=== PATIENT | female | born 1965 | race African-American/Black ===

== ENCOUNTER → 2017-03-13 | Outpatient (CLI) | payer OTHER ==
[2016-09-28 10:30] VITALS: BP 118/70
[~2017-03-13] MED LIST: AMLO-254 PO; CALC200T3 PO; CARV3.12 PO; DIAZEPAM10 MG PO; DOCU-27 PO; HYDR-2762 PO; HYDR-971 PO; HYDR59LO TP; IBUP-1060 PO; LEVE500T56 PO; LISI-334 PO; MECL25TA3 PO; METO25TA9 PO; SIMV40TA3 PO; ZOLP10TA PO
--- NOTE | 2017-03-13 16:19 | EEG ---
DATE OF SERVICE: 03/13/2017 EEG NUMBER: [id number]. OBJECTIVE: This is a 51-year-old -Prydeinig female patient with history of confusional episodes. EEG was requested to evaluate cerebral activity and help rule out seizure. MEDICATIONS: No anti-seizure medication. FINDINGS: 1. Background: The patient was recorded in the awake, drowsy, and sleep states. The overall background amplitude is 10-30 microvolts. A posterior dominant rhythm of 8 Hz is observed with superimposed fast activity in beta frequency. 2. Abnormalities: No specific epileptiform discharge or electrographic seizure is seen. No focal or diffuse slowing. 3. Activation: Hyperventilation was performed with good efforts and normal response. Intermittent photic stimulation was performed with photic driving. No specific epileptiform discharge or electrographic seizure induced. IMPRESSION: This EEG is a borderline study for the awake, drowsy, and sleep states. There is a superimposed fast activity in beta frequency throughout the entire recording. No focal, lateralizing, specific epileptiform discharge, or electrographic seizure is seen. LATIA FLORIAN MD DR: CANDELARIA/kem JOB#: [id number] / [id number] BUTCH
== END | disposition home or self-care (01) ==
LOC: RT 09:33
PROVIDERS: ATTEND Psychiatry & Neurology Neurology
DX: G47.33 Obstructive sleep apnea (adult) (pediatric) (principal)
CPT/HCPCS: 95816

== ENCOUNTER 2017-05-05 21:22 | Emergency (ER) | payer OTHER ==
[~2017-05-05 21:22] MED LIST changes: +DOCU-109 PO; -DOCU-27 PO
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
[2017-05-05] MEDS ORDERED: HYDROcodone/APAP 5/325MG 1 TAB TABLET PO ONE (22:30)
[2017-05-05] MEDS ORDERED: CYCL5TAB PO (23:17)
[2017-05-05 23:30] VITALS: BP 122/65
== END 2017-05-05 23:30 | disposition home or self-care (01) ==
LOC: ER 21:22
DX: S09.90XA Unspecified injury of head, initial encounter (principal); M54.2 Cervicalgia; I10 Essential (primary) hypertension; E78.00 Pure hypercholesterolemia, unspecified; Z86.73 Personal history of transient ischemic attack (TIA), and cerebral infarction without residual deficits; V43.62XA Car passenger injured in collision with other type car in traffic accident, initial encounter; Y93.89 Activity, other specified; Y99.8 Other external cause status; Y92.415 Exit ramp or entrance ramp of street or highway as the place of occurrence of the external cause
CPT/HCPCS: 70450; 72125; 99284-25

== ENCOUNTER → 2017-06-11 | Outpatient (CLI) | payer OTHER ==
[~2017-06-11] MED LIST changes: +CYCL5TAB PO
[2017-06-11 12:50] LABS: GFR 69.9
[2017-06-11 22:12] LABS: VITAMIN D25(OH)TOTAL 5.5 ng/mL (30.0-100.0)
== END | disposition home or self-care (01) ==
LOC: LAB 11:56
PROVIDERS: ATTEND Psychiatry & Neurology Neurology
DX: R53.1 Weakness (principal)
CPT/HCPCS: 36415; 82306; 82550; 82565; 82607; 84443; 84450; 84460; 84520; 85651

== ENCOUNTER 2017-07-19 06:14 | Observation (INO) | payer OTHER ==
[~2017-07-19] VITALS: Ht 162.6 cm; Wt 96.2 kg
[2017-07-19 06:57] LABS: BASO # 0.1 x10^3/uL (0.0-0.2); BASO % 1 % (0-3); EOS % 2 % (0-3); HEMATOCRIT 38.7 % (36.0-47.0); HEMOGLOBIN 12.7 g/dL (12.0-15.5); LYMPH # 2.5 x10^3/uL (1.0-4.8); LYMPH % 38 % (24-48); MEAN CORPUSCULAR HEMOGLOBIN 33 pg (25-35); MEAN CORPUSCULAR HGB CONC 33 g/dL (31-37); MEAN CORPUSCULAR VOLUME 99 fL (79-100); MONO % 10 % (0-9); NEUT % 49 % (31-73); PLATELET COUNT 280 x10^3/uL (140-400); RED CELL DISTRIBUTION WIDTH 14.6 % (11.5-14.5); WHITE BLOOD COUNT 6.5 x10^3/uL (4.0-11.0)
[2017-07-19] MEDS ORDERED: diphenhydrAMINE 50 MG/ML VIAL IVP ONE (07:00)
[2017-07-19] MEDS ORDERED: METOCLOPRAMIDE HCL 10 MG/2 ML VIAL. IV ONE (07:00)
[2017-07-19] MEDS ORDERED: IV NORMAL SALINE 1000ML BAG 1,000 ML IV ONE (07:00)
[2017-07-19 07:04] LABS: INR 1.1 (0.8-1.1); PROTHROMBIN TIME PATIENT 13.3 SEC (11.7-14.0)
--- NOTE | 2017-07-19 07:04 | PHYS DOC ---
Past Medical History Past Medical History: Anemia, CVA, High Cholesterol, Hypertension, Seizure, Stroke Past Surgical History: Appendectomy, , Tonsillectomy Alcohol Use: None Drug Use: None Adult General Chief Complaint Chief Complaint: HEADACHE HPI HPI 52-year-old female with a history of hypertension hyperlipidemia and seizure along with CVA in the past presenting to the emergency department today with headache. She describes her headache as severe. It was not sudden in onset. It radiates from the right side to the forehead. She has residual mild weakness from her previous CVA but denies any new numbness weakness or tingling. She denies vision changes cough fevers chills neck stiffness. She denies lethargy or malaise cyanosis cough or abdominal pain. Review of systems is negative for chest pain shortness of breath abdominal pain fevers. All other review of systems is negative unless otherwise noted in history of present illness. ED course: 52-year-old female presenting to the emergency department today with a headache. Triage vital signs show her to be afebrile with a normal heart rate. Otherwise unremarkable. Pertinent physical examination findings show mild residual weakness on the right upper and right lower extremity 4 out of 5. With 5 out of 5 strength in left upper and left lower extremity. This is not a new neurologic deficit. When compared to previous notations on May 05 seen in our hospital. Otherwise the remainder of the neurologic exam is unremarkable. There is no tenderness to palpation of the temporal arteries bilaterally. Patient remains intact. Symmetric facial smile. The patient was given IV fluids with metoclopramide and diphenhydramine for headache treatment. CT the head ordered. Initial CT scan showed residual findings similar to previous MRI in 2013. Initially radiologist did not compared to previous MRI and was just compared to previous CT scan. I discussed the case with the radiologist on the phone. She believes this finding to be chronic based on the radiologic appearance. Patient' s symptomatology has improved significantly. Repeat neurologic exam is unremarkable. I had a risk-benefit discussion with the patient about lumbar puncture. Initially I ordered the lumbar puncture with csf fluid analysis. After long discussion with the patient the patient refuses lumbar puncture. She understands that subarachnoid hemorrhage cannot be excluded on CT alone. It is probable this CT finding is chronic however given the patient's headache, it is my recommendation the patient received a lumbar puncture to rule out subarachnoid hemorrhage. In plain language, she demonstrates verbal understanding of risk of disability. She was then subsequent discharged home to return at any point if she wanted a lumbar puncture to be evaluated for subarachnoid hemorrhage. Review of Systems Review of Systems SEE ABOVE. Current Medications Current Medications Current Medications Medications (Trade) Dose Ordered Sig/Christina Start Time Stop Time Status Last Admin Dose Admin Diphenhydramine HCl (Benadryl) 50 mg 1X ONCE 07/19/17 07:00 07/19/17 07:01 DC 07/19/17 06:55 50 MG Metoclopramide HCl (Reglan) 20 mg 1X ONCE 07/19/17 07:00 07/19/17 07:01 DC 07/19/17 06:55 20 MG Sodium Chloride 1,000 ml @ 1,000 mls/hr 1X ONCE 07/19/17 07:00 07/19/17 07:59 DC 07/19/17 06:54 1,000 MLS/HR Allergies Allergies Allergies Coded Allergies Type Severity Reaction Last Updated Verified No Known Drug Allergies 09/27/16 No Physical Exam Physical Exam SEE ABOVE Constitutional: Well developed, well nourished, no acute distress, non-toxic appearance. [] HENT: Normocephalic, atraumatic, bilateral external ears normal, oropharynx moist, no oral exudates, nose normal. [] Eyes: PERRLA, EOMI, conjunctiva normal, no discharge. [] Neck: Normal range of motion, no tenderness, supple, no stridor. [] Cardiovascular:Heart rate regular rhythm, no murmur [] Lungs & Thorax: Bilateral breath sounds clear to auscultation [] Abdomen: Bowel sounds normal, soft, no tenderness, no masses, no pulsatile masses. [] Skin: Warm, dry, no erythema, no rash. [] Back: No tenderness, no CVA tenderness. [] Extremities: No tenderness, no cyanosis, no clubbing, ROM intact, no edema. [] Neurologic: Mental status: Awake oriented and alert x3 Cranial nerves: Extraocular movements intact, eyebrows nina bilaterally smile symmetric, uvula elevation, shoulder shrug intact, tongue protrusion normal DTRs: 2+ Sensation: equal and normal in all extremities Strength:see above Psychologic: Affect normal, judgement normal, mood normal. [] Current Patient Data Vital Signs Vital Signs Date Time Temp Pulse Resp B/P (MAP) Pulse Ox O2 Delivery O2 Flow Rate FiO2 07/19/17 06:20 97.8 73 18 132/83 (99) 98 Room Air 97.8 Lab Values Laboratory Tests Test 07/19/17 06:48 White Blood Count 6.5 x10^3/uL (4.0-11.0) Red Blood Count 3.90 x10^6/uL (3.50-5.40) Hemoglobin 12.7 g/dL (12.0-15.5) Hematocrit 38.7 % (36.0-47.0) Mean Corpuscular Volume 99 fL (79-100) Mean Corpuscular Hemoglobin 33 pg (25-35) Mean Corpuscular Hemoglobin Concent 33 g/dL (31-37) Red Cell Distribution Width 14.6 % (11.5-14.5) H Platelet Count 280 x10^3/uL (140-400) Neutrophils (%) (Auto) 49 % (31-73) Lymphocytes (%) (Auto) 38 % (24-48) Monocytes (%) (Auto) 10 % (0-9) H Eosinophils (%) (Auto) 2 % (0-3) Basophils (%) (Auto) 1 % (0-3) Neutrophils # (Auto) 3.2 x10^3uL (1.8-7.7) Lymphocytes # (Auto) 2.5 x10^3/uL (1.0-4.8) Monocytes # (Auto) 0.6 x10^3/uL (0.0-1.1) Eosinophils # (Auto) 0.1 x10^3/uL (0.0-0.7) Basophils # (Auto) 0.1 x10^3/uL (0.0-0.2) Prothrombin Time 13.3 SEC (11.7-14.0) Prothrombin Time INR 1.1 (0.8-1.1) PTT 30 SEC (24-38) Sodium Level 135 mmol/L (136-145) L Potassium Level 3.4 mmol/L (3.5-5.1) L Chloride Level 98 mmol/L (98-107) Carbon Dioxide Level 29 mmol/L (21-32) Anion Gap 8 (6-14) Blood Urea Nitrogen 7 mg/dL (7-20) Creatinine 0.8 mg/dL (0.6-1.0) Estimated GFR (Cockcroft-Gault) 90.4 Glucose Level 110 mg/dL (70-99) H Calcium Level 9.6 mg/dL (8.5-10.1) Laboratory Tests 07/19/17 06:48 Laboratory Tests 07/19/17 06:48 EKG EKG [] Radiology/Procedures Radiology/Procedures [] Course & Med Decision Making Course & Med Decision Making Pertinent Labs and Imaging studies reviewed. (See chart for details) [] Dragon Disclaimer Dragon Disclaimer This electronic medical record was generated, in whole or in part, using a voice recognition dictation system. Departure Departure Impression: Primary Impression: Other headache syndrome Disposition: HOME, SELF-CARE Condition: GUARDED Referrals: KATIE SIRAEL MD (PCP) Patient Instructions: General Headache Without Cause Additional Instructions: Thank you for allowing us to participate in your care today. Followup with your primary care physician in 3 days if your symptoms do not improve. Call your Primary Doctor tomorrow and inform them of your visit today. If you do not have a primary care provider you can ask for a list of our primary care providers. Return to the emergency department you have any new or concerning findings. This should be evaluated by the primary care physician and any necessary consulting services for continued management within a few days after discharge. Return to emergency room if you have any new or concerning symptoms including but not limited to fever, chills, nausea, vomiting, intractable pain, any new rashes, chest pain, shortness of air, uncontrolled bleeding, difficulty breathing, and/or vision loss. EDILIA VASQUEZ MD Jul 19, 2017 07:04
[2017-07-19 07:07] LABS: CALCIUM 9.6 mg/dL (8.5-10.1); CREATININE 0.8 mg/dL (0.6-1.0); GFR 90.4; POTASSIUM 3.4 mmol/L (3.5-5.1)
--- NOTE | 2017-07-19 07:33 | RAD ---
Exam performed: CT scan of the head without contrast. Date of Service: 08/07/17. Comparison: 05/05/17. Clinical History: Headache for 5 days. Technique: Helical acquisitions are obtained from the foramen magnum to the vertex without intravenous administration of contrast. Findings: There is a questionable area of linear high attenuation in the right posterior parietal region (best seen on axial image 14 through 16). This was perhaps previously identified however appears more prominent on today's study. There is mild expected dilatation of the occipital horn of the right ventricle. There is prominence of cortical sulci and ventricular system compatible with age related atrophy. There are areas of low-attenuation in both periventricular deep white matter suggesting small vessel ischemic changes. Normal li-white differentiation is maintained. There is no extra axial fluid collection, intraparenchymal hemorrhage or mass lesion. The visualized portions of the orbits, paranasal sinuses and the mastoid air cells appear clear. The calvarium is intact. Impression: 1. Questionable area of linear high attenuation in the right posterior parietal region appears more pronounced since previous exam. Although this is likely a chronic finding, however short-term interval follow-up CT scan of the head in approximately 24 hours may obtained to ensure interval stability to rule out remote possibility of a small subarachnoid hemorrhage. If symptoms persist, follow-up MRI of the brain with contrast may be of additional benefit. PQRS Compliance Statement: One or more of the following individualized dose reduction techniques were utilized for this examination: 1. Automated exposure control 2. Adjustment of the mA and/or kV according to patient size 3. Use of iterative reconstruction technique
[2017-07-19] MEDS ORDERED: HYDROmorphone 2 MG/ML VIAL IV PRN (09:30)
[2017-07-19] MEDS ORDERED: ONDANSETRON PF 4 MG/2 ML VIAL. IV PRN (10:30)
[2017-07-19] MEDS ORDERED: LIDOCAINE 1% / SOD BICARB 8.4% 20 ML VIAL. IJ ONE (10:45)
[2017-07-19] MEDS: MORPHINE SULFATE 2 MG/ML DISP.SYRIN. IV PRN ×3 (12:07→20:43)
--- NOTE | 2017-07-19 12:11 | RAD ---
Exam performed: Fluoroscopic-guided lumbar puncture . Indication: headache eval for xanthochromia and rbcs. Date of service: 07/19/2017 11:33 AM. Comparison: Again without contrast from earlier today Discussion: The procedure was explained to the patient and informed consent was obtained. Under fluoroscopy a site was marked at L3/4 level for subsequent lumbar puncture. The part was prepped and draped in the usual sterile fashion. Local anesthesia was given by injecting approximately 5 cc of 1% lidocaine at the premarked site. Thereafter a 20-gauge spinal needle was advanced from the pre-marked site into the thecal sac. Blood-tinged CSF was obtained initially which cleared up completely. Approximately 9 cc of clear CSF was collected in 4 separate vials. After withdrawing the needle dry sterile Band-Aid the at the puncture site. The patient tolerated the procedure well and no immediate complications were encountered. The total fluoroscopy time of 0.5 minutes was utilized and a single fluoroscopy image was saved to the PACS system. Impression: Technically successful fluoroscopy guided lumbar puncture which initially yielded blood-tinged CSF which completely cleared subsequently. This may be related to the trauma related to procedure. There is a question of subarachnoid hemorrhage and follow-up CT scan is still recommended. No immediate complications. Pathology is pending The results were discussed with Dr. Chu after completion of the procedure
[2017-07-19] MEDS ORDERED: PNEUMOCOCCAL VAX SCREEN BY RX. MC ONE (12:30)
[2017-07-19 12:39] LABS: CSF CLARITY HAZY
[2017-07-19 12:54] LABS: CSF PROTEIN 72.6 mg/dL (15.0-45.0)
[2017-07-19] MEDS ORDERED: CARV12.52 PO (12:58)
[2017-07-19 13:32] LABS: CSF COLOR RED
[2017-07-19] MEDS ORDERED: CONTRAST GIVEN MC PRN (13:45)
[2017-07-19] MEDS ORDERED: IOHEXOL 350 MG/ML 100 ML VIAL. IV ONE ×2 (13:45→14:30)
[2017-07-19] MEDS ORDERED: PNEUMOC CONJ VACC 23-VALENT 0.5 ML VIAL. VAX IM ONE (14:00)
[2017-07-19 15:00] VITALS: BP 139/94
--- NOTE | 2017-07-19 15:14 | PDOC2 ---
NEUROLOGY CONSULT Date of Admission Date of Admission DATE: 07/19/17 TIME: 15:02 Reason for Consult Reason for Consult: IMPRESSION: Severe headaches. SAH? Hx of chronic headaches. Hx of seizure. HTN HLD Obesity. RECOMMENDATIONS/PLAN: HCT and LP performed. CTA. Pain control. FU CSF results. HISTORY OF THE PRESENT ILLNESS: 52-y-old AA female patient with Hx of headaches came to the ER of [facility] on 07/19/17 with complaints of worsening of headache x 1 day. No focalized motor or sensory deficits. Her CT showed questionable SAH, so LP was performed but was a traumatic tap. However, due to elevated protein that might not be compatible with RMC, so CTA was considered. PAST MEDICAL HISTORY: Please see above. PAST SURGERY HISTORY: Appendectomy Rotate cuff surgery. ALLERGY: Reviewed. MEDICATIONS: Refer to [facility] FAMILY HISTORY: Non contributory. SOCIAL HISTORY: Lives at home. Denies current smoking, drinking, and illicit drug use. REVIEW OF SYSTEMS: Constitutional: No malnutrition, weight loss, cachexia. Head: No traumatic brain or head injury. Skin: No edema, or rash. Ear: No infection. Eyes: No vision loss or color blindness. Nose: No bleeding or purulent discharges. Hearing: No hearing decrease. Neck: No injury. Breast: No history of cancer, masses,or discharges. Cardiac: HTN, HLD. Pulmonary: No COPD. GI: No GI ulcer, GI bleeding. Urinary/genital: UTI. Endocrinologic: Obesity. Skeletomuscular: No muscular atrophy, deformity. Neurological: see HP. Psychiatric: Denies drug use/abuse. Otherwise, not -zhgxn review of systems. PHYSICAL EXAMINATION: General appearance is in acute distress. HEENT: Normocephalic and nontraumatic. Eyes, nose, ears, and throat are unremarkable. Neck is supple. No lymphadenopathy. No bruits are heard over the carotid artery. No crepitus. Cardiovascular: S1, S2, regular rate and rhythm. Pulmonary: Clear to auscultation bilaterally. Abdomen: Bowel sounds are positive. Abdomen is soft, nontender, and nondistended. Extremities: No rash, lesions, or edema. No restriction of range of motion NEUROLOGICAL EXAMINATION: Alert Oriented to time, place and person. PERRL. EOMI. CN: no focal findings. Muscle tone: within normal. Muscle strength: 5 DTR: 2 Plantar reflex: Flexor response bilaterally Gait: At baseline normal. Sensory exam: no abnormal findings. No cerebellar signs elicited. F-T-N test fine. Current Medications Current Medications Current Medications Metoclopramide HCl (Reglan) 20 mg 1X ONCE IV Last administered on 07/19/17 06: 55; Start 07/19/17 at 07:00; Stop 07/19/17 at 07:01; Status DC Diphenhydramine HCl (Benadryl) 50 mg 1X ONCE IVP Last administered on 06:55; Start 07/19/17 at 07:00; Stop 07/19/17 at 07:01; Status DC Sodium Chloride 1,000 ml @ 1,000 mls/hr 1X ONCE IV Last administered on 06:54; Start 07/19/17 at 07:00; Stop 07/19/17 at 07:59; Status DC Hydromorphone HCl (Dilaudid) 0.5 mg PRN Q30MIN PRN IV SEVERE PAIN; Start at 09:30 Ondansetron HCl (Zofran) 4 mg PRN Q8HRS PRN IV NAUSEA/VOMITING; Start 07/19/17 at 10:30; Stop 07/20/17 at 10:29 Morphine Sulfate 2 mg PRN Q2HR PRN IV PAIN Last administered on 07/19/17 12:07 ; Start 07/19/17 at 10:30; Stop 07/20/17 at 10:29 Sodium Chloride 1,000 ml @ 125 mls/hr Q8H IV ; Start 07/19/17 at 10:30; Stop 07/20/17 at 10:29 Lidocaine/Sodium Bicarbonate (Buffered Lidocaine 1%) 20 ml 1X ONCE IJ ; Start 07/19/17 at 10:45; Stop 07/19/17 at 10:46; Status DC Pneumococcal Polyvalent Vaccine (Do NOT chart on this placeholder) 1 each 1X ONCE MC ; Start 07/19/17 at 12:30; Stop 07/19/17 at 12:31; Status UNV Pneumococcal Polyvalent Vaccine (Pneumovax 23) 0.5 ml ONCE ONCE VAX IM ; Start 07/19/17 at 14:00; Stop 07/19/17 at 14:01; Status DC Iohexol (Omnipaque 350 Mg/ml) 75 ml 1X ONCE IV Last administered on 07/19/17t 13:45; Start 07/19/17 at 13:45; Stop 07/19/17 at 13:46; Status DC Info (Do NOT chart on this entry -- for MONITORING) 1 each PRN DAILY PRN MC SEE COMMENTS; Start 07/19/17 at 13:45; Stop 07/21/17 at 13:44 Iohexol (Omnipaque 350 Mg/ml) 75 ml 1X ONCE IV ; Start 07/19/17 at 14:30; Stop 07/19/17 at 14:31; Status DC Active Scripts Active Cyclobenzaprine Hcl 5 Mg Tablet 1 Tab PO TID PRN [place] 5-325 Tablet (Acetaminophen/Hydrocodone Bitart) 1 Each Tablet 1-2 Tab PO Q4-6HRS Colace (Docusate Sodium) 100 Mg Capsule 1 Cap PO BID Ibuprofen 800 Mg Tablet 800 Mg PO PRN Q6HRS PRN Meclizine Hcl 25 Mg Tablet 25 Mg PO BID 30 Days Simvastatin 40 Mg Tablet 40 Mg PO HS Reported Carvedilol 12.5 Mg Tablet 12.5 Mg PO BIDWMEALS Hydrocortisone 59 Ml Lotion 1 Dolly TP BID Tums (Calcium Carbonate) 200 Mg Tab.chew 200 Mg PO Amlodipine-Atorvast 10-10 Mg (Amlodipine/Atorvastatin) 1 Each Tablet 1 Each PO Diazepam 10 Mg Tablet 10 Mg PO Hydrocodone-Apap 7.5-325 (Hydrocodone Bit/Acetaminophen) 1 Each Tablet 1 Each PO Ambien (Zolpidem Tartrate) 10 Mg Tablet 10 Mg PO Lisinopril 20 Mg Tablet 20 Mg PO Allergies Allergies: Coded Allergies: No Known Drug Allergies (Unverified , 09/27/16) Vitals VITALS Vital Signs Date Time Temp Pulse Resp B/P (MAP) Pulse Ox O2 Delivery O2 Flow Rate FiO2 07/19/17 13:06 Room Air 07/19/17 12:54 98 07/19/17 06:20 97.8 73 18 132/83 (99) 97.8 Labs Labs Laboratory Tests Test 07/19/17 06:48 07/19/17 11:50 White Blood Count 6.5 x10^3/uL (4.0-11.0) Red Blood Count 3.90 x10^6/uL (3.50-5.40) Hemoglobin 12.7 g/dL (12.0-15.5) Hematocrit 38.7 % (36.0-47.0) Mean Corpuscular Volume 99 fL (79-100) Mean Corpuscular Hemoglobin 33 pg (25-35) Mean Corpuscular Hemoglobin Concent 33 g/dL (31-37) Red Cell Distribution Width 14.6 % (11.5-14.5) Platelet Count 280 x10^3/uL (140-400) Neutrophils (%) (Auto) 49 % (31-73) Lymphocytes (%) (Auto) 38 % (24-48) Monocytes (%) (Auto) 10 % (0-9) Eosinophils (%) (Auto) 2 % (0-3) Basophils (%) (Auto) 1 % (0-3) Neutrophils # (Auto) 3.2 x10^3uL (1.8-7.7) Lymphocytes # (Auto) 2.5 x10^3/uL (1.0-4.8) Monocytes # (Auto) 0.6 x10^3/uL (0.0-1.1) Eosinophils # (Auto) 0.1 x10^3/uL (0.0-0.7) Basophils # (Auto) 0.1 x10^3/uL (0.0-0.2) Prothrombin Time 13.3 SEC (11.7-14.0) Prothromb Time International Ratio 1.1 (0.8-1.1) Activated Partial Thromboplast Time 30 SEC (24-38) Sodium Level 135 mmol/L (136-145) Potassium Level 3.4 mmol/L (3.5-5.1) Chloride Level 98 mmol/L (98-107) Carbon Dioxide Level 29 mmol/L (21-32) Anion Gap 8 (6-14) Blood Urea Nitrogen 7 mg/dL (7-20) Creatinine 0.8 mg/dL (0.6-1.0) Estimated GFR (Cockcroft-Gault) 90.4 Glucose Level 110 mg/dL (70-99) Calcium Level 9.6 mg/dL (8.5-10.1) CSF Color Red CSF Clarity Hazy CSF WBC 3 CSF RBC 642 CSF Glucose 65 mg/dL (37-70) CSF Total Protein 72.6 mg/dL (15.0-45.0) Laboratory Tests Test 07/19/17 06:48 07/19/17 11:50 White Blood Count 6.5 x10^3/uL (4.0-11.0) Red Blood Count 3.90 x10^6/uL (3.50-5.40) Hemoglobin 12.7 g/dL (12.0-15.5) Hematocrit 38.7 % (36.0-47.0) Mean Corpuscular Volume 99 fL (79-100) Mean Corpuscular Hemoglobin 33 pg (25-35) Mean Corpuscular Hemoglobin Concent 33 g/dL (31-37) Red Cell Distribution Width 14.6 % (11.5-14.5) Platelet Count 280 x10^3/uL (140-400) Neutrophils (%) (Auto) 49 % (31-73) Lymphocytes (%) (Auto) 38 % (24-48) Monocytes (%) (Auto) 10 % (0-9) Eosinophils (%) (Auto) 2 % (0-3) Basophils (%) (Auto) 1 % (0-3) Neutrophils # (Auto) 3.2 x10^3uL (1.8-7.7) Lymphocytes # (Auto) 2.5 x10^3/uL (1.0-4.8) Monocytes # (Auto) 0.6 x10^3/uL (0.0-1.1) Eosinophils # (Auto) 0.1 x10^3/uL (0.0-0.7) Basophils # (Auto) 0.1 x10^3/uL (0.0-0.2) Prothrombin Time 13.3 SEC (11.7-14.0) Prothromb Time International Ratio 1.1 (0.8-1.1) Activated Partial Thromboplast Time 30 SEC (24-38) Sodium Level 135 mmol/L (136-145) Potassium Level 3.4 mmol/L (3.5-5.1) Chloride Level 98 mmol/L (98-107) Carbon Dioxide Level 29 mmol/L (21-32) Anion Gap 8 (6-14) Blood Urea Nitrogen 7 mg/dL (7-20) Creatinine 0.8 mg/dL (0.6-1.0) Estimated GFR (Cockcroft-Gault) 90.4 Glucose Level 110 mg/dL (70-99) Calcium Level 9.6 mg/dL (8.5-10.1) CSF Color Red CSF Clarity Hazy CSF WBC 3 CSF RBC 642 CSF Glucose 65 mg/dL (37-70) CSF Total Protein 72.6 mg/dL (15.0-45.0) LATIA FLORIAN MD Jul 19, 2017 15:14
[2017-07-19] MEDS: GABAPENTIN 100 MG CAPSULE. PO SCH ×2 (15:37→20:43)
--- NOTE | 2017-07-19 15:48 | RAD ---
CTA of the head with contrast 07/19/2017 Clinical history: Possible subarachnoid hemorrhage seen on recent CT scan. Technique: After the intravenous administration of 75 cc of Omnipaque 350, contiguous, 0.625 mm axial sections were obtained through the head. 2 mm reconstructed axial and 3-D mid sagittal and coronal along with volume rendered 3-D reconstructed images were obtained. Findings: Comparison is made to patient's CT scan of the head performed earlier today. Additional comparison is made to an MRI of the brain dated 04/29/2014. The petrous, cavernous and supraclinoid portions of the internal carotid arteries are within normal limits. The distal vertebral arteries and basilar artery are within normal limits. The A1 segment of the left intracerebral artery is hypoplastic. This is a normal variation. The anterior, middle and posterior cerebral arteries and their branches are within normal limits. No area of stenosis or occlusion is noted. No intracranial aneurysm is seen. No vascular malformation is noted. No area of abnormal contrast enhancement is seen. Impression: Negative study.
[2017-07-19] MEDS: IV NORMAL SALINE 1000ML BAG 1,000 ML IV SCH ×2 (18:06→18:30)
[2017-07-19 19:00] VITALS: BP 141/82
[2017-07-19] MEDS ORDERED: ACETAMINOPHEN 325 MG TABLET. PO PRN (20:30)
[2017-07-19] MEDS ORDERED: ZOLPIDEM 5 MG TABLET. PO PRN (20:30)
[2017-07-19] MEDS: diazePAM 5 MG TABLET PO SCH (20:46)
[2017-07-20] MEDS: IV NORMAL SALINE 1000ML BAG 1,000 ML IV SCH (02:30)
[2017-07-20 06:51] LABS: BASO % 1 % (0-3); EOS % 2 % (0-3); HEMATOCRIT 36.5 % (36.0-47.0); HEMOGLOBIN 12.1 g/dL (12.0-15.5); LYMPH % 47 % (24-48); MEAN CORPUSCULAR HEMOGLOBIN 33 pg (25-35); MEAN CORPUSCULAR HGB CONC 33 g/dL (31-37); MEAN CORPUSCULAR VOLUME 99 fL (79-100); MONO % 10 % (0-9); NEUT % 42 % (31-73); PLATELET COUNT 273 x10^3/uL (140-400); RED BLOOD COUNT 3.68 x10^6/uL (3.50-5.40); RED CELL DISTRIBUTION WIDTH 14.2 % (11.5-14.5); WHITE BLOOD COUNT 6.4 x10^3/uL (4.0-11.0)
[2017-07-20 07:14] LABS: CALCIUM 8.4 mg/dL (8.5-10.1); CREATININE 0.9 mg/dL (0.6-1.0); POTASSIUM 3.6 mmol/L (3.5-5.1)
[2017-07-20 07:44] VITALS: BP 106/58
[2017-07-20] MEDS ORDERED: IBUPROFEN 800 MG TABLET. PO PRN (09:00)
[2017-07-20] MEDS ORDERED: PROCHLORPERAZINE 10 MG/2 ML VIAL. IV ONE (09:00)
[2017-07-20] MEDS ORDERED: CYCLOBENZAPRINE 10 MG TABLET. PO PRN (09:00)
[2017-07-20] MEDS ORDERED: diphenhydrAMINE 50 MG/ML VIAL IVP ONE (09:00)
--- NOTE | 2017-07-20 09:15 | PDOC1 ---
History and Physical Date of Admission Date of Admission DATE: 07/19/17 Identification/Chief Complaint Chief Complaint Headache Problems: Source Source: Patient History of Present Illness History of Present Illness Pt states that she has had a headache for the past 4 days prior to admission. She had tried hydrocodone and ibuprofen at home. The hydrocodone did not help it at all, the ibuprofen kind of helped dull the pain. She woke up yesterday morning and felt like she had been hit in the head with a sledge hammer. Tried to get up to go to the bathroom and felt very weak so used her life alert bracelet. Had numbness in her left hand on the way to the ER. Headache still has not gone away. Currently rating at an 8. At it's worst it has been a 10. At it's best she rates it at an 8. Says that she has been seeing spots which seem to morph into human figures. This has never happened to her before. She has been on Topamax in the past. Has not been on that medication for a year. When she was on it she wasn't having headaches. Before the last couple of days she says that her headaches were intermittent. Having difficulty reading and watching TV. Pt has been gait instability issues for a while but it has been worse since her headaches. Her arms feel weak. Past Medical History Cardiovascular: HTN, Hyperlipidemia Pulmonary: No pertinent hx CENTRAL NERVOUS SYSTEM: CVA, Seizure GI: GERD Heme/Onc: Iron deficiency Anemia Hepatobiliary: No pertinent hx Psych: Anxiety, Depression Musculoskeletal: low back pain, Osteoarthritis Rheumatologic: No pertinent hx Infectious disease: No pertinent hx ENT: No pertinent hx Renal/: No pertinent hx Endocrine: No pertinent hx Dermatology: No pertinent hx Past Surgical History Past Surgical History: Appendectomy, , Tonsillectomy, Hysterectomy Family History Family History: Cancer (Lung), Coronary Artery Disease, Heart Disease Social History Smoke: <1 pack per day ALCOHOL: occassional Drugs: None Current Problem List Problem List Problems Medical Problems: (1) Other headache syndrome Status: Acute Problems: Current Medications Current Medications Current Medications Metoclopramide HCl (Reglan) 20 mg 1X ONCE IV Last administered on 07/19/17t 06: 55; Start 07/19/17 at 07:00; Stop 07/19/17 at 07:01; Status DC Diphenhydramine HCl (Benadryl) 50 mg 1X ONCE IVP Last administered on 06:55; Start 07/19/17 at 07:00; Stop 07/19/17 at 07:01; Status DC Sodium Chloride 1,000 ml @ 1,000 mls/hr 1X ONCE IV Last administered on 06:54; Start 07/19/17 at 07:00; Stop 07/19/17 at 07:59; Status DC Hydromorphone HCl (Dilaudid) 0.5 mg PRN Q30MIN PRN IV SEVERE PAIN; Start at 09:30 Ondansetron HCl (Zofran) 4 mg PRN Q8HRS PRN IV NAUSEA/VOMITING Last administered on 07/19/17 15:42; Start 07/19/17 at 10:30; Stop 07/20/17 at 10:29 Morphine Sulfate 2 mg PRN Q2HR PRN IV PAIN Last administered on 07/19/17 20:43 ; Start 07/19/17 at 10:30; Stop 07/20/17 at 10:29 Sodium Chloride 1,000 ml @ 125 mls/hr Q8H IV Last administered on 07/20/17 02: 30; Start 07/19/17 at 10:30; Stop 07/20/17 at 10:29 Lidocaine/Sodium Bicarbonate (Buffered Lidocaine 1%) 20 ml 1X ONCE IJ ; Start 07/19/17 at 10:45; Stop 07/19/17 at 10:46; Status DC Pneumococcal Polyvalent Vaccine (Do NOT chart on this placeholder) 1 each 1X ONCE MC ; Start 07/19/17 at 12:30; Stop 07/19/17 at 12:31; Status UNV Pneumococcal Polyvalent Vaccine (Pneumovax 23) 0.5 ml ONCE ONCE VAX IM ; Start 07/19/17 at 14:00; Stop 07/19/17 at 14:01; Status DC Iohexol (Omnipaque 350 Mg/ml) 75 ml 1X ONCE IV Last administered on 07/19/17 13:45; Start 07/19/17 at 13:45; Stop 07/19/17 at 13:46; Status DC Info (Do NOT chart on this entry -- for MONITORING) 1 each PRN DAILY PRN MC SEE COMMENTS; Start 07/19/17 at 13:45; Stop 07/21/17 at 13:44 Iohexol (Omnipaque 350 Mg/ml) 75 ml 1X ONCE IV ; Start 07/19/17 at 14:30; Stop 07/19/17 at 14:31; Status DC Gabapentin (Neurontin) 100 mg TID PO Last administered on 07/19/17 20:43; Start 07/19/17 at 15:30 Diazepam (Valium) 10 mg BID PO Last administered on 07/19/17t 20:46; Start at 21:00 Zolpidem Tartrate (Ambien) 5 mg PRN QHS PRN PO INSOMNIA, MAY REPEAT IN 1HR; Start 07/19/17 at 20:30 Acetaminophen (Tylenol) 650 mg PRN Q6HRS PRN PO HEADACHE; Start 07/19/17 at 20: 30 Prochlorperazine Edisylate (Compazine) 10 mg 1X ONCE IV ; Start 07/20/17 at 09: 00; Stop 07/20/17 at 09:02; Status DC Diphenhydramine HCl (Benadryl) 25 mg 1X ONCE IVP ; Start 07/20/17 at 09:00; Stop 07/20/17 at 09:02; Status DC Active Scripts Active Cyclobenzaprine Hcl 5 Mg Tablet 1 Tab PO TID PRN [place] 5-325 Tablet (Acetaminophen/Hydrocodone Bitart) 1 Each Tablet 1-2 Tab PO Q4-6HRS Colace (Docusate Sodium) 100 Mg Capsule 1 Cap PO BID Ibuprofen 800 Mg Tablet 800 Mg PO PRN Q6HRS PRN Meclizine Hcl 25 Mg Tablet 25 Mg PO BID 30 Days Simvastatin 40 Mg Tablet 40 Mg PO HS Reported Carvedilol 12.5 Mg Tablet 12.5 Mg PO BIDWMEALS Hydrocortisone 59 Ml Lotion 1 Dolly TP BID Tums (Calcium Carbonate) 200 Mg Tab.chew 200 Mg PO Amlodipine-Atorvast 10-10 Mg (Amlodipine/Atorvastatin) 1 Each Tablet 1 Each PO Diazepam 10 Mg Tablet 10 Mg PO Hydrocodone-Apap 7.5-325 (Hydrocodone Bit/Acetaminophen) 1 Each Tablet 1 Each PO Ambien (Zolpidem Tartrate) 10 Mg Tablet 10 Mg PO Lisinopril 20 Mg Tablet 20 Mg PO Allergies Allergies: Coded Allergies: No Known Drug Allergies (Unverified , 09/27/16) ROS General: YES: Chills, Fatigue, Appetite PSYCHOLOGICAL ROS: No: Anxiety, Depression Eyes: Yes Blurry vision, Yes Other HEENT: YES: Heacaches, Visual Changes, No: Nasal congestion, Sore Throat ALLERGY AND IMMUNOLOGY: No: Hives, Post Nasal Drip Hematological and Lymphatic: No: Bleeding Problems, Blood Clots Respiratory: No: Cough, Shortness of breath, Wheezing Cardiovascular: No Chest Pain, No Palpitations, No Edema Gastrointestinal: Yes Abdominal Pain (yesterday after LP, has resolved), No Nausea, No Vomiting, No Diarrhea, No Constipation Genitourinary: No Dysuria, No Urgency Musculoskeletal: Yes Gait Disturbance, Yes Muscular Weakness Neurological: Yes Headaches, Yes Impaired Coord/balance, Yes Visual Changes, Yes Weakness, No Numbness/Tingling Skin: No Rash, No Skin Lesion Changes Physical Exam General: Alert, Oriented X3, Cooperative, No acute distress HEENT: Atraumatic, PERRLA, EOMI, Mucous membr. moist/pink Lungs: Clear to auscultation, Normal air movement Heart: RRR, no rubs, no gallops, no murmurs Abdomen: Normal bowel sounds, Soft, No tenderness, No hepatosplenomegaly Extremities: No clubbing, No cyanosis, No edema Skin: No rashes, No breakdown, No significant lesion Neuro: Normal speech, Cranial nerves 3-12 NL Psych/Mental Status: Mental status NL, Mood NL Vitals Vitals Vital Signs Date Time Temp Pulse Resp B/P (MAP) Pulse Ox O2 Delivery O2 Flow Rate FiO2 07/20/17 07:44 97.6 73 16 106/58 (74) 96 Room Air 97.6 Labs Labs Laboratory Tests Test 07/19/17 06:48 07/19/17 11:50 07/20/17 06:30 White Blood Count 6.5 x10^3/uL (4.0-11.0) 6.4 x10^3/uL (4.0-11.0) Red Blood Count 3.90 x10^6/uL (3.50-5.40) 3.68 x10^6/uL (3.50-5.40) Hemoglobin 12.7 g/dL (12.0-15.5) 12.1 g/dL (12.0-15.5) Hematocrit 38.7 % (36.0-47.0) 36.5 % (36.0-47.0) Mean Corpuscular Volume 99 fL (79-100) 99 fL (79-100) Mean Corpuscular Hemoglobin 33 pg (25-35) 33 pg (25-35) Mean Corpuscular Hemoglobin Concent 33 g/dL (31-37) 33 g/dL (31-37) Red Cell Distribution Width 14.6 % (11.5-14.5) 14.2 % (11.5-14.5) Platelet Count 280 x10^3/uL (140-400) 273 x10^3/uL (140-400) Neutrophils (%) (Auto) 49 % (31-73) 42 % (31-73) Lymphocytes (%) (Auto) 38 % (24-48) 47 % (24-48) Monocytes (%) (Auto) 10 % (0-9) 10 % (0-9) Eosinophils (%) (Auto) 2 % (0-3) 2 % (0-3) Basophils (%) (Auto) 1 % (0-3) 1 % (0-3) Neutrophils # (Auto) 3.2 x10^3uL (1.8-7.7) 2.7 x10^3uL (1.8-7.7) Lymphocytes # (Auto) 2.5 x10^3/uL (1.0-4.8) 3.0 x10^3/uL (1.0-4.8) Monocytes # (Auto) 0.6 x10^3/uL (0.0-1.1) 0.6 x10^3/uL (0.0-1.1) Eosinophils # (Auto) 0.1 x10^3/uL (0.0-0.7) 0.1 x10^3/uL (0.0-0.7) Basophils # (Auto) 0.1 x10^3/uL (0.0-0.2) 0.0 x10^3/uL (0.0-0.2) Prothrombin Time 13.3 SEC (11.7-14.0) Prothromb Time International Ratio 1.1 (0.8-1.1) Activated Partial Thromboplast Time 30 SEC (24-38) Sodium Level 135 mmol/L (136-145) 138 mmol/L (136-145) Potassium Level 3.4 mmol/L (3.5-5.1) 3.6 mmol/L (3.5-5.1) Chloride Level 98 mmol/L (98-107) 102 mmol/L (98-107) Carbon Dioxide Level 29 mmol/L (21-32) 32 mmol/L (21-32) Anion Gap 8 (6-14) 4 (6-14) Blood Urea Nitrogen 7 mg/dL (7-20) 8 mg/dL (7-20) Creatinine 0.8 mg/dL (0.6-1.0) 0.9 mg/dL (0.6-1.0) Estimated GFR (Cockcroft-Gault) 90.4 79.0 Glucose Level 110 mg/dL (70-99) 97 mg/dL (70-99) Calcium Level 9.6 mg/dL (8.5-10.1) 8.4 mg/dL (8.5-10.1) CSF Color Red CSF Clarity Hazy CSF WBC 3 CSF RBC 642 CSF Glucose 65 mg/dL (37-70) CSF Total Protein 72.6 mg/dL (15.0-45.0) Laboratory Tests Test 07/19/17 11:50 07/20/17 06:30 CSF Color Red CSF Clarity Hazy CSF WBC 3 CSF RBC 642 CSF Glucose 65 mg/dL (37-70) CSF Total Protein 72.6 mg/dL (15.0-45.0) White Blood Count 6.4 x10^3/uL (4.0-11.0) Red Blood Count 3.68 x10^6/uL (3.50-5.40) Hemoglobin 12.1 g/dL (12.0-15.5) Hematocrit 36.5 % (36.0-47.0) Mean Corpuscular Volume 99 fL (79-100) Mean Corpuscular Hemoglobin 33 pg (25-35) Mean Corpuscular Hemoglobin Concent 33 g/dL (31-37) Red Cell Distribution Width 14.2 % (11.5-14.5) Platelet Count 273 x10^3/uL (140-400) Neutrophils (%) (Auto) 42 % (31-73) Lymphocytes (%) (Auto) 47 % (24-48) Monocytes (%) (Auto) 10 % (0-9) Eosinophils (%) (Auto) 2 % (0-3) Basophils (%) (Auto) 1 % (0-3) Neutrophils # (Auto) 2.7 x10^3uL (1.8-7.7) Lymphocytes # (Auto) 3.0 x10^3/uL (1.0-4.8) Monocytes # (Auto) 0.6 x10^3/uL (0.0-1.1) Eosinophils # (Auto) 0.1 x10^3/uL (0.0-0.7) Basophils # (Auto) 0.0 x10^3/uL (0.0-0.2) Sodium Level 138 mmol/L (136-145) Potassium Level 3.6 mmol/L (3.5-5.1) Chloride Level 102 mmol/L (98-107) Carbon Dioxide Level 32 mmol/L (21-32) Anion Gap 4 (6-14) Blood Urea Nitrogen 8 mg/dL (7-20) Creatinine 0.9 mg/dL (0.6-1.0) Estimated GFR (Cockcroft-Gault) 79.0 Glucose Level 97 mg/dL (70-99) Calcium Level 8.4 mg/dL (8.5-10.1) VTE Prophylaxis Ordered VTE Prophylaxis Devices: Yes VTE Pharmacological Prophylaxi: No Assessment/Plan Assessment/Plan Pt is a 52yo AAF admitted with migraine COREA with concern for possible subarachnoid hemorrhage 1)Migraine COREA- Neurology following. Pt had some abnormal results on initial CT that could be related to her previous stroke with recommendation to repeat in 24 hours. LP had initial blood tinged fluid but then cleared. Pt still with headache with some visual disturbances. Repeat CT pending 2)Hx CVA 3)Hx of seizures 4)HTN- pt's blood pressure currently well controlled without medications. Will hold home meds 5)GERD- pt continued on Omeprazole 6)Anxiety- pt continued on Diazepam 10mg BID 7)OA/Chronic low back pain- pt continued on Lortab 7.5/325mg 8)HLD- pt continued on Atorvastatin Resolved Conditions: Hyponatremia, Hypokalemia KATIE ISRAEL MD Jul 20, 2017 09:15
[2017-07-20] MEDS: HYDROcodone/APAP 7.5/325MG 1 TAB TABLET PO PRN (09:36)
[2017-07-20] MEDS: GABAPENTIN 100 MG CAPSULE. PO SCH ×3 (09:37→20:22)
[2017-07-20] MEDS: diazePAM 5 MG TABLET PO SCH ×2 (09:37→20:21)
[2017-07-20 11:13] VITALS: BP 100/61
--- NOTE | 2017-07-20 12:03 | RAD ---
Examination: CT head without contrast History: History of continued headache. Comparison: 07/19/2017 Technique: Axial CT images of the head was performed without contrast. PQRS Compliance Statement: One or more of the following individualized dose reduction techniques were utilized for this examination: 1. Automated exposure control 2. Adjustment of the mA and/or kV according to patient size 3. Use of iterative reconstruction technique Findings: There is no evidence of midline shift. There is subtle hyperdensity identified in the right posterior parietal region grossly similar to prior exam could be subtle subarachnoid bleed or chronic hemosiderin staining as noted on prior exam. Moderate bilateral periventricular white matter hypodensities likely chronic small vessel ischemic disease. The basal cisterns are uneffaced. The visualized paranasal sinuses, mastoid air cells are clear. Impression: 1. Subtle hyperdensity identified in the right posterior parietal region adjacent to the right ventricle grossly similar to prior exam could be subtle unchanged subarachnoid bleed or chronic hemosiderin staining as noted on prior exam.
--- NOTE | 2017-07-20 14:55 | PDOC ---
PROGRESS NOTES Assessment Assessment Severe headaches x 1 to 2 days before admission. SAH? Hx of chronic headaches. Hx of seizure. HTN HLD Obesity. No evidence of intracranial aneurysm or AVM. RECOMMENDATIONS/PLAN: Brain MRI on 07/20 a 24 hours after LP. Pain control. FU CSF results. She declined EEG study. CTA: negative. HISTORY OF THE PRESENT ILLNESS: 52-y-old AA female patient with Hx of headaches came to the ER of [facility] on 07/19/17 with complaints of worsening of headache x 1 day. No focalized motor or sensory deficits. Her CT showed questionable SAH, so LP was performed but was a traumatic tap. However, due to elevated protein that might not be compatible with RMC, so CTA was considered. She stated her headaches were much improved on 06/19. PAST MEDICAL HISTORY: Please see above. PAST SURGERY HISTORY: Appendectomy Rotate cuff surgery. ALLERGY: Reviewed. MEDICATIONS: Refer to [facility] FAMILY HISTORY: Non contributory. SOCIAL HISTORY: Lives at home. Denies current smoking, drinking, and illicit drug use. REVIEW OF SYSTEMS: Constitutional: No malnutrition, weight loss, cachexia. Head: No traumatic brain or head injury. Skin: No edema, or rash. Ear: No infection. Eyes: No vision loss or color blindness. Nose: No bleeding or purulent discharges. Hearing: No hearing decrease. Neck: No injury. Breast: No history of cancer, masses,or discharges. Cardiac: HTN, HLD. Pulmonary: No COPD. GI: No GI ulcer, GI bleeding. Urinary/genital: UTI. Endocrinologic: Obesity. Skeletomuscular: No muscular atrophy, deformity. Neurological: see HP. Psychiatric: Denies drug use/abuse. Otherwise, not -wrykk review of systems. PHYSICAL EXAMINATION: General appearance is in subacute distress. HEENT: Normocephalic and nontraumatic. Eyes, nose, ears, and throat are unremarkable. Neck is supple. No lymphadenopathy. No bruits are heard over the carotid artery. No crepitus. Cardiovascular: S1, S2, regular rate and rhythm. Pulmonary: Clear to auscultation bilaterally. Abdomen: Bowel sounds are positive. Abdomen is soft, nontender, and nondistended. Extremities: No rash, lesions, or edema. No restriction of range of motion NEUROLOGICAL EXAMINATION: Alert Oriented to time, place and person. PERRL. EOMI. CN: no focal findings. Muscle tone: within normal. Muscle strength: 5 DTR: 2 Plantar reflex: Flexor response bilaterally Gait: At baseline normal. Sensory exam: no abnormal findings. No cerebellar signs elicited. F-T-N test fine. Objective Objective Vital Signs Date Time Temp Pulse Resp B/P (MAP) Pulse Ox O2 Delivery O2 Flow Rate FiO2 07/20/17 11:13 97.5 77 16 100/61 (74) 96 Room Air 97.5 Vitals Signs Vitals VS - Last 72 Hours, by Label Date Time Temp Pulse Resp B/P (MAP) Pulse Ox O2 Delivery O2 Flow Rate FiO2 07/20/17 11:13 97.5 77 16 100/61 (74) 96 Room Air 97.5 07/20/17 09:36 16 Room Air 07/20/17 08:00 Room Air 07/20/17 07:44 97.6 73 16 106/58 (74) 96 Room Air 97.6 07/19/17 20:43 100 Room Air 07/19/17 20:00 Room Air 07/19/17 19:00 98.1 87 16 141/82 (101) 100 Room Air 98.1 07/19/17 18:06 96 Room Air 07/19/17 15:36 Room Air 07/19/17 15:00 98.4 91 20 139/94 (109) 96 Room Air 98.4 07/19/17 13:06 Room Air 07/19/17 12:07 Room Air 07/19/17 10:20 72 20 136/82 (100) 98 Room Air 07/19/17 09:10 80 19 132/80 (97) 98 Room Air 07/19/17 08:25 75 20 136/72 (93) 97 Room Air 07/19/17 07:25 71 18 135/75 (95) 98 Room Air Laboratory Laboratory Laboratory Tests Test 07/20/17 06:30 White Blood Count 6.4 x10^3/uL (4.0-11.0) Red Blood Count 3.68 x10^6/uL (3.50-5.40) Hemoglobin 12.1 g/dL (12.0-15.5) Hematocrit 36.5 % (36.0-47.0) Mean Corpuscular Volume 99 fL (79-100) Mean Corpuscular Hemoglobin 33 pg (25-35) Mean Corpuscular Hemoglobin Concent 33 g/dL (31-37) Red Cell Distribution Width 14.2 % (11.5-14.5) Platelet Count 273 x10^3/uL (140-400) Neutrophils (%) (Auto) 42 % (31-73) Lymphocytes (%) (Auto) 47 % (24-48) Monocytes (%) (Auto) 10 % (0-9) Eosinophils (%) (Auto) 2 % (0-3) Basophils (%) (Auto) 1 % (0-3) Neutrophils # (Auto) 2.7 x10^3uL (1.8-7.7) Lymphocytes # (Auto) 3.0 x10^3/uL (1.0-4.8) Monocytes # (Auto) 0.6 x10^3/uL (0.0-1.1) Eosinophils # (Auto) 0.1 x10^3/uL (0.0-0.7) Basophils # (Auto) 0.0 x10^3/uL (0.0-0.2) Sodium Level 138 mmol/L (136-145) Potassium Level 3.6 mmol/L (3.5-5.1) Chloride Level 102 mmol/L (98-107) Carbon Dioxide Level 32 mmol/L (21-32) Anion Gap 4 (6-14) Blood Urea Nitrogen 8 mg/dL (7-20) Creatinine 0.9 mg/dL (0.6-1.0) Estimated GFR (Cockcroft-Gault) 79.0 Glucose Level 97 mg/dL (70-99) Calcium Level 8.4 mg/dL (8.5-10.1) Medication Medications Current Medications Acetaminophen (Tylenol) 650 mg PRN Q6HRS PRN PO HEADACHE; Start 07/19/17 at 20: 30 Acetaminophen/ Hydrocodone Bitart (Lortab 7.5/325) 1 tab PRN Q6HRS PRN PO pain Last administered on 07/20/17t 09:36; Start 07/20/17 at 09:00 Atorvastatin Calcium (Lipitor) 20 mg QHS PO ; Start 07/20/17 at 21:00 Cyclobenzaprine HCl (Flexeril) 5 mg PRN TID PRN PO MUSCLE SPASMS; Start at 09:00 Diazepam (Valium) 10 mg BID PO Last administered on 07/20/17 09:37; Start at 21:00 Diphenhydramine HCl (Benadryl) 25 mg 1X ONCE IVP Last administered on 09:36; Start 07/20/17 at 09:00; Stop 07/20/17 at 09:02; Status DC Gabapentin (Neurontin) 100 mg TID PO Last administered on 07/20/17 14:27; Start 07/19/17 at 15:30 Ibuprofen (Motrin) 800 mg PRN Q6HRS PRN PO INFLAMMATION; Start 07/20/17 at 09:00 ; Stop 07/20/17 at 11:11; Status DC Prochlorperazine Edisylate (Compazine) 10 mg 1X ONCE IV Last administered on 09:35; Start 07/20/17 at 09:00; Stop 07/20/17 at 09:02; Status DC Zolpidem Tartrate (Ambien) 5 mg PRN QHS PRN PO INSOMNIA, MAY REPEAT IN 1HR; Start 07/19/17 at 20:30 Comment Review of Relevant I have reviewed the following items carlos (where applicable) has been applied. LATIA FLORIAN MD Jul 20, 2017 14:55
[2017-07-20 15:34] VITALS: BP 113/75
[2017-07-20 19:00] VITALS: BP 112/71
[2017-07-20] MEDS ORDERED: GADOBUTROL 10 MMOL/10 ML VIAL IV ONE (19:00)
[2017-07-20 20:03] LABS: BARBITURATES NEG (NEG); BENZODIAZEPINES POS (NEG); CANNABINOIDS NEG (NEG); COCAINE NEG (NEG); METHADONE NEG (NEG); OPIATES POS (NEG); PHENCYCLIDINE NEG (NEG)
[2017-07-20] MEDS ORDERED: ATORVASTATIN CALCIUM 20 MG TABLET PO SCH (21:00)
[2017-07-21 03:51] VITALS: BP 119/76
[2017-07-21] MEDS: HYDROcodone/APAP 7.5/325MG 1 TAB TABLET PO PRN (03:54)
[2017-07-21 07:55] VITALS: BP 132/78
--- NOTE | 2017-07-21 09:10 | PDOC ---
SUBJECTIVE Subjective Pt has not had a headache since 4am. C/o back pain from lumbar puncture. Discussed doing a 1x dose of stronger pain medication for her back and potentially discharging later on today if headache is still resolved and neurology is agreeable OBJECTIVE Vital Signs Vital Signs Date Time Temp Pulse Resp B/P (MAP) Pulse Ox O2 Delivery O2 Flow Rate FiO2 07/21/17 03:51 98.8 67 18 119/76 (90) 96 Room Air 98.8 07/20/17 20:00 Room Air 07/20/17 19:00 98.3 77 14 112/71 (85) 100 Room Air 98.3 07/20/17 15:34 97.5 77 16 113/75 (88) 97 Room Air 97.5 07/20/17 11:13 97.5 77 16 100/61 (74) 96 Room Air 97.5 07/20/17 09:36 16 Room Air PHYSICAL EXAM Physical Exam General: Alert, Oriented X3, Cooperative, No acute distress HEENT: Atraumatic, PERRLA, EOMI, Mucous membr. moist/pink Lungs: Clear to auscultation, Normal air movement Heart: RRR, no rubs, no gallops, no murmurs Abdomen: Normal bowel sounds, Soft, No tenderness, No hepatosplenomegaly Extremities: No clubbing, No cyanosis, No edema Skin: No rashes, No breakdown, No significant lesion Neuro: Normal speech, Cranial nerves 3-12 NL Psych/Mental Status: Mental status NL, Mood NL ASSESSMENT/PLAN Assessment/Plan Pt is a 52yo AAF admitted with migraine COREA with concern for possible subarachnoid hemorrhage 1)Migraine COREA- Neurology following. Pt had some abnormal results on initial CT that could be old hemosiderin staining, repeat CT showed no change. LP had initial blood tinged fluid but then cleared. Pt had MRI performed yesterday; result still pending. Pt's headache has resolved as of 4am this morning. Discussed possible discharge back on Topamax later today if headache is still improved and Neurology is okay with discharge 2)Hx CVA 3)Hx of seizures 4)HTN- pt's blood pressure currently well controlled without medications. Will hold home meds 5)GERD- pt continued on Omeprazole 6)Anxiety- pt continued on Diazepam 10mg BID 7)OA/Chronic low back pain- pt continued on Lortab 7.5/325mg 8)HLD- pt continued on Atorvastatin Resolved Conditions: Hyponatremia, Hypokalemia Problems: COMMENT Lab Laboratory Tests Test 07/20/17 18:23 Urine Opiates Screen Pos (NEG) Urine Methadone Screen Neg (NEG) Urine Barbiturates Neg (NEG) Urine Phencyclidine Screen Neg (NEG) Urine Amphetamine/Methamphetamine Neg (NEG) Urine Benzodiazepines Screen Pos (NEG) Urine Cocaine Screen Neg (NEG) Urine Cannabinoids Screen Neg (NEG) Urine Ethyl Alcohol Neg (NEG) KATIE ISRAEL MD Jul 21, 2017 09:10
[2017-07-21] MEDS ORDERED: oxyCODONE/APAP 10/325 1 TAB TABLET PO ONE (09:15)
[2017-07-21] MEDS: diazePAM 5 MG TABLET PO SCH (09:30)
[2017-07-21] MEDS: GABAPENTIN 100 MG CAPSULE. PO SCH (09:30)
--- NOTE | 2017-07-21 09:33 | RAD ---
Examination: MRI of the brain without and with IV contrast History: History of headache posttrauma comparison: 04/29/2014 Technique: Multiplanar, multisequence MR imaging of the brain were performed with IV contrast. IV contrast is used was 9 ml of gadavist . Findings: There is no evidence of midline shift. No evidence of restricted diffusion identified to suggest acute infarct. No obvious mass effect identified. There is old cortical infarct identified in the right parietal lobe with susceptibility artifact on the gradient images likely hemosiderin staining. There is minimal enhancement on the postcontrast images in this region which is similar to prior exam. Moderate patchy hyperintense T2 and FLAIR signal identified in the deep subcortical white matter in the periventricular region likely chronic small vessel ischemic disease has progressed since prior exam. Remote old lacunar infarcts identified in the left merino radiata again identified. Major intra-articular flow voids are present. Old cortical infarct in the right cerebellum unchanged. Impression: 1. No evidence of acute infarct or mass effect. 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 2. Moderate bilateral periventricular chronic small vessel ischemic disease.
[2017-07-21 11:29] VITALS: BP 120/67
[2017-07-21] MEDS ORDERED: METOPROLOL SUCC 24HR ER 25 MG TAB.ER.24H. PO SCH (13:00)
[2017-07-21 14:00] VITALS: BP 125/68
[2017-07-21] MEDS ORDERED: GABAPENTIN 100 MG CAPSULE. PO SCH (14:00)
--- NOTE | 2017-07-21 14:52 | PDOC ---
PROGRESS NOTES Assessment Assessment Severe headaches x 1 to 2 days before admission. SAH? Hx of chronic headaches. Hx of seizure. HTN HLD Obesity. No evidence of intracranial aneurysm or AVM. No evidence of acute CVA. RECOMMENDATIONS/PLAN: Pain control. Increase Neurontin to 200 mg tid. She declined EEG study. CTA: negative. Brain MRI: No acute findings. No SAH reported. HISTORY OF THE PRESENT ILLNESS: 52-y-old AA female patient with Hx of headaches came to the ER of [facility] on 07/19/17 with complaints of worsening of headache x 1 day. No focalized motor or sensory deficits. Her CT showed questionable SAH, so LP was performed but was a traumatic tap. However, due to elevated protein that might not be compatible with RMC, so CTA was considered. She stated her headaches were much improved on 07/21/17.. PAST MEDICAL HISTORY: Please see above. PAST SURGERY HISTORY: Appendectomy Rotate cuff surgery. ALLERGY: Reviewed. MEDICATIONS: Refer to [facility] FAMILY HISTORY: Non contributory. SOCIAL HISTORY: Lives at home. Denies current smoking, drinking, and illicit drug use. REVIEW OF SYSTEMS: Constitutional: No malnutrition, weight loss, cachexia. Head: No traumatic brain or head injury. Skin: No edema, or rash. Ear: No infection. Eyes: No vision loss or color blindness. Nose: No bleeding or purulent discharges. Hearing: No hearing decrease. Neck: No injury. Breast: No history of cancer, masses,or discharges. Cardiac: HTN, HLD. Pulmonary: No COPD. GI: No GI ulcer, GI bleeding. Urinary/genital: UTI. Endocrinologic: Obesity. Skeletomuscular: No muscular atrophy, deformity. Neurological: see HP. Psychiatric: Denies drug use/abuse. Otherwise, not [id number] review of systems. PHYSICAL EXAMINATION: General appearance is in subacute distress. HEENT: Normocephalic and nontraumatic. Eyes, nose, ears, and throat are unremarkable. Neck is supple. No lymphadenopathy. No bruits are heard over the carotid artery. No crepitus. Cardiovascular: S1, S2, regular rate and rhythm. Pulmonary: Clear to auscultation bilaterally. Abdomen: Bowel sounds are positive. Abdomen is soft, nontender, and nondistended. Extremities: No rash, lesions, or edema. No restriction of range of motion NEUROLOGICAL EXAMINATION: Alert Oriented to time, place and person. PERRL. EOMI. CN: no focal findings. Muscle tone: within normal. Muscle strength: 5 DTR: 2 Plantar reflex: Flexor response bilaterally Gait: At baseline normal. Sensory exam: no abnormal findings. No cerebellar signs elicited. F-T-N test fine. Objective Objective Vital Signs Date Time Temp Pulse Resp B/P (MAP) Pulse Ox O2 Delivery O2 Flow Rate FiO2 07/21/17 11:32 Room Air 07/21/17 11:29 98.8 75 18 120/67 (84) 100 98.8 Vitals Signs Vitals VS - Last 72 Hours, by Label Date Time Temp Pulse Resp B/P (MAP) Pulse Ox O2 Delivery O2 Flow Rate FiO2 07/21/17 11:32 Room Air 07/21/17 11:29 98.8 75 18 120/67 (84) 100 Room Air 98.8 07/21/17 09:30 Room Air 07/21/17 07:55 98.8 71 18 132/78 (96) 95 Room Air 98.8 07/21/17 07:36 Room Air 07/21/17 03:51 98.8 67 18 119/76 (90) 96 Room Air 98.8 07/20/17 20:00 Room Air 07/20/17 19:00 98.3 77 14 112/71 (85) 100 Room Air 98.3 07/20/17 15:34 97.5 77 16 113/75 (88) 97 Room Air 97.5 07/20/17 11:13 97.5 77 16 100/61 (74) 96 Room Air 97.5 07/20/17 09:36 16 Room Air 07/20/17 08:00 Room Air 07/20/17 07:44 97.6 73 16 106/58 (74) 96 Room Air 97.6 Laboratory Laboratory Laboratory Tests Test 07/20/17 18:23 Urine Opiates Screen Pos (NEG) Urine Methadone Screen Neg (NEG) Urine Barbiturates Neg (NEG) Urine Phencyclidine Screen Neg (NEG) Urine Amphetamine/Methamphetamine Neg (NEG) Urine Benzodiazepines Screen Pos (NEG) Urine Cocaine Screen Neg (NEG) Urine Cannabinoids Screen Neg (NEG) Urine Ethyl Alcohol Neg (NEG) Medication Medications Current Medications Atorvastatin Calcium (Lipitor) 20 mg QHS PO Last administered on 07/20/17t 20:22 ; Start 07/20/17 at 21:00 Gabapentin (Neurontin) 200 mg TID PO ; Start 07/21/17 at 14:00 Gadobutrol (Gadavist) 9 mmol 1X ONCE IV Last administered on 07/20/17 18:59; Start 07/20/17 at 19:00; Stop 07/20/17 at 19:01; Status DC Metoprolol Succinate (Toprol Xl) 25 mg DAILY PO ; Start 07/21/17 at 13:00 Oxycodone/ Acetaminophen (Percocet 10/325) 1 tab 1X ONCE PO Last administered on 07/21/17 09:30; Start 07/21/17 at 09:15; Stop 07/21/17 at 09:16; Status DC Comment Review of Relevant I have reviewed the following items carlos (where applicable) has been applied. LATIA FLORIAN MD Jul 21, 2017 14:52
--- NOTE | 2017-07-22 07:46 | PDOC3 ---
Discharge Summary* Date of Admission: Jul 19, 2017 Date of Discharge: Jul 22, 2017 Admitting Diagnosis Problems Medical Problems: (1) Other headache syndrome Status: Acute Problems: Final Diagnosis Migraine COREA with possible concern for possible subarachnoid hemorrhage, Hx CVA, Hx seizures, HTN, GERD, Anxiety, OA/Chronic low back pain, HLD. Resolved Conditions: Hyponatremia, Hypokalemia CONSULTS Neurology Procedures CT Head- questionable area of linear high attenuation in right posterior parietal region more pronounced since previous exam. Likely chronic finding, short term interval follow up CT in 24 hours may be obtained to ensure interval stability to rule out possibility of small subarachnoid hemorrhage. Lumbar puncture- technically successful fluoroscopy guided LP which initially yielded blood tinged CSF which completely cleared. F/u CT Scan still recommended. CTA Head- WNL CT Head- subtle hyperdensity in right posterior parietal region similar to previous. Could be subtle unchanged subarachnoid bleed or chronic hemosiderin staining Brain MRI- no evidence of infarct or mass effect. 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 Moderate bilateral periventricular chronic small vessel ischemic disease Brief Hospital Course Pt is a 52yo AAF admitted with migraine COREA with concern for possible subarachnoid hemorrhage 1)Migraine COREA- Neurology following. Pt had some abnormal results on initial CT that could be old hemosiderin staining, repeat CT showed no change, as did MRI. LP had initial blood tinged fluid but then cleared. Pt's headache has resolved as of 4am this morning. Neurology okay with discharge 2)Hx CVA 3)Hx of seizures 4)HTN- pt's blood pressure currently well controlled without medications. Will hold home meds 5)GERD- pt continued on Omeprazole 6)Anxiety- pt continued on Diazepam 10mg BID 7)OA/Chronic low back pain- pt continued on Lortab 7.5/325mg 8)HLD- pt continued on Atorvastatin Resolved Conditions: Hyponatremia, Hypokalemia Disposition/Orders: D/C to Home CONDITION AT DISCHARGE: Improved Diet: 2 gr sodium Scheduled Carvedilol (Carvedilol), 12.5 MG PO BIDWMEALS, (Reported) Docusate Sodium (Colace), 1 CAP PO BID Hydrocodone/Apap 5-325 (Axtell 5-325 Tablet), 1-2 TAB PO Q4-6HRS Hydrocortisone (Hydrocortisone), 1 JADEN TP BID, (Reported) Meclizine Hcl (Meclizine Hcl), 25 MG PO BID Simvastatin (Simvastatin), 40 MG PO HS Scheduled PRN Cyclobenzaprine Hcl (Cyclobenzaprine Hcl), 1 TAB PO TID PRN for MUSCLE SPASMS Ibuprofen (Ibuprofen), 800 MG PO PRN Q6HRS PRN for INFLAMMATION Miscellaneous Medications Amlodipine/Atorvastatin (Amlodipine-Atorvast 10-10 Mg), 1 EACH PO, (Reported) Calcium Carbonate (Tums), 200 MG PO, (Reported) Diazepam (Diazepam), 10 MG PO, (Reported) Hydrocodone Bit/Acetaminophen (Hydrocodone-Apap 7.5-325 ), 1 EACH PO, ( Reported) Lisinopril (Lisinopril), 20 MG PO, (Reported) Zolpidem Tartrate (Ambien), 10 MG PO, (Reported) Discontinued Medications Carvedilol (Coreg), 3.125 MG PO, (Reported) Discontinued Reason: Prescription changed PCP Follow up with Dr. Israel in 5-7 days Time Spent Total time spent with patient [] minutes for coordination of care, counseling, and education. KATIE ISRAEL MD Jul 22, 2017 07:46
== END 2017-07-21 16:35 | disposition home or self-care (01) ==
LOC: ER 06:14 → 6 SOUTH 10:08
PROVIDERS: ADMIT Family Medicine; ATTEND Family Medicine
DX: G43.909 Migraine, unspecified, not intractable, without status migrainosus (principal); I10 Essential (primary) hypertension; K21.9 Gastro-esophageal reflux disease without esophagitis; F41.9 Anxiety disorder, unspecified; G89.29 Other chronic pain; M19.90 Unspecified osteoarthritis, unspecified site; E78.5 Hyperlipidemia, unspecified; E66.9 Obesity, unspecified; F17.210 Nicotine dependence, cigarettes, uncomplicated; E78.00 Pure hypercholesterolemia, unspecified; Z80.1 Family history of malignant neoplasm of trachea, bronchus and lung; Z82.49 Family history of ischemic heart disease and other diseases of the circulatory system; Z86.73 Personal history of transient ischemic attack (TIA), and cerebral infarction without residual deficits; Z90.49 Acquired absence of other specified parts of digestive tract
CPT/HCPCS: 36415; 62270; 70450; 70496; 70553; 80048; 80307; 82945; 84157; 85025; 85610; 85730; 89051; 96361; 96374; 96375; 96376; 97162; A9585; G0378; G0379; G8978; G8979; G8980; J0780; J1200; J2270; J2405; J2765; J7030; Q9967; G0479

== ENCOUNTER → 2017-08-12 | Outpatient (CLI) | payer OTHER ==
[2017-07-21 14:00] VITALS: BP 125/68
[~2017-08-12] MED LIST changes: -AMLO-254 PO; +AMLO-268 PO; +CARV12.52 PO; +METO-239 PO; -METO25TA9 PO
--- NOTE | 2017-08-12 13:02 | EEG ---
DATE OF SERVICE: 08/12/2017 ELECTROENCEPHALOGRAM NUMBER: [id number]. OBJECTIVE: This is a 52-year-old female patient with history of seizure. EEG was requested to evaluate seizure activity. METHODS: Twenty electrodes were applied according to the international 10-20 electrode placement system. EKG monitoring, hyperventilation, intermittent photic stimulation, monopolar and bipolar montages are routinely utilized. The record was obtained on a digital system with video monitoring. FINDINGS: 1. Background: The patient was recorded in the awake and drowsy states. No actual sleep state was recorded. The overall background amplitude is 10-30 microvolts. A posterior dominant rhythm of 8-9 Hz is observed. 2. Abnormalities: No specific epileptiform discharge or electrographic seizure is seen. No focal or diffuse slowing. 3. Activation: Hyperventilation was performed with good efforts and normal response. Intermittent photic stimulation was performed with photic driving. No specific epileptiform discharge or electrographic seizure induced by hyperventilation or intermittent photic stimulation. IMPRESSION: This electroencephalogram is a normal study for the awake and drowsy states. No sleep state was recorded. No focal, lateralizing, specific epileptiform discharge or electrographic seizure is seen; however, a normal electroencephalogram does not rule out seizure. LATIA FLORIAN MD DR: CANDELARIA/kem JOB#: [id number] / [id number] BUTCH
== END | disposition home or self-care (01) ==
LOC: RT 10:01
PROVIDERS: ATTEND Psychiatry & Neurology Neurology
DX: R56.9 Unspecified convulsions (principal); R06.4 Hyperventilation
CPT/HCPCS: 95816

== ENCOUNTER → 2018-01-15 | Outpatient (CLI) | payer OTHER | END | disposition home or self-care (01) | LOC: MAMMO 11:13 | DX: Z12.31 Encounter for screening mammogram for malignant neoplasm of breast (principal) | CPT/HCPCS: 77067 ==

== ENCOUNTER 2019-06-26 12:30 | Inpatient (IN) | payer OTHER ==
[~2019-06-26] VITALS: Ht 152.4 cm; Wt 88.5 kg
[~2019-06-26 12:30] MED LIST changes: +CARV12.511 PO; -CARV12.52 PO; +FLUD0.1T PO; -HYDR-2762 PO; +HYDR-2765 PO; +HYDR-3164 PO; -HYDR-971 PO
[2019-06-26] MEDS ORDERED: hydrALAZINE 20 MG/ML VIAL. IVP ONE (13:00)
--- NOTE | 2019-06-26 13:26 | RAD ---
CT HEAD WITHOUT CONTRAST 06/26/2019 12:53 PM Indication: Confusion, hypertension. COMPARISON STUDY: CT of the head without contrast July 20, 2017. Procedure: Multidetector CT imaging of the head was performed without the administration of contrast. Findings: No evidence of acute intracranial hemorrhage is identified. Right parietotemporal encephalomalacia is similar. Extensive multifocal periventricular and deep white matter hypoattenuation is, allowing for differences in slice selection and technique, grossly similar with respect to comparison study. This likely reflects encephalomalacia, multiple small prior infarct, and chronic small vessel disease. No CT evidence of subacute territorial infarct is identified. The presence of such extensive white matter disease, further limits evaluation of CT for ischemic process. No acute mass effect or midline shift is identified. Ventricles and basilar cisterns have a stable configuration. No acute osseous changes are seen. IMPRESSION: 1.No evidence of acute intracranial abnormality. If there is continued clinical concern for acute ischemia, consider MRI for further evaluation 2. Chronic changes likely reflecting a combination of encephalomalacia and chronic small vessel, grossly similar to comparison study, as described CT DOSING PQRS STATEMENT: One or more of the following individualized dose reduction techniques were utilized for this examination: 1. Automated exposure control 2. Adjustment of the mA and/or kV according to patient size 3. Use of iterative reconstruction technique Electronically signed by: Álvaro Rincon MD (06/26/2019 1:23 PM) [facility]
--- NOTE | 2019-06-26 13:36 | RAD ---
EXAM: Chest, 2 views. HISTORY: Confusion. Hypertension. COMPARISON: 03/04/2018 FINDINGS: 2 views of the chest are obtained. There is no infiltrate, pleural effusion or pneumothorax. The heart is normal in size. IMPRESSION: No acute pulmonary finding. Electronically signed by: Giulia Melendez MD (06/26/2019 1:33 PM) [facility]
--- NOTE | 2019-06-26 13:47 | EKG ---
[facility] [address] [place] [id number] Test Date: 2019-06-26 Test Time: 13:05:00 Pat Name: STEPH SAM Department: Room: Gender: F Principal Programmer: : [id number] Requested By: MARIA ANTONIA MOY Order Number: [id number] Reading MD: Measurements Intervals [place] Rate: 84 P: 28 NC: 138 QRS: 12 QRSD: 78 T: 136 QT: 396 QTc: 471 Interpretive Statements SINUS RHYTHM LEFT ATRIAL ABNORMALITY LVH WITH REPOLARIZATION ABNORMALITY ABNORMAL ECG No previous ECG available for comparison
[2019-06-26 13:49] LABS: BASO # 0.1 x10^3/uL (0.0-0.2); BASO % 1 % (0-3); EOS # 0.1 x10^3/uL (0.0-0.7); EOS % 2 % (0-3); HEMATOCRIT 46.5 % (36.0-47.0); HEMOGLOBIN 15.5 g/dL (12.0-15.5); LYMPH # 3.2 x10^3/uL (1.0-4.8); LYMPH % 37 % (24-48); MEAN CORPUSCULAR HEMOGLOBIN 32 pg (25-35); MEAN CORPUSCULAR HGB CONC 33 g/dL (31-37); MEAN CORPUSCULAR VOLUME 97 fL (79-100); MONO # 0.8 x10^3/uL (0.0-1.1); MONO % 10 % (0-9); NEUT # 4.4 x10^3/uL (1.8-7.7); NEUT % 51 % (31-73); PLATELET COUNT 240 x10^3/uL (140-400); RED CELL DISTRIBUTION WIDTH 15.5 % (11.5-14.5); WHITE BLOOD COUNT 8.6 x10^3/uL (4.0-11.0)
[2019-06-26 13:59] LABS: CALCIUM 9.2 mg/dL (8.5-10.1); GFR 69.4; POTASSIUM 3.6 mmol/L (3.5-5.1)
[2019-06-26 14:05] LABS: ALBUMIN 3.6 g/dL (3.4-5.0); ALBUMIN/GLOBULIN RATIO 0.8 (1.0-1.7); MAGNESIUM 1.4 mg/dL (1.8-2.4); TOTAL BILIRUBIN 0.4 mg/dL (0.2-1.0); TOTAL PROTEIN 8.1 g/dL (6.4-8.2)
[2019-06-26] MEDS ORDERED: NITROGLYCERIN SUBLINGUAL 0.4 MG BOTTLE OF 25. SL PRN (14:15)
--- NOTE | 2019-06-26 14:16 | PHYS DOC ---
Past Medical History Past Medical History: Anemia, CVA, High Cholesterol, Hypertension, Seizure, Stroke Past Surgical History: Appendectomy, , Tonsillectomy Alcohol Use: Heavy Drug Use: None Adult General Chief Complaint Chief Complaint: HYPERTENSION HPI HPI Patient is a 54 year old female who is sent from her primary care physician office because of confusion and high blood pressure. Patient states she was seen by her primary care physician today because of allergic, without having any complaint. Primary care physician reported that patient was confused and had blood pressure of more than 200 with dizziness and confusion. Patient denies headache, focal neuro deficit, nausea and vomiting, fever and chills. Patient states she took her blood pressure medication. Patient states she drinking 20 can of beer every day and did not have any alcohol today. Review of Systems Review of Systems Constitutional: Denies fever or chills [] Eyes: Denies change in visual acuity, redness, or eye pain [] HENT: Denies nasal congestion or sore throat [] Respiratory: Denies cough or shortness of breath [] Cardiovascular: No additional information not addressed in HPI [] GI: Denies abdominal pain, nausea, vomiting, bloody stools or diarrhea [] : Denies dysuria or hematuria [] Musculoskeletal: Denies back pain or joint pain [] Integument: Denies rash or skin lesions [] Neurologic: Denies headache, focal weakness or sensory changes [] Endocrine: Denies polyuria or polydipsia [] All other systems were reviewed and found to be within normal limits, except as documented in this note. Current Medications Current Medications Current Medications Medications (Trade) Dose Ordered Sig/Christina Start Time Stop Time Status Last Admin Dose Admin Hydralazine HCl (Apresoline Inj) 20 mg 1X ONCE 06/26/19 13:00 06/26/19 13:01 DC 06/26/19 13:40 20 MG Magnesium Oxide (Magnesium Oxide) 800 mg 1X STAT 06/26/19 15:25 06/26/19 15:29 DC 06/26/19 15:39 800 MG Nitroglycerin (Nitrostat) 0.4 mg PRN Q5MIN PRN 06/26/19 14:15 06/26/19 15:43 0.4 MG Allergies Allergies Allergies Coded Allergies Type Severity Reaction Last Updated Verified No Known Drug Allergies 09/27/16 No Physical Exam Physical Exam Constitutional: Well nourished, no acute distress, non-toxic appearance. [] HENT: Normocephalic, atraumatic, oropharynx moist. Eyes: PERRLA, EOMI, conjunctiva normal, no discharge. [] Neck: Normal range of motion, no tenderness, supple, no stridor. [] Cardiovascular:Heart rate regular rhythm, no murmur [] Lungs & Thorax: Bilateral breath sounds clear to auscultation [] Abdomen: Bowel sounds normal, soft, no tenderness, no masses, no pulsatile masses. [] Skin: Warm, dry, no erythema, no rash. [] Back: No tenderness, no CVA tenderness. [] Extremities: No tenderness, no cyanosis, no clubbing, ROM intact, no edema. [] Neurologic: Alert and oriented X 3, normal motor function, normal sensory function, no focal deficits noted. Patient answers the question with a pause but appropriately. [] Psychologic: Affect anxious, mood normal. [] Current Patient Data Vital Signs Vital Signs Date Time Temp Pulse Resp B/P (MAP) Pulse Ox O2 Delivery O2 Flow Rate FiO2 06/26/19 15:43 110 192/99 06/26/19 14:30 99 06/26/19 12:47 98.0 18 Room Air 98.0 Lab Values Laboratory Tests Test 06/26/19 13:40 06/26/19 15:30 White Blood Count 8.6 x10^3/uL (4.0-11.0) Red Blood Count 4.80 x10^6/uL (3.50-5.40) Hemoglobin 15.5 g/dL (12.0-15.5) Hematocrit 46.5 % (36.0-47.0) Mean Corpuscular Volume 97 fL (79-100) Mean Corpuscular Hemoglobin 32 pg (25-35) Mean Corpuscular Hemoglobin Concent 33 g/dL (31-37) Red Cell Distribution Width 15.5 % (11.5-14.5) H Platelet Count 240 x10^3/uL (140-400) Neutrophils (%) (Auto) 51 % (31-73) Lymphocytes (%) (Auto) 37 % (24-48) Monocytes (%) (Auto) 10 % (0-9) H Eosinophils (%) (Auto) 2 % (0-3) Basophils (%) (Auto) 1 % (0-3) Neutrophils # (Auto) 4.4 x10^3/uL (1.8-7.7) Lymphocytes # (Auto) 3.2 x10^3/uL (1.0-4.8) Monocytes # (Auto) 0.8 x10^3/uL (0.0-1.1) Eosinophils # (Auto) 0.1 x10^3/uL (0.0-0.7) Basophils # (Auto) 0.1 x10^3/uL (0.0-0.2) Sodium Level 141 mmol/L (136-145) Potassium Level 3.6 mmol/L (3.5-5.1) Chloride Level 100 mmol/L (98-107) Carbon Dioxide Level 34 mmol/L (21-32) H Anion Gap 7 (6-14) Blood Urea Nitrogen 2 mg/dL (7-20) L Creatinine 1.0 mg/dL (0.6-1.0) Estimated GFR (Cockcroft-Gault) 69.4 BUN/Creatinine Ratio 2 (6-20) L Glucose Level 103 mg/dL (70-99) H Calcium Level 9.2 mg/dL (8.5-10.1) Magnesium Level 1.4 mg/dL (1.8-2.4) L Total Bilirubin 0.4 mg/dL (0.2-1.0) Aspartate Amino Transferase (AST) 23 U/L (15-37) Alanine Aminotransferase (ALT) 27 U/L (14-59) Alkaline Phosphatase 98 U/L (46-116) Creatine Kinase 60 U/L (26-192) Troponin I Quantitative 0.020 ng/mL (0.000-0.055) RG-Kpn-[id number]-Type Natriuretic Peptide 819 pg/mL (0-124) H Total Protein 8.1 g/dL (6.4-8.2) Albumin 3.6 g/dL (3.4-5.0) Albumin/Globulin Ratio 0.8 (1.0-1.7) L Ethyl Alcohol Level < 10 mg/dL (0-10) Urine Collection Type Void Urine Color Yellow Urine Clarity Clear Urine pH 7.0 Urine Specific [place] 1.010 Urine Protein Negative mg/dL (NEG-TRACE) Urine Glucose (UA) Negative mg/dL (NEG) Urine Ketones (Stick) Negative mg/dL (NEG) Urine Blood Negative (NEG) Urine Nitrite Negative (NEG) Urine Bilirubin Negative (NEG) Urine Urobilinogen Dipstick 0.2 mg/dL (0.2 mg/dL) Urine Leukocyte Esterase Negative (NEG) Urine RBC Rare /HPF (0-2) Urine WBC Occ /HPF (0-4) Urine Squamous Epithelial Cells Occ /LPF Urine Bacteria 0 /HPF (0-FEW) Urine Opiates Screen Neg (NEG) Urine Methadone Screen Neg (NEG) Urine Barbiturates Neg (NEG) Urine Phencyclidine Screen Neg (NEG) Urine Amphetamine/Methamphetamine Neg (NEG) Urine Benzodiazepines Screen Neg (NEG) Urine Cocaine Screen Neg (NEG) Urine Cannabinoids Screen Neg (NEG) Urine Ethyl Alcohol Neg (NEG) Laboratory Tests 06/26/19 13:40 Laboratory Tests 06/26/19 13:40 EKG EKG EKG interpreted by me. EKG at 1305 showed normal sinus rhythm at rate of 84, left atrial abnormality, LVH with repolarization abnormality, normal NH and QT intervals, no acute ST and T-wave abnormalities. Radiology/Procedures Radiology/Procedures [][facility] [address] [place] [address] IMAGING REPORT Signed PATIENT: STEPH SAM ACCOUNT: [id number] : 1965 LOCATION: ER AGE: 54 SEX: F EXAM STATUS: REG ER ORD. PHYSICIAN: MARIA ANTONIA MOY MD REASON: confusion and high blood pressure PROCEDURE: CHEST PA & LATERAL EXAM: Chest, 2 views. HISTORY: Confusion. Hypertension. COMPARISON: 03/04/2018 FINDINGS: 2 views of the chest are obtained. There is no infiltrate, pleural effusion or pneumothorax. The heart is normal in size. IMPRESSION: No acute pulmonary finding. Electronically signed by: Giulia Dodge MD (06/26/2019 1:33 PM) [place] [id number] DICTATED and SIGNED BY: GIULIA DODGE MD DATE: 06/26/19 1333 Course & Med Decision Making Course & Med Decision Making Pertinent Labs and Imaging studies reviewed. (See chart for details) Evaluation of patient in ER showed 54-year-old female patient sent from primary care physician's office because of high blood pressure and confusion. Patient had intermittent episodes of confusion but was alert and oriented �3. Patient had blood pressure of 240/140 at arrival to ER and treated with hydralazine and blood pressure gradually decreased to 170s. Patient has history of drinking alcohol daily but her blood alcohol was less than 10. Patient was complaining of one episode of chest pain while she was in ER and treated with nitroglycerin �1 with improvement of the pain.Patient requiring admission for further evaluation and treatment. Discussed with Dr. Villatoro who is in agreement with admission. Discussed findings and plan with patient and family, who acknowledge underst anding and agreement. Dragon Disclaimer Dragon Disclaimer This electronic medical record was generated, in whole or in part, using a voice recognition dictation system. Departure Departure Impression: Primary Impression: Hypertensive emergency Additional Impressions: Hypomagnesemia Chest pain CHF (congestive heart failure) Alcohol abuse Confusion Disposition: ADMITTED INPATIENT (at 1606) Admitting Physician: Wilfred Villatoro (accepted admission at 1605) Condition: IMPROVED Referrals: WILFRED VILLATORO MD (PCP) The HEART Score for CP Pts HEART Score for Chest Pain: HEART Score for Chest Pain Response (Comments) Value History Slighlty/Non-Suspicious 0 ECG Nonspecific Repolarizatio 1 Age >45 - < 65 1 Risk Factors 1 or 2 Risk Factors 1 Troponin < Normal Limit 0 Total 3 Risk Factors: Risk Factors: DM, Current or recent (<one month) smoker, HTN, HLP, family history of CAD, obesity. Risk Scores: Score 0 - 3: 2.5% MACE over next 6 weeks - Discharge Home Score 4 - 6: 20.3% MACE over next 6 weeks - Admit for Clinical Observation Score 7 - 10: 72.7% MACE over next 6 weeks - Early Invasive Strategies NIHSS Stroke Scale NIH Stroke Scale: NIH Stroke Scale Response (Comments) Value Level of Consciousness: 0 Alert/Responsive 0 LOC Questions: 0 Answers both correctly 0 LOC Commands: 0 Performs both tasks 0 Best Gaze: 0 Normal 0 Visual: 0 No visual loss 0 Facial Palsy: 0 Normal, symmetrical 0 Motor - Left Arm 0 No drift 0 Motor - Right Arm 0 No drift 0 Motor - Left Leg 0 No drift 0 Motor: Right Leg 0 No drift 0 Limb Ataxia: 0 Absent 0 Sensory: 0 No loss 0 Best Language: 0 Normal 0 Dysathria: 0 Normal 0 Extinction and Inattention: 0 Normal 0 Total 0 Problem Qualifiers Additional Impressions: Chest pain Chest pain type: unspecified Qualified Codes: R07.9 - Chest pain, unspecified CHF (congestive heart failure) Heart failure type: unspecified Heart failure chronicity: unspecified Qualified Codes: I50.9 - Heart failure, unspecified MARIA ANTONIA MOY MD Jun 26, 2019 14:16
[2019-06-26] MEDS ORDERED: MAGNESIUM OXIDE 400 MG TABLET PO STA (15:25)
[2019-06-26 16:01] LABS: BILIRUBIN,URINE NEGATIVE (NEG); CLARITY,URINE CLEAR; COLOR,URINE YELLOW; NITRITE,URINE NEGATIVE (NEG); PROTEIN,URINE NEGATIVE (NEG-TRACE); UROBILINOGEN,URINE 0.2 mg/dL (0.2 mg/dL)
[2019-06-26 16:11] LABS: BACTERIA,URINE 0 /HPF (0-FEW); RBC,URINE RARE /HPF (0-2); SQUAMOUS EPITHELIAL CELL,UR OCC /LPF; WBC,URINE OCC /HPF (0-4)
[2019-06-26 16:15] LABS: AMPHETAMINE/METHAMPHETAMINE NEG (NEG); BARBITURATES NEG (NEG); BENZODIAZEPINES NEG (NEG); CANNABINOIDS NEG (NEG); COCAINE NEG (NEG); METHADONE NEG (NEG); OPIATES NEG (NEG); PHENCYCLIDINE NEG (NEG)
[2019-06-26] MEDS ORDERED: hydrALAZINE 20 MG/ML VIAL. IVP PRN (17:00)
[2019-06-26 17:13] VITALS: BP 187/101
[2019-06-26] MEDS ORDERED: ZOLP10TA4 PO (17:46)
[2019-06-26] MEDS ORDERED: HYDR50CA2 PO (17:46)
[2019-06-26] MEDS ORDERED: HYDR-52 PO (17:46)
[2019-06-26 19:55] VITALS: BP 167/105
[2019-06-26] MEDS ORDERED: ZOLPIDEM 5 MG TABLET. PO PRN (20:15)
[2019-06-26] MEDS ORDERED: ZOLPIDEM 5 MG TABLET. PO SCH (21:00)
[2019-06-26 23:05] VITALS: BP 123/75
[2019-06-27 03:46] VITALS: BP 142/106
--- NOTE | 2019-06-27 06:57 | PDOC1 ---
History and Physical Date of Admission Date of Admission 06/26/19 Identification/Chief Complaint Chief Complaint Hypertensive Crisis, Confusion Source Source: Patient History of Present Illness History of Present Illness Pt came to an office visit yesterday to get refills of her medications. Pt has not been seen for approximately 11 months and was confused. Pt admitted she had been confused for the past couple of days and felt more off balance. Pt's systolic BP was 220; she was agreeable to evaluation in the ER. Pt says that her confusion has improved. She did have a short episode of chest pain in the ER which she says has resolved. ER report says that pt drinks 20 beers a day. Pt says that she is a daily drinker, but usually only drinks 2-3 beers a day. She can go months without drinking. Has never had withdrawal symptoms. Last drink was afternoon. Past Medical History Cardiovascular: HTN, Hyperlipidemia Pulmonary: Bronchitis CENTRAL NERVOUS SYSTEM: CVA, Seizure GI: GERD Heme/Onc: Anemia NOS Hepatobiliary: No pertinent hx Psych: Anxiety, Depression Rheumatologic: No pertinent hx Infectious disease: No pertinent hx ENT: No pertinent hx Renal/: Other Endocrine: No pertinent hx Past Surgical History Past Surgical History: Appendectomy, , Tonsillectomy, Hysterectomy Family History Family History: Cancer, Coronary Artery Disease, Heart Disease Social History Smoke: <1 pack per day ALCOHOL: occassional Drugs: None Current Problem List Problem List Problems Medical Problems: (1) Alcohol abuse Status: Acute (2) Chest pain Status: Acute (3) CHF (congestive heart failure) Status: Acute (4) Confusion Status: Acute (5) Hypertensive emergency Status: Acute (6) Hypomagnesemia Status: Acute Current Medications Current Medications Current Medications Medications (Trade) Dose Ordered Sig/Christina Start Time Stop Time Status Last Admin Dose Admin Guaifenesin (Mucinex) 600 mg BID 06/26/19 21:00 06/26/19 20:37 600 MG Hydralazine HCl (Apresoline Inj) 10 mg PRN Q1HR PRN 06/26/19 17:00 Magnesium Oxide (Magnesium Oxide) 800 mg 1X STAT 06/26/19 15:25 06/26/19 15:29 DC 06/26/19 15:39 800 MG Nitroglycerin (Nitrostat) 0.4 mg PRN Q5MIN PRN 06/26/19 14:15 8/9/19 15:43 0.4 MG Zolpidem Tartrate (Ambien) 5 mg PRN QHS PRN 06/26/19 20:15 Allergies Allergies Allergies Coded Allergies Type Severity Reaction Last Updated Verified No Known Drug Allergies 09/27/16 No ROS Review of System CONSTITUTIONAL: No fever or chills EYES: No recent changes SKIN: No rash or itching CARDIOVASCULAR: No syncope, palpitations, or edema. 1 episode of chest pain RESPIRATORY: No SOB or cough GASTROINTESTINAL: No nausea, vomiting or abdominal pain NEUROLOGICAL: No headaches or weakness ENDOCRINE: No cold or heat intolerance GENITOURINARY: No urgency or frequency of urination MUSCULOSKELETAL: No back pain or joint pain LYMPHATICS: No enlarged lymph nodes PSYCHIATRIC: No anxiety or depression Physical Exam Physical Exam GEN.: No apparent distress. Alert and oriented. HEENT: Head is normocephalic, atraumatic NECK: Supple. LUNGS: Clear to auscultation. HEART: RRR, S1, S2 present. Peripheral pulses intact ABDOMEN: Soft, nontender. Positive bowel sounds. EXTREMITIES: Without any cyanosis. NEUROLOGIC: Normal speech, normal tone PSYCHIATRIC: Normal affect, normal mood. SKIN: No ulcerations Vitals Vitals Vital Signs Date Time Temp Pulse Resp B/P (MAP) Pulse Ox O2 Delivery O2 Flow Rate FiO2 06/27/19 03:46 97.9 74 20 142/106 (118) 98 Room Air 97.9 Labs Labs Laboratory Tests Test 06/26/19 13:40 06/26/19 15:30 06/26/19 19:23 White Blood Count 8.6 x10^3/uL (4.0-11.0) Red Blood Count 4.80 x10^6/uL (3.50-5.40) Hemoglobin 15.5 g/dL (12.0-15.5) Hematocrit 46.5 % (36.0-47.0) Mean Corpuscular Volume 97 fL (79-100) Mean Corpuscular Hemoglobin 32 pg (25-35) Mean Corpuscular Hemoglobin Concent 33 g/dL (31-37) Red Cell Distribution Width 15.5 % (11.5-14.5) Platelet Count 240 x10^3/uL (140-400) Neutrophils (%) (Auto) 51 % (31-73) Lymphocytes (%) (Auto) 37 % (24-48) Monocytes (%) (Auto) 10 % (0-9) Eosinophils (%) (Auto) 2 % (0-3) Basophils (%) (Auto) 1 % (0-3) Neutrophils # (Auto) 4.4 x10^3/uL (1.8-7.7) Lymphocytes # (Auto) 3.2 x10^3/uL (1.0-4.8) Monocytes # (Auto) 0.8 x10^3/uL (0.0-1.1) Eosinophils # (Auto) 0.1 x10^3/uL (0.0-0.7) Basophils # (Auto) 0.1 x10^3/uL (0.0-0.2) Sodium Level 141 mmol/L (136-145) Potassium Level 3.6 mmol/L (3.5-5.1) Chloride Level 100 mmol/L (98-107) Carbon Dioxide Level 34 mmol/L (21-32) Anion Gap 7 (6-14) Blood Urea Nitrogen 2 mg/dL (7-20) Creatinine 1.0 mg/dL (0.6-1.0) Estimated GFR (Cockcroft-Gault) 69.4 BUN/Creatinine Ratio 2 (6-20) Glucose Level 103 mg/dL (70-99) Calcium Level 9.2 mg/dL (8.5-10.1) Magnesium Level 1.4 mg/dL (1.8-2.4) Total Bilirubin 0.4 mg/dL (0.2-1.0) Aspartate Amino Transf (AST/SGOT) 23 U/L (15-37) Alanine Aminotransferase (ALT/SGPT) 27 U/L (14-59) Alkaline Phosphatase 98 U/L (46-116) Creatine Kinase 60 U/L (26-192) Troponin I Quantitative 0.020 ng/mL (0.000-0.055) 0.057 ng/mL (0.000-0.055) NH-Wbm-Q-Type Natriuretic Peptide 819 pg/mL (0-124) Total Protein 8.1 g/dL (6.4-8.2) Albumin 3.6 g/dL (3.4-5.0) Albumin/Globulin Ratio 0.8 (1.0-1.7) Ethyl Alcohol Level < 10 mg/dL (0-10) Urine Collection Type Void Urine Color Yellow Urine Clarity Clear Urine pH 7.0 Urine Specific [place] 1.010 Urine Protein Negative mg/dL (NEG-TRACE) Urine Glucose (UA) Negative mg/dL (NEG) Urine Ketones (Stick) Negative mg/dL (NEG) Urine Blood Negative (NEG) Urine Nitrite Negative (NEG) Urine Bilirubin Negative (NEG) Urine Urobilinogen Dipstick 0.2 mg/dL (0.2 mg/dL) Urine Leukocyte Esterase Negative (NEG) Urine RBC Rare /HPF (0-2) Urine WBC Occ /HPF (0-4) Urine Squamous Epithelial Cells Occ /LPF Urine Bacteria 0 /HPF (0-FEW) Urine Opiates Screen Neg (NEG) Urine Methadone Screen Neg (NEG) Urine Barbiturates Neg (NEG) Urine Phencyclidine Screen Neg (NEG) Urine Amphetamine/Methamphetamine Neg (NEG) Urine Benzodiazepines Screen Neg (NEG) Urine Cocaine Screen Neg (NEG) Urine Cannabinoids Screen Neg (NEG) Urine Ethyl Alcohol Neg (NEG) Laboratory Tests Test 06/26/19 13:40 06/26/19 15:30 06/26/19 19:23 White Blood Count 8.6 x10^3/uL (4.0-11.0) Red Blood Count 4.80 x10^6/uL (3.50-5.40) Hemoglobin 15.5 g/dL (12.0-15.5) Hematocrit 46.5 % (36.0-47.0) Mean Corpuscular Volume 97 fL (79-100) Mean Corpuscular Hemoglobin 32 pg (25-35) Mean Corpuscular Hemoglobin Concent 33 g/dL (31-37) Red Cell Distribution Width 15.5 % (11.5-14.5) Platelet Count 240 x10^3/uL (140-400) Neutrophils (%) (Auto) 51 % (31-73) Lymphocytes (%) (Auto) 37 % (24-48) Monocytes (%) (Auto) 10 % (0-9) Eosinophils (%) (Auto) 2 % (0-3) Basophils (%) (Auto) 1 % (0-3) Neutrophils # (Auto) 4.4 x10^3/uL (1.8-7.7) Lymphocytes # (Auto) 3.2 x10^3/uL (1.0-4.8) Monocytes # (Auto) 0.8 x10^3/uL (0.0-1.1) Eosinophils # (Auto) 0.1 x10^3/uL (0.0-0.7) Basophils # (Auto) 0.1 x10^3/uL (0.0-0.2) Sodium Level 141 mmol/L (136-145) Potassium Level 3.6 mmol/L (3.5-5.1) Chloride Level 100 mmol/L (98-107) Carbon Dioxide Level 34 mmol/L (21-32) Anion Gap 7 (6-14) Blood Urea Nitrogen 2 mg/dL (7-20) Creatinine 1.0 mg/dL (0.6-1.0) Estimated GFR (Cockcroft-Gault) 69.4 BUN/Creatinine Ratio 2 (6-20) Glucose Level 103 mg/dL (70-99) Calcium Level 9.2 mg/dL (8.5-10.1) Magnesium Level 1.4 mg/dL (1.8-2.4) Total Bilirubin 0.4 mg/dL (0.2-1.0) Aspartate Amino Transf (AST/SGOT) 23 U/L (15-37) Alanine Aminotransferase (ALT/SGPT) 27 U/L (14-59) Alkaline Phosphatase 98 U/L (46-116) Creatine Kinase 60 U/L (26-192) Troponin I Quantitative 0.020 ng/mL (0.000-0.055) 0.057 ng/mL (0.000-0.055) UV-Fjf-O-Type Natriuretic Peptide 819 pg/mL (0-124) Total Protein 8.1 g/dL (6.4-8.2) Albumin 3.6 g/dL (3.4-5.0) Albumin/Globulin Ratio 0.8 (1.0-1.7) Ethyl Alcohol Level < 10 mg/dL (0-10) Urine Collection Type Void Urine Color Yellow Urine Clarity Clear Urine pH 7.0 Urine Specific [place] 1.010 Urine Protein Negative mg/dL (NEG-TRACE) Urine Glucose (UA) Negative mg/dL (NEG) Urine Ketones (Stick) Negative mg/dL (NEG) Urine Blood Negative (NEG) Urine Nitrite Negative (NEG) Urine Bilirubin Negative (NEG) Urine Urobilinogen Dipstick 0.2 mg/dL (0.2 mg/dL) Urine Leukocyte Esterase Negative (NEG) Urine RBC Rare /HPF (0-2) Urine WBC Occ /HPF (0-4) Urine Squamous Epithelial Cells Occ /LPF Urine Bacteria 0 /HPF (0-FEW) Urine Opiates Screen Neg (NEG) Urine Methadone Screen Neg (NEG) Urine Barbiturates Neg (NEG) Urine Phencyclidine Screen Neg (NEG) Urine Amphetamine/Methamphetamine Neg (NEG) Urine Benzodiazepines Screen Neg (NEG) Urine Cocaine Screen Neg (NEG) Urine Cannabinoids Screen Neg (NEG) Urine Ethyl Alcohol Neg (NEG) VTE Prophylaxis Ordered VTE Prophylaxis Devices: Yes VTE Pharmacological Prophylaxi: No Assessment/Plan Assessment/Plan Pt is a 54yo AAF admitted for hypertensive crisis and chest pain 1)Hypertensive crisis- pt's BP improving after just receiving Hydralazine 20mg IV x1. Pt will be resumed on home medications of Lisinopril 10mg and Carvedilol 3.125mg BID 2)Chest pain with troponin elevation- likely 2/2 above. Pain has resolved. 3rd troponin is pending. Pt denies have problems with chest pain normally. Pt has never had a stress test 3)HLD- not at goal. Pt does not take her cholesterol medication. Discussed with pt and she states that she is willing to restart her Atorvastatin 20mg KATIE ISRAEL MD Jun 27, 2019 06:57
[2019-06-27 07:30] VITALS: BP 181/107
[2019-06-27 07:41] LABS: CHOLESTEROL/HDL RATIO 3.7
[2019-06-27] MEDS ORDERED: CARVEDILOL 12.5 MG TABLET. PO SCH (08:00)
[2019-06-27 08:01] VITALS: BP 181/107
[2019-06-27] MEDS ORDERED: LISINOPRIL 20 MG TABLET PO SCH (09:00)
--- NOTE | 2019-06-27 11:40 | PDOC2 ---
CARDIOLOGY CONSULT NOTE CHEIF COMPLAINT: 1. Elevated troponin 2. Hypertension HPI: Patient is a 54 y/o female with a history of HTN, CVA in 2013, seizures, anemia, HLD who was admitted to the hospital with confusion w/ a systolic BP of 220. Patient was in her doctor's office when she had her BP checked and then was recommended to go to the ED. Patient currently only complains of blurry vision. Denies any chest pain or headaches. Patient states that she currently lives at home and takes all her medications. She reports that she does not understand why she is in the hospital and wants to go home as soon as possible. Nurse states that patient has been acting confused and is not a reliable historian. PMHX: 1. HTN 2. HLD 3. CVA 4. Seizures 5. GERD 6. Anemia SOCHX: lievs alone, smokes 1 puff of his cigarette at home, drinks 2 beers a day CURRENT MEDS: Lisinopril 10 mg, Atorvastatin 200mg, Carvedilol 6.25, Hydralazine 10mg, NTG 0.4 mg ALLERGIES: NKDA ROS: Constitutional: no recent illness Eye: Blurry vision CV: denies CP Pulm: denies SOB PHYSICAL EXAM: Vital Signs/I&O: 181/107 when checked on 8:02 on 06/27, but 135/87 on recheck, on RA, 79 pulse, 98 SaO2 Physical Exam: Gen: NAD, tangential speech Heart: RRR, +2 radial and pedal pulses, no pitting edema LE Pulm: CTAB no rhonchi, wheezes DIAGNOSTIC TESTING: CXR nml, Head CT nml Lab Trop 0.033, BUN 2, Cr 1, glucose 103, 1.4 Mg, BNP 819 ASSESSMENT: 1. Hypertension -> medication noncompliance, patient was a unreliable historian upon examination 2. Elevated troponin -> troponin elevation due to uncontrolled hypertension 3. Elevated BNP-> likely due to HTN PLAN: Above information based on medical student assessment. Physician addendum: patient unfortunately left AMA before being seen by physician. Pls call with questions if patient chooses to return. Thanks DUSTIN SORIA MD Jun 27, 2019 11:40
--- NOTE | 2019-06-27 11:41 | NUR ---
This RN spoke with Dr. Villatoro this morning, because patient was becoming very restless and wanting to discharge. Dr. Villatoro did not feel comfortable discharging her due to her systolic BP being in the 180s. Dr. Villatoro wanted it checked a couple more times and said she would consider patient for discharge late afternoon if blood pressure was stable. This RN relayed this information to the patient who in return said she understood. About 1 hour later patient used the call light saying she was "ready to go." This RN explained AMA paperwork and patient agreed to sign. Patient accompanied by security and this RN downstairs to her friend's car. Nursing classified advertising supervisor notified. Dr. Villatoro notified.
--- NOTE | 2019-06-27 17:05 | PDOC3 ---
Discharge Summary Date of Admission: Jun 26, 2019 Date of Discharge: Jun 27, 2019 Admitting Diagnosis comment: Hypertensive urgency FINAL DIAGNOSIS Pt is a 54yo AAF admitted for hypertensive urgency, chest pain with mild troponin elevation, HLD Brief Hospital Course Pt is a 54yo AAF admitted for hypertensive urgency and chest pain. Pt left AMA 1)Hypertensive urgency- pt's BP was improving with addition of IV hydralazine. Pt was continued on home meds of Lisinopril 10mg and Carvedilol 3.125mg BID. Pt wanted to be discharged home but discussed that with her blood pressure still elevated, we would still need to monitor her to ensure that we could get better control prior to discharge. Pt left AMA 2)Chest pain with troponin elevation- likely 2/2 above. Pain resolved upon admission. Pt has never had a stress test. Cardiology was consulted but pt left AMA prior to them evaluating her 3)HLD- not at goal. Pt does not take her cholesterol medication. Discussed with pt and she states that she is willing to restart her Atorvastatin 20mg CONDITION AT DISCHARGE: Comment (pt left AMA) Discharge Medications Current Medications Hydralazine HCl (Apresoline Inj) 20 mg 1X ONCE IVP Last administered on 06/26/19at 13:40; Start 06/26/19 at 13:00; Stop 06/26/19 at 13:01; Status DC Nitroglycerin (Nitrostat) 0.4 mg PRN Q5MIN PRN SL CHEST PAIN Last administered on 06/26/19at 15:43; Start 06/26/19 at 14:15; Stop 06/27/19 at 11:46; Status DC Magnesium Oxide (Magnesium Oxide) 800 mg 1X STAT PO Last administered on 06/26/19at 15:39; Start 06/26/19 at 15:25; Stop 06/26/19 at 15:29; Status DC Hydralazine HCl (Apresoline Inj) 10 mg PRN Q1HR PRN IVP BP>180/100 Last administered on 06/27/19at 08:02; Start 06/26/19 at 17:00; Stop 06/27/19 at 11:46; Status DC Guaifenesin (Mucinex) 600 mg BID PO Last administered on 06/27/19at 08:02; Start 06/26/19 at 21:00; Stop 06/27/19 at 11:46; Status DC Zolpidem Tartrate (Ambien) 5 mg QHS PO Last administered on 06/26/19at 20:38; Start 06/26/19 at 21:00; Stop 06/27/19 at 11:46; Status DC Zolpidem Tartrate (Ambien) 5 mg PRN QHS PRN PO CONTINUED INSOMNIA; Start 06/26/19 at 20:15; Stop 06/27/19 at 11:46; Status DC Carvedilol (Coreg) 6.25 mg BIDWMEALS PO Last administered on 06/27/19at 08:02; Start 06/27/19 at 08:00; Stop 06/27/19 at 11:47; Status DC Lisinopril (Prinivil) 10 mg DAILY PO Last administered on 06/27/19at 08:02; St art 06/27/19 at 09:00; Stop 06/27/19 at 11:47; Status DC Atorvastatin Calcium (Lipitor) 20 mg QHS PO ; Start 06/27/19 at 21:00; Stop 06/27/19 at 11:47; Status DC Active Scripts Active Lisinopril 20 Mg Tablet 10 Mg PO DAILY Colace (Docusate Sodium) 100 Mg Capsule 1 Cap PO BID Ibuprofen 800 Mg Tablet 800 Mg PO PRN Q6HRS PRN Reported Hydroxyzine Pamoate 50 Mg Capsule 50 Mg PO TID Zolpidem Tartrate 10 Mg Tablet 10 Mg PO QHS Hydrocodone-Acetamin 10-325 mg (Hydrocodone/Acetaminophen) 1 Each Tablet 10-325 Mg PO PRN Q6-8HRS PRN Carvedilol (Carvedilol) 12.5 Mg Tablet 6.25 Mg PO BIDWMEALS Tums (Calcium Carbonate) 200 Mg Tab.chew 200 Mg PO Diazepam 10 Mg Tablet 10 Mg PO BID Vital Signs Vital Signs Date Time Temp Pulse Resp B/P (MAP) Pulse Ox O2 Delivery O2 Flow Rate FiO2 06/27/19 08:02 79 181/107 06/27/19 08:00 Room Air 06/27/19 07:30 98.2 20 97 98.2 Labs Laboratory Tests Test 06/26/19 13:40 06/26/19 15:30 06/26/19 19:23 8/10/19 06:35 White Blood Count 8.6 x10^3/uL (4.0-11.0) Red Blood Count 4.80 x10^6/uL (3.50-5.40) Hemoglobin 15.5 g/dL (12.0-15.5) Hematocrit 46.5 % (36.0-47.0) Mean Corpuscular Volume 97 fL (79-100) Mean Corpuscular Hemoglobin 32 pg (25-35) Mean Corpuscular Hemoglobin Concent 33 g/dL (31-37) Red Cell Distribution Width 15.5 % (11.5-14.5) Platelet Count 240 x10^3/uL (140-400) Neutrophils (%) (Auto) 51 % (31-73) Lymphocytes (%) (Auto) 37 % (24-48) Monocytes (%) (Auto) 10 % (0-9) Eosinophils (%) (Auto) 2 % (0-3) Basophils (%) (Auto) 1 % (0-3) Neutrophils # (Auto) 4.4 x10^3/uL (1.8-7.7) Lymphocytes # (Auto) 3.2 x10^3/uL (1.0-4.8) Monocytes # (Auto) 0.8 x10^3/uL (0.0-1.1) Eosinophils # (Auto) 0.1 x10^3/uL (0.0-0.7) Basophils # (Auto) 0.1 x10^3/uL (0.0-0.2) Sodium Level 141 mmol/L (136-145) Potassium Level 3.6 mmol/L (3.5-5.1) Chloride Level 100 mmol/L (98-107) Carbon Dioxide Level 34 mmol/L (21-32) Anion Gap 7 (6-14) Blood Urea Nitrogen 2 mg/dL (7-20) Creatinine 1.0 mg/dL (0.6-1.0) Estimated GFR (Cockcroft-Gault) 69.4 BUN/Creatinine Ratio 2 (6-20) Glucose Level 103 mg/dL (70-99) Calcium Level 9.2 mg/dL (8.5-10.1) Magnesium Level 1.4 mg/dL (1.8-2.4) Total Bilirubin 0.4 mg/dL (0.2-1.0) Aspartate Amino Transf (AST/SGOT) 23 U/L (15-37) Alanine Aminotransferase (ALT/SGPT) 27 U/L (14-59) Alkaline Phosphatase 98 U/L (46-116) Creatine Kinase 60 U/L (26-192) Troponin I Quantitative 0.020 ng/mL (0.000-0.055) 0.057 ng/mL (0.000-0.055) 0.033 ng/mL (0.000-0.055) TT-Scw-Z-Type Natriuretic Peptide 819 pg/mL (0-124) Total Protein 8.1 g/dL (6.4-8.2) Albumin 3.6 g/dL (3.4-5.0) Albumin/Globulin Ratio 0.8 (1.0-1.7) Ethyl Alcohol Level < 10 mg/dL (0-10) Urine Collection Type Void Urine Color Yellow Urine Clarity Clear Urine pH 7.0 Urine Specific [place] 1.010 Urine Protein Negative mg/dL (NEG-TRACE) Urine Glucose (UA) Negative mg/dL (NEG) Urine Ketones (Stick) Negative mg/dL (NEG) Urine Blood Negative (NEG) Urine Nitrite Negative (NEG) Urine Bilirubin Negative (NEG) Urine Urobilinogen Dipstick 0.2 mg/dL (0.2 mg/dL) Urine Leukocyte Esterase Negative (NEG) Urine RBC Rare /HPF (0-2) Urine WBC Occ /HPF (0-4) Urine Squamous Epithelial Cells Occ /LPF Urine Bacteria 0 /HPF (0-FEW) Urine Opiates Screen Neg (NEG) Urine Methadone Screen Neg (NEG) Urine Barbiturates Neg (NEG) Urine Phencyclidine Screen Neg (NEG) Urine Amphetamine/Methamphetamine Neg (NEG) Urine Benzodiazepines Screen Neg (NEG) Urine Cocaine Screen Neg (NEG) Urine Cannabinoids Screen Neg (NEG) Urine Ethyl Alcohol Neg (NEG) Triglycerides Level 122 mg/dL (0-150) Cholesterol Level 159 mg/dL (0-200) LDL Cholesterol, Calculated 92 mg/dL (0-100) VLDL Cholesterol, Calculated 24 mg/dL (0-40) Non-HDL Cholesterol Calculated 116 mg/dL (0-129) HDL Cholesterol 43 mg/dL (40-60) Cholesterol/HDL Ratio 3.7 Laboratory Tests Test 06/26/19 19:23 06/27/19 06:35 Troponin I Quantitative 0.057 ng/mL (0.000-0.055) 0.033 ng/mL (0.000-0.055) Triglycerides Level 122 mg/dL (0-150) Cholesterol Level 159 mg/dL (0-200) LDL Cholesterol, Calculated 92 mg/dL (0-100) VLDL Cholesterol, Calculated 24 mg/dL (0-40) Non-HDL Cholesterol Calculated 116 mg/dL (0-129) HDL Cholesterol 43 mg/dL (40-60) Cholesterol/HDL Ratio 3.7 Allergies Allergies Coded Allergies Type Severity Reaction Last Updated Verified No Known Drug Allergies 09/27/16 No Disposition/Orders: Other (AMA) KATIE ISRAEL MD Jun 27, 2019 17:05
[2019-06-27] MEDS ORDERED: ATORVASTATIN CALCIUM 20 MG TABLET PO SCH (21:00)
== END 2019-06-27 11:46 | disposition left against medical advice (07) | DRG 305 ==
LOC: ER 12:30 → 6 SOUTH 16:05
PROVIDERS: ADMIT Family Medicine; ATTEND Family Medicine
DX: I16.1 Hypertensive emergency (principal); E78.00 Pure hypercholesterolemia, unspecified; Z53.21 Procedure and treatment not carried out due to patient leaving prior to being seen by health care provider; E78.5 Hyperlipidemia, unspecified; E83.42 Hypomagnesemia; F10.10 Alcohol abuse, uncomplicated; F17.210 Nicotine dependence, cigarettes, uncomplicated; I11.0 Hypertensive heart disease with heart failure; I50.9 Heart failure, unspecified; F32.9 Major depressive disorder, single episode, unspecified; F41.9 Anxiety disorder, unspecified; Z60.2 Problems related to living alone; G47.00 Insomnia, unspecified; K21.9 Gastro-esophageal reflux disease without esophagitis; Z79.899 Other long term (current) drug therapy; Z82.49 Family history of ischemic heart disease and other diseases of the circulatory system; Z86.73 Personal history of transient ischemic attack (TIA), and cerebral infarction without residual deficits; Z90.49 Acquired absence of other specified parts of digestive tract; Z90.710 Acquired absence of both cervix and uterus; Z91.14 Patient's other noncompliance with medication regimen; Z90.89 Acquired absence of other organs
CPT/HCPCS: 36415; 70450; 71046; 80053; 80061; 80307; 81001; 82550; 83735; 83880; 84484; 85025; 93005; 96374; G0480; J0360; 99285-25; G0378

== ENCOUNTER 2019-06-28 11:03 | Inpatient (IN) | payer OTHER ==
[~2019-06-28] VITALS: Ht 152.4 cm; Wt 91.2 kg
[~2019-06-28 11:03] MED LIST changes: +HYDR-52 PO; +HYDR50CA2 PO; +ZOLP10TA4 PO
[2019-06-28] MEDS ORDERED: hydrALAZINE 20 MG/ML VIAL. IVP ONE (11:30)
[2019-06-28 12:07] LABS: BASO % 1 % (0-3); EOS # 0.1 x10^3/uL (0.0-0.7); EOS % 1 % (0-3); HEMATOCRIT 43.8 % (36.0-47.0); HEMOGLOBIN 14.9 g/dL (12.0-15.5); LYMPH # 2.8 x10^3/uL (1.0-4.8); LYMPH % 35 % (24-48); MEAN CORPUSCULAR HEMOGLOBIN 33 pg (25-35); MEAN CORPUSCULAR HGB CONC 34 g/dL (31-37); MEAN CORPUSCULAR VOLUME 96 fL (79-100); MONO # 0.8 x10^3/uL (0.0-1.1); MONO % 10 % (0-9); NEUT # 4.4 x10^3/uL (1.8-7.7); NEUT % 54 % (31-73); PLATELET COUNT 286 x10^3/uL (140-400); RED BLOOD COUNT 4.55 x10^6/uL (3.50-5.40); RED CELL DISTRIBUTION WIDTH 15.8 % (11.5-14.5); WHITE BLOOD COUNT 8.1 x10^3/uL (4.0-11.0)
[2019-06-28 13:10] LABS: CALCIUM 9.4 mg/dL (8.5-10.1); CREATININE 0.8 mg/dL (0.6-1.0); GFR 89.8; POTASSIUM 3.1 mmol/L (3.5-5.1)
[2019-06-28 13:18] LABS: ALBUMIN 3.7 g/dL (3.4-5.0); ALBUMIN/GLOBULIN RATIO 0.9 (1.0-1.7); MAGNESIUM 1.9 mg/dL (1.8-2.4); TOTAL PROTEIN 7.7 g/dL (6.4-8.2)
[2019-06-28] MEDS ORDERED: POTASSIUM CHLORIDE 20 MEQ TABLET.ER. PO ONE (14:00)
[2019-06-28] MEDS ORDERED: cloNIDine HCL 0.1 MG TABLET PO PRN (15:00)
[2019-06-28] MEDS ORDERED: ACETAMINOPHEN 325 MG TABLET. PO PRN (15:00)
[2019-06-28] MEDS ORDERED: ONDANSETRON PF 4 MG/2 ML VIAL. IV PRN (15:00)
--- NOTE | 2019-06-28 15:01 | NUR ---
Report received from Roselyn in the ER at approx 1430.
--- NOTE | 2019-06-28 15:02 | NUR ---
Pt arrived on the unit at approx 1550 by transport via wheelchair. Pt oriented to room, call light, and fresh water given.
--- NOTE | 2019-06-28 15:10 | PHYS DOC ---
Past Medical History Past Medical History: Hypertension Past Surgical History: Appendectomy, , Tonsillectomy Alcohol Use: Occasionally Drug Use: None Adult General Chief Complaint Chief Complaint: HYPERTENSION HPI HPI Patient is a 54 year old female with history of hypertension who presents to the ED today complaining of high blood pressure. Patient is a very poor historian, appears confused at times. She states she was discharged from the hospital yesterday with high blood pressure. She states she did not take her medications this morning which includes Coreg. She is denying any chest pain or shortness of breath. Review of Systems Review of Systems Constitutional: Denies fever or chills [] Eyes: Denies change in visual acuity, redness, or eye pain [] HENT: Denies nasal congestion or sore throat [] Respiratory: Denies cough or shortness of breath [] Cardiovascular: Reports high blood pressure. GI: Denies abdominal pain, nausea, vomiting, bloody stools or diarrhea [] : Denies dysuria or hematuria [] Musculoskeletal: Denies back pain or joint pain [] Integument: Denies rash or skin lesions [] Neurologic: Noted for confusion. Denies headache, focal weakness or sensory changes [] All other systems were reviewed and found to be within normal limits, except as documented in this note. Current Medications Current Medications Current Medications Medications (Trade) Dose Ordered Sig/Christina Start Time Stop Time Status Last Admin Dose Admin Hydralazine HCl (Apresoline Inj) 10 mg 1X ONCE 06/28/19 11:30 06/28/19 11:31 DC 06/28/19 12:22 10 MG Allergies Allergies Allergies Coded Allergies Type Severity Reaction Last Updated Verified No Known Drug Allergies 09/27/16 No Physical Exam Physical Exam Constitutional: Well developed, well nourished, no acute distress, non-toxic appearance. [] HENT: Normocephalic, atraumatic, bilateral external ears normal, oropharynx moist, no oral exudates, nose normal. [] Eyes: PERRLA, EOMI, conjunctiva normal, no discharge. [] Neck: Normal range of motion, no tenderness, supple, no stridor. [] Cardiovascular:Heart rate regular rhythm, no murmur [] Lungs & Thorax: Bilateral breath sounds clear to auscultation [] Abdomen: Bowel sounds normal, soft, no tenderness, no masses, no pulsatile masses. [] Skin: Warm, dry, no erythema, no rash. [] Back: No tenderness, no CVA tenderness. [] Extremities: No tenderness, no cyanosis, no clubbing, ROM intact, no edema. [] Neurologic: Alert and oriented X 2, normal motor function, normal sensory function, no focal deficits noted. [] Psychologic: Affect normal, judgement normal, mood normal. [] Current Patient Data Vital Signs Vital Signs Date Time Temp Pulse Resp B/P (MAP) Pulse Ox O2 Delivery O2 Flow Rate FiO2 06/28/19 13:33 115 16 96 06/28/19 12:22 194/109 06/28/19 11:07 98.0 98.0 Lab Values Laboratory Tests Test 06/28/19 11:50 06/28/19 12:50 White Blood Count 8.1 x10^3/uL (4.0-11.0) Red Blood Count 4.55 x10^6/uL (3.50-5.40) Hemoglobin 14.9 g/dL (12.0-15.5) Hematocrit 43.8 % (36.0-47.0) Mean Corpuscular Volume 96 fL (79-100) Mean Corpuscular Hemoglobin 33 pg (25-35) Mean Corpuscular Hemoglobin Concent 34 g/dL (31-37) Red Cell Distribution Width 15.8 % (11.5-14.5) H Platelet Count 286 x10^3/uL (140-400) Neutrophils (%) (Auto) 54 % (31-73) Lymphocytes (%) (Auto) 35 % (24-48) Monocytes (%) (Auto) 10 % (0-9) H Eosinophils (%) (Auto) 1 % (0-3) Basophils (%) (Auto) 1 % (0-3) Neutrophils # (Auto) 4.4 x10^3/uL (1.8-7.7) Lymphocytes # (Auto) 2.8 x10^3/uL (1.0-4.8) Monocytes # (Auto) 0.8 x10^3/uL (0.0-1.1) Eosinophils # (Auto) 0.1 x10^3/uL (0.0-0.7) Basophils # (Auto) 0.0 x10^3/uL (0.0-0.2) Creatine Kinase 87 U/L (26-192) Creatine Kinase MB (Mass) 2.2 ng/mL (0.0-3.6) Creatine Kinase MB Relative Index 2.5 % (0-4) Troponin I Quantitative 0.034 ng/mL (0.000-0.055) AD-Iut-B-Type Natriuretic Peptide 554 pg/mL (0-124) H Thyroid Stimulating Hormone (TSH) 0.800 uIU/mL (0.358-3.74) Ethyl Alcohol Level < 10 mg/dL (0-10) Sodium Level 141 mmol/L (136-145) Potassium Level 3.1 mmol/L (3.5-5.1) L Chloride Level 99 mmol/L (98-107) Carbon Dioxide Level 31 mmol/L (21-32) Anion Gap 11 (6-14) Blood Urea Nitrogen 4 mg/dL (7-20) L Creatinine 0.8 mg/dL (0.6-1.0) Estimated GFR (Cockcroft-Gault) 89.8 BUN/Creatinine Ratio 5 (6-20) L Glucose Level 110 mg/dL (70-99) H Calcium Level 9.4 mg/dL (8.5-10.1) Magnesium Level 1.9 mg/dL (1.8-2.4) Total Bilirubin 1.0 mg/dL (0.2-1.0) Aspartate Amino Transferase (AST) 20 U/L (15-37) Alanine Aminotransferase (ALT) 24 U/L (14-59) Alkaline Phosphatase 98 U/L (46-116) Total Protein 7.7 g/dL (6.4-8.2) Albumin 3.7 g/dL (3.4-5.0) Albumin/Globulin Ratio 0.9 (1.0-1.7) L Lipase 64 U/L (73-393) L Laboratory Tests 06/28/19 11:50 Laboratory Tests 06/28/19 12:50 EKG EKG [address] Talley sinus rhythm HR 87 no STEMI[] Radiology/Procedures Radiology/Procedures [] Course & Med Decision Making Course & Med Decision Making Pertinent Labs and Imaging studies reviewed. (See chart for details) This is a 54-year-old female patient with history of hypertension presenting to the ED today complaining of high blood pressure, she states she has not taken her medications this morning. She states she was discharged from the hospital yesterday for high blood pressure. She appears slightly confused. Denies any headache. Denies any chest pain or shortness of breath. Blood pressure 208/111 on arrival to the ED with a heart rate of 92 EKG is negative, patient refused chest x-ray as well as CT of the head. Labs with the potassium of 3.1. CMP with no acute findings. Spoke to Dr. Arabella Israel about patient's condition, she states this patient signed out AMA yesterday. She states patient is typically alert and oriented. Patient was admitted by Dr. Arablela Israel. Dragon Disclaimer Dragon Disclaimer This electronic medical record was generated, in whole or in part, using a voice recognition dictation system. Departure Departure Impression: Primary Impression: Hypertensive urgency Additional Impression: Hypokalemia Disposition: ADMITTED INPATIENT Condition: STABLE Referrals: KATIE ISRAEL MD (PCP) Problem Qualifiers SANDRA JOY APRN Jun 28, 2019 15:10
[2019-06-28 15:17] VITALS: BP 136/77
[2019-06-28] MEDS ORDERED: CALCIUM CARBONATE 500 MG TAB.CHEW PO PRN (16:15)
[2019-06-28] MEDS: CARVEDILOL 6.25 MG TABLET. PO SCH (18:02)
--- NOTE | 2019-06-28 19:13 | NUR ---
During admission assessment, pt was very confused and periodically laughing. Pt stated that she was confused. Pt was unable to appropriately answer questions, as her answers changed frequently. Pt told this health science writer that her daughter had "told her to tell us everything." Pt also stated "sorry, I'm lying, I'm going to stop lying," after answering various admission questions. Pt reported to this health science writer that her daughter brought her to the ER because she had diarrhea after reporting that she couldn't recall when her last BM was. She also reported that her daughter had brought her to the ER because she was "drinking too heavy." Pt needs frequent reinforcement and teaching. This health science writer reinforced teaching on adherence to BP medication.
[2019-06-28 19:30] VITALS: BP 167/107
[2019-06-28] MEDS: DOCUSATE SODIUM 100 MG CAPSULE. PO SCH (20:40)
[2019-06-28] MEDS: hydrOXYzine 25 MG TABLET PO SCH (20:41)
[2019-06-28] MEDS: hydrALAZINE 20 MG/ML VIAL. IVP PRN (20:46)
[2019-06-28 21:20] LABS: BARBITURATES NEG (NEG); BENZODIAZEPINES NEG (NEG); CANNABINOIDS NEG (NEG); COCAINE NEG (NEG); METHADONE NEG (NEG); OPIATES NEG (NEG); PHENCYCLIDINE NEG (NEG)
[2019-06-28 21:23] LABS: AMPHETAMINE/METHAMPHETAMINE NEG (NEG)
[2019-06-28 22:46] VITALS: BP 140/86
[2019-06-29] VITALS (17 sets, daily range): BP systolic 91–253; BP diastolic 64–134
[2019-06-29] MEDS: ZOLPIDEM 5 MG TABLET. PO PRN (00:32)
[2019-06-29] MEDS: hydrALAZINE 20 MG/ML VIAL. IVP PRN ×3 (04:06→23:17)
--- NOTE | 2019-06-29 06:24 | EKG ---
[facility] [address] [place] [address] Test Date: 2019-06-28 Test Time: 12:24:01 Pat Name: STEPH SAM Department: Room: 572 1 Gender: F [employer]: : [id number] Requested By: SANDRA JOY Order Number: [id number] Reading MD: Thad Sevilla MD Measurements Intervals [place] Rate: 87 P: 28 [place]: 134 QRS: 21 QRSD: 76 T: 136 QT: 392 QTc: 472 Interpretive Statements SINUS RHYTHM LEFT ATRIAL ABNORMALITY LVH WITH REPOLARIZATION ABNORMALITY Electronically Signed On 06-29-2019 15:33:11 CDT by Thad Sevilla MD
--- NOTE | 2019-06-29 08:10 | NUR ---
Chart review done. Pt readmitted after home AMA one day. Pt on fall risk precautions and has some mild confusion. May benefit from PT/OT Eval and Treat. Addendum: 06/29/19 at 0811 by LYUDMILA MARIE OT Amended: Links added.
--- NOTE | 2019-06-29 08:19 | PDOC1 ---
History and Physical Date of Admission Date of Admission 06/28/19 Identification/Chief Complaint Chief Complaint "Didn't feel good" Source Source: Patient History of Present Illness History of Present Illness The first thing pt stated when I walked into her room is that she is ready to go home. Pt was recently admitted 06/26/19 for hypertensive crisis and left AMA the next day. She states today that she needed to "get out of here" and feed her cats. When asked what brought her back to the emergency room, she says that her significant other and her got into an argument and she just needed to get out of there. She then admits that she was not feeling very well but feeling much better now. She agrees that she is still confused, although states that her confusion has been going on for a while now. Prior to 06/26/19 pt had not been seen for 11 months, so it is possible that her current state of confusion is her new baseline. Pt had episode of chest pain during her last hospitalization with mildly elevated troponin, likely due to demand ischemia. Denies any further episodes of chest pain. Past Medical History Cardiovascular: HTN, Hyperlipidemia Pulmonary: Bronchitis CENTRAL NERVOUS SYSTEM: CVA, Seizure GI: GERD Heme/Onc: Anemia NOS Hepatobiliary: No pertinent hx Psych: Anxiety, Depression Rheumatologic: No pertinent hx Infectious disease: No pertinent hx ENT: No pertinent hx Renal/: No pertinent hx, Other Endocrine: No pertinent hx Dermatology: No pertinent hx Past Surgical History Past Surgical History: Appendectomy, , Tonsillectomy, Hysterectomy Family History Family History: Cancer, Coronary Artery Disease, Heart Disease Social History Smoke: <1 pack per day ALCOHOL: occassional Drugs: None Current Medications Current Medications Current Medications Medications (Trade) Dose Ordered Sig/Christina Start Time Stop Time Status Last Admin Dose Admin Acetaminophen (Tylenol) 650 mg PRN Q4HRS PRN 06/28/19 15:00 06/29/19 14:59 Calcium Carbonate/ Glycine (Tums) 200 mg PRN AFTMEAL PRN 06/28/19 16:15 Carvedilol (Coreg) 6.25 mg BIDWMEALS 06/28/19 17:00 06/28/19 18:02 6.25 MG Clonidine HCl (Catapres) 0.1 mg Q8HRS PRN 06/28/19 15:00 06/29/19 08:02 DC Docusate Sodium (Colace) 100 mg BID 06/28/19 21:00 06/28/19 20:46 100 MG Hydralazine HCl (Apresoline Inj) 10 mg PRN Q6HRS PRN 06/28/19 16:15 06/29/19 04:06 10 MG Hydroxyzine HCl (Atarax) 50 mg TID 06/28/19 21:00 06/28/19 20:46 50 MG Ibuprofen (Motrin) 800 mg PRN Q6HRS PRN 06/28/19 16:15 Lisinopril (Prinivil) 10 mg DAILY 06/29/19 09:00 Ondansetron HCl (Zofran) 4 mg PRN Q8HRS PRN 06/28/19 15:00 06/29/19 14:59 Potassium Chloride (Klor-Con) 40 meq 1X ONCE 06/28/19 14:00 06/28/19 14:01 DC 06/28/19 14:36 40 MEQ Zolpidem Tartrate (Ambien) 5 mg PRN QHS PRN 06/28/19 16:15 06/29/19 00:32 5 MG Allergies Allergies Allergies Coded Allergies Type Severity Reaction Last Updated Verified No Known Drug Allergies 09/27/16 No ROS Review of System CONSTITUTIONAL: No fever or chills EYES: No recent changes SKIN: No rash or itching CARDIOVASCULAR: No chest pain, syncope, palpitations, or edema RESPIRATORY: No SOB or cough GASTROINTESTINAL: No nausea, vomiting or abdominal pain NEUROLOGICAL: No headaches or weakness ENDOCRINE: No cold or heat intolerance GENITOURINARY: No urgency or frequency of urination MUSCULOSKELETAL: No back pain or joint pain LYMPHATICS: No enlarged lymph nodes PSYCHIATRIC: No anxiety or depression Physical Exam Physical Exam GEN.: No apparent distress. Alert and oriented but at times still seems mildly confused HEENT: Head is normocephalic, atraumatic NECK: Supple. LUNGS: Clear to auscultation. HEART: RRR, S1, S2 present. Peripheral pulses intact ABDOMEN: Soft, nontender. Positive bowel sounds. EXTREMITIES: Without any cyanosis. NEUROLOGIC: Normal speech, normal tone PSYCHIATRIC: Normal affect, normal mood. SKIN: No ulcerations Vitals Vitals Vital Signs Date Time Temp Pulse Resp B/P (MAP) Pulse Ox O2 Delivery O2 Flow Rate FiO2 06/29/19 07:00 98.1 101 16 139/75 (96) 95 Room Air 98.1 Labs Labs Laboratory Tests Test 06/28/19 11:50 06/28/19 12:50 06/28/19 20:45 White Blood Count 8.1 x10^3/uL (4.0-11.0) Red Blood Count 4.55 x10^6/uL (3.50-5.40) Hemoglobin 14.9 g/dL (12.0-15.5) Hematocrit 43.8 % (36.0-47.0) Mean Corpuscular Volume 96 fL (79-100) Mean Corpuscular Hemoglobin 33 pg (25-35) Mean Corpuscular Hemoglobin Concent 34 g/dL (31-37) Red Cell Distribution Width 15.8 % (11.5-14.5) Platelet Count 286 x10^3/uL (140-400) Neutrophils (%) (Auto) 54 % (31-73) Lymphocytes (%) (Auto) 35 % (24-48) Monocytes (%) (Auto) 10 % (0-9) Eosinophils (%) (Auto) 1 % (0-3) Basophils (%) (Auto) 1 % (0-3) Neutrophils # (Auto) 4.4 x10^3/uL (1.8-7.7) Lymphocytes # (Auto) 2.8 x10^3/uL (1.0-4.8) Monocytes # (Auto) 0.8 x10^3/uL (0.0-1.1) Eosinophils # (Auto) 0.1 x10^3/uL (0.0-0.7) Basophils # (Auto) 0.0 x10^3/uL (0.0-0.2) Creatine Kinase 87 U/L (26-192) Creatine Kinase MB (Mass) 2.2 ng/mL (0.0-3.6) Creatine Kinase MB Relative Index 2.5 % (0-4) Troponin I Quantitative 0.034 ng/mL (0.000-0.055) XR-Vma-U-Type Natriuretic Peptide 554 pg/mL (0-124) Thyroid Stimulating Hormone (TSH) 0.800 uIU/mL (0.358-3.74) Ethyl Alcohol Level < 10 mg/dL (0-10) Sodium Level 141 mmol/L (136-145) Potassium Level 3.1 mmol/L (3.5-5.1) Chloride Level 99 mmol/L (98-107) Carbon Dioxide Level 31 mmol/L (21-32) Anion Gap 11 (6-14) Blood Urea Nitrogen 4 mg/dL (7-20) Creatinine 0.8 mg/dL (0.6-1.0) Estimated GFR (Cockcroft-Gault) 89.8 BUN/Creatinine Ratio 5 (6-20) Glucose Level 110 mg/dL (70-99) Calcium Level 9.4 mg/dL (8.5-10.1) Magnesium Level 1.9 mg/dL (1.8-2.4) Total Bilirubin 1.0 mg/dL (0.2-1.0) Aspartate Amino Transf (AST/SGOT) 20 U/L (15-37) Alanine Aminotransferase (ALT/SGPT) 24 U/L (14-59) Alkaline Phosphatase 98 U/L (46-116) Total Protein 7.7 g/dL (6.4-8.2) Albumin 3.7 g/dL (3.4-5.0) Albumin/Globulin Ratio 0.9 (1.0-1.7) Lipase 64 U/L (73-393) Urine Opiates Screen Neg (NEG) Urine Methadone Screen Neg (NEG) Urine Barbiturates Neg (NEG) Urine Phencyclidine Screen Neg (NEG) Urine Amphetamine/Methamphetamine Neg (NEG) Urine Benzodiazepines Screen Neg (NEG) Urine Cocaine Screen Neg (NEG) Urine Cannabinoids Screen Neg (NEG) Urine Ethyl Alcohol Neg (NEG) Laboratory Tests Test 06/28/19 11:50 06/28/19 12:50 06/28/19 20:45 White Blood Count 8.1 x10^3/uL (4.0-11.0) Red Blood Count 4.55 x10^6/uL (3.50-5.40) Hemoglobin 14.9 g/dL (12.0-15.5) Hematocrit 43.8 % (36.0-47.0) Mean Corpuscular Volume 96 fL (79-100) Mean Corpuscular Hemoglobin 33 pg (25-35) Mean Corpuscular Hemoglobin Concent 34 g/dL (31-37) Red Cell Distribution Width 15.8 % (11.5-14.5) Platelet Count 286 x10^3/uL (140-400) Neutrophils (%) (Auto) 54 % (31-73) Lymphocytes (%) (Auto) 35 % (24-48) Monocytes (%) (Auto) 10 % (0-9) Eosinophils (%) (Auto) 1 % (0-3) Basophils (%) (Auto) 1 % (0-3) Neutrophils # (Auto) 4.4 x10^3/uL (1.8-7.7) Lymphocytes # (Auto) 2.8 x10^3/uL (1.0-4.8) Monocytes # (Auto) 0.8 x10^3/uL (0.0-1.1) Eosinophils # (Auto) 0.1 x10^3/uL (0.0-0.7) Basophils # (Auto) 0.0 x10^3/uL (0.0-0.2) Creatine Kinase 87 U/L (26-192) Creatine Kinase MB (Mass) 2.2 ng/mL (0.0-3.6) Creatine Kinase MB Relative Index 2.5 % (0-4) Troponin I Quantitative 0.034 ng/mL (0.000-0.055) QK-Cyd-D-Type Natriuretic Peptide 554 pg/mL (0-124) Thyroid Stimulating Hormone (TSH) 0.800 uIU/mL (0.358-3.74) Ethyl Alcohol Level < 10 mg/dL (0-10) Sodium Level 141 mmol/L (136-145) Potassium Level 3.1 mmol/L (3.5-5.1) Chloride Level 99 mmol/L (98-107) Carbon Dioxide Level 31 mmol/L (21-32) Anion Gap 11 (6-14) Blood Urea Nitrogen 4 mg/dL (7-20) Creatinine 0.8 mg/dL (0.6-1.0) Estimated GFR (Cockcroft-Gault) 89.8 BUN/Creatinine Ratio 5 (6-20) Glucose Level 110 mg/dL (70-99) Calcium Level 9.4 mg/dL (8.5-10.1) Magnesium Level 1.9 mg/dL (1.8-2.4) Total Bilirubin 1.0 mg/dL (0.2-1.0) Aspartate Amino Transf (AST/SGOT) 20 U/L (15-37) Alanine Aminotransferase (ALT/SGPT) 24 U/L (14-59) Alkaline Phosphatase 98 U/L (46-116) Total Protein 7.7 g/dL (6.4-8.2) Albumin 3.7 g/dL (3.4-5.0) Albumin/Globulin Ratio 0.9 (1.0-1.7) Lipase 64 U/L (73-393) Urine Opiates Screen Neg (NEG) Urine Methadone Screen Neg (NEG) Urine Barbiturates Neg (NEG) Urine Phencyclidine Screen Neg (NEG) Urine Amphetamine/Methamphetamine Neg (NEG) Urine Benzodiazepines Screen Neg (NEG) Urine Cocaine Screen Neg (NEG) Urine Cannabinoids Screen Neg (NEG) Urine Ethyl Alcohol Neg (NEG) VTE Prophylaxis Ordered VTE Prophylaxis Devices: Yes VTE Pharmacological Prophylaxi: No Assessment/Plan Assessment/Plan Pt is a 54yo AAF admitted for hypertensive crisis with confusion 1)Hypertensive crisis- pt's BP improving. Discussed with pt that I would like to work up her confusion and make sure that we keep her BP stable prior to discharge. She states that she is willing to stay for this. Resumed on home medications of Lisinopril 10mg and Carvedilol 6.25mg BID. Will increase pt's Li sinopril. Will D/C hydralazine for now 2)Confusion- pt's initial CT Head was normal last admission. She has history of CVA; will order MRI brain. Pt does not have a fever, nor do any of her labs explain confusion. It is possible that this is her new baseline 3)HLD- not at goal. Pt does not take her cholesterol medication. Discussed with pt and she states that she is willing to restart her Atorvastatin 20mg 4)Hypokalemia- replaced in ER. KATIE CALLE MD Jun 29, 2019 08:19
[2019-06-29] MEDS: DOCUSATE SODIUM 100 MG CAPSULE. PO SCH ×2 (08:49→21:00)
[2019-06-29] MEDS: LISINOPRIL 20 MG TABLET PO SCH (08:50)
[2019-06-29] MEDS: hydrOXYzine 25 MG TABLET PO SCH ×2 (08:50→21:00)
[2019-06-29] MEDS: CARVEDILOL 6.25 MG TABLET. PO SCH ×2 (08:50→17:00)
[2019-06-29 08:57] LABS: BASO # 0.1 x10^3/uL (0.0-0.2); BASO % 1 % (0-3); EOS # 0.1 x10^3/uL (0.0-0.7); EOS % 2 % (0-3); HEMATOCRIT 45.9 % (36.0-47.0); HEMOGLOBIN 15.5 g/dL (12.0-15.5); LYMPH # 3.3 x10^3/uL (1.0-4.8); LYMPH % 37 % (24-48); MEAN CORPUSCULAR HEMOGLOBIN 33 pg (25-35); MEAN CORPUSCULAR HGB CONC 34 g/dL (31-37); MEAN CORPUSCULAR VOLUME 97 fL (79-100); MONO # 0.8 x10^3/uL (0.0-1.1); MONO % 9 % (0-9); NEUT # 4.7 x10^3/uL (1.8-7.7); NEUT % 52 % (31-73); PLATELET COUNT 238 x10^3/uL (140-400); RED BLOOD COUNT 4.72 x10^6/uL (3.50-5.40); RED CELL DISTRIBUTION WIDTH 15.6 % (11.5-14.5)
[2019-06-29] MEDS ORDERED: LISINOPRIL 20 MG TABLET PO SCH (09:00)
[2019-06-29 09:16] LABS: ALBUMIN 3.3 g/dL (3.4-5.0); ALBUMIN/GLOBULIN RATIO 0.8 (1.0-1.7); CALCIUM 9.1 mg/dL (8.5-10.1); GFR 69.4; POTASSIUM 3.1 mmol/L (3.5-5.1); TOTAL BILIRUBIN 0.9 mg/dL (0.2-1.0); TOTAL PROTEIN 7.6 g/dL (6.4-8.2)
--- NOTE | 2019-06-29 10:10 | NUR ---
PATIENT REMAINS AT THE NURSES STATION IN A RECLINER, PATIENT VOICING THAT SHE IS GOING TO LEAVE AND SHE NEEDS TO GO TO WORK WHEN SHE LEAVES AND THAT SHE IS ALREADY LATE FOR WORK, REALITY ORIENTATION GIVEN TO PATIENT PER THIS PURCHASE ORDER CHECKER AND PATIENT IS REDIRECTED AT THIS TIME.
--- NOTE | 2019-06-29 10:24 | NUR ---
SW following pt for dc planning. Chart reviewed and discussed with RN. Pt lives at home. Rehab screen recommends PT/OT order-SW requested for an order to assess needs. Per RN, pt is scheduled for MRI of brain today. Will continue to follow. Addendum: 06/29/19 at 1519 by FREDERICK LIAO SW SW following pt. Pt moving to ICU due to change in condition. Pt was seen in ER by PAT team and had left AMA on 06/27/19. Might benefit from PAT team assessment when appropriate. DREW Head notified.
--- NOTE | 2019-06-29 11:30 | NUR ---
PATIENT ASSISTED WITH A SHOWER PER THE HOOK PULLER ON THE UNIT, PATIENT REMAINS VERBALLY RESPONSIVE AND REQUESTING TO LEAVE THE FACILITY, CALL PLACED TO DR. ISRAEL FOR ORDERS AT THIS TIME.
[2019-06-29] MEDS ORDERED: diphenhydrAMINE HCL 25 MG CAPSULE PO PRN (11:45)
[2019-06-29] MEDS: IBUPROFEN 400 MG TABLET. PO PRN (12:27)
--- NOTE | 2019-06-29 12:27 | NUR ---
BENADRYL AND MOTRIN GIVEN ORDERED PER DR. ISRAEL IN AN ATTEMPT TO TO REST AND NOT EXHIBIT ANXIOUSNESS AEB TRYING TO GET OUT OF CHAIR AND GO HOME BY HERSELF, LUNCH TRAY OFFERED AND ENCOURAGED BUT PATIENT ONLY CONSUMED APPROX. 20%, WILL MONITOR.
[2019-06-29] MEDS ORDERED: GADOTERATE 7.5 MMOL/15ML VIAL. IVP ONE (14:00)
--- NOTE | 2019-06-29 14:20 | NUR ---
PATIENT RETURNED FROM MRI AT THIS TIME, PATIENT DOES NOT RESPOND TO VERBAL STIMULI AND DOES NOT MAKE EYE CONTACT DISPITE LOTS OF ENCOURAGEMENT, PATIENT DOES NOT FOLLOW COMMANDS SHE DID PRIOR TO LEAVING THE UNIT FOR HER MRI, PATIENT ASSISTED TO HER ROOM AND PLACED IN BED PER PER THREE STAFF MEMBERS D/T PATIENT NOT FOLLOWING COMMANDS AND WEAKNESS, RAPID RESPONSE CALLED, PATIENTS B/P 253/134, CALL PLACED TO DR. ISRAEL FOR ORDERS, PATIENTS BLOOD SUGAR 112.
--- NOTE | 2019-06-29 14:30 | NUR ---
214/139, 10MG. HYDRALAZINE ADMINISTERED ORDERED.
--- NOTE | 2019-06-29 14:54 | NUR ---
PATIENTS B/P 218/116, PATIENT TO BE TRANSPORTED TO ICU, WILL CALL REPORT TO TY IN THE ICU.
[2019-06-29] MEDS ORDERED: hydrALAZINE 20 MG/ML VIAL. IVP ONE (15:00)
--- NOTE | 2019-06-29 15:10 | RAD ---
MRI of the Brain without and with Contrast 06/29/2019 Clinical History: Confusion. History of CVA. Technique: Unenhanced T1-weighted sagittal and axial and FLAIR, T2-weighted, gradient echo and diffusion-weighted axial images of the brain were obtained. After the intravenous administration of 18 cc of Dotarem, enhanced T1-weighted axial, sagittal and coronal images of the brain were obtained. Findings: Comparison is made to the patient's CT scan dated 03/06/2018. There is generalized parenchymal atrophy. Patchy, confluent and multiple focal areas of abnormally increased signal intensity are seen within the periventricular and subcortical white matter of both cerebral hemispheres on the FLAIR and T2-weighted images consistent with areas of extensive small vessel ischemic disease. An area encephalomalacia seen involving the right parietal lobe previous hemorrhage is seen in this area, unchanged. Old areas of lacunar infarction are seen involving the periventricular and deep white matter of both cerebral hemispheres, left greater than right. These measure 5 mm to 1.1 centimeters in size. They are unchanged. No acute parenchymal abnormality is seen. No abnormal area of contrast enhancement is noted. No extra-axial fluid collection is seen. There is no MRI evidence of acute ischemia/infarction. The paranasal sinuses are essentially clear. Normal flow voids are seen within the major vascular structures surrounding the brain parenchyma. Impression: No acute parenchymal abnormality is seen. Electronically signed by: Yury Heller MD (06/29/2019 3:07 PM) [id number]
--- NOTE | 2019-06-29 15:40 | NUR ---
Pt received from 5th floor for code stroke. Pt non verbal at times, then arouses and talk is very garbled. Dr. Sevilla at bedside and ordered Cardene gtt for hypertension. Dr. Gold consulted and paged- said she will see patient tonight. RN talked to daughter on the phone and updated on pt condition.
--- NOTE | 2019-06-29 15:56 | CONS ---
DATE OF CONSULTATION: 06/29/2019 REASON FOR CONSULTATION: Elevated blood pressure. HISTORY OF PRESENT ILLNESS: The patient is a 54-year-old woman who actually was admitted to the hospital on 06/27/2019 in the setting of a prior history of hypertension and CVA. She apparently presented with confusion and persistent elevated troponin and also a code stroke was called as the patient had acute aphasia and difficulty with speech. She was staring into the space and was unable to use any of her extremities. She was then subsequently admitted to the ICU and a Cardene drip has been initiated. Of note, when she was here a couple days ago, she left AMA prior to being seen by the Cardiology Service. PAST MEDICAL HISTORY: 1. Hypertension. 2. Dyslipidemia. 3. CVA without any specific residual deficits noted. 4. Prior history of seizures. 5. GERD. 6. Chronic history of anemia of chronic disease. SOCIAL HISTORY: She apparently lives alone and smokes approximately 1 to 2 cigarettes daily. She apparently drinks 2 beers daily. CURRENT CARDIAC MEDICATIONS: Cardene. PRIOR HOME MEDICATIONS: Include lisinopril and carvedilol. ALLERGIES: No known drug allergies. REVIEW OF SYSTEMS: Not able to be obtained as the patient is confused. PHYSICAL EXAMINATION: VITAL SIGNS: Afebrile, 91, 253/134, 90% on room air. GENERAL: She is confused and nonresponsive and has seizure-like activity in the room. HEAD AND NECK: Unremarkable. CARDIAC: Regular rate and rhythm without any murmurs, rubs or gallops. LUNGS: Clear to auscultation anteriorly. ABDOMEN: Soft. EXTREMITIES: No clubbing, cyanosis or edema with 2+ radial and dorsalis pedis pulses. NEUROLOGIC: Deferred. LABORATORY STUDIES: Hemoglobin and platelets are within normal limits. White blood cell count is within normal limits. Creatinine is 1.0 with a potassium of 3.1. Troponin is elevated at 0.082. It was mildly elevated upon initial admission at her last visit 2 days ago at 0.057 and then down trended. This is likely related to her hypertensive emergency. MRI of the brain has been performed this morning and reveals no acute parenchymal abnormality. Chest x-ray reveals no acute abnormality. EKG demonstrates sinus rhythm without any acute ST or T-wave changes. IMPRESSION: 1. Hypertensive emergency. 2. Possible seizure disorder. RECOMMENDATIONS: 1. Initiate Cardene drip. We will obtain an echocardiogram to rule out any hypertensive cardiomyopathy, but I suspect most of her mental status changes are probably related to either seizure issue or other medical problems, noncardiac related. Thank you for this consultation. We will follow along closely with you. If she is able to tolerate her oral drugs, we will continue her oral antihypertensives as well. DUSTIN SORIA MD DR: MYRIAM/nts JOB#: [id number] / [id number]
--- NOTE | 2019-06-29 16:02 | EKG ---
[facility] [address] [place] [address] Test Date: 2019-06-29 Test Time: 14:40:15 Pat Name: STEPH SAM Department: Room: [facility] Gender: F Manager Eligibility: : 1965 Requested By: KATIE ISRAEL Order Number: [id number] Reading MD: Measurements Intervals [place] Rate: 90 P: -59 DC: 92 QRS: 24 QRSD: 86 T: 152 QT: 390 QTc: 481 Interpretive Statements SINUS RHYTHM QRS(T) CONTOUR ABNORMALITY CONSIDER ANTEROLATERAL MYOCARDIAL DAMAGE ST & T ABNORMALITY, CONSIDER INFEROLATERAL ISCHEMIA OR LEFT VENTRICULAR STRAIN ABNORMAL ECG RI6.01 Unconfirmed report No previous ECG available for comparison
--- NOTE | 2019-06-29 16:10 | NUR ---
RN walked into pt room to pt having seizure. Pt turned onto side and mouth suctioned out. Dr. Gold notified of seizure and orders received and placed.
--- NOTE | 2019-06-29 16:28 | RAD ---
EXAM: CT Head without IV contrast CLINICAL HISTORY: COMPARISON: None. TECHNIQUE: Routine CT of the head without contrast. Soft tissues and bone windows were reviewed. PQRS compliance statement - One or more of the following individualized dose reduction techniques were utilized for this study: 1. Automated exposure control 2. Adjustment of the mA and/or kV according to patient size 3. Use of iterative reconstruction technique FINDINGS: There is no evidence of hemorrhage, mass or extra-axial fluid collection. Qureshi-white differentiation is maintained with no evidence of edema. Subcortical, periventricular deep white matter hypoattenuation may be seen with chronic small vessel disease. There is no mass effect or shift of the intracranial structures. A saccular dilatation of the right lateral ventricle is stable. Encephalomalacia of the right posterior parietal region is also stable. The cerebellum and brainstem are unremarkable. The calvarium demonstrates no evidence of fracture or focal lesion. There is normal aeration of the visualized paranasal sinuses and mastoid air cells. The visualized portions of the orbits are normal. IMPRESSION: 1. No evidence for acute intracranial hemorrhage 2. Changes of white matter hypoattenuation, stable, likely from chronic small vessel disease 3. Old infarct right posterior parietal region with associated encephalomalacia. Findings of no evidence for acute intracranial hemorrhage were discussed with nurse Najera at a 06/29/2019 4:24 PM Electronically signed by: Lew Christianson MD (06/29/2019 4:25 PM) [facility]
--- NOTE | 2019-06-29 16:48 | NUR ---
Pt had just returned from MRI (brain) when the aide noticed a difference in mental status. Pt unresponsive, . Only able to hold left arm up. unable to preform any other NIH. SBP in the 's Dr Neal and Dr Gold both consulted. Pt taken to ICU room 107. orders received. Addendum: 06/29/19 at 1653 by JOSE RAMON SCHULTE RN Amended: Links added.
[2019-06-29] MEDS ORDERED: POTASSIUM CHLORIDE 10MEQ 100 ML IV SCH (18:00)
[2019-06-29] MEDS ORDERED: NOREPINEPHRIN 8MG/250ML PREMIX 250 ML IV PRN (19:15)
--- NOTE | 2019-06-29 20:37 | PDOC2 ---
NEUROLOGY CONSULT Date of Admission Date of Admission DATE: 06/29/19 TIME: 20:25 Reason for Consult Reason for Consult: Hypertensive encephalopathy. Hypertensive emergency, BP 253/134 mmHg. Metabolic encephalopathy. Seizure x 1. MS changes. Confusion. Agitation. Acute psychosis. Hx of seizure or seizure like episodes. HTN, poorly controlled. HLD Obesity. No evidence of acute CVA this time. RECOMMENDATIONS/PLAN: BP control. Ativan 1-2 mg IV if has further seizures. Keppra 500 mg IV q12h. Seroquel 25 mg daily. Treat medical diseases. Lab: see orders. Brain MRI and HCT: No acute findings. HISTORY OF THE PRESENT ILLNESS: This is a 54-y-old AA female patient with Hx of HTN was admitted into [facility] hospital due to very high BP on 06/28/19. She was coded stroke on 06/29/19 due to MS changes and her NIH score was said 20. further evaluation ruled out acute CVA. Her MS changes was thought due to hypertensive encephalopathy. She was observed a seizure or seizure or seizure like episode in ICU, anti-seizure treatment was administrated. PAST MEDICAL HISTORY: Please see above. PAST SURGERY HISTORY: Appendectomy Rotate cuff surgery. ALLERGY: Reviewed. MEDICATIONS: Refer to [facility] FAMILY HISTORY: Non contributory. SOCIAL HISTORY: Lives at home. Denies current smoking, drinking, and illicit drug use. REVIEW OF SYSTEMS: Constitutional: No malnutrition, weight loss, cachexia. Head: No traumatic brain or head injury. Skin: No edema, or rash. Ear: No infection. Eyes: No vision loss or color blindness. Nose: No bleeding or purulent discharges. Hearing: No hearing decrease. Neck: No injury. Breast: No history of cancer, masses,or discharges. Cardiac: HTN, HLD. Pulmonary: No COPD. GI: No GI ulcer, GI bleeding. Urinary/genital: UTI. Endocrinologic: Obesity. Skeletomuscular: No muscular atrophy, deformity. Neurological: see HP. Psychiatric: Denies drug use/abuse. Otherwise, not -bxsjp review of systems. PHYSICAL EXAMINATION: General appearance is in acute distress. HEENT: Normocephalic and nontraumatic. Eyes, nose, ears, and throat are unremarkable. Neck is supple. No lymphadenopathy. No bruits are heard over the carotid artery. No crepitus. Cardiovascular: S1, S2, regular rate and rhythm. Pulmonary: Clear to auscultation bilaterally. Abdomen: Bowel sounds are positive. Abdomen is soft, nontender, and nondistended. Extremities: No rash, lesions, or edema. No restriction of range of motion NEUROLOGICAL EXAMINATION: Awake. Not oriented to time, place and person. PERRL. EOMI. CN: no focal findings. Muscle tone: within normal. Muscle strength: 5 DTR: 1-2 Plantar reflex: Flexor response bilaterally Gait: Not examined in bed. Sensory exam: no abnormal findings. No other cerebellar signs elicited. F-T-N test nor performed due to not follow commands.. Current Medications Current Medications Current Medications Hydralazine HCl (Apresoline Inj) 10 mg 1X ONCE IVP Last administered on 06/28/19at 12:22; Start 06/28/19 at 11:30; Stop 06/28/19 at 11:31; Status DC Potassium Chloride (Klor-Con) 40 meq 1X ONCE PO Last administered on 06/28/19at 14:36; Start 06/28/19 at 14:00; Stop 06/28/19 at 14:01; Status DC Ondansetron HCl (Zofran) 4 mg PRN Q8HRS PRN IV NAUSEA/VOMITING; Start 06/28/19 at 15:00; Stop 06/29/19 at 14:59; Status DC Acetaminophen (Tylenol) 650 mg PRN Q4HRS PRN PO FEVER; Start 06/28/19 at 15:00; Stop 06/29/19 at 14:59; Status DC Clonidine HCl (Catapres) 0.1 mg Q8HRS PRN PO ELEVATED BP, SEE COMMENTS; Start 06/28/19 at 15:00; Stop 06/29/19 at 08:02; Status DC Hydralazine HCl (Apresoline Inj) 10 mg PRN Q6HRS PRN IVP ELEVATED BP, SEE COMMENTS Last administered on 06/29/19at 04:06; Start 06/28/19 at 16:15; Stop 06/29/19 at 08:17; Status DC Calcium Carbonate/ Glycine (Tums) 200 mg PRN AFTMEAL PRN PO HEARTBURN / GAS; Start 06/28/19 at 16:15 Carvedilol (Coreg) 6.25 mg BIDWMEALS PO Last administered on 06/29/19 08:53; Start 06/28/19 at 17:00 Docusate Sodium (Colace) 100 mg BID PO Last administered on 06/29/19 08:53; Start 06/28/19 at 21:00 Lisinopril (Prinivil) 10 mg DAILY PO ; Start 06/29/19 at 09:00; Stop 06/29/19 at 08:17; Status DC Hydroxyzine HCl (Atarax) 50 mg TID PO Last administered on 06/29/19 08:53; Start 06/28/19 at 21:00 Ibuprofen (Motrin) 800 mg PRN Q6HRS PRN PO INFLAMMATION Last administered on 06/29/19 12:27; Start 06/28/19 at 16:15 Zolpidem Tartrate (Ambien) 5 mg PRN QHS PRN PO INSOMNIA, MRX1 Last administered on 06/29/19 00:32; Start 06/28/19 at 16:15 Lisinopril (Prinivil) 40 mg DAILY PO Last administered on 06/29/19 08:53; Start 06/29/19 at 09:00 Atorvastatin Calcium (Lipitor) 20 mg QHS PO ; Start 06/29/19 at 21:00 Diphenhydramine HCl (Benadryl) 25 mg PRN Q6HRS PRN PO ITCHING Last administered on 06/29/19 12:27; Start 06/29/19 at 11:45 Gadoterate Meglumine (Dotarem) 13 ml 1X ONCE IVP Last administered on 06/29/19 14:08; Start 06/29/19 at 14:00; Stop 06/29/19 at 14:01; Status DC Hydralazine HCl (Apresoline Inj) 10 mg PRN Q6HRS PRN IVP ELEVATED BP, SEE COMM ENTS Last administered on 06/29/19 14:47; Start 06/29/19 at 14:45 Hydralazine HCl (Apresoline Inj) 10 mg 1X ONCE IVP Last administered on 06/29/19 15:36; Start 06/29/19 at 15:00; Stop 06/29/19 at 15:01; Status DC Nicardipine HCl 50 mg/Sodium Chloride 250 ml @ 25 mls/hr CONT PRN IV SEE I/O RECORD Last administered on 06/29/19at 15:34; Start 06/29/19 at 15:30 Potassium Chloride/Water 100 ml @ 100 mls/hr Q1H IV Last administered on 06/29/19at 18:16; Start 06/29/19 at 18:00; Stop 06/29/19 at 18:36; Status DC Lorazepam (Ativan Inj) 2 mg STK-MED ONCE .ROUTE ; Start 06/29/19 at 18:14; Stop 06/29/19 at 18:14; Status DC Lorazepam (Ativan Inj) 2 mg PRN Q4HRS PRN IV seizure; Start 06/29/19 at 18:15 Levetiracetam 500 mg/Dextrose 105 ml @ 420 mls/hr Q12HR IV ; Start 06/29/19 at 21:00 Norepinephrine Bitartrate 250 ml @ 12.757 mls/ hr CONT PRN IV SEE I/O RECORD; Start 06/29/19 at 19:15 Active Scripts Active Lisinopril 20 Mg Tablet 10 Mg PO DAILY Colace (Docusate Sodium) 100 Mg Capsule 1 Cap PO BID Ibuprofen 800 Mg Tablet 800 Mg PO PRN Q6HRS PRN Reported Hydroxyzine Pamoate 50 Mg Capsule 50 Mg PO TID Zolpidem Tartrate 10 Mg Tablet 10 Mg PO QHS Hydrocodone-Acetamin 10-325 mg (Hydrocodone/Acetaminophen) 1 Each Tablet 10-325 Mg PO PRN Q6-8HRS PRN Carvedilol (Carvedilol) 12.5 Mg Tablet 6.25 Mg PO BIDWMEALS Tums (Calcium Carbonate) 200 Mg Tab.chew 200 Mg PO Diazepam 10 Mg Tablet 10 Mg PO BID Allergies Allergies: Allergies Coded Allergies Type Severity Reaction Last Updated Verified No Known Drug Allergies 09/27/16 No ROS Review of System The patient denies any associated fevers, chills, headache, ear pain, rhinorr hea, sore throat, stiff neck, productive cough, chest pain, shortness of breath, back or flank pain, abdominal pain, nausea, vomiting, diarrhea, constipation, dysuria, rash, numbness, weakness, tingling, incontinence, difficulty ambulating, or diaphoresis. Physical Exam Physical Exam General: Well developed, well nourished, no acute distress, well appearing HEENT: Pupils equally round and reactive to light, EOMI, no discharge, normal conjunctiva Neck: Supple, no nuchal rigidity, no JVD, trachea midline, no tenderness Cardiac: RRR, no murmurs, no gallops, no rubs Chest/Lungs: CTAB, no wheeze, no rhonchi, no crackles Abdomen: soft, non-distended, no guarding, no peritoneal signs, non-tender Back: No tenderness Extremities: no edema, pulses intact, non-tender,capillary refill <3 sec bilateral upper and lower extremities, Neuro: Alert and oriented x 4, no focal deficits, normal speech Vitals Vitals: Vital Signs Date Time Temp Pulse Resp B/P (MAP) Pulse Ox O2 Delivery O2 Flow Rate FiO2 06/29/19 17:00 92 20 174/81 (112) 95 2.0 06/29/19 17:00 Nasal Cannula 06/29/19 15:15 98.0 98.0 Labs Labs Laboratory Tests Test 06/28/19 11:50 06/28/19 12:50 06/28/19 20:45 06/29/19 08:15 White Blood Count 8.1 x10^3/uL (4.0-11.0) 9.0 x10^3/uL (4.0-11.0) Red Blood Count 4.55 x10^6/uL (3.50-5.40) 4.72 x10^6/uL (3.50-5.40) Hemoglobin 14.9 g/dL (12.0-15.5) 15.5 g/dL (12.0-15.5) Hematocrit 43.8 % (36.0-47.0) 45.9 % (36.0-47.0) Mean Corpuscular Volume 96 fL (79-100) 97 fL (79-100) Mean Corpuscular Hemoglobin 33 pg (25-35) 33 pg (25-35) Mean Corpuscular Hemoglobin Concent 34 g/dL (31-37) 34 g/dL (31-37) Red Cell Distribution Width 15.8 % (11.5-14.5) 15.6 % (11.5-14.5) Platelet Count 286 x10^3/uL (140-400) 238 x10^3/uL (140-400) Neutrophils (%) (Auto) 54 % (31-73) 52 % (31-73) Lymphocytes (%) (Auto) 35 % (24-48) 37 % (24-48) Monocytes (%) (Auto) 10 % (0-9) 9 % (0-9) Eosinophils (%) (Auto) 1 % (0-3) 2 % (0-3) Basophils (%) (Auto) 1 % (0-3) 1 % (0-3) Neutrophils # (Auto) 4.4 x10^3/uL (1.8-7.7) 4.7 x10^3/uL (1.8-7.7) Lymphocytes # (Auto) 2.8 x10^3/uL (1.0-4.8) 3.3 x10^3/uL (1.0-4.8) Monocytes # (Auto) 0.8 x10^3/uL (0.0-1.1) 0.8 x10^3/uL (0.0-1.1) Eosinophils # (Auto) 0.1 x10^3/uL (0.0-0.7) 0.1 x10^3/uL (0.0-0.7) Basophils # (Auto) 0.0 x10^3/uL (0.0-0.2) 0.1 x10^3/uL (0.0-0.2) Creatine Kinase 87 U/L (26-192) Creatine Kinase MB (Mass) 2.2 ng/mL (0.0-3.6) Creatine Kinase MB Relative Index 2.5 % (0-4) Troponin I Quantitative 0.034 ng/mL (0.000-0.055) [id number]-Type Natriuretic Peptide 554 pg/mL (0-124) Thyroid Stimulating Hormone (TSH) 0.800 uIU/mL (0.358-3.74) Ethyl Alcohol Level < 10 mg/dL (0-10) Sodium Level 141 mmol/L (136-145) 140 mmol/L (136-145) Potassium Level 3.1 mmol/L (3.5-5.1) 3.1 mmol/L (3.5-5.1) Chloride Level 99 mmol/L (98-107) 101 mmol/L (98-107) Carbon Dioxide Level 31 mmol/L (21-32) 31 mmol/L (21-32) Anion Gap 11 (6-14) 8 (6-14) Blood Urea Nitrogen 4 mg/dL (7-20) 5 mg/dL (7-20) Creatinine 0.8 mg/dL (0.6-1.0) 1.0 mg/dL (0.6-1.0) Estimated GFR (Cockcroft-Gault) 89.8 69.4 BUN/Creatinine Ratio 5 (6-20) 5 (6-20) Glucose Level 110 mg/dL (70-99) 113 mg/dL (70-99) Calcium Level 9.4 mg/dL (8.5-10.1) 9.1 mg/dL (8.5-10.1) Magnesium Level 1.9 mg/dL (1.8-2.4) Total Bilirubin 1.0 mg/dL (0.2-1.0) 0.9 mg/dL (0.2-1.0) Aspartate Amino Transf (AST/SGOT) 20 U/L (15-37) 21 U/L (15-37) Alanine Aminotransferase (ALT/SGPT) 24 U/L (14-59) 23 U/L (14-59) Alkaline Phosphatase 98 U/L (46-116) 87 U/L (46-116) Total Protein 7.7 g/dL (6.4-8.2) 7.6 g/dL (6.4-8.2) Albumin 3.7 g/dL (3.4-5.0) 3.3 g/dL (3.4-5.0) Albumin/Globulin Ratio 0.9 (1.0-1.7) 0.8 (1.0-1.7) Lipase 64 U/L (73-393) Urine Opiates Screen Neg (NEG) Urine Methadone Screen Neg (NEG) Urine Barbiturates Neg (NEG) Urine Phencyclidine Screen Neg (NEG) Urine Amphetamine/Methamphetamine Neg (NEG) Urine Benzodiazepines Screen Neg (NEG) Urine Cocaine Screen Neg (NEG) Urine Cannabinoids Screen Neg (NEG) Urine Ethyl Alcohol Neg (NEG) Test 06/29/19 12:35 06/29/19 14:50 06/29/19 18:15 Troponin I Quantitative 0.082 ng/mL (0.000-0.055) 0.078 ng/mL (0.000-0.055) Glucose (Fingerstick) 112 mg/dL (70-99) Laboratory Tests Test 06/28/19 20:45 06/29/19 08:15 06/29/19 12:35 06/29/19 14:50 Urine Opiates Screen Neg (NEG) Urine Methadone Screen Neg (NEG) Urine Barbiturates Neg (NEG) Urine Phencyclidine Screen Neg (NEG) Urine Amphetamine/Methamphetamine Neg (NEG) Urine Benzodiazepines Screen Neg (NEG) Urine Cocaine Screen Neg (NEG) Urine Cannabinoids Screen Neg (NEG) Urine Ethyl Alcohol Neg (NEG) White Blood Count 9.0 x10^3/uL (4.0-11.0) Red Blood Count 4.72 x10^6/uL (3.50-5.40) Hemoglobin 15.5 g/dL (12.0-15.5) Hematocrit 45.9 % (36.0-47.0) Mean Corpuscular Volume 97 fL (79-100) Mean Corpuscular Hemoglobin 33 pg (25-35) Mean Corpuscular Hemoglobin Concent 34 g/dL (31-37) Red Cell Distribution Width 15.6 % (11.5-14.5) Platelet Count 238 x10^3/uL (140-400) Neutrophils (%) (Auto) 52 % (31-73) Lymphocytes (%) (Auto) 37 % (24-48) Monocytes (%) (Auto) 9 % (0-9) Eosinophils (%) (Auto) 2 % (0-3) Basophils (%) (Auto) 1 % (0-3) Neutrophils # (Auto) 4.7 x10^3/uL (1.8-7.7) Lymphocytes # (Auto) 3.3 x10^3/uL (1.0-4.8) Monocytes # (Auto) 0.8 x10^3/uL (0.0-1.1) Eosinophils # (Auto) 0.1 x10^3/uL (0.0-0.7) Basophils # (Auto) 0.1 x10^3/uL (0.0-0.2) Sodium Level 140 mmol/L (136-145) Potassium Level 3.1 mmol/L (3.5-5.1) Chloride Level 101 mmol/L (98-107) Carbon Dioxide Level 31 mmol/L (21-32) Anion Gap 8 (6-14) Blood Urea Nitrogen 5 mg/dL (7-20) Creatinine 1.0 mg/dL (0.6-1.0) Estimated GFR (Cockcroft-Gault) 69.4 BUN/Creatinine Ratio 5 (6-20) Glucose Level 113 mg/dL (70-99) Calcium Level 9.1 mg/dL (8.5-10.1) Total Bilirubin 0.9 mg/dL (0.2-1.0) Aspartate Amino Transf (AST/SGOT) 21 U/L (15-37) Alanine Aminotransferase (ALT/SGPT) 23 U/L (14-59) Alkaline Phosphatase 87 U/L (46-116) Total Protein 7.6 g/dL (6.4-8.2) Albumin 3.3 g/dL (3.4-5.0) Albumin/Globulin Ratio 0.8 (1.0-1.7) Troponin I Quantitative 0.082 ng/mL (0.000-0.055) Glucose (Fingerstick) 112 mg/dL (70-99) Test 06/29/19 18:15 Troponin I Quantitative 0.078 ng/mL (0.000-0.055) LATIA FLORIAN MD Jun 29, 2019 20:37
[2019-06-29] MEDS: QUEtiapine 25 MG TABLET. PO SCH (21:00)
[2019-06-29] MEDS: ATORVASTATIN CALCIUM 20 MG TABLET PO SCH (21:00)
[2019-06-29] MEDS: levETIRAcetam 500 MG in IV DEXTROSE 5% 100ML 100 ML IV SCH (22:33)
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
[2019-06-29] MEDS ORDERED: HALOPERIDOL LACTATE 5 MG/ML VIAL. IVP ONE (23:30)
[2019-06-30] VITALS (18 sets, daily range): BP systolic 62–170; BP diastolic 33–99
[2019-06-30 04:40] LABS: CALCIUM 8.1 mg/dL (8.5-10.1); CREATININE 0.9 mg/dL (0.6-1.0); GFR 78.4; POTASSIUM 3.7 mmol/L (3.5-5.1)
--- NOTE | 2019-06-30 08:31 | PDOC ---
SUBJECTIVE Subjective Since pt was seen by myself yesterday morning, she subsequently had decline in her neurological status. When pt returned from her MRI she was staring off into space and unable to move her extremities. Speech garbled. Pt's MRI and subsequent CT both did not show any acute changes. Pt apparently also had a seizure like episode yesterday afternoon as well. Pt's speech is garbled this morning and does not make sense. She is able to move her extremities. She is unable to answer my questions. Called and talked to pt's daughter, Yessica. Yessica does not live in [place] but states that she talks to her mom every day and is very close to her. Pt's daughter states that she has never seen her mother like this before and she has never behaved in this way before. She talked to her mom when she was in the hospital this last weekend and says that at that time her mom was still making sense, although she could tell that something was a little off. After pt left the hospital, her daughter says that she was no longer making sense and she was having difficulty understanding what she was saying. Pt currently does not have a DPOA, but daughter would like to get this process started. OBJECTIVE Vital Signs Vital Signs Date Time Temp Pulse Resp B/P (MAP) Pulse Ox O2 Delivery O2 Flow Rate FiO2 06/30/19 04:00 Nasal Cannula 2.0 06/30/19 00:00 Nasal Cannula 2.0 06/29/19 23:17 111 183/102 06/29/19 20:00 Nasal Cannula 2.0 06/29/19 17:00 92 20 174/81 (112) 95 2.0 06/29/19 17:00 Nasal Cannula 2.0 06/29/19 16:45 106 20 182/89 (120) 93 2.0 06/29/19 16:30 106 20 165/87 (113) 90 Room Air 06/29/19 16:15 110 20 149/86 (107) 91 Room Air 06/29/19 16:00 112 20 199/93 (128) 91 Room Air 06/29/19 15:40 106 20 170/87 (114) 94 Room Air 06/29/19 15:36 91 235/121 06/29/19 15:30 106 20 241/123 (162) 92 Room Air 06/29/19 15:15 98.0 213/99 (137) 98.0 06/29/19 14:47 235/121 06/29/19 14:40 91 253/134 (173) 06/29/19 11:00 97.9 81 16 138/78 (98) 90 Room Air 97.9 06/29/19 08:53 101 139/75 06/29/19 08:53 101 139/75 I & O Intake and Output 06/30/19 06:59 Intake Total 640 ml Output Total 1240 ml Balance -600 ml Intake Oral 540 ml IV Total 100 ml Output Urine Total 1240 ml # Voids 1 PHYSICAL EXAM Physical Exam GEN.: No apparent distress. alert, not oriented. Unable to answer questions appropriately. Speech garbled and does not make sense. HEENT: Head is normocephalic, atraumatic NECK: Supple. LUNGS: Clear to auscultation. HEART: RRR, S1, S2 present. Peripheral pulses intact ABDOMEN: Soft, nontender. Positive bowel sounds. EXTREMITIES: Without any cyanosis. NEUROLOGIC: Normal speech, normal tone PSYCHIATRIC: Normal affect, normal mood. SKIN: No ulcerations ASSESSMENT/PLAN Assessment/Plan Pt is a 54yo AAF admitted for hypertensive crisis with confusion 1)Hypertensive crisis- pt's BP stable on Nicardipine gtt. Pt also has Lisinopril 40mg ordered and Carvedilol 6.25mg BID. Cardiology following. 2)Confusion- pt's initial CT Head was normal last admission. MRI brain this admission only showed chronic changes from previous CVA and aneurysm. Repeat CT Head also showed no acute changes. Neurology following and believes confusion is due to hypertensive encephalopathy. Pt's current garbled speech and confusion is new in discussing with daughter who talks to her mom daily. 3)Hx CVA/Brain aneurysms 4)Seizure like episode- pt started on Keppra, Ativan and Seroquel 5)Agitation- Haldol ordered as needed. Pt does not have the decision making c apacity to leave AMA 6)HLD- not at goal. Pt not taking her cholesterol medication, resumed on Atorvastatin 20mg 7)Hypokalemia- replaced in ER, resolved 8)Elevated troponin- likely due to hypertensive urgency. No chest pain, no EKG changes. ECHO pending COMMENT Lab Laboratory Tests Test 06/29/19 12:35 06/29/19 14:50 06/29/19 18:15 06/30/19 04:10 Troponin I Quantitative 0.082 ng/mL (0.000-0.055) 0.078 ng/mL (0.000-0.055) Glucose (Fingerstick) 112 mg/dL (70-99) Sodium Level 142 mmol/L (136-145) Potassium Level 3.7 mmol/L (3.5-5.1) Chloride Level 106 mmol/L (98-107) Carbon Dioxide Level 29 mmol/L (21-32) Anion Gap 7 (6-14) Blood Urea Nitrogen 7 mg/dL (7-20) Creatinine 0.9 mg/dL (0.6-1.0) Estimated GFR (Cockcroft-Gault) 78.4 Glucose Level 89 mg/dL (70-99) Calcium Level 8.1 mg/dL (8.5-10.1) KATIE ISRAEL MD Jun 30, 2019 08:31
[2019-06-30] MEDS: levETIRAcetam 500 MG in IV DEXTROSE 5% 100ML 100 ML IV SCH ×2 (09:03→21:29)
[2019-06-30] MEDS: DOCUSATE SODIUM 100 MG CAPSULE. PO SCH ×2 (09:15→21:29)
[2019-06-30] MEDS: LISINOPRIL 20 MG TABLET PO SCH (09:16)
[2019-06-30] MEDS: QUEtiapine 25 MG TABLET. PO SCH (09:16)
[2019-06-30] MEDS: CARVEDILOL 6.25 MG TABLET. PO SCH ×2 (09:17→21:29)
[2019-06-30] MEDS: hydrOXYzine 25 MG TABLET PO SCH ×3 (09:38→21:29)
--- NOTE | 2019-06-30 11:47 | NUR ---
Orders received and pt then transferred to higher level of care and new orders required to initiate therapy services. Will await new orders to initiate therapy services. Addendum: 06/30/19 at 1147 by REBECCA LOERA PT Amended: Links added.
[2019-06-30] MEDS: HALOPERIDOL LACTATE 5 MG/ML VIAL. IVP PRN ×2 (14:57→22:58)
--- NOTE | 2019-06-30 15:15 | NUR ---
SS following for discharge planning. Pt transferred to ICU. Discussed with Arslan CHIU, Pt is from home and currently requiring oxygen. PT/OT currently on hold. Pt has Medicaid with rehabilitation options of acute rehabilitation or home healthcare if PT/OT recommends. SS will continue to follow for discharge planning.
--- NOTE | 2019-06-30 17:00 | NUR ---
PATIENT SLEEPING AT THIS TIME, AROUSES TO VERBAL STIMULI BUT DOES NOT FOLLOW COMMANDS WHEN ASKED TO TAKE A SIP OF WATER, WILL INFORM NOC NURSE TO ADMINISTER B/P MED (COREG) PATIENT IS NOT FULLY AWAKE TO TAKE AT THIS TIME. BLOOD PRESSURE 124/64, WILL MONITOR.
--- NOTE | 2019-06-30 17:36 | PDOC ---
CARDIOLOGY PROGRESS NOTE SUBJECTIVE: Remains confused overnight. Unable to really have a conversation today OBJECTIVE: Vital Signs/I&O: Vital Signs Date Time Temp Pulse Resp B/P (MAP) Pulse Ox O2 Delivery O2 Flow Rate FiO2 06/30/19 15:07 85 30 170/87 (114) 97 Nasal Cannula 2.0 06/30/19 14:03 98.2 98.2 I & O 06/29/19 06/29/19 06/30/19 15:00 23:00 07:00 Intake Total 540 ml 205 ml 0 ml Output Total 850 ml 430 ml Balance 540 ml -645 ml -430 ml Objective: GEN.: No apparent distress. Not alert or oriented. HEENT: Head is normocephalic, atraumatic NECK: Supple. LUNGS: Clear to auscultation. HEART: RRR, S1, S2 present. Peripheral pulses intact ABDOMEN: Soft, nontender. Positive bowel sounds. EXTREMITIES: Without any cyanosis. SKIN: No ulcerations CURRENT MEDICATIONS: Current Medications Medications (Trade) Dose Ordered Sig/Christina Route PRN Reason Start Time Stop Time Status Last Admin Dose Admin Potassium Chloride/Water 100 ml @ 100 mls/hr Q1H IV 06/29/19 18:00 06/29/19 18:36 DC 06/29/19 18:16 Lorazepam (Ativan Inj) 2 mg PRN Q4HRS PRN IV seizure 06/29/19 18:15 06/30/19 14:57 Levetiracetam 500 mg/Dextrose 105 ml @ 420 mls/hr Q12HR IV 06/29/19 21:00 06/30/19 09:17 Quetiapine Fumarate (SEROquel) 12.5 mg BID PO 06/29/19 21:00 06/30/19 13:26 DC 06/30/19 09:17 Haloperidol Lactate (Haldol Inj) 2 mg 1X ONCE IVP 06/29/19 23:30 06/29/19 23:33 DC 06/29/19 23:39 Haloperidol Lactate (Haldol Inj) 2 mg PRN Q6HRS PRN IVP AGITATION 06/30/19 08:00 06/30/19 14:57 DIAGNOSTIC TESTING: No new cardiac testing Labs: Laboratory Tests 06/30/19 04:10 Laboratory Tests Test 06/30/19 04:10 Sodium Level 142 mmol/L (136-145) Potassium Level 3.7 mmol/L (3.5-5.1) Chloride Level 106 mmol/L (98-107) Carbon Dioxide Level 29 mmol/L (21-32) Anion Gap 7 (6-14) Blood Urea Nitrogen 7 mg/dL (7-20) Creatinine 0.9 mg/dL (0.6-1.0) Estimated GFR (Cockcroft-Gault) 78.4 Glucose Level 89 mg/dL (70-99) Calcium Level 8.1 mg/dL (8.5-10.1) L ASSESSMENT: 1. Acute metabolic encephalopathy 2. Hypertensive emergency PLAN: 1. Continue present neuro w/u 2. BP much better controlled. 3. Await echo. Will follow along peripherally. DUSTIN SORIA MD Jun 30, 2019 17:36
--- NOTE | 2019-06-30 19:40 | PDOC ---
PROGRESS NOTES Assessment Assessment Hypertensive encephalopathy. Hypertensive emergency, BP 253/134 mmHg. Metabolic encephalopathy. Seizure x 1. MS changes. Confusion. Agitation. Acute psychosis. Hx of seizure or seizure like episodes. HTN, poorly controlled. HLD Obesity. No evidence of acute CVA this time. RECOMMENDATIONS/PLAN: BP control. Continue Keppra 500 mg po bid. Seroquel 12.5 mg bid. Treat medical diseases. EEG on 06/30/19. Brain MRI and HCT: No acute findings. HISTORY OF THE PRESENT ILLNESS: This is a 54-y-old AA female patient with Hx of HTN was admitted into [facility] due to very high BP on 06/28/19. She was coded stroke on 06/29/19 due to MS changes and her NIH score was said 20. further evaluation ruled out acute CVA. Her MS changes was thought due to hypertensive encephalopathy. She was observed a seizure or seizure or seizure like episode in ICU, anti-seizure treatment was administrated. PAST MEDICAL HISTORY: Please see above. PAST SURGERY HISTORY: Appendectomy Rotate cuff surgery. ALLERGY: Reviewed. MEDICATIONS: Refer to [facility] FAMILY HISTORY: Non contributory. SOCIAL HISTORY: Lives at home. Denies current smoking, drinking, and illicit drug use. REVIEW OF SYSTEMS: Constitutional: No malnutrition, weight loss, cachexia. Head: No traumatic brain or head injury. Skin: No edema, or rash. Ear: No infection. Eyes: No vision loss or color blindness. Nose: No bleeding or purulent discharges. Hearing: No hearing decrease. Neck: No injury. Breast: No history of cancer, masses,or discharges. Cardiac: HTN, HLD. Pulmonary: No COPD. GI: No GI ulcer, GI bleeding. Urinary/genital: UTI. Endocrinologic: Obesity. Skeletomuscular: No muscular atrophy, deformity. Neurological: see HP. Psychiatric: Denies drug use/abuse. Otherwise, not [id number] review of systems. PHYSICAL EXAMINATION: General appearance is in acute distress. HEENT: Normocephalic and nontraumatic. Eyes, nose, ears, and throat are unremarkable. Neck is supple. No lymphadenopathy. No bruits are heard over the carotid artery. No crepitus. Cardiovascular: S1, S2, regular rate and rhythm. Pulmonary: Clear to auscultation bilaterally. Abdomen: Bowel sounds are positive. Abdomen is soft, nontender, and nondistended. Extremities: No rash, lesions, or edema. No restriction of range of motion NEUROLOGICAL EXAMINATION: Awake. Not oriented to time, place and person. PERRL. EOMI. CN: no focal findings. Muscle tone: within normal. Muscle strength: 5 DTR: 1-2 Plantar reflex: Flexor response bilaterally Gait: Not examined in bed. Sensory exam: no abnormal findings. No other cerebellar signs elicited. F-T-N test nor performed due to not follow commands.. Objective Objective Vital Signs Date Time Temp Pulse Resp B/P (MAP) Pulse Ox O2 Delivery O2 Flow Rate FiO2 06/30/19 19:00 98.1 94 20 126/67 (86) 95 Nasal Cannula 2.0 98.1 Intake and Output 06/30/19 07:00 Intake Total 745 ml Output Total 1280 ml Balance -535 ml Intake Oral 540 ml IV Total 205 ml Output Urine Total 1280 ml # Voids 1 Vitals Signs Vitals VS - Last 72 Hours, by Label Date Time Temp Pulse Resp B/P (MAP) Pulse Ox O2 Delivery O2 Flow Rate FiO2 06/30/19 19:00 98.1 94 20 126/67 (86) 95 Nasal Cannula 2.0 98.1 06/30/19 15:07 85 30 170/87 (114) 97 Nasal Cannula 2.0 06/30/19 14:03 98.2 82 23 146/89 (108) 98 Nasal Cannula 2.0 98.2 06/30/19 13:04 98.3 80 37 159/82 (107) 98 Nasal Cannula 2.0 98.3 06/30/19 12:00 77 29 146/75 (98) 99 Nasal Cannula 2.0 06/30/19 12:00 Nasal Cannula 2.0 06/30/19 11:00 80 17 129/73 (91) 95 Nasal Cannula 2.0 06/30/19 10:00 95 31 158/96 (116) 96 Nasal Cannula 2.0 06/30/19 09:17 95 134/72 06/30/19 09:17 92 134/72 06/30/19 09:00 91 18 134/72 (92) 97 Nasal Cannula 2.0 06/30/19 08:00 Nasal Cannula 2.0 06/30/19 08:00 92 23 153/94 (113) 95 Nasal Cannula 2.0 06/30/19 07:00 98.5 96 20 128/73 (91) 96 Nasal Cannula 2.0 98.5 06/30/19 06:00 106 36 155/99 (117) 97 Nasal Cannula 2.0 06/30/19 05:00 104 38 133/74 (93) 95 Nasal Cannula 2.0 06/30/19 04:00 Nasal Cannula 2.0 06/30/19 04:00 98.5 102 33 145/92 (109) 95 Nasal Cannula 2.0 98.5 06/30/19 03:00 102 32 164/89 (114) 97 Nasal Cannula 2.0 06/30/19 02:00 84 28 93/48 (63) 94 Nasal Cannula 2.0 06/30/19 01:00 80 30 90/44 (59) 95 Nasal Cannula 2.0 06/30/19 00:00 98.3 78 26 62/33 (43) 94 Nasal Cannula 2.0 98.3 06/30/19 00:00 Nasal Cannula 2.0 06/29/19 23:17 111 183/102 06/29/19 23:00 100 19 183/102 (129) 98 Nasal Cannula 2.0 06/29/19 22:00 110 35 186/111 (136) 99 Nasal Cannula 2.0 06/29/19 21:00 100 21 182/104 (130) 100 Nasal Cannula 2.0 06/29/19 20:00 92 41 103/67 (79) 99 Nasal Cannula 2.0 06/29/19 20:00 Nasal Cannula 2.0 06/29/19 19:00 98.0 78 26 91/64 (73) 96 Nasal Cannula 2.0 98.0 06/29/19 17:00 92 20 174/81 (112) 95 2.0 06/29/19 17:00 Nasal Cannula 2.0 06/29/19 16:45 106 20 182/89 (120) 93 2.0 06/29/19 16:30 106 20 165/87 (113) 90 Room Air 06/29/19 16:15 110 20 149/86 (107) 91 Room Air 06/29/19 16:00 112 20 199/93 (128) 91 Room Air 06/29/19 15:40 106 20 170/87 (114) 94 Room Air 06/29/19 15:36 91 235/121 06/29/19 15:30 106 20 241/123 (162) 92 Room Air 06/29/19 15:15 98.0 213/99 (137) 98.0 06/29/19 14:47 235/121 06/29/19 14:40 91 253/134 (173) 06/29/19 11:00 97.9 81 16 138/78 (98) 90 Room Air 97.9 06/29/19 08:53 101 139/75 06/29/19 08:53 101 139/75 06/29/19 08:00 Room Air 06/29/19 07:00 98.1 101 16 139/75 (96) 95 Room Air 98.1 Laboratory Laboratory Laboratory Tests Test 06/30/19 04:10 Sodium Level 142 mmol/L (136-145) Potassium Level 3.7 mmol/L (3.5-5.1) Chloride Level 106 mmol/L (98-107) Carbon Dioxide Level 29 mmol/L (21-32) Anion Gap 7 (6-14) Blood Urea Nitrogen 7 mg/dL (7-20) Creatinine 0.9 mg/dL (0.6-1.0) Estimated GFR (Cockcroft-Gault) 78.4 Glucose Level 89 mg/dL (70-99) Calcium Level 8.1 mg/dL (8.5-10.1) Medication Medications Current Medications Atorvastatin Calcium (Lipitor) 20 mg QHS PO ; Start 06/29/19 at 21:00 Diazepam (Valium) 10 mg PRN BID PRN PO ANXIETY; Start 06/30/19 at 13:30 Haloperidol Lactate (Haldol Inj) 2 mg 1X ONCE IVP Last administered on 06/29/19at 23:39; Start 06/29/19 at 23:30; Stop 06/29/19 at 23:33; Status DC Haloperidol Lactate (Haldol Inj) 2 mg PRN Q6HRS PRN IVP AGITATION Last administered on 06/30/19at 14:57; Start 06/30/19 at 08:00 Levetiracetam 500 mg/Dextrose 105 ml @ 420 mls/hr Q12HR IV Last administered on 06/30/19at 09:17; Start 06/29/19 at 21:00 Quetiapine Fumarate (SEROquel) 12.5 mg BID PO Last administered on 06/30/19at 09:17; Start 06/29/19 at 21:00; Stop 06/30/19 at 13:26; Status DC Comment Review of Relevant I have reviewed the following items carlos (where applicable) has been applied. LATIA FLORIAN MD Jun 30, 2019 19:40
[2019-06-30] MEDS: IBUPROFEN 400 MG TABLET. PO PRN (21:28)
[2019-06-30] MEDS: ATORVASTATIN CALCIUM 20 MG TABLET PO SCH (21:28)
[2019-06-30] MEDS: ZOLPIDEM 5 MG TABLET. PO PRN (21:28)
[2019-07-01 03:00] VITALS: BP 119/67
[2019-07-01 07:00] VITALS: BP 134/80
[2019-07-01 07:53] LABS: HEMATOCRIT 38.8 % (36.0-47.0); HEMOGLOBIN 12.7 g/dL (12.0-15.5); RED BLOOD COUNT 3.9 x10^6/uL (3.50-5.40); RED CELL DISTRIBUTION WIDTH 15.5 % (11.5-14.5); WHITE BLOOD COUNT 5.9 x10^3/uL (4.0-11.0)
[2019-07-01] MEDS: CARVEDILOL 6.25 MG TABLET. PO SCH ×2 (07:58→16:51)
[2019-07-01] MEDS: levETIRAcetam 500 MG in IV DEXTROSE 5% 100ML 100 ML IV SCH (08:00)
[2019-07-01] MEDS: LISINOPRIL 20 MG TABLET PO SCH (08:00)
[2019-07-01] MEDS: DOCUSATE SODIUM 100 MG CAPSULE. PO SCH ×2 (08:01→21:00)
[2019-07-01] MEDS: diazePAM 5 MG TABLET PO PRN ×2 (08:01→20:41)
[2019-07-01] MEDS: hydrOXYzine 25 MG TABLET PO SCH ×3 (08:01→20:42)
[2019-07-01 08:06] LABS: CALCIUM 8.6 mg/dL (8.5-10.1); CREATININE 0.9 mg/dL (0.6-1.0); GFR 78.4; POTASSIUM 3.8 mmol/L (3.5-5.1)
[2019-07-01 11:00] VITALS: BP 134/83
[2019-07-01] MEDS ORDERED: MULTIVIT INFUSN,ADULT 4,VIT K 10 ML, THIAMINE INJ 100 MG, FOLIC ACID INJ 1 MG in IV NOR... IV ONE (14:30)
--- NOTE | 2019-07-01 14:30 | PDOC ---
PROGRESS NOTES Subjective confused, babbling but not making sense, on 1:1 supervision, she got hypoxic off O2 when assisted to commode, has Molina and diaper Objective Afebrile General: alert but not oriented Heart: RRR Lungs: CTA, NC O2 on at 2 liters Abd: soft, non tender Ext: no C/C/E Vital Signs Vital Signs Date Time Temp Pulse Resp B/P (MAP) Pulse Ox O2 Delivery O2 Flow Rate FiO2 07/01/19 11:00 96.9 71 22 134/83 (100) 98 Nasal Cannula 2.0 96.9 I & O Intake and Output 07/01/19 07:00 Intake Total 250 ml Output Total 595 ml Balance -345 ml Intake Oral 145 ml IV Total 105 ml Output Urine Total 595 ml # Bowel Movements 2 Assessment and Plan 1)Hypertensive crisis- pt's BP stable off Nicardipine gtt. Pt also on Lisinopril 40mg ordered and Carvedilol 6.25mg BID. Cardiology following. 2)Encephalopathy- likely combo of hypertensive and possibly hypoxia associated with seizure, she also has a hx of binge drinking [employer] so may have Wernicke's, pt's initial CT Head was normal last admission. MRI brain this admission only showed chronic changes from previous CVA and aneurysm. Repeat CT Head also showed no acute changes. Neurology following and believes confusion is due to hypertensive encephalopathy. Will give a banana bag 3)Hx CVA/Brain aneurysms - no MRI evidence of acute ischemia 4)Seizure like episode- perhaps from alcohol pt started on Keppra, Ativan and Seroquel 5)Agitation- Haldol ordered as needed. Pt does not have the decision making capacity to leave AMA 6)HLD- not at goal. Pt not taking her cholesterol medication, resumed on Atorvastatin 20mg 7)Hypokalemia- replaced in ER, resolved 8)Elevated troponin- likely due to hypertensive urgency. No chest pain, no EKG changes. ECHO pending Phillip MALONE MD Jul 01, 2019 14:30
--- NOTE | 2019-07-01 14:55 | CARD ---
MR#: [id number] Date of Study: 07/01/2019 Ordering Physician: DUSTIN SORIA, Referring Physician: DUSTIN SORIA, Tech: Katelyn Santos SERGIO APPROVED REPORT EXAM: Two-dimensional and M-mode echocardiogram with Doppler and color Doppler. Other Information Quality : Good INDICATION Elevated Troponin 2D DIMENSIONS RVDd2.8 (2.9-3.5cm)Left Atrium(2D)3.8 (1.6-4.0cm) IVSd1.3 (0.7-1.1cm)Aortic Root(2D)2.8 (2.0-3.7cm) LVDd3.6 (3.9-5.9cm)LVOT Diameter2.0 (1.8-2.4cm) PWd1.2 (0.7-1.1cm)LVDs2.6 (2.5-4.0cm) FS (%) 28.1 %SV30.2 ml LVEF(%)55.3 (>50%) Aortic Valve AoV Peak Song.136.1cm/sAoV VTI24.0cm AO Peak GR.7.4mmHgLVOT VTI 23.57cm AO Mean GR.5mmHgAVA (VTI)3.00cm2 Mitral Valve MV E Fmhftkyq90.4cm/sMV DECEL EDHN395tm MV A Zydtjeyk76.8cm/sE/A Ratio0.8 TDI Lateral E' P. V7.27cm/sMedial E' P. V6.18cm/s E/Lateral E'8.0E/Medial E'9.4 Tricuspid Valve TR P. Bhuuohkt034rh/sRAP VRWLWCAN1dfXn TR Peak Gr.62ofRnWFHF99cvOh Pulmonary Vein S1 Oqwquklu00.2cm/sS2 Wmdqrbkq85.57cm/s D2 Qzpxnlhb44.6cm/s LEFT VENTRICLE The left ventricle is normal size. There is mild concentric left ventricular hypertrophy. The left ve ntricular systolic function is normal and the ejection fraction is within normal range. The Ejection Fraction is 55-60%. There is normal LV segmental wall motion. Transmitral Doppler flow pattern is Gra de I-abnormal relaxation pattern. RIGHT VENTRICLE The right ventricle is normal size. The right ventricular systolic function is normal. ATRIA The left atrium size is normal. The right atrium size is normal. The interatrial septum is intact wit h no evidence for an atrial septal defect or patent foramen ovale as noted on 2-D or Doppler imaging. AORTIC VALVE The aortic valve is calcified but opens well. Doppler and Color Flow revealed no significant aortic r egurgitation. There is no significant aortic valvular stenosis. MITRAL VALVE The mitral valve is calcified but opens well. There is no evidence of mitral valve prolapse. There is no mitral valve stenosis. Doppler and Color-flow revealed trace mitral regurgitation. TRICUSPID VALVE The tricuspid valve is normal in structure and function. Doppler and Color Flow revealed trace tricus pid regurgitation. The PA pressure was estimated at 34 mmHg. There is no tricuspid valve stenosis. PULMONIC VALVE The pulmonic valve is not well visualized. Doppler and Color Flow revealed no pulmonic valvular regur gitation. There is no pulmonic valvular stenosis. GREAT VESSELS The aortic root is normal in size. The ascending aorta is normal in size. The IVC is normal in size a nd collapses >50% with inspiration. PERICARDIAL EFFUSION There is no evidence of significant pericardial effusion. Critical Notification Critical Value: No <Conclusion> The left ventricle is normal size. The left ventricular systolic function is normal and the ejection fraction is within normal range. The Ejection Fraction is 55-60%. There is mild concentric left ventricular hypertrophy. There is no significant aortic valvular stenosis. Doppler and Color-flow revealed trace mitral regurgitation. Doppler and Color Flow revealed trace tricuspid regurgitation. The PA pressure was estimated at 34 mmHg. Signed by : Rupert Willingham MD Electronically Approved : 07/01/2019 14:55:25
[2019-07-01 15:00] VITALS: BP 129/57
--- NOTE | 2019-07-01 15:20 | PDOC ---
PROGRESS NOTES Assessment Assessment Hypertensive encephalopathy. Hypertensive emergency, BP 253/134 mmHg. Metabolic encephalopathy. Seizure x 1. MS changes. Confusion. Agitation. Acute psychosis. Hx of seizure or seizure like episodes. HTN, poorly controlled. HLD Obesity. No evidence of acute CVA this time. RECOMMENDATIONS/PLAN: BP control. Continue Keppra 500 mg po bid. Seroquel 12.5 mg bid. Treat medical diseases. EEG on 06/30/19: No epileptiform discharges nor electrographic seizures. Brain MRI and HCT: No acute findings. HISTORY OF THE PRESENT ILLNESS: This is a 54-y-old AA female patient with Hx of HTN was admitted into [facility] due to very high BP on 06/28/19. She was coded stroke on 06/29/19 due to MS changes and her NIH score was said 20. further evaluation ruled out acute CVA. Her MS changes was thought due to hypertensive encephalopathy. She was observed a seizure or seizure or seizure like episode in ICU, anti-seizure treatment was administrated. She still has mild psychosis on 07/01/19. PAST MEDICAL HISTORY: Please see above. PAST SURGERY HISTORY: Appendectomy Rotate cuff surgery. ALLERGY: Reviewed. MEDICATIONS: Refer to MAR FAMILY HISTORY: Non contributory. SOCIAL HISTORY: Lives at home. Denies current smoking, drinking, and illicit drug use. REVIEW OF SYSTEMS: Constitutional: No malnutrition, weight loss, cachexia. Head: No traumatic brain or head injury. Skin: No edema, or rash. Ear: No infection. Eyes: No vision loss or color blindness. Nose: No bleeding or purulent discharges. Hearing: No hearing decrease. Neck: No injury. Breast: No history of cancer, masses,or discharges. Cardiac: HTN, HLD. Pulmonary: No COPD. GI: No GI ulcer, GI bleeding. Urinary/genital: UTI. Endocrinologic: Obesity. Skeletomuscular: No muscular atrophy, deformity. Neurological: see HP. Psychiatric: Denies drug use/abuse. Otherwise, not [id number] review of systems. PHYSICAL EXAMINATION: General appearance is in subacute distress. HEENT: Normocephalic and nontraumatic. Eyes, nose, ears, and throat are unremarkable. Neck is supple. No lymphadenopathy. No bruits are heard over the carotid artery. No crepitus. Cardiovascular: S1, S2, regular rate and rhythm. Pulmonary: Clear to auscultation bilaterally. Abdomen: Bowel sounds are positive. Abdomen is soft, nontender, and nondistended. Extremities: No rash, lesions, or edema. No restriction of range of motion NEUROLOGICAL EXAMINATION: Awake. Not fully oriented to time, but knew place and person. PERRL. EOMI. CN: no focal findings. Muscle tone: within normal. Muscle strength: 5 DTR: 1-2 Plantar reflex: Flexor response bilaterally Gait: Not examined in bed. Sensory exam: no abnormal findings. No other cerebellar signs elicited. F-T-N test nor performed due to not follow commands.. Objective Objective Vital Signs Date Time Temp Pulse Resp B/P (MAP) Pulse Ox O2 Delivery O2 Flow Rate FiO2 07/01/19 15:00 98.1 74 16 129/57 (81) 98 Nasal Cannula 2.0 98.1 Intake and Output 07/01/19 07:00 Intake Total 250 ml Output Total 595 ml Balance -345 ml Intake Oral 145 ml IV Total 105 ml Output Urine Total 595 ml # Bowel Movements 2 Vitals Signs Vitals VS - Last 72 Hours, by Label Date Time Temp Pulse Resp B/P (MAP) Pulse Ox O2 Delivery O2 Flow Rate FiO2 07/01/19 15:00 98.1 74 16 129/57 (81) 98 Nasal Cannula 2.0 98.1 07/01/19 11:00 96.9 71 22 134/83 (100) 98 Nasal Cannula 2.0 96.9 07/01/19 08:01 74 134/80 07/01/19 08:01 74 134/80 07/01/19 08:00 Room Air 2.0 07/01/19 07:00 97.6 74 24 134/80 (98) 100 Nasal Cannula 2.0 97.6 07/01/19 03:00 97.8 64 20 119/67 (84) 100 Nasal Cannula 2.0 97.8 06/30/19 23:04 99.3 84 20 118/63 (81) 95 Nasal Cannula 2.0 99.3 06/30/19 21:29 94 126/67 06/30/19 20:30 Room Air 06/30/19 19:00 98.1 94 20 126/67 (86) 95 Nasal Cannula 2.0 98.1 06/30/19 15:07 85 30 170/87 (114) 97 Nasal Cannula 2.0 06/30/19 14:03 98.2 82 23 146/89 (108) 98 Nasal Cannula 2.0 98.2 06/30/19 13:04 98.3 80 37 159/82 (107) 98 Nasal Cannula 2.0 98.3 06/30/19 12:00 77 29 146/75 (98) 99 Nasal Cannula 2.0 06/30/19 12:00 Nasal Cannula 2.0 06/30/19 11:00 80 17 129/73 (91) 95 Nasal Cannula 2.0 06/30/19 10:00 95 31 158/96 (116) 96 Nasal Cannula 2.0 06/30/19 09:17 95 134/72 06/30/19 09:17 92 134/72 06/30/19 09:00 91 18 134/72 (92) 97 Nasal Cannula 2.0 06/30/19 08:00 Nasal Cannula 2.0 06/30/19 08:00 92 23 153/94 (113) 95 Nasal Cannula 2.0 06/30/19 07:00 98.5 96 20 128/73 (91) 96 Nasal Cannula 2.0 98.5 Laboratory Laboratory Laboratory Tests Test 07/01/19 07:30 White Blood Count 5.9 x10^3/uL (4.0-11.0) Red Blood Count 3.90 x10^6/uL (3.50-5.40) Hemoglobin 12.7 g/dL (12.0-15.5) Hematocrit 38.8 % (36.0-47.0) Mean Corpuscular Volume 99 fL (79-100) Mean Corpuscular Hemoglobin 33 pg (25-35) Mean Corpuscular Hemoglobin Concent 33 g/dL (31-37) Red Cell Distribution Width 15.5 % (11.5-14.5) Platelet Count 175 x10^3/uL (140-400) Sodium Level 142 mmol/L (136-145) Potassium Level 3.8 mmol/L (3.5-5.1) Chloride Level 106 mmol/L (98-107) Carbon Dioxide Level 27 mmol/L (21-32) Anion Gap 9 (6-14) Blood Urea Nitrogen 7 mg/dL (7-20) Creatinine 0.9 mg/dL (0.6-1.0) Estimated GFR (Cockcroft-Gault) 78.4 Glucose Level 74 mg/dL (70-99) Calcium Level 8.6 mg/dL (8.5-10.1) Medication Medications Current Medications Multivitamins 10 ml/Thiamine HCl 100 mg/Folic Acid 1 mg/Sodium Chloride 1,011.2 ml @ 1,000.088 mls/hr 1X ONCE IV ; Start 07/01/19 at 14:30; Stop 07/01/19 at 15:30 Comment Review of Relevant I have reviewed the following items carlos (where applicable) has been applied. LATIA FLORIAN MD Jul 01, 2019 15:20
[2019-07-01] MEDS: HALOPERIDOL LACTATE 5 MG/ML VIAL. IVP PRN ×2 (15:33→22:46)
--- NOTE | 2019-07-01 15:35 | NUR ---
[facility]LE following pt. SW notified pt's daughter is interested in being DPOA but pt is not able to consent for AD at this time. PT pending, will need OT orders as well. Pt currently under 1:1 observation. Discussed with RN. Will continue to follow.
[2019-07-01 19:04] VITALS: BP 131/80
--- NOTE | 2019-07-01 19:10 | EEG ---
DATE OF SERVICE: 06/30/2019 EEG NUMBER: [id number]. OBJECTIVE: This is a 54-year-old -[place] female patient with history of seizure or seizure-like episodes. EEG was requested to evaluate seizure activity. METHODS: Twenty electrodes were applied according to the international 10-20 electrode placement system. EKG monitoring, hyperventilation, intermittent photic stimulation, monopolar and bipolar montages are routinely utilized. The record was obtained on a digital system with video monitoring. FINDINGS: 1. Background: The patient was recorded in the awake, drowsy and sleep states. The overall background amplitude is 10-20 microvolts. A posterior dominant rhythm of 6-8 Hz is observed. 2. Abnormalities: No specific epileptiform discharge or electrographic seizure is seen. No focal or diffuse slowing. 3. Activation: Hyperventilation was performed with poor efforts. Intermittent photic stimulation was performed with photic driving. IMPRESSION: This EEG is a mildly abnormal study for the awake, drowsy and sleep states. The posterior dominant rhythm of 6-8 Hz is mildly slow for age. No focal, lateralizing, specific epileptiform discharge or electrographic seizure is seen. LATIA FLORIAN MD DR: CANDELARIA/kem JOB#: [id number] / [id number] BUTCH
[2019-07-01] MEDS: ZOLPIDEM 5 MG TABLET. PO PRN (20:41)
[2019-07-01] MEDS: IBUPROFEN 400 MG TABLET. PO PRN (20:41)
[2019-07-01] MEDS: levETIRAcetam 500 MG TABLET PO SCH (20:41)
[2019-07-01] MEDS: ATORVASTATIN CALCIUM 20 MG TABLET PO SCH (20:41)
[2019-07-01 22:38] VITALS: BP 128/80
[2019-07-02 02:43] VITALS: BP 155/94
[2019-07-02 07:00] VITALS: BP 152/94
[2019-07-02] MEDS: HALOPERIDOL LACTATE 5 MG/ML VIAL. IVP PRN (08:45)
[2019-07-02] MEDS: hydrOXYzine 25 MG TABLET PO SCH ×3 (08:48→21:10)
[2019-07-02] MEDS: CARVEDILOL 6.25 MG TABLET. PO SCH ×2 (08:48→17:35)
[2019-07-02] MEDS: levETIRAcetam 500 MG TABLET PO SCH ×2 (08:48→21:09)
[2019-07-02] MEDS: LISINOPRIL 20 MG TABLET PO SCH (08:48)
[2019-07-02] MEDS: DOCUSATE SODIUM 100 MG CAPSULE. PO SCH ×2 (09:00→21:09)
--- NOTE | 2019-07-02 10:04 | NUR ---
Colace held due to loose stools.
[2019-07-02 10:50] VITALS: BP 162/92
[2019-07-02] MEDS: hydrALAZINE 20 MG/ML VIAL. IVP PRN (11:16)
--- NOTE | 2019-07-02 13:02 | PDOC ---
PROGRESS NOTES Subjective alert and oriented today, coherent Objective Afebrile BP: controlled General: A&O, minimal confusion, she doesn't remember being in ICU Heart: RRR Lungs: CTA Abd: soft Ext: no C/C/E Vital Signs Vital Signs Date Time Temp Pulse Resp B/P (MAP) Pulse Ox O2 Delivery O2 Flow Rate FiO2 07/02/19 11:16 162/89 07/02/19 10:50 98.1 68 16 96 Room Air 98.1 07/02/19 02:43 2.0 I & O Intake and Output 07/02/19 07:00 Intake Total 665 ml Output Total 325 ml Balance 340 ml Intake Oral 560 ml IV Total 105 ml Output Urine Total 325 ml # Bowel Movements 2 Assessment and Plan 1) Hypertensive crisis- pt's BP stable off Nicardipine gtt. Pt also on Lisinopril 40mg ordered and Carvedilol 6.25mg BID. Cardiology following. 2) Encephalopathy- nearly resolved - likely combo of hypertensive and possibly hypoxia associated with seizure, she also has a hx of binge drinking [employer] so may have Wernicke's, pt's initial CT Head was normal last admission. MRI brain this admission only showed chronic changes from previous CVA and aneurysm. Repeat CT Head also showed no acute changes. Neurology following and believes confusion is due to hypertensive encephalopathy. Will give a banana bag 3) Hx CVA/Brain aneurysms - no MRI evidence of acute ischemia 4) Seizure like episode- perhaps from alcohol pt started on Keppra, Ativan and Seroquel 5) Agitation- Haldol ordered as needed. DC 1:1 observation 6) HLD- not at goal. Pt not taking her cholesterol medication, resumed on Atorvastatin 20mg 7) Hypokalemia- replaced in ER, resolved 8) Elevated troponin- likely due to hypertensive urgency. No chest pain, no EKG changes. ECHO = normal EF with mild concentric LVH Phillip MALONE MD Jul 02, 2019 13:02
[2019-07-02 15:07] VITALS: BP 149/68
[2019-07-02] MEDS: IBUPROFEN 400 MG TABLET. PO PRN (15:53)
--- NOTE | 2019-07-02 16:47 | PDOC ---
PROGRESS NOTES Assessment Assessment Hypertensive encephalopathy. Hypertensive emergency, BP 253/134 mmHg. Metabolic encephalopathy. Seizure x 1. MS changes. Confusion. Agitation. Acute psychosis. Hx of seizure or seizure like episodes. HTN, poorly controlled. HLD Obesity. No evidence of acute CVA this time. RECOMMENDATIONS/PLAN: BP control. Continue Keppra 500 mg po bid. Seroquel 12.5 mg bid. Treat medical diseases. EEG on 06/30/19: No epileptiform discharges nor electrographic seizures. Brain MRI and HCT: No acute findings. HISTORY OF THE PRESENT ILLNESS: This is a 54-y-old AA female patient with Hx of HTN was admitted into [facility] due to very high BP on 06/28/19. She was coded stroke on 06/29/19 due to MS changes and her NIH score was said 20. further evaluation ruled out acute CVA. Her MS changes was thought due to hypertensive encephalopathy. She was observed a seizure or seizure or seizure like episode in ICU, anti-seizure treatment was administrated. Her psychosis nearly resolved on 07/02/19. PAST MEDICAL HISTORY: Please see above. PAST SURGERY HISTORY: Appendectomy Rotate cuff surgery. ALLERGY: Reviewed. MEDICATIONS: Refer to [facility] FAMILY HISTORY: Non contributory. SOCIAL HISTORY: Lives at home. Denies current smoking, drinking, and illicit drug use. REVIEW OF SYSTEMS: Constitutional: No malnutrition, weight loss, cachexia. Head: No traumatic brain or head injury. Skin: No edema, or rash. Ear: No infection. Eyes: No vision loss or color blindness. Nose: No bleeding or purulent discharges. Hearing: No hearing decrease. Neck: No injury. Breast: No history of cancer, masses,or discharges. Cardiac: HTN, HLD. Pulmonary: No COPD. GI: No GI ulcer, GI bleeding. Urinary/genital: UTI. Endocrinologic: Obesity. Skeletomuscular: No muscular atrophy, deformity. Neurological: see HP. Psychiatric: Denies drug use/abuse. Otherwise, not [id number] review of systems. PHYSICAL EXAMINATION: General appearance is in subacute distress. HEENT: Normocephalic and nontraumatic. Eyes, nose, ears, and throat are unremarkable. Neck is supple. No lymphadenopathy. No bruits are heard over the carotid artery. No crepitus. Cardiovascular: S1, S2, regular rate and rhythm. Pulmonary: Clear to auscultation bilaterally. Abdomen: Bowel sounds are positive. Abdomen is soft, nontender, and nondistended. Extremities: No rash, lesions, or edema. No restriction of range of motion NEUROLOGICAL EXAMINATION: Awake. Not fully oriented to time, but knew place and person. PERRL. EOMI. CN: no focal findings. Muscle tone: within normal. Muscle strength: 5 DTR: 1-2 Plantar reflex: Flexor response bilaterally Gait: Not examined in bed. Sensory exam: no abnormal findings. No other cerebellar signs elicited. F-T-N test nor performed due to not follow commands.. Objective Objective Vital Signs Date Time Temp Pulse Resp B/P (MAP) Pulse Ox O2 Delivery O2 Flow Rate FiO2 07/02/19 15:07 98.1 77 16 149/68 (95) 92 Room Air 98.1 07/02/19 02:43 2.0 Intake and Output 07/02/19 06:59 Intake Total 665 ml Output Total 325 ml Balance 340 ml Intake Oral 560 ml IV Total 105 ml Output Urine Total 325 ml # Bowel Movements 2 Vitals Signs Vitals VS - Last 72 Hours, by Label Date Time Temp Pulse Resp B/P (MAP) Pulse Ox O2 Delivery O2 Flow Rate FiO2 07/02/19 15:07 98.1 77 16 149/68 (95) 92 Room Air 98.1 07/02/19 11:16 162/89 07/02/19 10:50 98.1 68 16 162/92 (115) 96 Room Air 98.1 07/02/19 08:49 75 152/94 07/02/19 08:49 75 152/94 07/02/19 08:00 Room Air 07/02/19 07:00 98.4 75 18 152/94 (113) 96 Room Air 98.4 07/02/19 02:43 98.3 88 20 155/94 (114) 98 Nasal Cannula 2.0 98.3 07/01/19 22:38 98.4 77 22 128/80 (96) 94 Nasal Cannula 2.0 98.4 07/01/19 20:00 Room Air 07/01/19 19:04 97.8 83 19 131/80 (97) 98 Nasal Cannula 2.0 97.8 07/01/19 16:51 74 129/57 07/01/19 15:00 98.1 74 16 129/57 (81) 98 Nasal Cannula 2.0 98.1 07/01/19 11:00 96.9 71 22 134/83 (100) 98 Nasal Cannula 2.0 96.9 07/01/19 08:01 74 134/80 07/01/19 08:01 74 134/80 07/01/19 08:00 Room Air 2.0 07/01/19 07:00 97.6 74 24 134/80 (98) 100 Nasal Cannula 2.0 97.6 Medication Medications Current Medications Levetiracetam (Keppra) 500 mg BID PO Last administered on 07/02/19at 08:48; Start 07/01/19 at 21:00 Comment Review of Relevant I have reviewed the following items carlos (where applicable) has been applied. LATIA FLORIAN MD Jul 02, 2019 16:47
[2019-07-02 19:00] VITALS: BP 127/74
[2019-07-02] MEDS: ATORVASTATIN CALCIUM 20 MG TABLET PO SCH (21:09)
[2019-07-02] MEDS: ZOLPIDEM 5 MG TABLET. PO PRN (21:09)
[2019-07-02 23:00] VITALS: BP 123/77
[2019-07-03 03:00] VITALS: BP 142/86
[2019-07-03] MEDS: IBUPROFEN 400 MG TABLET. PO PRN (04:55)
[2019-07-03 07:00] VITALS: BP 153/79
[2019-07-03] MEDS: CARVEDILOL 6.25 MG TABLET. PO SCH (08:24)
[2019-07-03] MEDS: LISINOPRIL 20 MG TABLET PO SCH (08:24)
[2019-07-03] MEDS: levETIRAcetam 500 MG TABLET PO SCH (08:24)
[2019-07-03] MEDS: hydrOXYzine 25 MG TABLET PO SCH (08:25)
[2019-07-03] MEDS: DOCUSATE SODIUM 100 MG CAPSULE. PO SCH (08:25)
[2019-07-03] MEDS ORDERED: LISI-130 PO (08:58)
[2019-07-03] MEDS ORDERED: ATOR20TA58 PO (08:58)
[2019-07-03] MEDS ORDERED: LEVE500T56 PO (08:58)
[2019-07-03 11:00] VITALS: BP 166/88
--- NOTE | 2019-07-03 14:10 | PDOC ---
PROGRESS NOTES Assessment Assessment Hypertensive encephalopathy. Hypertensive emergency, BP 253/134 mmHg. Metabolic encephalopathy. Seizure x 1. MS changes. Confusion. Agitation. Acute psychosis. Hx of seizure or seizure like episodes. HTN, poorly controlled. HLD Obesity. 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 No evidence of acute CVA this time. RECOMMENDATIONS/PLAN: BP control. Continue Keppra 500 mg po bid, can be taper off in 1 month. Continue Seroquel 12.5 mg bid. Treat medical diseases. Patient education for compliance of treatment. Weight reduction. Physical and mental exercise. FU with PCP. EEG on 06/30/19: No epileptiform discharges nor electrographic seizures. Brain MRI and HCT: No acute findings. HISTORY OF THE PRESENT ILLNESS: This is a 54-y-old AA female patient with Hx of HTN was admitted into [facility] hospital due to very high BP on 06/28/19. She was coded stroke on 06/29/19 due to MS changes and her NIH score was said 20. further evaluation ruled out acute CVA. Her MS changes was thought due to hypertensive encephalopathy. She was observed a seizure or seizure or seizure like episode in ICU, anti-seizure treatment was administrated. Her psychosis was resolved on 07/03/19. PAST MEDICAL HISTORY: Please see above. PAST SURGERY HISTORY: Appendectomy Rotate cuff surgery. ALLERGY: Reviewed. MEDICATIONS: Refer to [facility] FAMILY HISTORY: Non contributory. SOCIAL HISTORY: Lives at home. Denies current smoking, drinking, and illicit drug use. REVIEW OF SYSTEMS: Constitutional: No malnutrition, weight loss, cachexia. Head: No traumatic brain or head injury. Skin: No edema, or rash. Ear: No infection. Eyes: No vision loss or color blindness. Nose: No bleeding or purulent discharges. Hearing: No hearing decrease. Neck: No injury. Breast: No history of cancer, masses,or discharges. Cardiac: HTN, HLD. Pulmonary: No COPD. GI: No GI ulcer, GI bleeding. Urinary/genital: UTI. Endocrinologic: Obesity. Skeletomuscular: No muscular atrophy, deformity. Neurological: see HP. Psychiatric: Denies drug use/abuse. Otherwise, not [id number] review of systems. PHYSICAL EXAMINATION: General appearance is in subacute distress. HEENT: Normocephalic and nontraumatic. Eyes, nose, ears, and throat are unremarkable. Neck is supple. No lymphadenopathy. No bruits are heard over the carotid artery. No crepitus. Cardiovascular: S1, S2, regular rate and rhythm. Pulmonary: Clear to auscultation bilaterally. Abdomen: Bowel sounds are positive. Abdomen is soft, nontender, and nondistended. Extremities: No rash, lesions, or edema. No restriction of range of motion NEUROLOGICAL EXAMINATION: Awake. Talkative. Oriented to time, place and person. PERRL. EOMI. CN: no focal findings. Muscle tone: within normal. Muscle strength: 5 DTR: 1-2 Plantar reflex: Flexor response bilaterally Gait: able to walk. Sensory exam: no abnormal findings. No other cerebellar signs elicited. F-T-N test fine. Objective Objective Vital Signs Date Time Temp Pulse Resp B/P (MAP) Pulse Ox O2 Delivery O2 Flow Rate FiO2 07/03/19 11:00 97.9 65 18 166/88 (114) 92 Room Air 97.9 Intake and Output 07/03/19 06:59 Intake Total 240 ml Balance 240 ml Intake Oral 240 ml # Voids 1 Vitals Signs Vitals VS - Last 72 Hours, by Label Date Time Temp Pulse Resp B/P (MAP) Pulse Ox O2 Delivery O2 Flow Rate FiO2 07/03/19 11:00 97.9 65 18 166/88 (114) 92 Room Air 97.9 07/03/19 08:25 70 153/79 07/03/19 08:25 70 153/79 07/03/19 08:00 Room Air 07/03/19 07:00 97.9 70 14 153/79 (103) 93 Room Air 97.9 07/03/19 03:00 98.2 71 16 142/86 (104) 92 Room Air 98.2 07/02/19 23:00 98.1 69 12 123/77 (92) 91 Room Air 98.1 07/02/19 20:00 Room Air 07/02/19 19:00 98.8 83 12 127/74 (91) 92 Room Air 98.8 07/02/19 17:35 77 149/68 07/02/19 15:07 98.1 77 16 149/68 (95) 92 Room Air 98.1 07/02/19 11:16 162/89 07/02/19 10:50 98.1 68 16 162/92 (115) 96 Room Air 98.1 07/02/19 08:49 75 152/94 07/02/19 08:49 75 152/94 07/02/19 08:00 Room Air 07/02/19 07:00 98.4 75 18 152/94 (113) 96 Room Air 98.4 Comment Review of Relevant I have reviewed the following items carlos (where applicable) has been applied. LATIA FLORIAN MD Jul 03, 2019 14:10
--- NOTE | 2019-07-03 14:10 | NUR ---
Discharge Note: PT DISCHARGED HOME WITH SELF CARE. PT LEFT FACILITY VIA PRIVATE VEHICLE WITH SPOUSE AT 1330. PT STABLE AND ALERT UPON DISCHARGE. PT PIV REMOVED FROM L AC WITHOUT COMPLICATIONS, BANDAGE APPLIED. PT EDUCATED ABOUT DISCHARGE MEDICATIONS, DISCHARGE INSTRUCTIONS, AND FOLLOW-UP INSTRUCTIONS. PT VOICED NO CONCERNS AT THIS TIME. PT EDUCATED THAT SHE SHOULD NOT DRIVE FOR 6 MONTHS DUE TO POSSIBLY HAVING ANOTHER SEIZURE. VIDHYA SAM Discharge instructions and discharge home medications reviewed with Patient and a copy given. All questions have been answered and understanding verbalized.
== END 2019-07-03 14:13 | disposition home or self-care (01) | DRG 304 ==
LOC: ER 11:03 → 5 SOUTH 13:52 → 1 WEST ICU 06-29 15:21 → 5 SOUTH 06-30 16:55
PROVIDERS: ADMIT Family Medicine; ATTEND Family Medicine
DX: I16.9 Hypertensive crisis, unspecified (principal); G93.41 Metabolic encephalopathy; I16.1 Hypertensive emergency; F23 Brief psychotic disorder; R47.01 Aphasia; D63.8 Anemia in other chronic diseases classified elsewhere; E66.9 Obesity, unspecified; E78.5 Hyperlipidemia, unspecified; E87.6 Hypokalemia; F41.9 Anxiety disorder, unspecified; F32.9 Major depressive disorder, single episode, unspecified; F17.210 Nicotine dependence, cigarettes, uncomplicated; I10 Essential (primary) hypertension; K21.9 Gastro-esophageal reflux disease without esophagitis; Z79.899 Other long term (current) drug therapy; Z82.49 Family history of ischemic heart disease and other diseases of the circulatory system; Z86.73 Personal history of transient ischemic attack (TIA), and cerebral infarction without residual deficits; Z90.49 Acquired absence of other specified parts of digestive tract; Z90.710 Acquired absence of both cervix and uterus; Z68.39 Body mass index [BMI] 39.0-39.9, adult
CPT/HCPCS: 36415; 70450; 70553; 80048; 80053; 80307; 82553; 82962; 83690; 83735; 83880; 84443; 84484; 85025; 85027; 93005; 93306; 95816; 96374; 99406; A9575; G0480; J0360; J1630; J1953; J2060; J3480; J7030; J7050; Q0163; 97535; 99285-25; G0378

== ENCOUNTER 2019-07-15 09:17 | Emergency (ER) | payer OTHER ==
[~2019-07-15] VITALS: Ht 162.6 cm; Wt 90.3 kg
[~2019-07-15 09:17] MED LIST changes: +AMLO5TAB10 PO; +ASPI325T8 PO; +ATOR20TA58 PO; +LISI-130 PO; +QUET25TA PO
[2019-07-15 10:08] VITALS: BP 165/90
== END 2019-07-15 10:37 | disposition left against medical advice (07) ==
LOC: ER 09:17
DX: R41.0 Disorientation, unspecified (principal); Z53.21 Procedure and treatment not carried out due to patient leaving prior to being seen by health care provider

== ENCOUNTER 2019-07-20 20:31 | Emergency (ER) | payer OTHER ==
[~2019-07-20] VITALS: Ht 162.6 cm; Wt 90.3 kg
[2019-07-20] MEDS ORDERED: cloNIDine HCL 0.1 MG TABLET PO ONE (21:30)
[2019-07-20 21:37] LABS: BASO # 0.1 x10^3/uL (0.0-0.2); BASO % 1 % (0-3); EOS # 0.2 x10^3/uL (0.0-0.7); EOS % 2 % (0-3); HEMATOCRIT 41.3 % (36.0-47.0); HEMOGLOBIN 13.7 g/dL (12.0-15.5); LYMPH # 2.6 x10^3/uL (1.0-4.8); LYMPH % 30 % (24-48); MEAN CORPUSCULAR HEMOGLOBIN 32 pg (25-35); MEAN CORPUSCULAR HGB CONC 33 g/dL (31-37); MEAN CORPUSCULAR VOLUME 97 fL (79-100); MONO # 0.9 x10^3/uL (0.0-1.1); MONO % 10 % (0-9); NEUT # 5.1 x10^3/uL (1.8-7.7); NEUT % 58 % (31-73); PLATELET COUNT 288 x10^3/uL (140-400); RED BLOOD COUNT 4.26 x10^6/uL (3.50-5.40); RED CELL DISTRIBUTION WIDTH 14.8 % (11.5-14.5); WHITE BLOOD COUNT 8.8 x10^3/uL (4.0-11.0)
--- NOTE | 2019-07-20 21:43 | PHYS DOC ---
Past Medical History Past Medical History: CVA, Hypertension, Seizure, Other Additional Past Medical Histor: "brain aneurysm" Past Surgical History: Appendectomy, , Tonsillectomy Alcohol Use: Occasionally Drug Use: None Adult General Chief Complaint Chief Complaint: HYPERTENSION HPI HPI Patient is a 54-year-old female with hx of multiple infarct dementia who presents with HTN and AMS. She has been admitted earlier multiple time this month for similar symptoms. The patient seems disoriented to the year and month but able to answer most questions appropriately. She keeps saying "my daughter takes care of me and I'm Chip Rivera, 54 yo." Her blood pressure was noted to be elevated at home and the patient's family states that she developed symptoms similar to this when her blood pressure is elevated. She has been admitted earlier multiple time this month for similar symptoms. She underwent an extensive workup previously. The diagnosis given to the patient was hypertensive encephalopathy. Pt's daughter also reports that she took the Pt to [facility] and got similar evaluation. They also recommended her to follow up with PCP for her HTN and dementia. It is unclear if the patient has been taking her new blood pressure medications exactly as prescribed. Her daughter was unsure what medications she was supposed to be on or off. The patient currently denies any headache, chest pain, SOB. She does report some intermittent left-sided paresthesias but these are not reproducible on exam. Per previous ED provider document, this is similar to her previous ED visit last month. Review of Systems Review of Systems Constitutional: Denies fever or chills Eyes: Denies redness or eye pain HENT: Denies nasal congestion or sore throat Respiratory: Denies cough or shortness of breath Cardiovascular: Denies chest pain or palpitations GI: Denies abdominal pain, nausea, or vomiting : Denies dysuria or hematuria Musculoskeletal: Denies back pain or joint pain Integument: Denies rash or skin lesions Neurologic: Denies headache, focal weakness or sensory changes Complete systems were reviewed and found to be within normal limits, except as documented in this note. Current Medications Current Medications Current Medications Medications (Trade) Dose Ordered Sig/Christina Start Time Stop Time Status Last Admin Dose Admin Clonidine HCl (Catapres) 0.1 mg 1X ONCE 07/20/19 21:30 07/20/19 21:31 DC 07/20/19 21:48 0.1 MG Allergies Allergies Allergies Coded Allergies Type Severity Reaction Last Updated Verified No Known Drug Allergies 09/27/16 No Physical Exam Physical Exam Constitutional: Well developed, well nourished, no acute distress, non-toxic appearance HENT: Normocephalic, atraumatic, oropharynx moist Eyes: PERRL, EOMI, conjunctiva normal, no discharge Neck: Normal range of motion, no tenderness, supple Cardiovascular: Heart rate normal, regular rhythm Lungs & Thorax: Bilateral breath sounds clear to auscultation, no wheezing Abdomen: Soft, no tenderness Skin: Warm, dry, no erythema, no rash Back: No tenderness, no CVA tenderness Extremities: No tenderness, ROM intact, no edema Neurologic: Alert and oriented X 3, normal motor function, normal sensory function, no focal deficits noted Psychologic: Affect normal, judgement normal, mood normal Current Patient Data Vital Signs Vital Signs Date Time Temp Pulse Resp B/P (MAP) Pulse Ox O2 Delivery O2 Flow Rate FiO2 07/20/19 23:20 64 20 100 07/20/19 21:48 204/110 07/20/19 20:33 99.7 Room Air 99.7 Lab Values Laboratory Tests Test 07/20/19 21:18 07/20/19 22:00 White Blood Count 8.8 x10^3/uL (4.0-11.0) Red Blood Count 4.26 x10^6/uL (3.50-5.40) Hemoglobin 13.7 g/dL (12.0-15.5) Hematocrit 41.3 % (36.0-47.0) Mean Corpuscular Volume 97 fL (79-100) Mean Corpuscular Hemoglobin 32 pg (25-35) Mean Corpuscular Hemoglobin Concent 33 g/dL (31-37) Red Cell Distribution Width 14.8 % (11.5-14.5) H Platelet Count 288 x10^3/uL (140-400) Neutrophils (%) (Auto) 58 % (31-73) Lymphocytes (%) (Auto) 30 % (24-48) Monocytes (%) (Auto) 10 % (0-9) H Eosinophils (%) (Auto) 2 % (0-3) Basophils (%) (Auto) 1 % (0-3) Neutrophils # (Auto) 5.1 x10^3/uL (1.8-7.7) Lymphocytes # (Auto) 2.6 x10^3/uL (1.0-4.8) Monocytes # (Auto) 0.9 x10^3/uL (0.0-1.1) Eosinophils # (Auto) 0.2 x10^3/uL (0.0-0.7) Basophils # (Auto) 0.1 x10^3/uL (0.0-0.2) Sodium Level 143 mmol/L (136-145) Potassium Level 3.6 mmol/L (3.5-5.1) Chloride Level 106 mmol/L (98-107) Carbon Dioxide Level 27 mmol/L (21-32) Anion Gap 10 (6-14) Blood Urea Nitrogen 10 mg/dL (7-20) Creatinine 1.0 mg/dL (0.6-1.0) Estimated GFR (Cockcroft-Gault) 69.4 BUN/Creatinine Ratio 10 (6-20) Glucose Level 102 mg/dL (70-99) H Calcium Level 9.4 mg/dL (8.5-10.1) Magnesium Level 1.7 mg/dL (1.8-2.4) L Total Bilirubin 0.5 mg/dL (0.2-1.0) Aspartate Amino Transferase (AST) 16 U/L (15-37) Alanine Aminotransferase (ALT) 18 U/L (14-59) Alkaline Phosphatase 93 U/L (46-116) Creatine Kinase 57 U/L (26-192) Creatine Kinase MB (Mass) 1.0 ng/mL (0.0-3.6) Creatine Kinase MB Relative Index % (0-4) Troponin I Quantitative < 0.017 ng/mL (0.000-0.055) Total Protein 8.3 g/dL (6.4-8.2) H Albumin 3.8 g/dL (3.4-5.0) Albumin/Globulin Ratio 0.8 (1.0-1.7) L Lipase 101 U/L (73-393) Ethyl Alcohol Level < 10 mg/dL (0-10) Urine Collection Type U cath Urine Color Yellow Urine Clarity Clear Urine pH 6.5 Urine Specific [place] 1.020 Urine Protein 30 mg/dL (NEG-TRACE) Urine Glucose (UA) Negative mg/dL (NEG) Urine Ketones (Stick) 15 mg/dL (NEG) Urine Blood Negative (NEG) Urine Nitrite Negative (NEG) Urine Bilirubin Small (NEG) Urine Urobilinogen Dipstick 1.0 mg/dL (0.2 mg/dL) Urine Leukocyte Esterase Negative (NEG) Urine RBC 0 /HPF (0-2) Urine WBC Occ /HPF (0-4) Urine Squamous Epithelial Cells Few /LPF Urine Bacteria 0 /HPF (0-FEW) Urine Mucus Marked /LPF Urine Opiates Screen Neg (NEG) Urine Methadone Screen Neg (NEG) Urine Barbiturates Neg (NEG) Urine Phencyclidine Screen Neg (NEG) Urine Amphetamine/Methamphetamine Neg (NEG) Urine Benzodiazepines Screen Pos (NEG) Urine Cocaine Screen Neg (NEG) Urine Cannabinoids Screen Neg (NEG) Urine Ethyl Alcohol Neg (NEG) Laboratory Tests 07/20/19 21:18 Laboratory Tests 07/20/19 21:18 EKG EKG @2055 NSR at 71bpm, NO ST elevation, t wave inversion I and aVL and V5-V6, compared to prior per [facility] from 07/10/19 similar to prior. Radiology/Procedures Radiology/Procedures [] Course & Med Decision Making Course & Med Decision Making Pertinent Labs and Imaging studies reviewed. (See chart for details) 54 yo F with hx of multiple infract dementia and HTN encephalopathy presents with HTN and mildly confused. Her initial vitals shows SBP was in the 200s range. DDX: hypertensive emergency vs dementia vs electrolytes imbalance vs others. Her basic labs results were unremarkable. Head CT scan and CXR shows no acute process. Her EKG was similar to prior without ST elevation amd NSR. In summary, this is similar to previous studies and admissions. Pt was given Catapres 0.1mg which decreased her BP. Patient stable for discharge with outpatient follow-up with PCP. Discussed findings and plan with patient and family. Her daughter become very offensive and say "I knew you would send her h ome." When asked to explain, she expected that her mother would be admitted for dementia workup and staging. As I tried to explain this would be undone in the outpt setting, her daughter continued to be adamant about admission but wish to discuss no further. Dragon Disclaimer Dragon Disclaimer This electronic medical record was generated, in whole or in part, using a voice recognition dictation system. Departure Departure Impression: Primary Impression: Hypertension Disposition: HOME, SELF-CARE Condition: STABLE Referrals: KATIE ISRAEL MD (PCP) Phillip MALONE MD Patient Instructions: Hypertension, [id number] Scripts Clonidine Hcl (CLONIDINE HCL) 0.1 Mg Tablet 0.1 MG PO BID PRN for ELEVATED BP, SEE COMMENTS, #20 TAB Take each tablet as needed for Systolic (upper) blood pressure greater than 185 and/or Diastolic (lower) blood pressure greater than 110. Prov: ALEXANDER HEATH DO 07/20/19 Problem Qualifiers Primary Impression: Hypertension Hypertension type: unspecified Qualified Codes: I10 - Essential (primary) hypertension ALEXANDER HEATH DO Jul 20, 2019 21:43
[2019-07-20 21:57] LABS: CALCIUM 9.4 mg/dL (8.5-10.1); GFR 69.4; POTASSIUM 3.6 mmol/L (3.5-5.1)
[2019-07-20 22:07] LABS: ALBUMIN 3.8 g/dL (3.4-5.0); ALBUMIN/GLOBULIN RATIO 0.8 (1.0-1.7); MAGNESIUM 1.7 mg/dL (1.8-2.4); TOTAL BILIRUBIN 0.5 mg/dL (0.2-1.0); TOTAL PROTEIN 8.3 g/dL (6.4-8.2)
[2019-07-20 22:10] LABS: BILIRUBIN,URINE SMALL (NEG); CLARITY,URINE CLEAR; COLOR,URINE YELLOW; NITRITE,URINE NEGATIVE (NEG); PH,URINE 6.5; PROTEIN,URINE 30 mg/dL (NEG-TRACE)
[2019-07-20 22:13] LABS: SQUAMOUS EPITHELIAL CELL,UR FEW /LPF
[2019-07-20 22:14] LABS: BACTERIA,URINE 0 /HPF (0-FEW); RBC,URINE 0 /HPF (0-2); WBC,URINE OCC /HPF (0-4)
[2019-07-20 22:17] LABS: AMPHETAMINE/METHAMPHETAMINE NEG (NEG); BARBITURATES NEG (NEG); BENZODIAZEPINES POS (NEG); CANNABINOIDS NEG (NEG); COCAINE NEG (NEG); METHADONE NEG (NEG); OPIATES NEG (NEG); PHENCYCLIDINE NEG (NEG)
[2019-07-20 22:23] LABS: CREATINE KINASE 57 U/L (26-192)
--- NOTE | 2019-07-20 22:46 | RAD ---
Exam performed: CT scan of the head and cervical spine without contrast. Date of Service: 07/20/2019. Comparison: None available. Clinical History: Patient fell 2 days ago. Technique: Helical acquisitions are obtained from the foramen magnum to the vertex without intravenous administration of contrast. In addition helical acquisitions also obtained through the cervical spine. Sagittal and coronal reformatted images are obtained and reviewed. Findings: CT HEAD: Mild prominence of cortical sulci and ventricular system is noted consistent with age-related atrophy. There are areas of low-attenuation in both periventricular and subcortical deep white matter suggesting small vessel ischemic changes. Normal li-white differentiation is maintained. There is no extra axial fluid collection, intraparenchymal hemorrhage or mass lesion. The visualized portions of the orbits, paranasal sinuses and the mastoid air cells appear clear. The calvarium is intact. CT cervical spine: Straightening of the cervical curvature likely positional. Vertebral body heights are maintained. There is narrowing of C3/4, C4/5 and C5/6 intervertebral disc spaces with mild anterior osteophytes. No acute compression fracture. No prevertebral soft tissue swelling. Visualized lung apices are clear. No neck masses are seen in the evaluated portion. Impression: 1. No acute intracranial process detected. 2. Spondylotic changes and multilevel disc degenerative changes seen in the cervical spine. PQRS Compliance Statement: One or more of the following individualized dose reduction techniques were utilized for this examination: 1. Automated exposure control 2. Adjustment of the mA and/or kV according to patient size 3. Use of iterative reconstruction technique Electronically signed by: Suma Dobbs MD (07/20/2019 10:42 PM) [id number]
[2019-07-20 23:20] VITALS: BP 181/115
[2019-07-20] MEDS ORDERED: CLON0.1T PO (23:32)
--- NOTE | 2019-07-21 04:31 | RAD ---
AP chest. HISTORY: Weakness AP view was taken of the chest. Lungs are clear. Heart is normal in size. There is no pleural effusion. IMPRESSION: 1. No acute chest disease. Electronically signed by: Shiva Reed MD (07/21/2019 4:28 AM) [id number]
--- NOTE | 2019-07-21 06:41 | EKG ---
[facility] [address] [place] [address] Test Date: 2019-07-20 Test Time: 20:55:41 Pat Name: STEPH SAM Department: Room: Gender: F [employer]: : 1965 Requested By: ALEXANDER HEATH Order Number: [id number] Reading MD: Measurements Intervals Simpson Rate: 71 P: UT: QRS: 28 QRSD: 76 T: 134 QT: 410 QTc: 446 Interpretive Statements ATRIAL FLUTTER ST & T ABNORMALITY, CONSIDER LATERAL ISCHEMIA OR LEFT VENTRICULAR STRAIN ABNORMAL ECG RI6.01 Unconfirmed report No previous ECG available for comparison
== END 2019-07-21 00:10 | disposition home or self-care (01) ==
LOC: ER 20:31
DX: I10 Essential (primary) hypertension (principal); R41.82 Altered mental status, unspecified; R20.2 Paresthesia of skin; Z86.73 Personal history of transient ischemic attack (TIA), and cerebral infarction without residual deficits; Z90.89 Acquired absence of other organs; Z98.890 Other specified postprocedural states
CPT/HCPCS: 36415; 70450; 71045; 72125; 80053; 80307; 81001; 82553; 83690; 83735; 84484; 85025; 93005; 99285; G0480

== ENCOUNTER 2020-03-15 14:36 | Emergency (ER) | payer OTHER ==
[~2020-03-15] VITALS: Ht 162.6 cm; Wt 80.9 kg
[~2020-03-15 14:36] MED LIST changes: +CLON0.1T PO; +HYDR-2767 PO; -HYDR-52 PO; +MECL-75 PO; -MECL25TA3 PO; +SIMV40TA18 PO; -SIMV40TA3 PO
--- NOTE | 2020-03-15 15:09 | PHYS DOC ---
Past Medical History Past Medical History: Anxiety, CVA, Dementia, Hypertension, Seizure, Other Additional Past Medical Histor: "brain aneurysm",PANIC ATTACKS Past Surgical History: Appendectomy, , Tonsillectomy Smoking Status: Current Every Day Smoker Additional Information: SMOKES 1 CIGARETTE A DAY Alcohol Use: Occasionally Drug Use: None General Adult EDM: Chief Complaint: HEAD INJURY/TRAUMA HPI: HPI: Patient is a 54 year old female who presents with that lives with her daughter was brought from home today after she started to panic when she found a wasp in the house and she went to step backward and hit the back of her head on the wall in the house. She states she could not get away from the wall so she ran outside screening and was panicking and her neighbor called 911. Patient has a history of dementia, CVA, smoker, brain aneurysm, panic attacks, hypertension, anxiety, seizures. Patient is very tearful and states " I am scared" and is "something bad wrong with me". She is alert and oriented. Review of Systems: Review of Systems: Neurologic: headache, denies focal weakness or sensory changes. [] Heart Score: Risk Factors: Risk Factors: DM, Current or recent (<one month) smoker, HTN, HLP, family history of CAD, obesity. Risk Scores: Score 0 - 3: 2.5% MACE over next 6 weeks - Discharge Home Score 4 - 6: 20.3% MACE over next 6 weeks - Admit for Clinical Observation Score 7 - 10: 72.7% MACE over next 6 weeks - Early Invasive Strategies Allergies: Allergies: Allergies Coded Allergies Type Severity Reaction Last Updated Verified No Known Drug Allergies 09/27/16 No Physical Exam: PE: Constitutional: Well developed, well nourished, no acute distress, non-toxic appearance. [] HENT: Normocephalic, atraumatic, bilateral external ears normal, oropharynx corky st, no oral exudates, nose normal. [] Eyes: PERRLA, EOMI, conjunctiva normal, no discharge. [] Neck: Normal range of motion, no tenderness, supple, no stridor. [] Cardiovascular:Heart rate regular rhythm, no murmur [] Lungs & Thorax: Bilateral breath sounds clear to auscultation [] Abdomen: Bowel sounds normal, soft, no tenderness, no masses, no pulsatile masses. [] Skin: Warm, dry, no erythema, no rash. [] Back: No tenderness, no CVA tenderness. [] Extremities: No tenderness, no cyanosis, no clubbing, ROM intact, no edema. [] Neurologic: Alert and oriented X 3, normal motor function, normal sensory function, no focal deficits noted. [] Psychologic: Affect normal, judgement normal, mood normal. Normal Physical Exam[] Current Patient Data: Vital Signs: Vital Signs Date Time Temp Pulse Resp B/P (MAP) Pulse Ox O2 Delivery O2 Flow Rate FiO2 03/15/20 14:36 97.6 65 24 209/104 (139) 100 Room Air 97.6 EKG: EKG: [] Radiology/Procedures: Radiology/Procedures: [] Impression: [facility] [address] [place], [place] [id number] IMAGING REPORT Signed PATIENT: STEPH SAM ACCOUNT: [id number] : 1965 LOCATION: ER AGE: 54 SEX: F EXAM STATUS: REG ER ORD. PHYSICIAN: TIM YARBROUGH APRN REASON: hit head on wall PROCEDURE: CT HEAD WO CONTRAST CT HEAD WO CONTRAST Clinical indications: Hit head on wall. COMPARISON: July 20, 2019. Technique: Noncontrast axial cross sectional scanning of the head was performed. PQRS compliance Statement One or more of the following individualized dose reduction techniques were utilized for this study: 1. Automated exposure control 2. Adjustment of the mA and/or kV according to patient size 3. Use of iterative reconstruction technique Findings: No acute intracranial hemorrhage or midline shift or mass-effect or extra-axial fluid collection is seen. Moderate bilateral periventricular white matter hypodensity is seen consistent with chronic small vessel ischemic disease in this age group. Old lacunar infarcts of the inferior aspect of the basal ganglia is seen on each side. An old cortical infarct of the posterior right parietal lobe is seen with associated atrophy and enlargement of the adjacent right lateral ventricle. The ventricular system is stable. No new focal hypodense area or sulci effacement is seen. No skull fracture or pneumocephalus is seen. No opacification of the mastoid sinuses or the middle ear cavities or the paranasal sinuses is seen. The maxillary sinuses are not completely seen in this study. Impression: No acute intracranial abnormality is seen. Old ischemic disease. Electronically signed by: Fito Mcgrath MD (03/15/2020 3:53 PM) [id number] DICTATED and SIGNED BY: FITO MCGRATH MD DATE: 03/15/[address] [facility] [address] [place] [address] IMAGING REPORT Signed PATIENT: STEPH SAM ACCOUNT: [id number] : 1965 LOCATION: ER AGE: 54 SEX: F EXAM STATUS: REG ER ORD. PHYSICIAN: TIM YARBROUGH APRN REASON: pain, PROCEDURE: KNEE RIGHT 4V Right knee 4 views INDICATION: Luna knee pain. COMPARISON: None. TECHNIQUE: AP, lateral, tunnel and sunrise views of the right knee were obtained FINDINGS: Normal alignment with normal osseous mineralization. There is medial joint space narrowing. There is osteophytic spurring in the medial tibial plateau and of the superior patella facet. There is mild irregularity to the articular surface in the trochlear groove and subchondral cysts are suggested in the tibial spine and medial tibial plateau. No acute fracture or aggressive osseous lesions. There is mild density in the joint space that could represent a small joint effusion. The soft tissues otherwise are unremarkable. IMPRESSION: Degenerative changes in the right knee in multiple compartments with a possible small joint effusion. No fracture or aggressive osseous lesions. Electronically signed by: Karen Stokes MD (03/15/2020 4:33 PM) [id number] DICTATED and SIGNED BY: KAREN STOKES MD DATE: 03/15/[address] [facility] [address] [place] [address] IMAGING REPORT Signed PATIENT: STEPH SAM ACCOUNT: [id number] : 1965 LOCATION: ER AGE: 54 SEX: F EXAM STATUS: REG ER ORD. PHYSICIAN: TIM YARBROUGH APRN REASON: pain, PROCEDURE: WRIST 3V LEFT Three-view left wrist radiographs 03/07/2020 CLINICAL HISTORY: Left wrist pain. PA, lateral and oblique digital radiographs ofthe left wrist were obtained. A healed fracture of the distal diaphysis of the left ulna is noted. No acute fracture or dislocation of the left wrist is seen. Widening of the distance between the scaphoid and lunate bone is seen suggestive of scapholunate ligament disruption. Severe degenerative changes are seen involving the first carpal metacarpal joint. Moderate degenerative changes are seen involving the radial aspect of the midcarpal joint. Mild degenerative changes are seen involving the radiocarpal joint. IMPRESSION: Degenerative changes are seen involving the left wrist as discussed above. No acute osseous abnormality is seen. Electronically signed by: Yury Heller MD (03/15/2020 4:35 PM) [id number] DICTATED and SIGNED BY: YURY HELLER MD DATE: 03/15/20 1635 Course & Med Decision Making: Course & Med Decision Making Pertinent Labs and Imaging studies reviewed. (See chart for details) Speaks in full clear sentences. Patient is very anxious and crying. Patient has full range of motion of her neck. There is no laceration, abrasion or tenderness to her head. She denies nausea, vomiting, abdominal pain, soa, chest pain, vision changes, loc, headache, dizziness, vision changes. Abdomen is soft and nontender. Left wrist that patient states last week she injured while opening a garage door, is not swollen, deformed, or bruised. Full ROM. Scan make a fist. Can wiggle all fingers and no joint laxity. Radial pulse present. Cap refill lass than 3 seconds. Patient also complains of right knee pain from the same incident las week. Again no deformity, laxity, pain elicited with ROM. Popiteal pulse strong and present. Skin pink warm and dry. Cap refill less than 3 seconds. Full ROM of the neck. No pain with palpation to the cervical spine, thoracic spine, lumbar spine. I have discussed this patient with Dr Lackey and the care plan. He states no blood pressure medication is needed at this time. [] Ranulfo Disclaimer: Ranulfo Disclaimer: This electronic medical record was generated, in whole or in part, using a voice recognition dictation system. Departure Departure Impression: Primary Impression: Head injury Qualified Codes: S09.90XA - Unspecified injury of head, initial encounter Additional Impressions: Wrist pain, chronic Qualified Codes: M25.532 - Pain in left wrist; G89.29 - Other chronic pain Knee pain, right Qualified Codes: M25.561 - Pain in right knee; G89.29 - Other chronic pain Disposition: 01 HOME, SELF-CARE Condition: STABLE Referrals: NO PCP (PCP) Patient Instructions: Head Injury, Adult Additional Instructions: Follow up with primary care. Take your blood pressure medication as prescribed. Drink plenty of fluids. TIM YARBROUGH APRN Mar 15, 2020 15:09
--- NOTE | 2020-03-15 15:56 | RAD ---
CT HEAD WO CONTRAST Clinical indications: Hit head on wall. COMPARISON: July 20, 2019. Technique: Noncontrast axial cross sectional scanning of the head was performed. PQRS compliance Statement One or more of the following individualized dose reduction techniques were utilized for this study: 1. Automated exposure control 2. Adjustment of the mA and/or kV according to patient size 3. Use of iterative reconstruction technique Findings: No acute intracranial hemorrhage or midline shift or mass-effect or extra-axial fluid collection is seen. Moderate bilateral periventricular white matter hypodensity is seen consistent with chronic small vessel ischemic disease in this age group. Old lacunar infarcts of the inferior aspect of the basal ganglia is seen on each side. An old cortical infarct of the posterior right parietal lobe is seen with associated atrophy and enlargement of the adjacent right lateral ventricle. The ventricular system is stable. No new focal hypodense area or sulci effacement is seen. No skull fracture or pneumocephalus is seen. No opacification of the mastoid sinuses or the middle ear cavities or the paranasal sinuses is seen. The maxillary sinuses are not completely seen in this study. Impression: No acute intracranial abnormality is seen. Old ischemic disease. Electronically signed by: Samm Mcgrath MD (03/15/2020 3:53 PM) [id number]
[2020-03-15 16:11] LABS: BILIRUBIN,URINE NEGATIVE (NEG); CLARITY,URINE CLEAR; COLOR,URINE YELLOW; NITRITE,URINE NEGATIVE (NEG); PH,URINE 6.5 (<5.0-8.0); PROTEIN,URINE NEGATIVE (NEG-TRACE)
[2020-03-15 16:19] LABS: BACTERIA,URINE MODERATE /HPF (0-FEW); RBC,URINE OCC /HPF (0-2); SQUAMOUS EPITHELIAL CELL,UR MOD /LPF
[2020-03-15 16:20] LABS: HYALINE CASTS, URINE OCCASIONAL /HPF
[2020-03-15] MEDS ORDERED: cloNIDine HCL 0.1 MG TABLET PO ONE (16:30)
[2020-03-15] MEDS ORDERED: IV NORMAL SALINE 1000ML BAG 1,000 ML IV ONE (16:30)
--- NOTE | 2020-03-15 16:35 | RAD ---
Right knee 4 views INDICATION: Luna knee pain. COMPARISON: None. TECHNIQUE: AP, lateral, tunnel and sunrise views of the right knee were obtained FINDINGS: Normal alignment with normal osseous mineralization. There is medial joint space narrowing. There is osteophytic spurring in the medial tibial plateau and of the superior patella facet. There is mild irregularity to the articular surface in the trochlear groove and subchondral cysts are suggested in the tibial spine and medial tibial plateau. No acute fracture or aggressive osseous lesions. There is mild density in the joint space that could represent a small joint effusion. The soft tissues otherwise are unremarkable. IMPRESSION: Degenerative changes in the right knee in multiple compartments with a possible small joint effusion. No fracture or aggressive osseous lesions. Electronically signed by: Luis Jalloh MD (03/15/2020 4:33 PM) [id number]
--- NOTE | 2020-03-15 16:38 | RAD ---
Three-view left wrist radiographs 03/07/2020 CLINICAL HISTORY: Left wrist pain. PA, lateral and oblique digital radiographs ofthe left wrist were obtained. A healed fracture of the distal diaphysis of the left ulna is noted. No acute fracture or dislocation of the left wrist is seen. Widening of the distance between the scaphoid and lunate bone is seen suggestive of scapholunate ligament disruption. Severe degenerative changes are seen involving the first carpal metacarpal joint. Moderate degenerative changes are seen involving the radial aspect of the midcarpal joint. Mild degenerative changes are seen involving the radiocarpal joint. IMPRESSION: Degenerative changes are seen involving the left wrist as discussed above. No acute osseous abnormality is seen. Electronically signed by: Yury Heller MD (03/15/2020 4:35 PM) [id number]
[2020-03-15 17:05] VITALS: BP 199/108
== END 2020-03-15 17:40 | disposition home or self-care (01) ==
LOC: ER 14:36
DX: S09.8XXA Other specified injuries of head, initial encounter (principal); M25.532 Pain in left wrist; M25.561 Pain in right knee; G89.29 Other chronic pain; F41.9 Anxiety disorder, unspecified; I10 Essential (primary) hypertension; I63.9 Cerebral infarction, unspecified; F17.210 Nicotine dependence, cigarettes, uncomplicated; Z90.89 Acquired absence of other organs; Z98.890 Other specified postprocedural states; W01.198A Fall on same level from slipping, tripping and stumbling with subsequent striking against other object, initial encounter; Y93.89 Activity, other specified; Y92.89 Other specified places as the place of occurrence of the external cause; Y99.8 Other external cause status
CPT/HCPCS: 70450; 73110; 73564; 81001; 87086; 99285; J7030

== ENCOUNTER 2020-03-17 07:42 | Emergency (ER) | payer OTHER ==
[~2020-03-17] VITALS: Ht 162.6 cm; Wt 77.0 kg
--- NOTE | 2020-03-17 07:58 | PHYS DOC ---
Past Medical History Past Medical History: Anxiety, CVA, Dementia, Hypertension, Seizure, Other Additional Past Medical Histor: "brain aneurysm",PANIC ATTACKS Past Medical History Limited secondary to dementia Past Surgical History: Appendectomy, , Tonsillectomy Past Surgical History Limited secondary to dementia Smoking Status: Current Every Day Smoker Alcohol Use: Occasionally Drug Use: None Social History Limited secondary to dementia General Adult EDM: Chief Complaint: Dementia HPI: HPI: 54-year-old female presents via EMS after she was found outside her home and had knocked on a neighbor's door reporting that her house was locked. Neighbor's were concerned as patient was very confused. EMS attempted to take patient back to her home and found door unlocked but nobody else was home. Patient does have a history of dementia and is baseline confused. Patient was seen here yesterday in the emergency department after bumping her head on a wall. [facility] review notes patient with normal CT head, knee x-ray, and wrist x-ray. UA at that time also without significant findings. EMS reports glucose was 58. Dextrose was provided by EMS. Patient denies complaint. Reports she was just "locked out of her home". Reports her daughter works at [employer]. History of present illness limited secondary to dementia. Review of Systems: Review of Systems: Review of systems limited secondary to dementia. Allergies: Allergies: Allergies Coded Allergies Type Severity Reaction Last Updated Verified No Known Drug Allergies 09/27/16 No Physical Exam: PE: Constitutional: Well developed, well nourished, no acute distress, non-toxic appearance HENT: Normocephalic, atraumatic Eyes: PERRL, EOMI, conjunctiva normal, no discharge, no nystagmus Neck: Normal range of motion, no tenderness, supple Cardiovascular: Heart rate normal, regular rhythm Lungs & Thorax: Bilateral breath sounds clear to auscultation, no wheezing Abdomen: Soft, no tenderness Skin: Warm, dry, no erythema, no rash Extremities: No tenderness, ROM intact, no edema Neurologic: Alert and oriented to name only, GCS 14 (eye 4, verbal 4, motor 6), normal motor function, normal sensory function, no focal deficits noted Psychologic: Affect anxious, judgment abnormal Current Patient Data: Labs: Laboratory Tests Test 03/17/20 07:45 Glucose (Fingerstick) 83 mg/dL (70-99) EKG: EKG: [] Radiology/Procedures: Radiology/Procedures: [] Course & Med Decision Making: Course & Med Decision Making Pertinent Lab studies reviewed. (See chart for details) Patient with past medical history of dementia presents via EMS after she was found outside her home. EMS attempted to return patient to her home however caregiver was not there. Patient's blood sugar noted to be 58. EMS reports giving patient some dextrose. Repeat blood sugar upon arrival now improved. [facility] review notes patient was here yesterday after bumping her head and piedad ting her knee and wrist. CT head/wrist x-ray/knee x-ray without acute process. UA at that time without signs of infection. Meal tray ordered and provided. Attempted to contact patient's family members. Able to contact patient's daughter. 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 Reports patient's caregiver starts at 9am. Daughter reports patient's dementia seems to be progressing. Patient stable for discharge with outpatient follow-up with PCP. Discussed findings and plan with family, who acknowledge understanding and agreement. Ranulfo Disclaimer: Ranulfo Disclaimer: This electronic medical record was generated, in whole or in part, using a voice recognition dictation system. Departure Departure Impression: Primary Impression: Dementia Qualified Codes: F03.90 - Unspecified dementia without behavioral disturbance Additional Impression: Hypoglycemia Disposition: 01 HOME, SELF-CARE Condition: STABLE Referrals: NO PCP (PCP) Patient Instructions: Dementia, [id number], Hypoglycemia, [id number] ALEXANDER HEATH DO Mar 17, 2020 07:58
[2020-03-17 08:15] VITALS: BP 166/81
== END 2020-03-17 09:05 | disposition home or self-care (01) ==
LOC: ER 07:42
DX: F03.90 Unspecified dementia, unspecified severity, without behavioral disturbance, psychotic disturbance, mood disturbance, and anxiety (principal); I10 Essential (primary) hypertension; F17.200 Nicotine dependence, unspecified, uncomplicated; Z86.73 Personal history of transient ischemic attack (TIA), and cerebral infarction without residual deficits
CPT/HCPCS: 82962; 99283

== ENCOUNTER 2020-05-14 21:42 | Emergency (ER) | payer OTHER ==
[~2020-05-14] VITALS: Ht 162.6 cm; Wt 70.0 kg
[2020-05-14 21:45] VITALS: BP 124/74
[2020-05-14 22:15] LABS: BASO % 1 % (0-3); EOS # 0.1 x10^3/uL (0.0-0.7); EOS % 3 % (0-3); HEMATOCRIT 34.7 % (36.0-47.0); HEMOGLOBIN 11.6 g/dL (12.0-15.5); LYMPH % 39 % (24-48); MEAN CORPUSCULAR HEMOGLOBIN 31 pg (25-35); MEAN CORPUSCULAR HGB CONC 33 g/dL (31-37); MEAN CORPUSCULAR VOLUME 94 fL (79-100); MONO # 0.5 x10^3/uL (0.0-1.1); MONO % 9 % (0-9); NEUT # 2.4 x10^3/uL (1.8-7.7); NEUT % 48 % (31-73); PLATELET COUNT 179 x10^3/uL (140-400); RED BLOOD COUNT 3.69 x10^6/uL (3.50-5.40); WHITE BLOOD COUNT 5.1 x10^3/uL (4.0-11.0)
[2020-05-14 22:26] LABS: CALCIUM 8.7 mg/dL (8.5-10.1); CREATININE 1.1 mg/dL (0.6-1.0); GFR 61.9; POTASSIUM 3.1 mmol/L (3.5-5.1)
--- NOTE | 2020-05-14 22:26 | PHYS DOC ---
Past Medical History Past Medical History: Anxiety, CVA, Dementia, Hypertension, Seizure, Other Additional Past Medical Histor: "brain aneurysm",PANIC ATTACKS Past Surgical History: Appendectomy, , Tonsillectomy Smoking Status: Current Every Day Smoker Alcohol Use: Occasionally Drug Use: None General Adult EDM: Chief Complaint: SEIZURE HPI: HPI: 55-year-old female with a past medical history of seizure disorder presents for evaluation after having a seizure. Patient arrived via EMS. On exam patient is alert and oriented x4. Per EMS patient found having a seizure by neighbor. Patient confused on EMS arrival-- patient wound wondering around on the street. Patient lives with daughter and unable to be contacted or found. Patient cousin contacted and states patient with history of CVA-- residual right arm weakness and dementia. 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 Patient to stay with cousin. Review of Systems: Review of Systems: Constitutional: Denies fever or chills. [] Eyes: Denies change in visual acuity. [] HENT: Denies nasal congestion or sore throat. [] Respiratory: Denies cough or shortness of breath. [] Cardiovascular: Denies chest pain or edema. [] GI: Denies abdominal pain, nausea, vomiting, bloody stools or diarrhea. [] : Denies dysuria. [] Musculoskeletal: Denies back pain or joint pain. [] Integument: Denies rash. [] Neurologic: Denies headache, focal weakness or sensory changes. [positive seizure] Endocrine: Denies polyuria or polydipsia. [] Lymphatic: Denies swollen glands. [] Psychiatric: Denies depression or anxiety. [] Heart Score: Risk Factors: Risk Factors: DM, Current or recent (<one month) smoker, HTN, HLP, family history of CAD, obesity. Risk Scores: Score 0 - 3: 2.5% MACE over next 6 weeks - Discharge Home Score 4 - 6: 20.3% MACE over next 6 weeks - Admit for Clinical Observation Score 7 - 10: 72.7% MACE over next 6 weeks - Early Invasive Strategies Allergies: Allergies: Allergies Coded Allergies Type Severity Reaction Last Updated Verified No Known Drug Allergies 09/27/16 No Physical Exam: PE: Constitutional: Well developed, well nourished, no acute distress, non-toxic appearance. [] HENT: Normocephalic, atraumatic, bilateral external ears normal, oropharynx moist, no oral exudates, nose normal. [] Eyes: PERRLA, EOMI, conjunctiva normal, no discharge. [] Neck: Normal range of motion, no tenderness, supple, no stridor. [] Cardiovascular:Heart rate regular rhythm, no murmur [] Lungs & Thorax: Bilateral breath sounds clear to auscultation [] Abdomen: Bowel sounds normal, soft, no tenderness, no masses, no pulsatile masses. [] Skin: Warm, dry, no erythema, no rash. [] Back: No tenderness, no CVA tenderness. [] Extremities: No tenderness, no cyanosis, no clubbing, ROM intact, no edema. [] Neurologic: Alert and oriented X 3, normal motor function, normal sensory function, no focal deficits noted. [] Psychologic: Affect normal, judgement normal, mood normal. [] Current Patient Data: Labs: Laboratory Tests Test 05/14/20 22:00 White Blood Count 5.1 x10^3/uL (4.0-11.0) Red Blood Count 3.69 x10^6/uL (3.50-5.40) Hemoglobin 11.6 g/dL (12.0-15.5) L Hematocrit 34.7 % (36.0-47.0) L Mean Corpuscular Volume 94 fL (79-100) Mean Corpuscular Hemoglobin 31 pg (25-35) Mean Corpuscular Hemoglobin Concent 33 g/dL (31-37) Red Cell Distribution Width 16.0 % (11.5-14.5) H Platelet Count 179 x10^3/uL (140-400) Neutrophils (%) (Auto) 48 % (31-73) Lymphocytes (%) (Auto) 39 % (24-48) Monocytes (%) (Auto) 9 % (0-9) Eosinophils (%) (Auto) 3 % (0-3) Basophils (%) (Auto) 1 % (0-3) Neutrophils # (Auto) 2.4 x10^3/uL (1.8-7.7) Lymphocytes # (Auto) 2.0 x10^3/uL (1.0-4.8) Monocytes # (Auto) 0.5 x10^3/uL (0.0-1.1) Eosinophils # (Auto) 0.1 x10^3/uL (0.0-0.7) Basophils # (Auto) 0.0 x10^3/uL (0.0-0.2) Laboratory Tests 05/14/20 22:00 EKG: EKG: [] Time 22:19 Heart Rate 62 Atrial Flutter No stemi Radiology/Procedures: Radiology/Procedures: [] Course & Med Decision Making: Course & Med Decision Making Pertinent Labs and Imaging studies reviewed. (See chart for details) []Cousin picking up patient. Patient baseline mental status. Will rx home medications lisinopril lamotrigine potassium Dragon Disclaimer: Dragon Disclaimer: This electronic medical record was generated, in whole or in part, using a voice recognition dictation system. Departure Departure Impression: Primary Impression: Seizure Additional Impression: Hypokalemia Disposition: HOME, SELF-CARE Condition: STABLE Referrals: NO PCP (PCP) Patient Instructions: Hypokalemia, Seizure, Adult Scripts Lamotrigine (LAMICTAL) 200 Mg Tablet 1 TAB PO DAILY, #20 TAB 1 Refill Prov: HAWK HAMILTON DO 05/15/20 Lisinopril (LISINOPRIL) 20 Mg Tablet 1 TAB PO DAILY, #20 TAB 5 Refills Prov: HAWK HAMILTON DO 05/15/20 Potassium Chloride (POTASSIUM CHLORIDE ) 20 Meq Tablet.er 20 MEQ PO DAILY for SUPPLEMENT for 10 Days, #10 TAB.SR Prov: HAWK HAMILTON DO 05/15/20 Justicifation of Admission Dx: Justifications for Admission: Justification of Admission Dx: N/A HAWK HAMILTON DO May 14, 2020 22:26
[2020-05-14 22:31] LABS: ALBUMIN 3.7 g/dL (3.4-5.0); ALBUMIN/GLOBULIN RATIO 1.2 (1.0-1.7); TOTAL BILIRUBIN 0.3 mg/dL (0.2-1.0); TOTAL PROTEIN 6.8 g/dL (6.4-8.2)
[2020-05-14 23:35] LABS: BILIRUBIN,URINE SMALL (NEG); CLARITY,URINE CLEAR; COLOR,URINE YELLOW; NITRITE,URINE NEGATIVE (NEG); PROTEIN,URINE NEGATIVE (NEG-TRACE)
[2020-05-15 00:04] LABS: BACTERIA,URINE FEW /HPF (0-FEW); GRANULAR CASTS,URINE FEW /HPF; HYALINE CASTS, URINE FEW /HPF; SQUAMOUS EPITHELIAL CELL,UR FEW /LPF
[2020-05-15] MEDS ORDERED: POTA20TA4 PO (00:14)
[2020-05-15] MEDS ORDERED: LAMO200T3 PO (00:43)
[2020-05-15] MEDS ORDERED: LISI-334 PO (00:43)
--- NOTE | 2020-05-16 11:07 | EKG ---
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
== END 2020-05-15 01:04 | disposition home or self-care (01) ==
LOC: ER 21:42
DX: G40.909 Epilepsy, unspecified, not intractable, without status epilepticus (principal); E87.6 Hypokalemia; I10 Essential (primary) hypertension; F03.90 Unspecified dementia, unspecified severity, without behavioral disturbance, psychotic disturbance, mood disturbance, and anxiety; F17.200 Nicotine dependence, unspecified, uncomplicated; Z86.73 Personal history of transient ischemic attack (TIA), and cerebral infarction without residual deficits
CPT/HCPCS: 36415; 80053; 81001; 85025; 87086; 93005; 99284

== ENCOUNTER 2020-06-07 15:58 | Emergency (ER) | payer OTHER ==
[~2020-06-07] VITALS: Ht 170.2 cm; Wt 73.0 kg
[2020-06-07 15:58] VITALS: BP 150/75
[~2020-06-07 15:58] MED LIST changes: +LAMO200T3 PO; +POTA20TA4 PO
== END 2020-06-07 17:00 | disposition left against medical advice (07) ==
LOC: ER 15:58
DX: R47.81 Slurred speech (principal); Z53.21 Procedure and treatment not carried out due to patient leaving prior to being seen by health care provider
CPT/HCPCS: 82962

== ENCOUNTER 2020-07-15 13:27 | Inpatient (IN) | payer OTHER ==
[~2020-07-15] VITALS: Ht 162.6 cm; Wt 71.1 kg
[2020-07-15 15:25] LABS: BILIRUBIN,URINE SMALL (NEG); CLARITY,URINE CLEAR; COLOR,URINE YELLOW; NITRITE,URINE NEGATIVE (NEG); PH,URINE 5.5 (<5.0-8.0); PROTEIN,URINE NEGATIVE (NEG-TRACE)
--- NOTE | 2020-07-15 15:26 | PHYS DOC ---
Past Medical History Past Medical History: Anxiety, CVA, Hypertension Additional Past Medical Histor: "brain aneurysm",PANIC ATTACKS, EARLY ONSET DEMENTIA Past Surgical History: No Surgical History Smoking Status: Current Every Day Smoker Alcohol Use: None Drug Use: None General Adult EDM: Chief Complaint: SEIZURE HPI: HPI: On reexamination the patient has a normal neurologic exam other than her [id number] female presents emergency department after having had a seizure today. She has a known history of seizures for which she takes Lamictal. This was a witnessed event by a friend. EMS was called who brings the patient in. On arrival the patient's alert but confused. Patient has a history of early onset dementia and has had a stroke in the past. Here the patient is able to move her extremities and is without a focal neurologic deficit. Onset today. Location brain. Duration intermittent. No alleviating factors. Review of systems negative for chest pain shortness of breath abdominal pain vomiting fevers chills. All other review of systems negative. ED course: 55-year-old female presenting after having a seizure. She is mildly confused on arrival but without focal neurologic deficit. She reports having been taken her medications as prescribed. CBC unremarkable. Chemistry panel unremarkable. Lactic acid within normal limits. Urine analysis unremarkable for infection. On reexamination the patient is feeling better but believes it is 1920. She is oriented to person and place and knows the president's name. Given her residual confusion we will admit her for monitoring neurologic consultation. Here I will give her a dose of Keppra for treatment of her seizures. The patient was admitted the hospitalist for further treatment and care. Without a focal neurologic deficit and is without any other symptoms. She is resting comfortably in the examination room. Heart Score: Risk Factors: Risk Factors: DM, Current or recent (<one month) smoker, HTN, HLP, family history of CAD, obesity. Risk Scores: Score 0 - 3: 2.5% MACE over next 6 weeks - Discharge Home Score 4 - 6: 20.3% MACE over next 6 weeks - Admit for Clinical Observation Score 7 - 10: 72.7% MACE over next 6 weeks - Early Invasive Strategies Allergies: Allergies: Allergies Coded Allergies Type Severity Reaction Last Updated Verified No Known Drug Allergies 09/27/16 No Physical Exam: PE: Constitutional: Well developed, well nourished, no acute distress, non-toxic appearance. [] HENT: Normocephalic, atraumatic, bilateral external ears normal, oropharynx moist, no oral exudates, nose normal. [] Eyes: PERRLA, EOMI, conjunctiva normal, no discharge. [] Neck: Normal range of motion, no tenderness, supple, no stridor. [] Cardiovascular:Heart rate regular rhythm, no murmur [] Lungs & Thorax: Bilateral breath sounds clear to auscultation [] Abdomen: Bowel sounds normal, soft, no tenderness, no masses, no pulsatile masses. [] Skin: Warm, dry, no erythema, no rash. [] Back: No tenderness, no CVA tenderness. [] Extremities: No tenderness, no cyanosis, no clubbing, ROM intact, no edema. [] Neurologic: Mental status: Awake and alert, confused (baseline? hx of early onset dementia is in the chart however pt was A and O x 4 on visit in April.) normal speech. Cranial nerves: Extraocular movements intact, eyebrows nina bilaterally, smile symmetric, uvula elevation nl, shoulder shrug intact bilaterally, tongue protrusion normal DTRs: 2+ Sensation: equal and normal in all extremities Strength: 5/5 in upper and lower extremities bilaterally Able to hold both legs up without any drift No drift on isometric supination Psychologic: Affect normal, judgement normal, mood normal. [] EKG: EKG: [] Radiology/Procedures: Radiology/Procedures: [] Course & Med Decision Making: Course & Med Decision Making Pertinent Labs and Imaging studies reviewed. (See chart for details) [] Dragon Disclaimer: Dragon Disclaimer: This electronic medical record was generated, in whole or in part, using a voice recognition dictation system. Departure Departure Impression: Primary Impression: Confusion Disposition: ADMITTED INPATIENT Admitting Physician: HIMS Condition: STABLE Referrals: UNKNOWN PCP NAME (PCP) Justicifation of Admission Dx: Justifications for Admission: Justification of Admission Dx: Yes Comments: Metabolic encephalopathy, seizures EDILIA VASQUEZ MD Jul 15, 2020 15:26
[2020-07-15 15:30] LABS: BACTERIA,URINE FEW /HPF (0-FEW); RBC,URINE 0 /HPF (0-2); SQUAMOUS EPITHELIAL CELL,UR MANY /LPF; WBC,URINE OCC /HPF (0-4)
[2020-07-15 15:37] LABS: BARBITURATES NEG (NEG); BENZODIAZEPINES NEG (NEG); CANNABINOIDS NEG (NEG); COCAINE NEG (NEG); METHADONE NEG (NEG); OPIATES NEG (NEG); PHENCYCLIDINE NEG (NEG)
[2020-07-15 15:40] LABS: AMPHETAMINE/METHAMPHETAMINE NEG (NEG)
[2020-07-15 16:03] LABS: BASO % 1 % (0-3); EOS # 0.1 x10^3/uL (0.0-0.7); EOS % 3 % (0-3); HEMATOCRIT 42.3 % (36.0-47.0); HEMOGLOBIN 14.1 g/dL (12.0-15.5); LYMPH # 1.7 x10^3/uL (1.0-4.8); LYMPH % 35 % (24-48); MEAN CORPUSCULAR HEMOGLOBIN 32 pg (25-35); MEAN CORPUSCULAR HGB CONC 34 g/dL (31-37); MEAN CORPUSCULAR VOLUME 95 fL (79-100); MONO # 0.6 x10^3/uL (0.0-1.1); MONO % 13 % (0-9); NEUT # 2.4 x10^3/uL (1.8-7.7); NEUT % 49 % (31-73); PLATELET COUNT 202 x10^3/uL (140-400); RED BLOOD COUNT 4.45 x10^6/uL (3.50-5.40); RED CELL DISTRIBUTION WIDTH 14.2 % (11.5-14.5); WHITE BLOOD COUNT 4.9 x10^3/uL (4.0-11.0)
[2020-07-15 16:19] LABS: CREATININE 1.1 mg/dL (0.6-1.0); GFR 61.9; POTASSIUM 3.6 mmol/L (3.5-5.1)
[2020-07-15 16:24] LABS: ALBUMIN 3.8 g/dL (3.4-5.0); TOTAL BILIRUBIN 0.6 mg/dL (0.2-1.0); TOTAL PROTEIN 7.8 g/dL (6.4-8.2)
--- NOTE | 2020-07-15 16:54 | RAD ---
INDICATION: Reason: SEIZURE / Spl. Instructions: / History: COMPARISON: March 19, 2020 TECHNIQUE: Axial CT images obtained through the head without intravenous contrast. One or more of the following individualized dose reduction techniques were utilized for this examination: 1. Automated exposure control; 2. Adjustment of the mA and/or kV according to patient size; 3. Use of iterative reconstruction technique. FINDINGS: No intracranial hemorrhage. No midline shift. Basal cisterns patents. Prominence of the ventricles are again seen. There is again some encephalomalacia within the right cerebral hemisphere near the vertex with some slightly higher density component along the cortex which could be from causes such as laminar cortical necrosis or calcification. No acute osseous abnormality. Orbits and paranasal sinuses unremarkable. Scattered foci of low attenuation within the white matter. IMPRESSION: 1. No acute intracranial hemorrhage. 2. Scattered regions of low attenuation within the white matter. Non-specific in nature but frequently secondary to chronic small vessel ischemic disease. 3. Prominence of ventricles and sulci which is frequently secondary to age related volume loss. 4. Encephalomalacia is again seen within the right cerebral hemisphere which can be from prior insult. Electronically signed by: Danny Hazel MD (07/15/2020 4:51 PM) [id number]
[2020-07-15] MEDS ORDERED: levETIRAcetam 1,000 MG in IV DEXTROSE 5% 100ML 100 ML IV ONE (17:30)
--- NOTE | 2020-07-15 20:28 | PDOC1 ---
History and Physical Date of Admission Date of Admission DATE: 07/15/20 TIME: 20:27 Identification/Chief Complaint Chief Complaint Postictal state, altered mental status Source Source: Chart review, Patient History of Present Illness History of Present Illness Patient is a 55 yo female with history of seizures, who presents to the ER after having a witnessed seizure by a friend. EMS was contacted, and on arrival the patient was alert but confused. She admits to a history of early onset dementia and is A&O x 2 on exam.Further history could not be obtained as patient nods off during exam. Past Medical History Cardiovascular: CAD, CHF, Hyperlipidemia, Other Pulmonary: Bronchitis CENTRAL NERVOUS SYSTEM: CVA, Dementia, Seizure, Other GI: GERD Heme/Onc: Sickle cell disease Hepatobiliary: No pertinent hx Psych: Anxiety, Depression Musculoskeletal: low back pain, Osteoarthritis Rheumatologic: No pertinent hx Infectious disease: No pertinent hx Renal/: Chronic renal failure, Other Endocrine: No pertinent hx Past Surgical History Past Surgical History: , Hysterectomy, Other Family History Family History: Cancer, Coronary Artery Disease, Heart Disease Social History Smoke: <1 pack per day ALCOHOL: heavy Drugs: None Current Problem List Problem List Problems Medical Problems: (1) Confusion Status: Acute Current Medications Current Medications Current Medications Lorazepam (Ativan Inj) 1 mg 1X ONCE IVP Last administered on 07/15/20at 15:56; Start 07/15/20 at 15:30; Stop 07/15/20 at 15:31; Status DC Levetiracetam 1000 mg/Dextrose 110 ml @ 440 mls/hr 1X ONCE IV Last administered on 07/15/20at 18:10; Start 07/15/20 at 17:30; Stop 07/15/20 at 17:44; Status DC Active Scripts Active Lamictal (Lamotrigine) 200 Mg Tablet 1 Tab PO DAILY Lisinopril 20 Mg Tablet 1 Tab PO DAILY Potassium Chloride (Potassium Chloride) 20 Meq Tablet.er 20 Meq PO DAILY 10 Days Clonidine Hcl 0.1 Mg Tablet 0.1 Mg PO BID PRN Take each tablet as needed for Systolic (upper) blood pressure greater than 185 and/or Diastolic (lower) blood pressure greater than 110. Quetiapine Fumarate 25 Mg Tablet 25 Mg PO BID 30 Days Aspirin 325 Mg Tablet 325 Mg PO DAILYWBKFT 30 Days Amlodipine Besylate 5 Mg Tablet 5 Mg PO DAILY 30 Days Lisinopril 40 Mg Tablet 40 Mg PO DAILY 30 Days Atorvastatin Calcium 20 Mg Tablet 20 Mg PO QHS 30 Days Colace (Docusate Sodium) 100 Mg Capsule 1 Cap PO BID Reported Hydroxyzine Pamoate 50 Mg Capsule 50 Mg PO TID Zolpidem Tartrate 10 Mg Tablet 10 Mg PO QHS Carvedilol (Carvedilol) 12.5 Mg Tablet 6.25 Mg PO BIDWMEALS Tums (Calcium Carbonate) 200 Mg Tab.chew 200 Mg PO Diazepam 10 Mg Tablet 10 Mg PO BID Allergies Allergies: Coded Allergies: No Known Drug Allergies (Unverified , 09/27/16) ROS Review of System Unable to obtain due to clinical status Physical Exam General: No acute distress, Other (Lethargic) HEENT: PERRLA Lungs: Clear to auscultation, Normal air movement Heart: RRR, no murmurs Cardiovascular: S1, S2 Abdomen: Normal bowel sounds, Soft, No tenderness, No hepatosplenomegaly, No masses Extremities: No clubbing, No cyanosis, Normal pulses Skin: No rashes, No breakdown, No significant lesion Neuro: Normal speech, Sensation intact Psych/Mental Status: Other (Confused) Vitals Vitals Vital Signs Date Time Temp Pulse Resp B/P (MAP) Pulse Ox O2 Delivery O2 Flow Rate FiO2 07/15/20 18:11 64 19 100 07/15/20 15:10 97.1 163/103 (123) Room Air 97.1 Labs Labs Laboratory Tests Test 07/15/20 15:10 07/15/20 15:50 Urine Collection Type Unknown Urine Color Yellow Urine Clarity Clear Urine pH 5.5 (<5.0-8.0) Urine Specific [place] 1.020 (1.000-1.030) Urine Protein Negative mg/dL (NEG-TRACE) Urine Glucose (UA) Negative mg/dL (NEG) Urine Ketones (Stick) 15 mg/dL (NEG) Urine Blood Negative (NEG) Urine Nitrite Negative (NEG) Urine Bilirubin Small (NEG) Urine Urobilinogen Dipstick 1.0 mg/dL (0.2 mg/dL) Urine Leukocyte Esterase Negative (NEG) Urine RBC 0 /HPF (0-2) Urine WBC Occ /HPF (0-4) Urine Squamous Epithelial Cells Many /LPF Urine Bacteria Few /HPF (0-FEW) Urine Mucus Marked /LPF Urine Opiates Screen Neg (NEG) Urine Methadone Screen Neg (NEG) Urine Barbiturates Neg (NEG) Urine Phencyclidine Screen Neg (NEG) Urine Amphetamine/Methamphetamine Neg (NEG) Urine Benzodiazepines Screen Neg (NEG) Urine Cocaine Screen Neg (NEG) Urine Cannabinoids Screen Neg (NEG) Urine Ethyl Alcohol Neg (NEG) White Blood Count 4.9 x10^3/uL (4.0-11.0) Red Blood Count 4.45 x10^6/uL (3.50-5.40) Hemoglobin 14.1 g/dL (12.0-15.5) Hematocrit 42.3 % (36.0-47.0) Mean Corpuscular Volume 95 fL (79-100) Mean Corpuscular Hemoglobin 32 pg (25-35) Mean Corpuscular Hemoglobin Concent 34 g/dL (31-37) Red Cell Distribution Width 14.2 % (11.5-14.5) Platelet Count 202 x10^3/uL (140-400) Neutrophils (%) (Auto) 49 % (31-73) Lymphocytes (%) (Auto) 35 % (24-48) Monocytes (%) (Auto) 13 % (0-9) Eosinophils (%) (Auto) 3 % (0-3) Basophils (%) (Auto) 1 % (0-3) Neutrophils # (Auto) 2.4 x10^3/uL (1.8-7.7) Lymphocytes # (Auto) 1.7 x10^3/uL (1.0-4.8) Monocytes # (Auto) 0.6 x10^3/uL (0.0-1.1) Eosinophils # (Auto) 0.1 x10^3/uL (0.0-0.7) Basophils # (Auto) 0.0 x10^3/uL (0.0-0.2) Sodium Level 142 mmol/L (136-145) Potassium Level 3.6 mmol/L (3.5-5.1) Chloride Level 105 mmol/L (98-107) Carbon Dioxide Level 27 mmol/L (21-32) Anion Gap 10 (6-14) Blood Urea Nitrogen 14 mg/dL (7-20) Creatinine 1.1 mg/dL (0.6-1.0) Estimated GFR (Cockcroft-Gault) 61.9 BUN/Creatinine Ratio 13 (6-20) Glucose Level 71 mg/dL (70-99) Lactic Acid Level 0.8 mmol/L (0.4-2.0) Calcium Level 9.0 mg/dL (8.5-10.1) Total Bilirubin 0.6 mg/dL (0.2-1.0) Aspartate Amino Transf (AST/SGOT) 9 U/L (15-37) Alanine Aminotransferase (ALT/SGPT) 14 U/L (14-59) Alkaline Phosphatase 95 U/L (46-116) Creatine Kinase 51 U/L (26-192) Total Protein 7.8 g/dL (6.4-8.2) Albumin 3.8 g/dL (3.4-5.0) Albumin/Globulin Ratio 1.0 (1.0-1.7) Laboratory Tests Test 07/15/20 15:10 07/15/20 15:50 Urine Collection Type Unknown Urine Color Yellow Urine Clarity Clear Urine pH 5.5 (<5.0-8.0) Urine Specific [place] 1.020 (1.000-1.030) Urine Protein Negative mg/dL (NEG-TRACE) Urine Glucose (UA) Negative mg/dL (NEG) Urine Ketones (Stick) 15 mg/dL (NEG) Urine Blood Negative (NEG) Urine Nitrite Negative (NEG) Urine Bilirubin Small (NEG) Urine Urobilinogen Dipstick 1.0 mg/dL (0.2 mg/dL) Urine Leukocyte Esterase Negative (NEG) Urine RBC 0 /HPF (0-2) Urine WBC Occ /HPF (0-4) Urine Squamous Epithelial Cells Many /LPF Urine Bacteria Few /HPF (0-FEW) Urine Mucus Marked /LPF Urine Opiates Screen Neg (NEG) Urine Methadone Screen Neg (NEG) Urine Barbiturates Neg (NEG) Urine Phencyclidine Screen Neg (NEG) Urine Amphetamine/Methamphetamine Neg (NEG) Urine Benzodiazepines Screen Neg (NEG) Urine Cocaine Screen Neg (NEG) Urine Cannabinoids Screen Neg (NEG) Urine Ethyl Alcohol Neg (NEG) White Blood Count 4.9 x10^3/uL (4.0-11.0) Red Blood Count 4.45 x10^6/uL (3.50-5.40) Hemoglobin 14.1 g/dL (12.0-15.5) Hematocrit 42.3 % (36.0-47.0) Mean Corpuscular Volume 95 fL (79-100) Mean Corpuscular Hemoglobin 32 pg (25-35) Mean Corpuscular Hemoglobin Concent 34 g/dL (31-37) Red Cell Distribution Width 14.2 % (11.5-14.5) Platelet Count 202 x10^3/uL (140-400) Neutrophils (%) (Auto) 49 % (31-73) Lymphocytes (%) (Auto) 35 % (24-48) Monocytes (%) (Auto) 13 % (0-9) Eosinophils (%) (Auto) 3 % (0-3) Basophils (%) (Auto) 1 % (0-3) Neutrophils # (Auto) 2.4 x10^3/uL (1.8-7.7) Lymphocytes # (Auto) 1.7 x10^3/uL (1.0-4.8) Monocytes # (Auto) 0.6 x10^3/uL (0.0-1.1) Eosinophils # (Auto) 0.1 x10^3/uL (0.0-0.7) Basophils # (Auto) 0.0 x10^3/uL (0.0-0.2) Sodium Level 142 mmol/L (136-145) Potassium Level 3.6 mmol/L (3.5-5.1) Chloride Level 105 mmol/L (98-107) Carbon Dioxide Level 27 mmol/L (21-32) Anion Gap 10 (6-14) Blood Urea Nitrogen 14 mg/dL (7-20) Creatinine 1.1 mg/dL (0.6-1.0) Estimated GFR (Cockcroft-Gault) 61.9 BUN/Creatinine Ratio 13 (6-20) Glucose Level 71 mg/dL (70-99) Lactic Acid Level 0.8 mmol/L (0.4-2.0) Calcium Level 9.0 mg/dL (8.5-10.1) Total Bilirubin 0.6 mg/dL (0.2-1.0) Aspartate Amino Transf (AST/SGOT) 9 U/L (15-37) Alanine Aminotransferase (ALT/SGPT) 14 U/L (14-59) Alkaline Phosphatase 95 U/L (46-116) Creatine Kinase 51 U/L (26-192) Total Protein 7.8 g/dL (6.4-8.2) Albumin 3.8 g/dL (3.4-5.0) Albumin/Globulin Ratio 1.0 (1.0-1.7) VTE Prophylaxis Ordered VTE Prophylaxis Devices: No VTE Pharmacological Prophylaxi: Yes Assessment/Plan Assessment/Plan Postictal State Confusion Vasomotor Nephropathy Plan: Patient with history of seizures and dementia, but unknown baseline. She certainly may just still be postictal, as she reports having been taken her medications as prescribed. She is alert to person and place, but believes it is 1920. Will consult neurology for recommendations, and continue to monitor interval improvement.Will need to speak with family about her baseline status, if she remains A&O x 2. IV fluids. VTE. Full Code. Justifications for Admission Other Justification DIANA GUZMAN MD Jul 15, 2020 20:28
[2020-07-15 20:30] VITALS: BP 186/97
[2020-07-15] MEDS ORDERED: CALCIUM CARBONATE 500 MG TAB.CHEW PO PRN (20:30)
[2020-07-15] MEDS ORDERED: cloNIDine HCL 0.1 MG TABLET PO PRN (20:30)
[2020-07-15] MEDS: IV NORMAL SALINE 1000ML BAG 1,000 ML IV SCH (21:08)
[2020-07-15] MEDS: QUEtiapine 25 MG TABLET. PO SCH (21:16)
[2020-07-15] MEDS: DOCUSATE SODIUM 100 MG CAPSULE. PO SCH (21:16)
[2020-07-15] MEDS: ATORVASTATIN CALCIUM 20 MG TABLET PO SCH (21:16)
[2020-07-15] MEDS: HEPARIN for SUB-Q USE 5,000 UNIT/ML VIAL. SQ SCH (21:17)
[2020-07-15 21:40] VITALS: BP 160/94
[2020-07-15 22:50] VITALS: BP 140/75
--- NOTE | 2020-07-15 23:16 | CONS ---
DATE OF CONSULTATION: 07/15/2020 REFERRING PHYSICIAN: Jalen Granados MD REASON FOR CONSULTATION: Seizure and postictal confusion. HISTORY OF PRESENT ILLNESS: The patient is a 55-year-old woman with multiple infarct dementia, multiple prior strokes, seizures and recurrent hypertensive encephalopathy. She apparently had a seizure today. She has had postictal confusion and has not returned to her baseline. I have reviewed a note from Neurology from 03/2020 when she was admitted. At that time, it was unclear what medication she was on and Dr. Christie had initiated topiramate. I did, however, look at the discharge list and it does not appear as if she was discharged on an anticonvulsant. Currently, it is noted that she is on Lamictal 200 mg per day. I do not know the reliability of this claim. The patient is not a reliable historian at this time. She is quite sleepy. The seizure was witnessed by a friend and EMS was summoned. PAST MEDICAL HISTORY: 1. Anxiety. 2. Stroke. 3. Hypertension and hypertensive encephalopathy. 4. Panic attacks. 5. Smoke, tobacco abuse. 6. Hyperlipidemia. 7. Coronary artery disease. 8. Congestive heart failure. 9. History of bronchitis. 10. Gastroesophageal reflux disease. 11. Sickle cell disease. 12. Lower back pain. 13. Chronic renal failure. 14. . 15. Hysterectomy. ALLERGIES: No known allergies to drugs. MEDICINES PRIOR TO ADMISSION: The reliability of the list is not clear. According to the list in the medical records, she is on amlodipine 5 mg, aspirin 325 mg, atorvastatin 20 mg, calcium carbonate, carvedilol 6.25 mg twice per day, clonidine 0.1 mg twice per day as needed, diazepam 10 mg twice per day, Colace 100 mg twice per day, hydroxyzine 50 mg 3 times per day, lamotrigine 200 mg, lisinopril 40 mg, potassium chloride, Seroquel 25 mg twice per day, and zolpidem 10 mg at night. FAMILY HISTORY: Cancer, coronary artery disease, and heart disease. SOCIAL HISTORY: She drinks occasional alcohol. She smokes tobacco. She does not use recreational drugs. REVIEW OF SYSTEMS: The patient is not a reliable historian. She claims her legs hurt. PHYSICAL EXAMINATION: VITAL SIGNS: The blood pressure was 160/94, pulse 64, respirations 18, temperature 97.5 degrees Celsius, oximetry was 97% on room air. GENERAL: She was sleeping. With stimulation, she would awake only briefly. With continued stimulation, she would perform some parts of the examination and other parts, she would just stay sleeping. She was able to speak and her words were intelligible. She did intermittently follow command when she was awake. She was not oriented. NEUROLOGIC: Examination of the cranial nerves revealed visual chi were full to confrontation. The eyes were disconjugate. Eye movements were present. Pupils were 3 mm and reactive. Funduscopic exam did not reveal papilledema. Facial sensation was intact. She responded to loud clap as well as visual threat. The face was symmetric. Muscle bulk was symmetric. Tone was not spastic or rigid. Power was fairly full and symmetric. Reflexes were 2/4 in the upper extremities, 2/4 at the right knee, absent at the left knee and both ankles. Toes were not upgoing. Coordination testing not possible. Sensory exam was intact to sharp, cold thermal, vibration. Gait was not testable. NECK: Auscultation of the carotid arteries did not reveal a bruit. HEART: Rhythm was regular without a murmur. EXTREMITIES: Peripheral pulses were symmetric at the wrists. There was no edema or cyanosis. LABORATORY RESULTS: CBC was performed on 07/15/2020 revealing a normal white blood cell count, hemoglobin, hematocrit, and platelet count. Chemistries were performed on 07/15/2020 revealing normal electrolytes. BUN was normal. Creatinine elevated at 1.1 and GFR calculated at 61.9. Glucose was normal. Lactic acid was not elevated. The liver enzymes were not elevated. Calcium, total protein, and albumin were normal. CPK was not elevated. Urine drug screen was negative. Urinalysis revealed 15 ketones, small amount of bilirubin, occasional white cells, many squamous epithelial cells and a few bacteria. DIAGNOSTIC RESULTS: CT scan of the brain was performed without contrast on 07/15/2020 revealing no acute intracranial hemorrhage. There was scattered regions of low attenuation within the white matter consistent with chronic small vessel disease. The ventricles were prominent as were the sulci consistent with atrophy. There was encephalomalacia of the right cerebral hemisphere consistent with prior stroke. IMPRESSION: The patient is a 55-year-old woman with a history of multiple infarction dementia. She has been hospitalized for hypertensive encephalopathy. In March, when she was seen by Neurology, they felt most of her spells were related to stroke that would provoke a seizure. According to records now; however, she has unprovoked seizures. According to records, she is on lamotrigine 200 mg a day, which would be some therapeutic for seizure prevention. RECOMMENDATIONS: We will obtain an MRI just to make sure there has been no new event as it was noted by Neurology that usually the seizures were provoked by new events. I will resume lamotrigine 200 mg a day, but need to verify with family or pharmacy what she is truly taking. If she was in fact on that dosage, then we will titrate this by 100 mg every week until she is on 200 mg twice per day for seizure prevention. I appreciate being involved in her care. DIANNE ADAMES MD DR: LUIS CARLOS/kem JOB#: [id number] / [id number] KENDALL Wynne MD
[2020-07-16 02:50] VITALS: BP 114/78
[2020-07-16] MEDS: HEPARIN for SUB-Q USE 5,000 UNIT/ML VIAL. SQ SCH ×3 (05:54→20:44)
[2020-07-16] MEDS: IV NORMAL SALINE 1000ML BAG 1,000 ML IV SCH ×2 (06:45→16:45)
[2020-07-16 07:00] VITALS: BP 127/76
[2020-07-16] MEDS: ASPIRIN 325 MG TABLET PO SCH (08:45)
[2020-07-16] MEDS: lamoTRIgine 100 MG TABLET. PO SCH (08:45)
[2020-07-16] MEDS: levETIRAcetam 500 MG TABLET PO SCH ×2 (08:45→20:39)
[2020-07-16] MEDS: CARVEDILOL 12.5 MG TABLET. PO SCH ×2 (08:46→17:33)
[2020-07-16] MEDS: LISINOPRIL 20 MG TABLET PO SCH (08:46)
[2020-07-16] MEDS: amLODIPine BESYLATE 5 MG TABLET PO SCH (08:47)
[2020-07-16] MEDS: DOCUSATE SODIUM 100 MG CAPSULE. PO SCH ×2 (08:47→20:39)
[2020-07-16] MEDS: QUEtiapine 25 MG TABLET. PO SCH ×2 (08:47→20:39)
--- NOTE | 2020-07-16 10:11 | PDOC ---
PROGRESS NOTES Date of Service: DATE: 07/16/20 TIME: 10:11 Chief Complaint Chief Complaint VTE Prophylaxis Ordered VTE Prophylaxis Devices: No VTE Pharmacological Prophylaxi: Yes impression Assessment/Plan Postictal State Confusion Vasomotor Nephropathy hx multiinfarct dementia Encephalomalacia is again seen within the right cerebral hemisphere which can be from prior insult. Plan: history of seizures and dementia, but unknown baseline. She certainly may just still be postictal, as she reports having been taken her medications as prescribed. She is alert to person and place, but believes it is 1920. consult neurology for recommendations, and continue to monitor interval improvement. speak with family about her baseline status, if she remains A&O x 2. IV fluids. VTE. Full Code. MRI HEAD 39 MIN pt exam, chart review, > 50% of time spent with exam, chart review, pt care coordination Justifications for Admission Justifications for Admission Other Justification History of Present Illness History of Present Illness History of Present Illness History of Present Illness Patient is a 55 yo female with history of seizures, who presents to the ER after having a witnessed seizure by a friend. EMS was contacted, and on arrival the patient was alert but confused. She admits to a history of early onset dementia and is A&O x 2 on exam.Further history could not be obtained as patient nods off during exam. Past Medical History Cardiovascular: CAD, CHF, Hyperlipidemia, Other Pulmonary: Bronchitis CENTRAL NERVOUS SYSTEM: CVA, Dementia, Seizure, Other GI: GERD Heme/Onc: Sickle cell disease Hepatobiliary: No pertinent hx Psych: Anxiety, Depression Musculoskeletal: low back pain, Osteoarthritis Rheumatologic: No pertinent hx Infectious disease: No pertinent hx Renal/: Chronic renal failure, Other Endocrine: No pertinent hx Past Surgical History Past Surgical History: , Hysterectomy, Other Family History Family History: Cancer, Coronary Artery Disease, Heart Disease Social History Smoke: <1 pack per day ALCOHOL: heavy Drugs: None Vitals Vitals Vital Signs Date Time Temp Pulse Resp B/P (MAP) Pulse Ox O2 Delivery O2 Flow Rate FiO2 07/16/20 08:47 67 127/76 07/16/20 07:00 98.1 18 99 Room Air 98.1 07/15/20 22:02 2.0 Physical Exam General: Alert, Cooperative, No acute distress, Other (Lethargic) Heart: Regular rate Lungs: Clear Abdomen: Normal bowel sounds, Soft, No tenderness, No hepatosplenomegaly, No masses Extremities: No clubbing, No cyanosis, Normal pulses Skin: No rashes, No breakdown, No significant lesion Labs LABS BRAIN W/O CONTRAST Date: 07/16/2020 5:00 AM Indication: stroke Comparison: CT head 07/15/2020. Technique: Multiplanar multisequence MRI of the brain was performed without intravenous contrast using the standard protocol. Findings: No acute infarct. No acute hemorrhage. The ventricles are normal in size and configuration without hydrocephalus. Extensive FLAIR hyperintense signal in the subcortical and periventricular deep white matter, a nonspecific finding, most commonly seen with chronic small vessel ischemic disease. Mild generalized cerebral volume loss. Moderate right parietotemporal encephalomalacia with hemosiderin deposition. Chronic merino radiata lacunar infarcts. The scalp and calvarium are normal. Partial empty sella. No Chiari malformation. Mild incompletely characterized degenerative spondylosis of the visualized upper cervical spine. The visualized orbits and globes are normal. The visualized paranasal sinuses are clear. The mastoid air cells are clear. Normal flow voids within the vertebral, basilar, and internal carotid arteries indicating patency. IMPRESSION: 1. No acute infarct, acute hemorrhage, mass, or hydrocephalus. 2. Moderate area of right parietotemporal encephalomalacia. Chronic merino radiata lacunar infarcts. 3. Extensive chronic small vessel ischemic disease and mild generalized cerebral volume loss. Electronically signed by: Garry Bautista MD (07/16/2020 10:16 AM Laboratory Tests Test 07/15/20 15:10 07/15/20 15:50 Urine Collection Type Unknown Urine Color Yellow Urine Clarity Clear Urine pH 5.5 (<5.0-8.0) Urine Specific Hibbs 1.020 (1.000-1.030) Urine Protein Negative mg/dL (NEG-TRACE) Urine Glucose (UA) Negative mg/dL (NEG) Urine Ketones (Stick) 15 mg/dL (NEG) Urine Blood Negative (NEG) Urine Nitrite Negative (NEG) Urine Bilirubin Small (NEG) Urine Urobilinogen Dipstick 1.0 mg/dL (0.2 mg/dL) Urine Leukocyte Esterase Negative (NEG) Urine RBC 0 /HPF (0-2) Urine WBC Occ /HPF (0-4) Urine Squamous Epithelial Cells Many /LPF Urine Bacteria Few /HPF (0-FEW) Urine Mucus Marked /LPF Urine Opiates Screen Neg (NEG) Urine Methadone Screen Neg (NEG) Urine Barbiturates Neg (NEG) Urine Phencyclidine Screen Neg (NEG) Urine Amphetamine/Methamphetamine Neg (NEG) Urine Benzodiazepines Screen Neg (NEG) Urine Cocaine Screen Neg (NEG) Urine Cannabinoids Screen Neg (NEG) Urine Ethyl Alcohol Neg (NEG) White Blood Count 4.9 x10^3/uL (4.0-11.0) Red Blood Count 4.45 x10^6/uL (3.50-5.40) Hemoglobin 14.1 g/dL (12.0-15.5) Hematocrit 42.3 % (36.0-47.0) Mean Corpuscular Volume 95 fL (79-100) Mean Corpuscular Hemoglobin 32 pg (25-35) Mean Corpuscular Hemoglobin Concent 34 g/dL (31-37) Red Cell Distribution Width 14.2 % (11.5-14.5) Platelet Count 202 x10^3/uL (140-400) Neutrophils (%) (Auto) 49 % (31-73) Lymphocytes (%) (Auto) 35 % (24-48) Monocytes (%) (Auto) 13 % (0-9) Eosinophils (%) (Auto) 3 % (0-3) Basophils (%) (Auto) 1 % (0-3) Neutrophils # (Auto) 2.4 x10^3/uL (1.8-7.7) Lymphocytes # (Auto) 1.7 x10^3/uL (1.0-4.8) Monocytes # (Auto) 0.6 x10^3/uL (0.0-1.1) Eosinophils # (Auto) 0.1 x10^3/uL (0.0-0.7) Basophils # (Auto) 0.0 x10^3/uL (0.0-0.2) Sodium Level 142 mmol/L (136-145) Potassium Level 3.6 mmol/L (3.5-5.1) Chloride Level 105 mmol/L (98-107) Carbon Dioxide Level 27 mmol/L (21-32) Anion Gap 10 (6-14) Blood Urea Nitrogen 14 mg/dL (7-20) Creatinine 1.1 mg/dL (0.6-1.0) Estimated GFR (Cockcroft-Gault) 61.9 BUN/Creatinine Ratio 13 (6-20) Glucose Level 71 mg/dL (70-99) Lactic Acid Level 0.8 mmol/L (0.4-2.0) Calcium Level 9.0 mg/dL (8.5-10.1) Total Bilirubin 0.6 mg/dL (0.2-1.0) Aspartate Amino Transf (AST/SGOT) 9 U/L (15-37) Alanine Aminotransferase (ALT/SGPT) 14 U/L (14-59) Alkaline Phosphatase 95 U/L (46-116) Creatine Kinase 51 U/L (26-192) Total Protein 7.8 g/dL (6.4-8.2) Albumin 3.8 g/dL (3.4-5.0) Albumin/Globulin Ratio 1.0 (1.0-1.7) Assessment and Plan Assessmemt and Plan Problems Medical Problems: (1) Confusion Status: Acute Comment Review of Relevant I have reviewed the following items carlos (where applicable) has been applied. Labs Laboratory Tests Test 07/15/20 15:10 07/15/20 15:50 Urine Collection Type Unknown Urine Color Yellow Urine Clarity Clear Urine pH 5.5 (<5.0-8.0) Urine Specific Hibbs 1.020 (1.000-1.030) Urine Protein Negative mg/dL (NEG-TRACE) Urine Glucose (UA) Negative mg/dL (NEG) Urine Ketones (Stick) 15 mg/dL (NEG) Urine Blood Negative (NEG) Urine Nitrite Negative (NEG) Urine Bilirubin Small (NEG) Urine Urobilinogen Dipstick 1.0 mg/dL (0.2 mg/dL) Urine Leukocyte Esterase Negative (NEG) Urine RBC 0 /HPF (0-2) Urine WBC Occ /HPF (0-4) Urine Squamous Epithelial Cells Many /LPF Urine Bacteria Few /HPF (0-FEW) Urine Mucus Marked /LPF Urine Opiates Screen Neg (NEG) Urine Methadone Screen Neg (NEG) Urine Barbiturates Neg (NEG) Urine Phencyclidine Screen Neg (NEG) Urine Amphetamine/Methamphetamine Neg (NEG) Urine Benzodiazepines Screen Neg (NEG) Urine Cocaine Screen Neg (NEG) Urine Cannabinoids Screen Neg (NEG) Urine Ethyl Alcohol Neg (NEG) White Blood Count 4.9 x10^3/uL (4.0-11.0) Red Blood Count 4.45 x10^6/uL (3.50-5.40) Hemoglobin 14.1 g/dL (12.0-15.5) Hematocrit 42.3 % (36.0-47.0) Mean Corpuscular Volume 95 fL (79-100) Mean Corpuscular Hemoglobin 32 pg (25-35) Mean Corpuscular Hemoglobin Concent 34 g/dL (31-37) Red Cell Distribution Width 14.2 % (11.5-14.5) Platelet Count 202 x10^3/uL (140-400) Neutrophils (%) (Auto) 49 % (31-73) Lymphocytes (%) (Auto) 35 % (24-48) Monocytes (%) (Auto) 13 % (0-9) Eosinophils (%) (Auto) 3 % (0-3) Basophils (%) (Auto) 1 % (0-3) Neutrophils # (Auto) 2.4 x10^3/uL (1.8-7.7) Lymphocytes # (Auto) 1.7 x10^3/uL (1.0-4.8) Monocytes # (Auto) 0.6 x10^3/uL (0.0-1.1) Eosinophils # (Auto) 0.1 x10^3/uL (0.0-0.7) Basophils # (Auto) 0.0 x10^3/uL (0.0-0.2) Sodium Level 142 mmol/L (136-145) Potassium Level 3.6 mmol/L (3.5-5.1) Chloride Level 105 mmol/L (98-107) Carbon Dioxide Level 27 mmol/L (21-32) Anion Gap 10 (6-14) Blood Urea Nitrogen 14 mg/dL (7-20) Creatinine 1.1 mg/dL (0.6-1.0) Estimated GFR (Cockcroft-Gault) 61.9 BUN/Creatinine Ratio 13 (6-20) Glucose Level 71 mg/dL (70-99) Lactic Acid Level 0.8 mmol/L (0.4-2.0) Calcium Level 9.0 mg/dL (8.5-10.1) Total Bilirubin 0.6 mg/dL (0.2-1.0) Aspartate Amino Transf (AST/SGOT) 9 U/L (15-37) Alanine Aminotransferase (ALT/SGPT) 14 U/L (14-59) Alkaline Phosphatase 95 U/L (46-116) Creatine Kinase 51 U/L (26-192) Total Protein 7.8 g/dL (6.4-8.2) Albumin 3.8 g/dL (3.4-5.0) Albumin/Globulin Ratio 1.0 (1.0-1.7) Laboratory Tests Test 07/15/20 15:10 07/15/20 15:50 Urine Collection Type Unknown Urine Color Yellow Urine Clarity Clear Urine pH 5.5 (<5.0-8.0) Urine Specific Hibbs 1.020 (1.000-1.030) Urine Protein Negative mg/dL (NEG-TRACE) Urine Glucose (UA) Negative mg/dL (NEG) Urine Ketones (Stick) 15 mg/dL (NEG) Urine Blood Negative (NEG) Urine Nitrite Negative (NEG) Urine Bilirubin Small (NEG) Urine Urobilinogen Dipstick 1.0 mg/dL (0.2 mg/dL) Urine Leukocyte Esterase Negative (NEG) Urine RBC 0 /HPF (0-2) Urine WBC Occ /HPF (0-4) Urine Squamous Epithelial Cells Many /LPF Urine Bacteria Few /HPF (0-FEW) Urine Mucus Marked /LPF Urine Opiates Screen Neg (NEG) Urine Methadone Screen Neg (NEG) Urine Barbiturates Neg (NEG) Urine Phencyclidine Screen Neg (NEG) Urine Amphetamine/Methamphetamine Neg (NEG) Urine Benzodiazepines Screen Neg (NEG) Urine Cocaine Screen Neg (NEG) Urine Cannabinoids Screen Neg (NEG) Urine Ethyl Alcohol Neg (NEG) White Blood Count 4.9 x10^3/uL (4.0-11.0) Red Blood Count 4.45 x10^6/uL (3.50-5.40) Hemoglobin 14.1 g/dL (12.0-15.5) Hematocrit 42.3 % (36.0-47.0) Mean Corpuscular Volume 95 fL (79-100) Mean Corpuscular Hemoglobin 32 pg (25-35) Mean Corpuscular Hemoglobin Concent 34 g/dL (31-37) Red Cell Distribution Width 14.2 % (11.5-14.5) Platelet Count 202 x10^3/uL (140-400) Neutrophils (%) (Auto) 49 % (31-73) Lymphocytes (%) (Auto) 35 % (24-48) Monocytes (%) (Auto) 13 % (0-9) Eosinophils (%) (Auto) 3 % (0-3) Basophils (%) (Auto) 1 % (0-3) Neutrophils # (Auto) 2.4 x10^3/uL (1.8-7.7) Lymphocytes # (Auto) 1.7 x10^3/uL (1.0-4.8) Monocytes # (Auto) 0.6 x10^3/uL (0.0-1.1) Eosinophils # (Auto) 0.1 x10^3/uL (0.0-0.7) Basophils # (Auto) 0.0 x10^3/uL (0.0-0.2) Sodium Level 142 mmol/L (136-145) Potassium Level 3.6 mmol/L (3.5-5.1) Chloride Level 105 mmol/L (98-107) Carbon Dioxide Level 27 mmol/L (21-32) Anion Gap 10 (6-14) Blood Urea Nitrogen 14 mg/dL (7-20) Creatinine 1.1 mg/dL (0.6-1.0) Estimated GFR (Cockcroft-Gault) 61.9 BUN/Creatinine Ratio 13 (6-20) Glucose Level 71 mg/dL (70-99) Lactic Acid Level 0.8 mmol/L (0.4-2.0) Calcium Level 9.0 mg/dL (8.5-10.1) Total Bilirubin 0.6 mg/dL (0.2-1.0) Aspartate Amino Transf (AST/SGOT) 9 U/L (15-37) Alanine Aminotransferase (ALT/SGPT) 14 U/L (14-59) Alkaline Phosphatase 95 U/L (46-116) Creatine Kinase 51 U/L (26-192) Total Protein 7.8 g/dL (6.4-8.2) Albumin 3.8 g/dL (3.4-5.0) Albumin/Globulin Ratio 1.0 (1.0-1.7) Medications Current Medications Lorazepam (Ativan Inj) 1 mg 1X ONCE IVP Last administered on 07/15/20 15:56; Start 07/15/20 at 15:30; Stop 07/15/20 at 15:31; Status DC Levetiracetam 1000 mg/Dextrose 110 ml @ 440 mls/hr 1X ONCE IV Last administered on 07/15/20 18:10; Start 07/15/20 at 17:30; Stop 07/15/20 at 17:44; Status DC Amlodipine Besylate (Norvasc) 5 mg DAILY PO Last administered on 07/16/20 08:47; Start 07/16/20 at 09:00 Aspirin (Jennifer Aspirin) 325 mg [id number] PO Last administered on 07/16/20 08:45; Start 07/16/20 at 08:00 Atorvastatin Calcium (Lipitor) 20 mg QHS PO Last administered on 07/15/20 21:16; Start 07/15/20 at 21:00 Calcium Carbonate/ Glycine (Tums) 200 mg PRN BID PRN PO INDIGESTION; Start 07/15/20 at 20:30 Carvedilol (Coreg) 6.25 mg BIDWMEALS PO Last administered on 07/16/20 08:46; Start 07/16/20 at 08:00 Clonidine HCl (Catapres) 0.1 mg PRN BID PRN PO ELEVATED BP, SEE COMMENTS Last administered on 07/15/20 21:16; Start 07/15/20 at 20:30 Docusate Sodium (Colace) 100 mg BID PO Last administered on 07/15/20 21:16; Start 07/15/20 at 21:00 Lisinopril (Prinivil) 20 mg DAILY PO Last administered on 07/16/20 08:46; Start 07/16/20 at 09:00 Quetiapine Fumarate (SEROquel) 25 mg BID PO Last administered on 07/16/20 08:47; Start 07/15/20 at 21:00 Sodium Chloride 1,000 ml @ 100 mls/hr Q10H IV Last administered on 07/15/20 21:08; Start 07/15/20 at 20:45 Heparin Sodium (Porcine) (Heparin Sodium) 5,000 unit Q8HRS SQ Last administered on 07/16/20 05:54; Start 07/15/20 at 22:00 Levetiracetam (Keppra) 500 mg BID PO Last administered on 07/16/20at 08:45; Start 07/16/20 at 09:00 Lamotrigine (LaMICtal) 200 mg DAILY PO Last administered on 07/16/20at 08:45; Start 07/16/20 at 09:00 Active Scripts Active Lamictal (Lamotrigine) 200 Mg Tablet 1 Tab PO DAILY Lisinopril 20 Mg Tablet 1 Tab PO DAILY Potassium Chloride (Potassium Chloride) 20 Meq Tablet.er 20 Meq PO DAILY 10 Days Clonidine Hcl 0.1 Mg Tablet 0.1 Mg PO BID PRN Take each tablet as needed for Systolic (upper) blood pressure greater than 185 and/or Diastolic (lower) blood pressure greater than 110. Quetiapine Fumarate 25 Mg Tablet 25 Mg PO BID 30 Days Aspirin 325 Mg Tablet 325 Mg PO DAILYWBKFT 30 Days Amlodipine Besylate 5 Mg Tablet 5 Mg PO DAILY 30 Days Lisinopril 40 Mg Tablet 40 Mg PO DAILY 30 Days Atorvastatin Calcium 20 Mg Tablet 20 Mg PO QHS 30 Days Colace (Docusate Sodium) 100 Mg Capsule 1 Cap PO BID Reported Hydroxyzine Pamoate 50 Mg Capsule 50 Mg PO TID Zolpidem Tartrate 10 Mg Tablet 10 Mg PO QHS Carvedilol (Carvedilol) 12.5 Mg Tablet 6.25 Mg PO BIDWMEALS Tums (Calcium Carbonate) 200 Mg Tab.chew 200 Mg PO Diazepam 10 Mg Tablet 10 Mg PO BID Vitals/I & O Vital Sign - Last 24 Hours 07/15/20 07/15/20 07/15/20 07/15/20 15:10 15:10 16:00 16:37 Temp 97.1 97.1 Pulse 58 76 64 66 Resp 22 20 20 B/P (MAP) 163/103 (123) Pulse Ox 98 97 90 100 O2 Delivery Room Air 07/15/20 07/15/20 07/15/20 07/15/20 17:37 18:07 18:11 18:37 Pulse 70 66 64 66 Resp 18 19 Pulse Ox 100 100 100 100 07/15/20 07/15/20 07/15/20 07/15/20 19:07 19:37 20:07 20:30 Temp 97.5 97.5 Pulse 62 60 60 62 Resp 17 20 18 B/P (MAP) 186/97 (126) Pulse Ox 100 99 100 97 O2 Delivery Room Air 07/15/20 07/15/20 07/15/20 07/15/20 21:16 21:40 22:02 22:50 Temp 97.9 97.9 Pulse 64 57 Resp 18 B/P (MAP) 160/94 160/94 (116) 140/75 (96) Pulse Ox 99 O2 Delivery Nasal Cannula Room Air O2 Flow Rate 2.0 07/16/20 07/16/20 07/16/20 07/16/20 02:50 07:00 08:46 08:46 Temp 98.0 98.1 98.0 98.1 Pulse 64 67 67 67 Resp 18 18 B/P (MAP) 114/78 (90) 127/76 (93) 127/76 127/76 Pulse Ox 99 99 O2 Delivery Room Air Room Air 07/16/20 08:47 Pulse 67 B/P (MAP) 127/76 Intake and Output 07/15/20 07/15/20 07/16/20 15:00 23:00 07:00 Intake Total 210 ml 1300 ml Output Total 150 ml Balance 60 ml 1300 ml Justicifation of Admission Dx: Justifications for Admission: Justification of Admission Dx: Yes XIMENA SPEARS MD Jul 16, 2020 10:11
--- NOTE | 2020-07-16 10:19 | RAD ---
BRAIN W/O CONTRAST Date: 07/16/2020 5:00 AM Indication: stroke Comparison: CT head 07/15/2020. Technique: Multiplanar multisequence MRI of the brain was performed without intravenous contrast using the standard protocol. Findings: No acute infarct. No acute hemorrhage. The ventricles are normal in size and configuration without hydrocephalus. Extensive FLAIR hyperintense signal in the subcortical and periventricular deep white matter, a nonspecific finding, most commonly seen with chronic small vessel ischemic disease. Mild generalized cerebral volume loss. Moderate right parietotemporal encephalomalacia with hemosiderin deposition. Chronic merino radiata lacunar infarcts. The scalp and calvarium are normal. Partial empty sella. No Chiari malformation. Mild incompletely characterized degenerative spondylosis of the visualized upper cervical spine. The visualized orbits and globes are normal. The visualized paranasal sinuses are clear. The mastoid air cells are clear. Normal flow voids within the vertebral, basilar, and internal carotid arteries indicating patency. IMPRESSION: 1. No acute infarct, acute hemorrhage, mass, or hydrocephalus. 2. Moderate area of right parietotemporal encephalomalacia. Chronic merino radiata lacunar infarcts. 3. Extensive chronic small vessel ischemic disease and mild generalized cerebral volume loss. Electronically signed by: Garry Bautista MD (07/16/2020 10:16 AM) [id number]
[2020-07-16 11:00] VITALS: BP 145/85
[2020-07-16 11:14] LABS: BASO % 1 % (0-3); EOS # 0.1 x10^3/uL (0.0-0.7); EOS % 3 % (0-3); HEMATOCRIT 39.8 % (36.0-47.0); HEMOGLOBIN 12.9 g/dL (12.0-15.5); LYMPH # 1.3 x10^3/uL (1.0-4.8); LYMPH % 30 % (24-48); MEAN CORPUSCULAR HEMOGLOBIN 31 pg (25-35); MEAN CORPUSCULAR HGB CONC 32 g/dL (31-37); MEAN CORPUSCULAR VOLUME 96 fL (79-100); MONO # 0.5 x10^3/uL (0.0-1.1); MONO % 12 % (0-9); NEUT # 2.3 x10^3/uL (1.8-7.7); NEUT % 55 % (31-73); PLATELET COUNT 177 x10^3/uL (140-400); RED BLOOD COUNT 4.13 x10^6/uL (3.50-5.40); RED CELL DISTRIBUTION WIDTH 14.2 % (11.5-14.5); WHITE BLOOD COUNT 4.3 x10^3/uL (4.0-11.0)
[2020-07-16 11:17] LABS: CALCIUM 8.3 mg/dL (8.5-10.1); GFR 69.1
[2020-07-16 15:00] VITALS: BP 99/55
[2020-07-16 19:52] VITALS: BP 97/55
[2020-07-16] MEDS: ATORVASTATIN CALCIUM 20 MG TABLET PO SCH (20:39)
[2020-07-16 23:43] VITALS: BP 100/51
--- NOTE | 2020-07-16 23:52 | PDOC ---
PROGRESS NOTES Assessment 1. Recurrent seizure. I am still not entirely clear on the medications that s he was taking at home. She herself cannot really tell me nor does she know the dosages. I am not certain if what is listed in the chart is accurate. She had some breakthrough seizures earlier today but none further. These were focal seizures without altered consciousness. She generally does shaking which could also be related to her anxiety. 2. Multiple infarction dementia. 3. In review of Dr. Christie's notes, she had only experienced seizure when she had new stroke events. She underwent an MRI of her head which did not reveal evidence of any acute stroke. 4. Post ictal confusion and lethargy-resolved Plan 1. We will need to reach her care provider to have her bring in the bottles so we can determine exactly what she is taking. 2. Further neurologic investigation is not needed at this time. If the seizures remain controlled through tonight and tomorrow she may be dismissed on July 17, 2020 if medically stable. Subjective I am feeling better in many ways. I still feel kind of poorly and anxious. Objective Vital Signs Date Time Temp Pulse Resp B/P (MAP) Pulse Ox O2 Delivery O2 Flow Rate FiO2 07/16/20 23:43 97.9 57 16 100/51 (67) 96 Room Air 97.9 07/15/20 22:02 2.0 Intake and Output 07/16/20 07:00 Intake Total 1510 ml Output Total 150 ml Balance 1360 ml Intake Oral 400 ml IV Total 1110 ml Output Urine Total 150 ml # Voids 2 PHYSICAL EXAM She was alert, awake and cooperative. Speech was fluent and clear. Her fund of recent and remote knowledge was limited. Attention and concentration was intact. She was able to follow commands well. The eyes were conjugate and face symmetric. Movements were symmetric and well coordinated. Review of Relevant I have reviewed the following items carlos (where applicable) has been applied. Labs Laboratory Tests Test 07/15/20 15:10 07/15/20 15:50 07/16/20 11:00 Urine Collection Type Unknown Urine Color Yellow Urine Clarity Clear Urine pH 5.5 (<5.0-8.0) Urine Specific [place] 1.020 (1.000-1.030) Urine Protein Negative mg/dL (NEG-TRACE) Urine Glucose (UA) Negative mg/dL (NEG) Urine Ketones (Stick) 15 mg/dL (NEG) Urine Blood Negative (NEG) Urine Nitrite Negative (NEG) Urine Bilirubin Small (NEG) Urine Urobilinogen Dipstick 1.0 mg/dL (0.2 mg/dL) Urine Leukocyte Esterase Negative (NEG) Urine RBC 0 /HPF (0-2) Urine WBC Occ /HPF (0-4) Urine Squamous Epithelial Cells Many /LPF Urine Bacteria Few /HPF (0-FEW) Urine Mucus Marked /LPF Urine Opiates Screen Neg (NEG) Urine Methadone Screen Neg (NEG) Urine Barbiturates Neg (NEG) Urine Phencyclidine Screen Neg (NEG) Urine Amphetamine/Methamphetamine Neg (NEG) Urine Benzodiazepines Screen Neg (NEG) Urine Cocaine Screen Neg (NEG) Urine Cannabinoids Screen Neg (NEG) Urine Ethyl Alcohol Neg (NEG) White Blood Count 4.9 x10^3/uL (4.0-11.0) 4.3 x10^3/uL (4.0-11.0) Red Blood Count 4.45 x10^6/uL (3.50-5.40) 4.13 x10^6/uL (3.50-5.40) Hemoglobin 14.1 g/dL (12.0-15.5) 12.9 g/dL (12.0-15.5) Hematocrit 42.3 % (36.0-47.0) 39.8 % (36.0-47.0) Mean Corpuscular Volume 95 fL (79-100) 96 fL (79-100) Mean Corpuscular Hemoglobin 32 pg (25-35) 31 pg (25-35) Mean Corpuscular Hemoglobin Concent 34 g/dL (31-37) 32 g/dL (31-37) Red Cell Distribution Width 14.2 % (11.5-14.5) 14.2 % (11.5-14.5) Platelet Count 202 x10^3/uL (140-400) 177 x10^3/uL (140-400) Neutrophils (%) (Auto) 49 % (31-73) 55 % (31-73) Lymphocytes (%) (Auto) 35 % (24-48) 30 % (24-48) Monocytes (%) (Auto) 13 % (0-9) 12 % (0-9) Eosinophils (%) (Auto) 3 % (0-3) 3 % (0-3) Basophils (%) (Auto) 1 % (0-3) 1 % (0-3) Neutrophils # (Auto) 2.4 x10^3/uL (1.8-7.7) 2.3 x10^3/uL (1.8-7.7) Lymphocytes # (Auto) 1.7 x10^3/uL (1.0-4.8) 1.3 x10^3/uL (1.0-4.8) Monocytes # (Auto) 0.6 x10^3/uL (0.0-1.1) 0.5 x10^3/uL (0.0-1.1) Eosinophils # (Auto) 0.1 x10^3/uL (0.0-0.7) 0.1 x10^3/uL (0.0-0.7) Basophils # (Auto) 0.0 x10^3/uL (0.0-0.2) 0.0 x10^3/uL (0.0-0.2) Sodium Level 142 mmol/L (136-145) 140 mmol/L (136-145) Potassium Level 3.6 mmol/L (3.5-5.1) 4.0 mmol/L (3.5-5.1) Chloride Level 105 mmol/L (98-107) 107 mmol/L (98-107) Carbon Dioxide Level 27 mmol/L (21-32) 26 mmol/L (21-32) Anion Gap 10 (6-14) 7 (6-14) Blood Urea Nitrogen 14 mg/dL (7-20) 19 mg/dL (7-20) Creatinine 1.1 mg/dL (0.6-1.0) 1.0 mg/dL (0.6-1.0) Estimated GFR (Cockcroft-Gault) 61.9 69.1 BUN/Creatinine Ratio 13 (6-20) Glucose Level 71 mg/dL (70-99) 100 mg/dL (70-99) Lactic Acid Level 0.8 mmol/L (0.4-2.0) Calcium Level 9.0 mg/dL (8.5-10.1) 8.3 mg/dL (8.5-10.1) Total Bilirubin 0.6 mg/dL (0.2-1.0) Aspartate Amino Transf (AST/SGOT) 9 U/L (15-37) Alanine Aminotransferase (ALT/SGPT) 14 U/L (14-59) Alkaline Phosphatase 95 U/L (46-116) Creatine Kinase 51 U/L (26-192) Total Protein 7.8 g/dL (6.4-8.2) Albumin 3.8 g/dL (3.4-5.0) Albumin/Globulin Ratio 1.0 (1.0-1.7) Laboratory Tests Test 07/16/20 11:00 White Blood Count 4.3 x10^3/uL (4.0-11.0) Red Blood Count 4.13 x10^6/uL (3.50-5.40) Hemoglobin 12.9 g/dL (12.0-15.5) Hematocrit 39.8 % (36.0-47.0) Mean Corpuscular Volume 96 fL (79-100) Mean Corpuscular Hemoglobin 31 pg (25-35) Mean Corpuscular Hemoglobin Concent 32 g/dL (31-37) Red Cell Distribution Width 14.2 % (11.5-14.5) Platelet Count 177 x10^3/uL (140-400) Neutrophils (%) (Auto) 55 % (31-73) Lymphocytes (%) (Auto) 30 % (24-48) Monocytes (%) (Auto) 12 % (0-9) Eosinophils (%) (Auto) 3 % (0-3) Basophils (%) (Auto) 1 % (0-3) Neutrophils # (Auto) 2.3 x10^3/uL (1.8-7.7) Lymphocytes # (Auto) 1.3 x10^3/uL (1.0-4.8) Monocytes # (Auto) 0.5 x10^3/uL (0.0-1.1) Eosinophils # (Auto) 0.1 x10^3/uL (0.0-0.7) Basophils # (Auto) 0.0 x10^3/uL (0.0-0.2) Sodium Level 140 mmol/L (136-145) Potassium Level 4.0 mmol/L (3.5-5.1) Chloride Level 107 mmol/L (98-107) Carbon Dioxide Level 26 mmol/L (21-32) Anion Gap 7 (6-14) Blood Urea Nitrogen 19 mg/dL (7-20) Creatinine 1.0 mg/dL (0.6-1.0) Estimated GFR (Cockcroft-Gault) 69.1 Glucose Level 100 mg/dL (70-99) Calcium Level 8.3 mg/dL (8.5-10.1) Medications Current Medications Lorazepam (Ativan Inj) 1 mg 1X ONCE IVP Last administered on 07/15/20 15:56; Start 07/15/20 at 15:30; Stop 07/15/20 at 15:31; Status DC Levetiracetam 1000 mg/Dextrose 110 ml @ 440 mls/hr 1X ONCE IV Last administered on 07/15/20at 18:10; Start 07/15/20 at 17:30; Stop 07/15/20 at 17:44; Status DC Amlodipine Besylate (Norvasc) 5 mg DAILY PO Last administered on 07/16/20 08:47; Start 07/16/20 at 09:00 Aspirin (Jennifer Aspirin) 325 mg [id number] PO Last administered on 07/16/20 08 :45; Start 07/16/20 at 08:00 Atorvastatin Calcium (Lipitor) 20 mg QHS PO Last administered on 07/16/20 20:39; Start 07/15/20 at 21:00 Calcium Carbonate/ Glycine (Tums) 200 mg PRN BID PRN PO INDIGESTION; Start 07/15/20 at 20:30 Carvedilol (Coreg) 6.25 mg BIDWMEALS PO Last administered on 07/16/20 17:33; Start 07/16/20 at 08:00 Clonidine HCl (Catapres) 0.1 mg PRN BID PRN PO ELEVATED BP, SEE COMMENTS Last administered on 07/15/20 21:16; Start 07/15/20 at 20:30 Docusate Sodium (Colace) 100 mg BID PO Last administered on 07/16/20 20:39; Start 07/15/20 at 21:00 Lisinopril (Prinivil) 20 mg DAILY PO Last administered on 07/16/20 08:46; Start 07/16/20 at 09:00 Quetiapine Fumarate (SEROquel) 25 mg BID PO Last administered on 07/16/20 20:39; Start 07/15/20 at 21:00 Sodium Chloride 1,000 ml @ 100 mls/hr Q10H IV Last administered on 07/15/20at 21:08; Start 07/15/20 at 20:45 Heparin Sodium (Porcine) (Heparin Sodium) 5,000 unit Q8HRS SQ Last administered on 07/16/20 20:44; Start 07/15/20 at 22:00 Levetiracetam (Keppra) 500 mg BID PO Last administered on 07/16/20 20:39; Start 07/16/20 at 09:00 Lamotrigine (LaMICtal) 200 mg DAILY PO Last administered on 07/16/20 08:45; Start 07/16/20 at 09:00 Active Scripts Active Lamictal (Lamotrigine) 200 Mg Tablet 1 Tab PO DAILY Lisinopril 20 Mg Tablet 1 Tab PO DAILY Potassium Chloride (Potassium Chloride) 20 Meq Tablet.er 20 Meq PO DAILY 10 Days Clonidine Hcl 0.1 Mg Tablet 0.1 Mg PO BID PRN Take each tablet as needed for Systolic (upper) blood pressure greater than 185 and/or Diastolic (lower) blood pressure greater than 110. Quetiapine Fumarate 25 Mg Tablet 25 Mg PO BID 30 Days Aspirin 325 Mg Tablet 325 Mg PO DAILYWBKFT 30 Days Amlodipine Besylate 5 Mg Tablet 5 Mg PO DAILY 30 Days Lisinopril 40 Mg Tablet 40 Mg PO DAILY 30 Days Atorvastatin Calcium 20 Mg Tablet 20 Mg PO QHS 30 Days Colace (Docusate Sodium) 100 Mg Capsule 1 Cap PO BID Reported Hydroxyzine Pamoate 50 Mg Capsule 50 Mg PO TID Zolpidem Tartrate 10 Mg Tablet 10 Mg PO QHS Carvedilol (Carvedilol) 12.5 Mg Tablet 6.25 Mg PO BIDWMEALS Tums (Calcium Carbonate) 200 Mg Tab.chew 200 Mg PO Diazepam 10 Mg Tablet 10 Mg PO BID Vitals/I & O Vital Sign - Last 24 Hours 07/16/20 07/16/20 07/16/20 07/16/20 02:50 07:00 08:00 08:46 Temp 98.0 98.1 98.0 98.1 Pulse 64 67 67 Resp 18 18 B/P (MAP) 114/78 (90) 127/76 (93) 127/76 Pulse Ox 99 99 O2 Delivery Room Air Room Air Room Air 07/16/20 07/16/20 07/16/20 07/16/20 08:46 08:47 11:00 15:00 Temp 97.8 98.4 97.8 98.4 Pulse 67 67 66 61 Resp 18 18 B/P (MAP) 127/76 127/76 145/85 (105) 99/55 (70) Pulse Ox 97 96 O2 Delivery Room Air Room Air 07/16/20 07/16/20 07/16/20 07/16/20 17:33 19:24 19:52 23:43 Temp 98.3 97.9 98.3 97.9 Pulse 61 64 57 Resp 16 16 B/P (MAP) 99/55 97/55 (69) 100/51 (67) Pulse Ox 98 96 O2 Delivery Room Air Room Air Room Air Intake and Output 07/15/20 07/15/20 07/16/20 15:00 23:00 07:00 Intake Total 210 ml 1300 ml Output Total 150 ml Balance 60 ml 1300 ml Justicifation of Admission Dx: Justifications for Admission: Justification of Admission Dx: Yes DIANNE ADAMES MD Jul 16, 2020 23:52
[2020-07-17 02:27] VITALS: BP 99/55
[2020-07-17] MEDS: IV NORMAL SALINE 1000ML BAG 1,000 ML IV SCH ×3 (02:45→22:45)
[2020-07-17] MEDS: HYDROcodone/APAP 5/325MG 1 TAB TABLET PO PRN (05:29)
[2020-07-17] MEDS: HEPARIN for SUB-Q USE 5,000 UNIT/ML VIAL. SQ SCH ×3 (05:31→21:27)
[2020-07-17 07:00] VITALS: BP 106/67
[2020-07-17] MEDS: levETIRAcetam 500 MG TABLET PO SCH (09:49)
[2020-07-17] MEDS: lamoTRIgine 100 MG TABLET. PO SCH (09:49)
[2020-07-17] MEDS: QUEtiapine 25 MG TABLET. PO SCH ×2 (09:50→21:22)
[2020-07-17] MEDS: LISINOPRIL 20 MG TABLET PO SCH (09:50)
[2020-07-17] MEDS: CARVEDILOL 12.5 MG TABLET. PO SCH ×2 (09:50→17:34)
[2020-07-17] MEDS: DOCUSATE SODIUM 100 MG CAPSULE. PO SCH ×2 (09:50→21:00)
[2020-07-17] MEDS: ASPIRIN 325 MG TABLET PO SCH (09:51)
[2020-07-17] MEDS: amLODIPine BESYLATE 5 MG TABLET PO SCH (09:51)
[2020-07-17 10:21] LABS: BASO % 1 % (0-3); EOS # 0.2 x10^3/uL (0.0-0.7); EOS % 3 % (0-3); HEMATOCRIT 40.5 % (36.0-47.0); HEMOGLOBIN 13.1 g/dL (12.0-15.5); LYMPH # 1.7 x10^3/uL (1.0-4.8); LYMPH % 37 % (24-48); MEAN CORPUSCULAR HEMOGLOBIN 31 pg (25-35); MEAN CORPUSCULAR HGB CONC 32 g/dL (31-37); MEAN CORPUSCULAR VOLUME 96 fL (79-100); MONO # 0.7 x10^3/uL (0.0-1.1); MONO % 15 % (0-9); NEUT # 2.1 x10^3/uL (1.8-7.7); NEUT % 44 % (31-73); PLATELET COUNT 181 x10^3/uL (140-400); RED BLOOD COUNT 4.22 x10^6/uL (3.50-5.40); RED CELL DISTRIBUTION WIDTH 14.3 % (11.5-14.5); WHITE BLOOD COUNT 4.7 x10^3/uL (4.0-11.0)
[2020-07-17 10:44] LABS: ALBUMIN 3.2 g/dL (3.4-5.0); ALBUMIN/GLOBULIN RATIO 0.9 (1.0-1.7); GFR 69.1; POTASSIUM 3.9 mmol/L (3.5-5.1); TOTAL BILIRUBIN 0.2 mg/dL (0.2-1.0); TOTAL PROTEIN 6.8 g/dL (6.4-8.2)
[2020-07-17 11:00] VITALS: BP 128/62
--- NOTE | 2020-07-17 11:27 | PDOC ---
PROGRESS NOTES Date of Service: DATE: 07/17/20 TIME: 11:27 Chief Complaint Chief Complaint VTE Prophylaxis Ordered VTE Prophylaxis Devices: No VTE Pharmacological Prophylaxi: Yes impression Assessment/Plan Postictal State Confusion Vasomotor Nephropathy hx multiinfarct dementia Encephalomalacia is again seen within the right cerebral hemisphere which can be from prior insult. Moderate area of right parietotemporal encephalomalacia. Chronic merino radiata lacunar infarcts. Extensive chronic small vessel ischemic disease and mild generalized cerebral volume loss. Plan: history of seizures and dementia, but unknown baseline. She certainly may just still be postictal, as she reports having been taken her medications as prescribed. She is alert to person and place, but believes it is 1920. consult neurology for recommendations, and continue to monitor interval improvement. speak with family about her baseline status, if she remains A&O x 2. IV fluids. VTE. Full Code. MRI HEAD 29 MIN pt exam, chart review, > 50% of time spent with exam, chart review, pt care coordination Justifications for Admission Justifications for Admission Other Justification History of Present Illness History of Present Illness History of Present Illness History of Present Illness Patient is a 55 yo female with history of seizures, who presents to the ER after having a witnessed seizure by a friend. EMS was contacted, and on arrival the patient was alert but confused. She admits to a history of early onset dementia and is A&O x 2 on exam.Further history could not be obtained as patient nods off during exam. Past Medical History Cardiovascular: CAD, CHF, Hyperlipidemia, Other Pulmonary: Bronchitis CENTRAL NERVOUS SYSTEM: CVA, Dementia, Seizure, Other GI: GERD Heme/Onc: Sickle cell disease Hepatobiliary: No pertinent hx Psych: Anxiety, Depression Musculoskeletal: low back pain, Osteoarthritis Rheumatologic: No pertinent hx Infectious disease: No pertinent hx Renal/: Chronic renal failure, Other Endocrine: No pertinent hx Past Surgical History Past Surgical History: , Hysterectomy, Other Family History Family History: Cancer, Coronary Artery Disease, Heart Disease Social History Smoke: <1 pack per day ALCOHOL: heavy Drugs: None Vitals Vitals Vital Signs Date Time Temp Pulse Resp B/P (MAP) Pulse Ox O2 Delivery O2 Flow Rate FiO2 07/17/20 09:51 58 106/67 07/17/20 07:00 97.4 18 98 Room Air 97.4 Physical Exam General: Alert, Cooperative, No acute distress, Other (Lethargic) Heart: Regular rate Lungs: Clear Abdomen: Normal bowel sounds, Soft, No tenderness, No hepatosplenomegaly, No masses Extremities: No clubbing, No cyanosis, Normal pulses Skin: No rashes, No breakdown, No significant lesion Labs LABS Date: 07/16/2020 5:00 AM Indication: stroke Comparison: CT head 07/15/2020. Technique: Multiplanar multisequence MRI of the brain was performed without intravenous contrast using the standard protocol. Findings: No acute infarct. No acute hemorrhage. The ventricles are normal in size and configuration without hydrocephalus. Extensive FLAIR hyperintense signal in the subcortical and periventricular deep white matter, a nonspecific finding, most commonly seen with chronic small vessel ischemic disease. Mild generalized cerebral volume loss. Moderate right parietotemporal encephalomalacia with hemosiderin deposition. Chronic merino radiata lacunar infarcts. The scalp and calvarium are normal. Partial empty sella. No Chiari malformation. Mild incompletely characterized degenerative spondylosis of the visualized upper cervical spine. The visualized orbits and globes are normal. The visualized paranasal sinuses are clear. The mastoid air cells are clear. Normal flow voids within the vertebral, basilar, and internal carotid arteries indicating patency. IMPRESSION: 1. No acute infarct, acute hemorrhage, mass, or hydrocephalus. 2. Moderate area of right parietotemporal encephalomalacia. Chronic merino radiata lacunar infarcts. 3. Extensive chronic small vessel ischemic disease and mild generalized cerebral volume loss. Electronically signed by: Garry Bautista MD (07/16/2020 10:16 AM) [id number] BRAIN W/O CONTRAST Date: 07/16/2020 5:00 AM Indication: stroke Comparison: CT head 07/15/2020. Technique: Multiplanar multisequence MRI of the brain was performed without intravenous contrast using the standard protocol. Findings: No acute infarct. No acute hemorrhage. The ventricles are normal in size and configuration without hydrocephalus. Extensive FLAIR hyperintense signal in the subcortical and periventricular deep white matter, a nonspecific finding, most commonly seen with chronic small vessel ischemic disease. Mild generalized cerebral volume loss. Moderate right parietotemporal encephalomalacia with hemosiderin deposition. Chronic merino radiata lacunar infarcts. The scalp and calvarium are normal. Partial empty sella. No Chiari malformation. Mild incompletely characterized degenerative spondylosis of the visualized upper cervical spine. The visualized orbits and globes are normal. The visualized paranasal sinuses are clear. The mastoid air cells are clear. Normal flow voids within the vertebral, basilar, and internal carotid arteries indicating patency. IMPRESSION: 1. No acute infarct, acute hemorrhage, mass, or hydrocephalus. 2. Moderate area of right parietotemporal encephalomalacia. Chronic merino radiata lacunar infarcts. 3. Extensive chronic small vessel ischemic disease and mild generalized cerebral volume loss. Electronically signed by: Garry Bautista MD (07/16/2020 10:16 AM) [id number] Laboratory Tests Test 07/17/20 10:05 White Blood Count 4.7 x10^3/uL (4.0-11.0) Red Blood Count 4.22 x10^6/uL (3.50-5.40) Hemoglobin 13.1 g/dL (12.0-15.5) Hematocrit 40.5 % (36.0-47.0) Mean Corpuscular Volume 96 fL (79-100) Mean Corpuscular Hemoglobin 31 pg (25-35) Mean Corpuscular Hemoglobin Concent 32 g/dL (31-37) Red Cell Distribution Width 14.3 % (11.5-14.5) Platelet Count 181 x10^3/uL (140-400) Neutrophils (%) (Auto) 44 % (31-73) Lymphocytes (%) (Auto) 37 % (24-48) Monocytes (%) (Auto) 15 % (0-9) Eosinophils (%) (Auto) 3 % (0-3) Basophils (%) (Auto) 1 % (0-3) Neutrophils # (Auto) 2.1 x10^3/uL (1.8-7.7) Lymphocytes # (Auto) 1.7 x10^3/uL (1.0-4.8) Monocytes # (Auto) 0.7 x10^3/uL (0.0-1.1) Eosinophils # (Auto) 0.2 x10^3/uL (0.0-0.7) Basophils # (Auto) 0.0 x10^3/uL (0.0-0.2) Sodium Level 142 mmol/L (136-145) Potassium Level 3.9 mmol/L (3.5-5.1) Chloride Level 109 mmol/L (98-107) Carbon Dioxide Level 25 mmol/L (21-32) Anion Gap 8 (6-14) Blood Urea Nitrogen 17 mg/dL (7-20) Creatinine 1.0 mg/dL (0.6-1.0) Estimated GFR (Cockcroft-Gault) 69.1 BUN/Creatinine Ratio 17 (6-20) Glucose Level 80 mg/dL (70-99) Calcium Level 9.0 mg/dL (8.5-10.1) Total Bilirubin 0.2 mg/dL (0.2-1.0) Aspartate Amino Transf (AST/SGOT) 12 U/L (15-37) Alanine Aminotransferase (ALT/SGPT) 17 U/L (14-59) Alkaline Phosphatase 77 U/L (46-116) Total Protein 6.8 g/dL (6.4-8.2) Albumin 3.2 g/dL (3.4-5.0) Albumin/Globulin Ratio 0.9 (1.0-1.7) Assessment and Plan Assessmemt and Plan Problems Medical Problems: (1) Confusion Status: Acute Comment Review of Relevant I have reviewed the following items carlos (where applicable) has been applied. Labs Laboratory Tests Test 07/15/20 15:10 07/15/20 15:50 07/16/20 11:00 07/17/20 10:05 Urine Collection Type Unknown Urine Color Yellow Urine Clarity Clear Urine pH 5.5 (<5.0-8.0) Urine Specific Gantt 1.020 (1.000-1.030) Urine Protein Negative mg/dL (NEG-TRACE) Urine Glucose (UA) Negative mg/dL (NEG) Urine Ketones (Stick) 15 mg/dL (NEG) Urine Blood Negative (NEG) Urine Nitrite Negative (NEG) Urine Bilirubin Small (NEG) Urine Urobilinogen Dipstick 1.0 mg/dL (0.2 mg/dL) Urine Leukocyte Esterase Negative (NEG) Urine RBC 0 /HPF (0-2) Urine WBC Occ /HPF (0-4) Urine Squamous Epithelial Cells Many /LPF Urine Bacteria Few /HPF (0-FEW) Urine Mucus Marked /LPF Urine Opiates Screen Neg (NEG) Urine Methadone Screen Neg (NEG) Urine Barbiturates Neg (NEG) Urine Phencyclidine Screen Neg (NEG) Urine Amphetamine/Methamphetamine Neg (NEG) Urine Benzodiazepines Screen Neg (NEG) Urine Cocaine Screen Neg (NEG) Urine Cannabinoids Screen Neg (NEG) Urine Ethyl Alcohol Neg (NEG) White Blood Count 4.9 x10^3/uL (4.0-11.0) 4.3 x10^3/uL (4.0-11.0) 4.7 x10^3/uL (4.0-11.0) Red Blood Count 4.45 x10^6/uL (3.50-5.40) 4.13 x10^6/uL (3.50-5.40) 4.22 x10^6/uL (3.50-5.40) Hemoglobin 14.1 g/dL (12.0-15.5) 12.9 g/dL (12.0-15.5) 13.1 g/dL (12.0-15.5) Hematocrit 42.3 % (36.0-47.0) 39.8 % (36.0-47.0) 40.5 % (36.0-47.0) Mean Corpuscular Volume 95 fL (79-100) 96 fL (79-100) 96 fL (79-100) Mean Corpuscular Hemoglobin 32 pg (25-35) 31 pg (25-35) 31 pg (25-35) Mean Corpuscular Hemoglobin Concent 34 g/dL (31-37) 32 g/dL (31-37) 32 g/dL (31-37) Red Cell Distribution Width 14.2 % (11.5-14.5) 14.2 % (11.5-14.5) 14.3 % (11.5-14.5) Platelet Count 202 x10^3/uL (140-400) 177 x10^3/uL (140-400) 181 x10^3/uL (140-400) Neutrophils (%) (Auto) 49 % (31-73) 55 % (31-73) 44 % (31-73) Lymphocytes (%) (Auto) 35 % (24-48) 30 % (24-48) 37 % (24-48) Monocytes (%) (Auto) 13 % (0-9) 12 % (0-9) 15 % (0-9) Eosinophils (%) (Auto) 3 % (0-3) 3 % (0-3) 3 % (0-3) Basophils (%) (Auto) 1 % (0-3) 1 % (0-3) 1 % (0-3) Neutrophils # (Auto) 2.4 x10^3/uL (1.8-7.7) 2.3 x10^3/uL (1.8-7.7) 2.1 x10^3/uL (1.8-7.7) Lymphocytes # (Auto) 1.7 x10^3/uL (1.0-4.8) 1.3 x10^3/uL (1.0-4.8) 1.7 x10^3/uL (1.0-4.8) Monocytes # (Auto) 0.6 x10^3/uL (0.0-1.1) 0.5 x10^3/uL (0.0-1.1) 0.7 x10^3/uL (0.0-1.1) Eosinophils # (Auto) 0.1 x10^3/uL (0.0-0.7) 0.1 x10^3/uL (0.0-0.7) 0.2 x10^3/uL (0.0-0.7) Basophils # (Auto) 0.0 x10^3/uL (0.0-0.2) 0.0 x10^3/uL (0.0-0.2) 0.0 x10^3/uL (0.0-0.2) Sodium Level 142 mmol/L (136-145) 140 mmol/L (136-145) 142 mmol/L (136-145) Potassium Level 3.6 mmol/L (3.5-5.1) 4.0 mmol/L (3.5-5.1) 3.9 mmol/L (3.5-5.1) Chloride Level 105 mmol/L (98-107) 107 mmol/L (98-107) 109 mmol/L (98-107) Carbon Dioxide Level 27 mmol/L (21-32) 26 mmol/L (21-32) 25 mmol/L (21-32) Anion Gap 10 (6-14) 7 (6-14) 8 (6-14) Blood Urea Nitrogen 14 mg/dL (7-20) 19 mg/dL (7-20) 17 mg/dL (7-20) Creatinine 1.1 mg/dL (0.6-1.0) 1.0 mg/dL (0.6-1.0) 1.0 mg/dL (0.6-1.0) Estimated GFR (Cockcroft-Gault) 61.9 69.1 69.1 BUN/Creatinine Ratio 13 (6-20) 17 (6-20) Glucose Level 71 mg/dL (70-99) 100 mg/dL (70-99) 80 mg/dL (70-99) Lactic Acid Level 0.8 mmol/L (0.4-2.0) Calcium Level 9.0 mg/dL (8.5-10.1) 8.3 mg/dL (8.5-10.1) 9.0 mg/dL (8.5-10.1) Total Bilirubin 0.6 mg/dL (0.2-1.0) 0.2 mg/dL (0.2-1.0) Aspartate Amino Transf (AST/SGOT) 9 U/L (15-37) 12 U/L (15-37) Alanine Aminotransferase (ALT/SGPT) 14 U/L (14-59) 17 U/L (14-59) Alkaline Phosphatase 95 U/L (46-116) 77 U/L (46-116) Creatine Kinase 51 U/L (26-192) Total Protein 7.8 g/dL (6.4-8.2) 6.8 g/dL (6.4-8.2) Albumin 3.8 g/dL (3.4-5.0) 3.2 g/dL (3.4-5.0) Albumin/Globulin Ratio 1.0 (1.0-1.7) 0.9 (1.0-1.7) Laboratory Tests Test 07/17/20 10:05 White Blood Count 4.7 x10^3/uL (4.0-11.0) Red Blood Count 4.22 x10^6/uL (3.50-5.40) Hemoglobin 13.1 g/dL (12.0-15.5) Hematocrit 40.5 % (36.0-47.0) Mean Corpuscular Volume 96 fL (79-100) Mean Corpuscular Hemoglobin 31 pg (25-35) Mean Corpuscular Hemoglobin Concent 32 g/dL (31-37) Red Cell Distribution Width 14.3 % (11.5-14.5) Platelet Count 181 x10^3/uL (140-400) Neutrophils (%) (Auto) 44 % (31-73) Lymphocytes (%) (Auto) 37 % (24-48) Monocytes (%) (Auto) 15 % (0-9) Eosinophils (%) (Auto) 3 % (0-3) Basophils (%) (Auto) 1 % (0-3) Neutrophils # (Auto) 2.1 x10^3/uL (1.8-7.7) Lymphocytes # (Auto) 1.7 x10^3/uL (1.0-4.8) Monocytes # (Auto) 0.7 x10^3/uL (0.0-1.1) Eosinophils # (Auto) 0.2 x10^3/uL (0.0-0.7) Basophils # (Auto) 0.0 x10^3/uL (0.0-0.2) Sodium Level 142 mmol/L (136-145) Potassium Level 3.9 mmol/L (3.5-5.1) Chloride Level 109 mmol/L (98-107) Carbon Dioxide Level 25 mmol/L (21-32) Anion Gap 8 (6-14) Blood Urea Nitrogen 17 mg/dL (7-20) Creatinine 1.0 mg/dL (0.6-1.0) Estimated GFR (Cockcroft-Gault) 69.1 BUN/Creatinine Ratio 17 (6-20) Glucose Level 80 mg/dL (70-99) Calcium Level 9.0 mg/dL (8.5-10.1) Total Bilirubin 0.2 mg/dL (0.2-1.0) Aspartate Amino Transf (AST/SGOT) 12 U/L (15-37) Alanine Aminotransferase (ALT/SGPT) 17 U/L (14-59) Alkaline Phosphatase 77 U/L (46-116) Total Protein 6.8 g/dL (6.4-8.2) Albumin 3.2 g/dL (3.4-5.0) Albumin/Globulin Ratio 0.9 (1.0-1.7) Medications Current Medications Lorazepam (Ativan Inj) 1 mg 1X ONCE IVP Last administered on 07/15/20 15:56; Start 07/15/20 at 15:30; Stop 07/15/20 at 15:31; Status DC Levetiracetam 1000 mg/Dextrose 110 ml @ 440 mls/hr 1X ONCE IV Last administered on 07/15/20at 18:10; Start 07/15/20 at 17:30; Stop 07/15/20 at 17:44; Status DC Amlodipine Besylate (Norvasc) 5 mg DAILY PO Last administered on 07/17/20 09:51; Start 07/16/20 at 09:00 Aspirin (Jennifer Aspirin) 325 mg DAILYWBKFT PO Last administered on 07/17/20 09:51; Start 07/16/20 at 08:00 Atorvastatin Calcium (Lipitor) 20 mg QHS PO Last administered on 07/16/20 20:39; Start 07/15/20 at 21:00 Calcium Carbonate/ Glycine (Tums) 200 mg PRN BID PRN PO INDIGESTION; Start 07/15/20 at 20:30 Carvedilol (Coreg) 6.25 mg BIDWMEALS PO Last administered on 07/17/20 09:50; Start 07/16/20 at 08:00 Clonidine HCl (Catapres) 0.1 mg PRN BID PRN PO ELEVATED BP, SEE COMMENTS Last administered on 07/15/20 21:16; Start 07/15/20 at 20:30 Docusate Sodium (Colace) 100 mg BID PO Last administered on 07/17/20 09:50; Start 07/15/20 at 21:00 Lisinopril (Prinivil) 20 mg DAILY PO Last administered on 07/17/20 09:50; Start 07/16/20 at 09:00 Quetiapine Fumarate (SEROquel) 25 mg BID PO Last administered on 07/17/20 09:50; Start 07/15/20 at 21:00 Sodium Chloride 1,000 ml @ 100 mls/hr Q10H IV Last administered on 07/15/20at 21:08; Start 07/15/20 at 20:45 Heparin Sodium (Porcine) (Heparin Sodium) 5,000 unit Q8HRS SQ Last administered on 07/17/20at 05:31; Start 07/15/20 at 22:00 Levetiracetam (Keppra) 500 mg BID PO Last administered on 07/17/20at 09:49; Start 07/16/20 at 09:00 Lamotrigine (LaMICtal) 200 mg DAILY PO Last administered on 07/17/20at 09:49; Start 07/16/20 at 09:00 Acetaminophen/ Hydrocodone Bitart (Lortab 5/325) 1 tab PRN Q4HRS PRN PO MODERATE PAIN 4-6 Last administered on 07/17/20at 05:29; Start 07/17/20 at 05:30 Active Scripts Active Lamictal (Lamotrigine) 200 Mg Tablet 1 Tab PO DAILY Lisinopril 20 Mg Tablet 1 Tab PO DAILY Potassium Chloride (Potassium Chloride) 20 Meq Tablet.er 20 Meq PO DAILY 10 Days Clonidine Hcl 0.1 Mg Tablet 0.1 Mg PO BID PRN Take each tablet as needed for Systolic (upper) blood pressure greater than 185 and/or Diastolic (lower) blood pressure greater than 110. Quetiapine Fumarate 25 Mg Tablet 25 Mg PO BID 30 Days Aspirin 325 Mg Tablet 325 Mg PO DAILYWBKFT 30 Days Amlodipine Besylate 5 Mg Tablet 5 Mg PO DAILY 30 Days Lisinopril 40 Mg Tablet 40 Mg PO DAILY 30 Days Atorvastatin Calcium 20 Mg Tablet 20 Mg PO QHS 30 Days Colace (Docusate Sodium) 100 Mg Capsule 1 Cap PO BID Reported Hydroxyzine Pamoate 50 Mg Capsule 50 Mg PO TID Zolpidem Tartrate 10 Mg Tablet 10 Mg PO QHS Carvedilol (Carvedilol) 12.5 Mg Tablet 6.25 Mg PO BIDWMEALS Tums (Calcium Carbonate) 200 Mg Tab.chew 200 Mg PO Diazepam 10 Mg Tablet 10 Mg PO BID Vitals/I & O Vital Sign - Last 24 Hours 07/16/20 07/16/20 07/16/20 07/16/20 15:00 17:33 19:24 19:52 Temp 98.4 98.3 98.4 98.3 Pulse 61 61 64 Resp 18 16 B/P (MAP) 99/55 (70) 99/55 97/55 (69) Pulse Ox 96 98 O2 Delivery Room Air Room Air Room Air 07/16/20 07/17/20 07/17/20 07/17/20 23:43 02:27 05:29 06:30 Temp 97.9 98.0 97.9 98.0 Pulse 57 60 Resp 16 16 20 18 B/P (MAP) 100/51 (67) 99/55 (70) Pulse Ox 96 99 O2 Delivery Room Air Room Air Room Air 07/17/20 07/17/20 07/17/20 07/17/20 07:00 09:50 09:50 09:51 Temp 97.4 97.4 Pulse 58 58 58 58 Resp 18 B/P (MAP) 106/67 (80) 106/67 106/67 106/67 Pulse Ox 98 O2 Delivery Room Air Intake and Output 07/16/20 07/16/20 07/17/20 15:00 23:00 07:00 Intake Total 540 ml 300 ml Output Total 250 ml Balance 540 ml -250 ml 300 ml Justicifation of Admission Dx: Justifications for Admission: Justification of Admission Dx: Yes XIMENA SPEARS MD Jul 17, 2020 11:27
[2020-07-17 15:00] VITALS: BP 99/49
--- NOTE | 2020-07-17 17:11 | NUR ---
SW concern: Pt stated her "lights were turned off at home". She stated she has not had electricity for approximately a month and has been staying with a friend for the last few weeks. She stated [facility] told her they would need a note from her doctor in order to have the utilities turned back on. Let pt know the info would be relayed to SW team.
[2020-07-17 19:50] VITALS: BP 118/63
--- NOTE | 2020-07-17 20:10 | PDOC ---
PROGRESS NOTES Assessment 1. Recurrent seizure but none further since admission. She has progressively become more awake and clear. She still appears to have underlying dementia but is remembering more. Plan 1. The nurse was able to pull up the external pharmacy which revealed a number of anticonvulsant refills as recent as June 27, 2020. This does confirm lamotrigine 200 mg daily. It also reveals that she is on topiramate 50 mg twice per day and is not actually on Keppra. I will discontinue the Keppra and initiate topiramate. I will also increase lamotrigine by 100 mg/day so that she is taking 200 mg in the morning and 100 mg at night. 2. She underwent an MRI brain which did not reveal evidence of an acute event. She can potentially be dismissed tomorrow. She is having some social issues with her lights being turned off where she lives. Subjective I am feeling better. My boyfriend of 16 years of cancer. 3 days later my boy was shot and killed while protesting in [facility]. Objective Vital Signs Date Time Temp Pulse Resp B/P (MAP) Pulse Ox O2 Delivery O2 Flow Rate FiO2 07/17/20 17:34 63 115/65 07/17/20 15:00 98.1 16 99 Room Air 98.1 Intake and Output 07/17/20 07:00 Intake Total 840 ml Output Total 250 ml Balance 590 ml Intake Oral 840 ml Output Urine Total 250 ml # Voids 3 # Bowel Movements 1 PHYSICAL EXAM She was alert, awake and cooperative. Speech was hesitant at times. She was responding appropriately. Movements were symmetric and well coordinated. Review of Relevant I have reviewed the following items carlos (where applicable) has been applied. Labs Laboratory Tests Test 07/16/20 11:00 07/17/20 10:05 White Blood Count 4.3 x10^3/uL (4.0-11.0) 4.7 x10^3/uL (4.0-11.0) Red Blood Count 4.13 x10^6/uL (3.50-5.40) 4.22 x10^6/uL (3.50-5.40) Hemoglobin 12.9 g/dL (12.0-15.5) 13.1 g/dL (12.0-15.5) Hematocrit 39.8 % (36.0-47.0) 40.5 % (36.0-47.0) Mean Corpuscular Volume 96 fL (79-100) 96 fL (79-100) Mean Corpuscular Hemoglobin 31 pg (25-35) 31 pg (25-35) Mean Corpuscular Hemoglobin Concent 32 g/dL (31-37) 32 g/dL (31-37) Red Cell Distribution Width 14.2 % (11.5-14.5) 14.3 % (11.5-14.5) Platelet Count 177 x10^3/uL (140-400) 181 x10^3/uL (140-400) Neutrophils (%) (Auto) 55 % (31-73) 44 % (31-73) Lymphocytes (%) (Auto) 30 % (24-48) 37 % (24-48) Monocytes (%) (Auto) 12 % (0-9) 15 % (0-9) Eosinophils (%) (Auto) 3 % (0-3) 3 % (0-3) Basophils (%) (Auto) 1 % (0-3) 1 % (0-3) Neutrophils # (Auto) 2.3 x10^3/uL (1.8-7.7) 2.1 x10^3/uL (1.8-7.7) Lymphocytes # (Auto) 1.3 x10^3/uL (1.0-4.8) 1.7 x10^3/uL (1.0-4.8) Monocytes # (Auto) 0.5 x10^3/uL (0.0-1.1) 0.7 x10^3/uL (0.0-1.1) Eosinophils # (Auto) 0.1 x10^3/uL (0.0-0.7) 0.2 x10^3/uL (0.0-0.7) Basophils # (Auto) 0.0 x10^3/uL (0.0-0.2) 0.0 x10^3/uL (0.0-0.2) Sodium Level 140 mmol/L (136-145) 142 mmol/L (136-145) Potassium Level 4.0 mmol/L (3.5-5.1) 3.9 mmol/L (3.5-5.1) Chloride Level 107 mmol/L (98-107) 109 mmol/L (98-107) Carbon Dioxide Level 26 mmol/L (21-32) 25 mmol/L (21-32) Anion Gap 7 (6-14) 8 (6-14) Blood Urea Nitrogen 19 mg/dL (7-20) 17 mg/dL (7-20) Creatinine 1.0 mg/dL (0.6-1.0) 1.0 mg/dL (0.6-1.0) Estimated GFR (Cockcroft-Gault) 69.1 69.1 Glucose Level 100 mg/dL (70-99) 80 mg/dL (70-99) Calcium Level 8.3 mg/dL (8.5-10.1) 9.0 mg/dL (8.5-10.1) BUN/Creatinine Ratio 17 (6-20) Total Bilirubin 0.2 mg/dL (0.2-1.0) Aspartate Amino Transf (AST/SGOT) 12 U/L (15-37) Alanine Aminotransferase (ALT/SGPT) 17 U/L (14-59) Alkaline Phosphatase 77 U/L (46-116) Total Protein 6.8 g/dL (6.4-8.2) Albumin 3.2 g/dL (3.4-5.0) Albumin/Globulin Ratio 0.9 (1.0-1.7) Laboratory Tests Test 07/17/20 10:05 White Blood Count 4.7 x10^3/uL (4.0-11.0) Red Blood Count 4.22 x10^6/uL (3.50-5.40) Hemoglobin 13.1 g/dL (12.0-15.5) Hematocrit 40.5 % (36.0-47.0) Mean Corpuscular Volume 96 fL (79-100) Mean Corpuscular Hemoglobin 31 pg (25-35) Mean Corpuscular Hemoglobin Concent 32 g/dL (31-37) Red Cell Distribution Width 14.3 % (11.5-14.5) Platelet Count 181 x10^3/uL (140-400) Neutrophils (%) (Auto) 44 % (31-73) Lymphocytes (%) (Auto) 37 % (24-48) Monocytes (%) (Auto) 15 % (0-9) Eosinophils (%) (Auto) 3 % (0-3) Basophils (%) (Auto) 1 % (0-3) Neutrophils # (Auto) 2.1 x10^3/uL (1.8-7.7) Lymphocytes # (Auto) 1.7 x10^3/uL (1.0-4.8) Monocytes # (Auto) 0.7 x10^3/uL (0.0-1.1) Eosinophils # (Auto) 0.2 x10^3/uL (0.0-0.7) Basophils # (Auto) 0.0 x10^3/uL (0.0-0.2) Sodium Level 142 mmol/L (136-145) Potassium Level 3.9 mmol/L (3.5-5.1) Chloride Level 109 mmol/L (98-107) Carbon Dioxide Level 25 mmol/L (21-32) Anion Gap 8 (6-14) Blood Urea Nitrogen 17 mg/dL (7-20) Creatinine 1.0 mg/dL (0.6-1.0) Estimated GFR (Cockcroft-Gault) 69.1 BUN/Creatinine Ratio 17 (6-20) Glucose Level 80 mg/dL (70-99) Calcium Level 9.0 mg/dL (8.5-10.1) Total Bilirubin 0.2 mg/dL (0.2-1.0) Aspartate Amino Transf (AST/SGOT) 12 U/L (15-37) Alanine Aminotransferase (ALT/SGPT) 17 U/L (14-59) Alkaline Phosphatase 77 U/L (46-116) Total Protein 6.8 g/dL (6.4-8.2) Albumin 3.2 g/dL (3.4-5.0) Albumin/Globulin Ratio 0.9 (1.0-1.7) Medications Current Medications Lorazepam (Ativan Inj) 1 mg 1X ONCE IVP Last administered on 07/15/20at 15:56; Start 07/15/20 at 15:30; Stop 07/15/20 at 15:31; Status DC Levetiracetam 1000 mg/Dextrose 110 ml @ 440 mls/hr 1X ONCE IV Last administ ered on 07/15/20at 18:10; Start 07/15/20 at 17:30; Stop 07/15/20 at 17:44; Status DC Amlodipine Besylate (Norvasc) 5 mg DAILY PO Last administered on 07/17/20 09:51; Start 07/16/20 at 09:00 Aspirin (Jennifer Aspirin) 325 mg DAILYWBKFT PO Last administered on 07/17/20 09:51; Start 07/16/20 at 08:00 Atorvastatin Calcium (Lipitor) 20 mg QHS PO Last administered on 07/16/20 20:39; Start 07/15/20 at 21:00 Calcium Carbonate/ Glycine (Tums) 200 mg PRN BID PRN PO INDIGESTION; Start 07/15/20 at 20:30 Carvedilol (Coreg) 6.25 mg BIDWMEALS PO Last administered on 07/17/20 17:34; Start 07/16/20 at 08:00 Clonidine HCl (Catapres) 0.1 mg PRN BID PRN PO ELEVATED BP, SEE COMMENTS Last administered on 07/15/20 21:16; Start 07/15/20 at 20:30 Docusate Sodium (Colace) 100 mg BID PO Last administered on 07/17/20 09:50; Start 07/15/20 at 21:00 Lisinopril (Prinivil) 20 mg DAILY PO Last administered on 07/17/20 09:50; Start 07/16/20 at 09:00 Quetiapine Fumarate (SEROquel) 25 mg BID PO Last administered on 07/17/20 09:50; Start 07/15/20 at 21:00 Sodium Chloride 1,000 ml @ 100 mls/hr Q10H IV Last administered on 07/17/20 14:35; Start 07/15/20 at 20:45 Heparin Sodium (Porcine) (Heparin Sodium) 5,000 unit Q8HRS SQ Last administered on 07/17/20 14:39; Start 07/15/20 at 22:00 Levetiracetam (Keppra) 500 mg BID PO Last administered on 07/17/20 09:49; Start 07/16/20 at 09:00; Stop 07/17/20 at 20:03; Status DC Lamotrigine (LaMICtal) 200 mg DAILY PO Last administered on 07/17/20 09:49; Start 07/16/20 at 09:00 Acetaminophen/ Hydrocodone Bitart (Lortab 5/325) 1 tab PRN Q4HRS PRN PO MODERATE PAIN 4-6 Last administered on 07/17/20at 05:29; Start 07/17/20 at 05:30 Topiramate (Topamax) 50 mg BID PO ; Start 07/17/20 at 21:00 Lamotrigine (LaMICtal) 100 mg HS PO ; Start 07/17/20 at 21:00; Status UNV Active Scripts Active Lamictal (Lamotrigine) 200 Mg Tablet 1 Tab PO DAILY Lisinopril 20 Mg Tablet 1 Tab PO DAILY Potassium Chloride (Potassium Chloride) 20 Meq Tablet.er 20 Meq PO DAILY 10 Days Clonidine Hcl 0.1 Mg Tablet 0.1 Mg PO BID PRN Take each tablet as needed for Systolic (upper) blood pressure greater than 185 and/or Diastolic (lower) blood pressure greater than 110. Quetiapine Fumarate 25 Mg Tablet 25 Mg PO BID 30 Days Aspirin 325 Mg Tablet 325 Mg PO DAILYWBKFT 30 Days Amlodipine Besylate 5 Mg Tablet 5 Mg PO DAILY 30 Days Lisinopril 40 Mg Tablet 40 Mg PO DAILY 30 Days Atorvastatin Calcium 20 Mg Tablet 20 Mg PO QHS 30 Days Colace (Docusate Sodium) 100 Mg Capsule 1 Cap PO BID Reported Hydroxyzine Pamoate 50 Mg Capsule 50 Mg PO TID Zolpidem Tartrate 10 Mg Tablet 10 Mg PO QHS Carvedilol (Carvedilol) 12.5 Mg Tablet 6.25 Mg PO BIDWMEALS Tums (Calcium Carbonate) 200 Mg Tab.chew 200 Mg PO Diazepam 10 Mg Tablet 10 Mg PO BID Vitals/I & O Vital Sign - Last 24 Hours 07/16/20 07/17/20 07/17/20 07/17/20 23:43 02:27 05:29 06:30 Temp 97.9 98.0 97.9 98.0 Pulse 57 60 Resp 16 16 20 18 B/P (MAP) 100/51 (67) 99/55 (70) Pulse Ox 96 99 O2 Delivery Room Air Room Air Room Air 07/17/20 07/17/20 07/17/20 07/17/20 07:00 08:00 09:50 09:50 Temp 97.4 97.4 Pulse 58 58 58 Resp 18 B/P (MAP) 106/67 (80) 106/67 106/67 Pulse Ox 98 O2 Delivery Room Air Room Air 07/17/20 07/17/20 07/17/20 07/17/20 09:51 11:00 15:00 17:34 Temp 97.6 98.1 97.6 98.1 Pulse 58 60 69 63 Resp 18 16 B/P (MAP) 106/67 128/62 (84) 99/49 (66) 115/65 Pulse Ox 98 99 O2 Delivery Room Air Room Air Intake and Output 07/16/20 07/16/20 07/17/20 15:00 23:00 07:00 Intake Total 540 ml 300 ml Output Total 250 ml Balance 540 ml -250 ml 300 ml Justicifation of Admission Dx: Justifications for Admission: Justification of Admission Dx: Yes DIANNE ADAMES MD Jul 17, 2020 20:10
[2020-07-17] MEDS ORDERED: lamoTRIgine 100 MG TABLET. PO SCH (21:00)
[2020-07-17] MEDS: ATORVASTATIN CALCIUM 20 MG TABLET PO SCH (21:22)
[2020-07-17] MEDS: TOPIRAMATE 25 MG TABLET. PO SCH (21:23)
[2020-07-17 23:55] VITALS: BP 98/52
[2020-07-18 03:08] VITALS: BP 126/67
[2020-07-18] MEDS: HYDROcodone/APAP 5/325MG 1 TAB TABLET PO PRN (06:16)
[2020-07-18] MEDS: HEPARIN for SUB-Q USE 5,000 UNIT/ML VIAL. SQ SCH (06:20)
[2020-07-18 07:00] VITALS: BP 76/54
[2020-07-18 07:48] VITALS: BP 150/98
[2020-07-18] MEDS: QUEtiapine 25 MG TABLET. PO SCH (08:22)
[2020-07-18] MEDS: lamoTRIgine 100 MG TABLET. PO SCH (08:22)
[2020-07-18] MEDS: TOPIRAMATE 25 MG TABLET. PO SCH (08:22)
[2020-07-18] MEDS: ASPIRIN 325 MG TABLET PO SCH (08:22)
[2020-07-18] MEDS: CARVEDILOL 12.5 MG TABLET. PO SCH (08:23)
[2020-07-18] MEDS: LISINOPRIL 20 MG TABLET PO SCH (08:23)
[2020-07-18] MEDS: amLODIPine BESYLATE 5 MG TABLET PO SCH (08:23)
[2020-07-18] MEDS: DOCUSATE SODIUM 100 MG CAPSULE. PO SCH (08:26)
--- NOTE | 2020-07-18 10:18 | NUR ---
SS following for discharge planning. SS reviewed pt chart and discussed with pt RN. Pt is from home alone and is currently on room air. Per RN, pt is medically stable for discharge but is stating that her electric/water utility through [facility] has been shut off. SS met with pt to discuss. Pt reported that she lives alone and she had been in and out of the hospital. Pt reported that she was on a payment plan for her utility but did not pay the payment plan and her electric/water was shut off. Pt reported that she owes $983 to [facility]. Pt reported that she has a TBI and has an open care with [facility] and is open with the [facility]. Pt reported that her rent is $650 and she makes $783 per month. Pt reported that her spouse was helping with bills until he . Pt reported that [facility] has been working to get her into an assisted living facility near her home. Pt has [employer]. SS discussed LTC placement with pt and pt refused stating that she is not going to a shelter. SS contacted [facility] [employer] hardship line, , and left a voicemail. SS contacted [employer] and made request for assistance. They reported that they would contact pt in 24-48 hours. SS contacted [facility], , and they requested that pt can do a phone screen and they will get back to pt with a decision in 1-2 weeks. SS contact [employer] and was notified that pt can do online application for assistance and they would contact her within 5 business days. SS attempted to assist with online application but pt did not know her account number for her utility and was unable to complete the application. Pt provided with resources. Pt reported that she was staying with a friend prior to coming into the hospital. PAT team referral made to due to pt's mental health needs and need for assistance. SS will continue to follow for discharge planning.
[2020-07-18 10:30] VITALS: BP 121/56
--- NOTE | 2020-07-18 10:39 | PDOC ---
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 Plan Lamotrigine increased to 200 mg in the morning and 100 mg at night. Topiramate 50 mg twice per day Hold off on restarting the levetiracetam Discharge as soon as today if social situation can be remedied. Subjective No complaints Objective Vital Signs Date Time Temp Pulse Resp B/P (MAP) Pulse Ox O2 Delivery O2 Flow Rate FiO2 07/18/20 10:30 97.9 52 16 121/56 (77) 99 Room Air 97.9 Intake and Output 07/18/20 07:00 Intake Total 1186 ml Output Total 300 ml Balance 886 ml Intake Oral 1186 ml Output Urine Total 300 ml # Voids 6 PHYSICAL EXAM Alert. Oriented to place and person, not date. PERRL. EOMI. Blind in the left eye CN: no focal findings. Muscle tone: normal. Muscle strength: 4/5 DTR: 1+ Plantar reflex: Flexor Gait: not examined in bed. Sensory exam: Stocking loss. No cerebellar signs elicited. Review of Relevant I have reviewed the following items carlos (where applicable) has been applied. Labs Laboratory Tests Test 07/16/20 11:00 07/17/20 10:05 White Blood Count 4.3 x10^3/uL (4.0-11.0) 4.7 x10^3/uL (4.0-11.0) Red Blood Count 4.13 x10^6/uL (3.50-5.40) 4.22 x10^6/uL (3.50-5.40) Hemoglobin 12.9 g/dL (12.0-15.5) 13.1 g/dL (12.0-15.5) Hematocrit 39.8 % (36.0-47.0) 40.5 % (36.0-47.0) Mean Corpuscular Volume 96 fL (79-100) 96 fL (79-100) Mean Corpuscular Hemoglobin 31 pg (25-35) 31 pg (25-35) Mean Corpuscular Hemoglobin Concent 32 g/dL (31-37) 32 g/dL (31-37) Red Cell Distribution Width 14.2 % (11.5-14.5) 14.3 % (11.5-14.5) Platelet Count 177 x10^3/uL (140-400) 181 x10^3/uL (140-400) Neutrophils (%) (Auto) 55 % (31-73) 44 % (31-73) Lymphocytes (%) (Auto) 30 % (24-48) 37 % (24-48) Monocytes (%) (Auto) 12 % (0-9) 15 % (0-9) Eosinophils (%) (Auto) 3 % (0-3) 3 % (0-3) Basophils (%) (Auto) 1 % (0-3) 1 % (0-3) Neutrophils # (Auto) 2.3 x10^3/uL (1.8-7.7) 2.1 x10^3/uL (1.8-7.7) Lymphocytes # (Auto) 1.3 x10^3/uL (1.0-4.8) 1.7 x10^3/uL (1.0-4.8) Monocytes # (Auto) 0.5 x10^3/uL (0.0-1.1) 0.7 x10^3/uL (0.0-1.1) Eosinophils # (Auto) 0.1 x10^3/uL (0.0-0.7) 0.2 x10^3/uL (0.0-0.7) Basophils # (Auto) 0.0 x10^3/uL (0.0-0.2) 0.0 x10^3/uL (0.0-0.2) Sodium Level 140 mmol/L (136-145) 142 mmol/L (136-145) Potassium Level 4.0 mmol/L (3.5-5.1) 3.9 mmol/L (3.5-5.1) Chloride Level 107 mmol/L (98-107) 109 mmol/L (98-107) Carbon Dioxide Level 26 mmol/L (21-32) 25 mmol/L (21-32) Anion Gap 7 (6-14) 8 (6-14) Blood Urea Nitrogen 19 mg/dL (7-20) 17 mg/dL (7-20) Creatinine 1.0 mg/dL (0.6-1.0) 1.0 mg/dL (0.6-1.0) Estimated GFR (Cockcroft-Gault) 69.1 69.1 Glucose Level 100 mg/dL (70-99) 80 mg/dL (70-99) Calcium Level 8.3 mg/dL (8.5-10.1) 9.0 mg/dL (8.5-10.1) BUN/Creatinine Ratio 17 (6-20) Total Bilirubin 0.2 mg/dL (0.2-1.0) Aspartate Amino Transf (AST/SGOT) 12 U/L (15-37) Alanine Aminotransferase (ALT/SGPT) 17 U/L (14-59) Alkaline Phosphatase 77 U/L (46-116) Total Protein 6.8 g/dL (6.4-8.2) Albumin 3.2 g/dL (3.4-5.0) Albumin/Globulin Ratio 0.9 (1.0-1.7) Medications Current Medications Lorazepam (Ativan Inj) 1 mg 1X ONCE IVP Last administered on 07/15/20at 15:56; Start 07/15/20 at 15:30; Stop 07/15/20 at 15:31; Status DC Levetiracetam 1000 mg/Dextrose 110 ml @ 440 mls/hr 1X ONCE IV Last administered on 07/15/20at 18:10; Start 07/15/20 at 17:30; Stop 07/15/20 at 17:44; Status DC Amlodipine Besylate (Norvasc) 5 mg DAILY PO Last administered on 07/18/20at 08:23; Start 07/16/20 at 09:00 Aspirin (Jennifer Aspirin) 325 mg DAILYWBKFT PO Last administered on 07/18/20at 08:22; Start 07/16/20 at 08:00 Atorvastatin Calcium (Lipitor) 20 mg QHS PO Last administered on 07/17/20at 21:22; Start 07/15/20 at 21:00 Calcium Carbonate/ Glycine (Tums) 200 mg PRN BID PRN PO INDIGESTION; Start 07/15/20 at 20:30 Carvedilol (Coreg) 6.25 mg BIDWMEALS PO Last administered on 07/18/20at 08:23; Start 07/16/20 at 08:00 Clonidine HCl (Catapres) 0.1 mg PRN BID PRN PO ELEVATED BP, SEE COMMENTS Last administered on 07/15/20 21:16; Start 07/15/20 at 20:30 Docusate Sodium (Colace) 100 mg BID PO Last administered on 07/17/20 09:50; Start 07/15/20 at 21:00 Lisinopril (Prinivil) 20 mg DAILY PO Last administered on 07/18/20 08:23; Start 07/16/20 at 09:00 Quetiapine Fumarate (SEROquel) 25 mg BID PO Last administered on 07/18/20 08:22; Start 07/15/20 at 21:00 Sodium Chloride 1,000 ml @ 100 mls/hr Q10H IV Last administered on 07/17/20at 22:45; Start 07/15/20 at 20:45 Heparin Sodium (Porcine) (Heparin Sodium) 5,000 unit Q8HRS SQ Last administered on 07/18/20 06:20; Start 07/15/20 at 22:00 Levetiracetam (Keppra) 500 mg BID PO Last administered on 07/17/20 09:49; Start 07/16/20 at 09:00; Stop 07/17/20 at 20:03; Status DC Lamotrigine (LaMICtal) 200 mg DAILY PO Last administered on 07/18/20 08:22; Start 07/16/20 at 09:00 Acetaminophen/ Hydrocodone Bitart (Lortab 5/325) 1 tab PRN Q4HRS PRN PO MODERATE PAIN 4-6 Last administered on 07/18/20at 06:16; Start 07/17/20 at 05:30 Topiramate (Topamax) 50 mg BID PO Last administered on 07/18/20 08:22; Start 07/17/20 at 21:00 Lamotrigine (LaMICtal) 100 mg HS PO Last administered on 07/17/20at 21:22; Sta rt 07/17/20 at 21:00 Active Scripts Active Lamictal (Lamotrigine) 200 Mg Tablet 1 Tab PO DAILY Lisinopril 20 Mg Tablet 1 Tab PO DAILY Potassium Chloride (Potassium Chloride) 20 Meq Tablet.er 20 Meq PO DAILY 10 Days Clonidine Hcl 0.1 Mg Tablet 0.1 Mg PO BID PRN Take each tablet as needed for Systolic (upper) blood pressure greater than 185 and/or Diastolic (lower) blood pressure greater than 110. Quetiapine Fumarate 25 Mg Tablet 25 Mg PO BID 30 Days Aspirin 325 Mg Tablet 325 Mg PO DAILYWBKFT 30 Days Amlodipine Besylate 5 Mg Tablet 5 Mg PO DAILY 30 Days Lisinopril 40 Mg Tablet 40 Mg PO DAILY 30 Days Atorvastatin Calcium 20 Mg Tablet 20 Mg PO QHS 30 Days Colace (Docusate Sodium) 100 Mg Capsule 1 Cap PO BID Reported Hydroxyzine Pamoate 50 Mg Capsule 50 Mg PO TID Zolpidem Tartrate 10 Mg Tablet 10 Mg PO QHS Carvedilol (Carvedilol) 12.5 Mg Tablet 6.25 Mg PO BIDWMEALS Tums (Calcium Carbonate) 200 Mg Tab.chew 200 Mg PO Diazepam 10 Mg Tablet 10 Mg PO BID Vitals/I & O Vital Sign - Last 24 Hours 07/17/20 07/17/20 07/17/20 07/17/20 11:00 15:00 17:34 19:50 Temp 97.6 98.1 98.4 97.6 98.1 98.4 Pulse 60 69 63 66 Resp 18 16 16 B/P (MAP) 128/62 (84) 99/49 (66) 115/65 118/63 (81) Pulse Ox 98 99 96 O2 Delivery Room Air Room Air Room Air 07/17/20 07/17/20 07/18/20 07/18/20 20:00 23:55 03:08 06:16 Temp 97.9 97.9 97.9 97.9 Pulse 65 62 Resp 16 16 20 B/P (MAP) 98/52 (67) 126/67 (86) Pulse Ox 98 97 O2 Delivery Room Air Room Air Room Air Room Air 07/18/20 07/18/20 07/18/20 07/18/20 07:00 07:48 07:48 08:23 Temp 98.0 98.0 Pulse 50 50 Resp 16 B/P (MAP) 76/54 (61) 150/98 (115) 150/98 Pulse Ox 100 O2 Delivery Room Air Room Air 07/18/20 07/18/20 07/18/20 08:23 08:23 10:30 Temp 97.9 97.9 Pulse 50 50 52 Resp 16 B/P (MAP) 150/98 150/98 121/56 (77) Pulse Ox 99 O2 Delivery Room Air Intake and Output 07/17/20 07/17/20 07/18/20 15:00 23:00 07:00 Intake Total 350 ml 236 ml 600 ml Output Total 300 ml Balance 350 ml 236 ml 300 ml Justicifation of Admission Dx: Justifications for Admission: Justification of Admission Dx: Yes KENDALL CORTÉS MD Jul 18, 2020 10:39
--- NOTE | 2020-07-18 11:03 | EKG ---
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
--- NOTE | 2020-07-18 11:22 | PDOC ---
PROGRESS NOTES Date of Service: DATE: 07/18/20 TIME: 11:20 Chief Complaint Chief Complaint VTE Prophylaxis Ordered VTE Prophylaxis Devices: No VTE Pharmacological Prophylaxi: Yes impression Assessment/Plan Postictal State Confusion Vasomotor Nephropathy hx multiinfarct dementia Encephalomalacia is again seen within the right cerebral hemisphere which can be from prior insult. Moderate area of right parietotemporal encephalomalacia. Chronic merino radiata lacunar infarcts. Extensive chronic small vessel ischemic disease and mild generalized cerebral volume loss. Plan: history of seizures and dementia, but unknown baseline. She certainly may just still be postictal, as she reports having been taken her medications as prescribed. She is alert to person and place, but believes it is 1920. consult neurology for recommendations, and continue to monitor interval improvement. remains A&O x 2. IV fluids. VTE. Full Code. MRI HEAD NOTED D/C HOME WITH HOME HEALTH, NEEDS TO STAY WITH FAMILY 29 MIN pt exam, chart review, > 50% of time spent with exam, chart review, pt care coordination Justifications for Admission Justifications for Admission Other Justification History of Present Illness History of Present Illness History of Present Illness History of Present Illness Patient is a 55 yo female with history of seizures, who presents to the ER after having a witnessed seizure by a friend. EMS was contacted, and on arrival the patient was alert but confused. She admits to a history of early onset dementia and is A&O x 2 on exam.Further history could not be obtained as patient nods off during exam. Past Medical History Cardiovascular: CAD, CHF, Hyperlipidemia, Other Pulmonary: Bronchitis CENTRAL NERVOUS SYSTEM: CVA, Dementia, Seizure, Other GI: GERD Heme/Onc: Sickle cell disease Hepatobiliary: No pertinent hx Psych: Anxiety, Depression Musculoskeletal: low back pain, Osteoarthritis Rheumatologic: No pertinent hx Infectious disease: No pertinent hx Renal/: Chronic renal failure, Other Endocrine: No pertinent hx Past Surgical History Past Surgical History: , Hysterectomy, Other Family History Family History: Cancer, Coronary Artery Disease, Heart Disease Social History Smoke: <1 pack per day ALCOHOL: heavy Drugs: None Vitals Vitals Vital Signs Date Time Temp Pulse Resp B/P (MAP) Pulse Ox O2 Delivery O2 Flow Rate FiO2 07/18/20 10:30 97.9 52 16 121/56 (77) 99 Room Air 97.9 Physical Exam General: Alert, Cooperative, No acute distress, Other (Lethargic) Heart: Regular rate Lungs: Clear Abdomen: Normal bowel sounds, Soft, No tenderness, No hepatosplenomegaly, No masses Extremities: No clubbing, No cyanosis, Normal pulses Skin: No rashes, No breakdown, No significant lesion Labs LABS Indication: stroke Comparison: CT head 07/15/2020. Technique: Multiplanar multisequence MRI of the brain was performed without intravenous contrast using the standard protocol. Findings: No acute infarct. No acute hemorrhage. The ventricles are normal in size and configuration without hydrocephalus. Extensive FLAIR hyperintense signal in the subcortical and periventricular deep white matter, a nonspecific finding, most commonly seen with chronic small vessel ischemic disease. Mild generalized cerebral volume loss. Moderate right parietotemporal encephalomalacia with hemosiderin deposition. Chronic merino radiata lacunar infarcts. The scalp and calvarium are normal. Partial empty sella. No Chiari malformation. Mild incompletely characterized degenerative spondylosis of the visualized upper cervical spine. The visualized orbits and globes are normal. The visualized paranasal sinuses are clear. The mastoid air cells are clear. Normal flow voids within the vertebral, basilar, and internal carotid arteries indicating patency. IMPRESSION: 1. No acute infarct, acute hemorrhage, mass, or hydrocephalus. 2. Moderate area of right parietotemporal encephalomalacia. Chronic merino radiata lacunar infarcts. 3. Extensive chronic small vessel ischemic disease and mild generalized cerebral volume loss. Electronically signed by: Inna Bautista MD (07/16/2020 10:16 AM) [id number] DICTATED and SIGNED BY: INNA BAUTISTA MD DATE: 07/16/20 1016 Assessment and Plan Assessmemt and Plan Problems Medical Problems: (1) Confusion Status: Acute Comment Review of Relevant I have reviewed the following items carlos (where applicable) has been applied. Labs Laboratory Tests Test 07/17/20 10:05 White Blood Count 4.7 x10^3/uL (4.0-11.0) Red Blood Count 4.22 x10^6/uL (3.50-5.40) Hemoglobin 13.1 g/dL (12.0-15.5) Hematocrit 40.5 % (36.0-47.0) Mean Corpuscular Volume 96 fL (79-100) Mean Corpuscular Hemoglobin 31 pg (25-35) Mean Corpuscular Hemoglobin Concent 32 g/dL (31-37) Red Cell Distribution Width 14.3 % (11.5-14.5) Platelet Count 181 x10^3/uL (140-400) Neutrophils (%) (Auto) 44 % (31-73) Lymphocytes (%) (Auto) 37 % (24-48) Monocytes (%) (Auto) 15 % (0-9) Eosinophils (%) (Auto) 3 % (0-3) Basophils (%) (Auto) 1 % (0-3) Neutrophils # (Auto) 2.1 x10^3/uL (1.8-7.7) Lymphocytes # (Auto) 1.7 x10^3/uL (1.0-4.8) Monocytes # (Auto) 0.7 x10^3/uL (0.0-1.1) Eosinophils # (Auto) 0.2 x10^3/uL (0.0-0.7) Basophils # (Auto) 0.0 x10^3/uL (0.0-0.2) Sodium Level 142 mmol/L (136-145) Potassium Level 3.9 mmol/L (3.5-5.1) Chloride Level 109 mmol/L (98-107) Carbon Dioxide Level 25 mmol/L (21-32) Anion Gap 8 (6-14) Blood Urea Nitrogen 17 mg/dL (7-20) Creatinine 1.0 mg/dL (0.6-1.0) Estimated GFR (Cockcroft-Gault) 69.1 BUN/Creatinine Ratio 17 (6-20) Glucose Level 80 mg/dL (70-99) Calcium Level 9.0 mg/dL (8.5-10.1) Total Bilirubin 0.2 mg/dL (0.2-1.0) Aspartate Amino Transf (AST/SGOT) 12 U/L (15-37) Alanine Aminotransferase (ALT/SGPT) 17 U/L (14-59) Alkaline Phosphatase 77 U/L (46-116) Total Protein 6.8 g/dL (6.4-8.2) Albumin 3.2 g/dL (3.4-5.0) Albumin/Globulin Ratio 0.9 (1.0-1.7) Medications Current Medications Lorazepam (Ativan Inj) 1 mg 1X ONCE IVP Last administered on 07/15/20 15:56; Start 07/15/20 at 15:30; Stop 07/15/20 at 15:31; Status DC Levetiracetam 1000 mg/Dextrose 110 ml @ 440 mls/hr 1X ONCE IV Last administered on 07/15/20 18:10; Start 07/15/20 at 17:30; Stop 07/15/20 at 17:44; Status DC Amlodipine Besylate (Norvasc) 5 mg DAILY PO Last administered on 07/18/20 08:23; Start 07/16/20 at 09:00 Aspirin (Jennifer Aspirin) 325 mg DAILYWBKFT PO Last administered on 07/18/20 08:22; Start 07/16/20 at 08:00 Atorvastatin Calcium (Lipitor) 20 mg QHS PO Last administered on 07/17/20 21:22; Start 07/15/20 at 21:00 Calcium Carbonate/ Glycine (Tums) 200 mg PRN BID PRN PO INDIGESTION; Start 07/15/20 at 20:30 Carvedilol (Coreg) 6.25 mg BIDWMEALS PO Last administered on 07/18/20 08:23; Start 07/16/20 at 08:00 Clonidine HCl (Catapres) 0.1 mg PRN BID PRN PO ELEVATED BP, SEE COMMENTS Last administered on 07/15/20 21:16; Start 07/15/20 at 20:30 Docusate Sodium (Colace) 100 mg BID PO Last administered on 07/17/20 09:50; Start 07/15/20 at 21:00 Lisinopril (Prinivil) 20 mg DAILY PO Last administered on 07/18/20 08:23; Start 07/16/20 at 09:00 Quetiapine Fumarate (SEROquel) 25 mg BID PO Last administered on 07/18/20 08:22; Start 07/15/20 at 21:00 Sodium Chloride 1,000 ml @ 100 mls/hr Q10H IV Last administered on 07/17/20at 22:45; Start 07/15/20 at 20:45 Heparin Sodium (Porcine) (Heparin Sodium) 5,000 unit Q8HRS SQ Last administered on 07/18/20at 06:20; Start 07/15/20 at 22:00 Levetiracetam (Keppra) 500 mg BID PO Last administered on 07/17/20at 09:49; Start 07/16/20 at 09:00; Stop 07/17/20 at 20:03; Status DC Lamotrigine (LaMICtal) 200 mg DAILY PO Last administered on 07/18/20at 08:22; Start 07/16/20 at 09:00 Acetaminophen/ Hydrocodone Bitart (Lortab 5/325) 1 tab PRN Q4HRS PRN PO MODERATE PAIN 4-6 Last administered on 07/18/20at 06:16; Start 07/17/20 at 05:30 Topiramate (Topamax) 50 mg BID PO Last administered on 07/18/20at 08:22; Start 07/17/20 at 21:00 Lamotrigine (LaMICtal) 100 mg HS PO Last administered on 07/17/20at 21:22; Start 07/17/20 at 21:00 Active Scripts Active Lamictal (Lamotrigine) 200 Mg Tablet 1 Tab PO DAILY Lisinopril 20 Mg Tablet 1 Tab PO DAILY Potassium Chloride (Potassium Chloride) 20 Meq Tablet.er 20 Meq PO DAILY 10 Days Clonidine Hcl 0.1 Mg Tablet 0.1 Mg PO BID PRN Take each tablet as needed for Systolic (upper) blood pressure greater than 185 and/or Diastolic (lower) blood pressure greater than 110. Quetiapine Fumarate 25 Mg Tablet 25 Mg PO BID 30 Days Aspirin 325 Mg Tablet 325 Mg PO DAILYWBKFT 30 Days Amlodipine Besylate 5 Mg Tablet 5 Mg PO DAILY 30 Days Lisinopril 40 Mg Tablet 40 Mg PO DAILY 30 Days Atorvastatin Calcium 20 Mg Tablet 20 Mg PO QHS 30 Days Colace (Docusate Sodium) 100 Mg Capsule 1 Cap PO BID Reported Hydroxyzine Pamoate 50 Mg Capsule 50 Mg PO TID Zolpidem Tartrate 10 Mg Tablet 10 Mg PO QHS Carvedilol (Carvedilol) 12.5 Mg Tablet 6.25 Mg PO BIDWMEALS Tums (Calcium Carbonate) 200 Mg Tab.chew 200 Mg PO Diazepam 10 Mg Tablet 10 Mg PO BID Vitals/I & O Vital Sign - Last 24 Hours 07/17/20 07/17/20 07/17/20 07/17/20 15:00 17:34 19:50 20:00 Temp 98.1 98.4 98.1 98.4 Pulse 69 63 66 Resp 16 16 B/P (MAP) 99/49 (66) 115/65 118/63 (81) Pulse Ox 99 96 O2 Delivery Room Air Room Air Room Air 07/17/20 07/18/20 07/18/20 07/18/20 23:55 03:08 06:16 07:00 Temp 97.9 97.9 98.0 97.9 97.9 98.0 Pulse 65 62 50 Resp 16 16 20 16 B/P (MAP) 98/52 (67) 126/67 (86) 76/54 (61) Pulse Ox 98 97 100 O2 Delivery Room Air Room Air Room Air Room Air 07/18/20 07/18/20 07/18/20 07/18/20 07:48 07:48 08:23 08:23 Pulse 50 50 B/P (MAP) 150/98 (115) 150/98 150/98 O2 Delivery Room Air 07/18/20 07/18/20 08:23 10:30 Temp 97.9 97.9 Pulse 50 52 Resp 16 B/P (MAP) 150/98 121/56 (77) Pulse Ox 99 O2 Delivery Room Air Intake and Output 07/17/20 07/17/20 07/18/20 15:00 23:00 07:00 Intake Total 350 ml 236 ml 600 ml Output Total 300 ml Balance 350 ml 236 ml 300 ml Justicifation of Admission Dx: Justifications for Admission: Justification of Admission Dx: Yes XIMENA SPEARS MD Jul 18, 2020 11:22
--- NOTE | 2020-07-18 13:59 | NUR ---
Pt left AMA, voluntarily, and reused to sign paperwork, then changed her mind and signed. Pt left with senior benefits analyst, Jakob. IV was taken out via wheelchair and escorted with Cata CARCAMO, and security. Pt stated she "felt dizzy, and always feels dizzy when she discharge."
--- NOTE | 2020-07-18 20:40 | PDOC3 ---
Discharge Summary Date of Admission: Jul 15, 2020 Date of Discharge: Jul 18, 2020 Follow-Up: Other (left ama) Admitting Diagnosis comment: impression Assessment/Plan Postictal State Confusion Vasomotor Nephropathy hx multiinfarct dementia Encephalomalacia is again seen within the right cerebral hemisphere which can be from prior insult. Moderate area of right parietotemporal encephalomalacia. Chronic merino radiata lacunar infarcts. Extensive chronic small vessel ischemic disease and mild generalized cerebral volume loss. Plan: history of seizures and dementia, but unknown baseline. She certainly may just still be postictal, as she reports having been taken her medications as prescribed. She is alert to person and place, but believes it is 1920. consult neurology for recommendations, and continue to monitor interval improvement. remains A&O x 2. IV fluids. VTE. Full Code. MRI HEAD NOTED D/C HOME WITH HOME HEALTH, NEEDS TO STAY WITH FAMILY left ama 29 MIN pt exam, chart review, > 50% of time spent with exam, chart review, pt care coordination Justifications for Admission Justifications for Admission Other Justification History of Present Illness History of Present Illness History of Present Illness History of Present Illness Patient is a 55 yo female with history of seizures, who presents to the ER after having a witnessed seizure by a friend. EMS was contacted, and on arrival the pa tient was alert but confused. She admits to a history of early onset dementia and is A&O x 2 on exam.Further history could not be obtained as patient nods off during exam. Past Medical History Cardiovascular: CAD, CHF, Hyperlipidemia, Other Pulmonary: Bronchitis CENTRAL NERVOUS SYSTEM: CVA, Dementia, Seizure, Other GI: GERD Heme/Onc: Sickle cell disease Hepatobiliary: No pertinent hx Psych: Anxiety, Depression Musculoskeletal: low back pain, Osteoarthritis Rheumatologic: No pertinent hx Infectious disease: No pertinent hx Renal/: Chronic renal failure, Other Endocrine: No pertinent hx Past Surgical History Past Surgical History: , Hysterectomy, Other Family History Family History: Cancer, Coronary Artery Disease, Heart Disease Social History Smoke: <1 pack per day ALCOHOL: heavy Drugs: None Vitals Vitals Vital Signs Date Time Temp Pulse Resp B/P (MAP) Pulse Ox O2 Delivery O2 Flow Rate FiO2 07/18/20 10:30 97.9 52 16 121/56 (77) 99 Room Air 97.9 Physical Exam General: Alert, Cooperative, No acute distress, Other (Lethargic) Heart: Regular rate Lungs: Clear Abdomen: Normal bowel sounds, Soft, No tenderness, No hepatosplenomegaly, No masses Extremities: No clubbing, No cyanosis, Normal pulses Skin: No rashes, No breakdown, No significant lesion Labs LABS FINAL DIAGNOSIS Problems Medical Problems: (1) Confusion Status: Acute Brief Hospital Course Ms. Rivera is a 55 old [sex] who presented with [ ] CONDITION AT DISCHARGE: Comment (LEFT AMA) Discharge Medications Current Medications Lorazepam (Ativan Inj) 1 mg 1X ONCE IVP Last administered on 07/15/20at 15:56; Start 07/15/20 at 15:30; Stop 07/15/20 at 15:31; Status DC Levetiracetam 1000 mg/Dextrose 110 ml @ 440 mls/hr 1X ONCE IV Last admini stered on 07/15/20at 18:10; Start 07/15/20 at 17:30; Stop 07/15/20 at 17:44; Status DC Amlodipine Besylate (Norvasc) 5 mg DAILY PO Last administered on 07/18/20at 08:23; Start 07/16/20 at 09:00; Stop 07/18/20 at 14:02; Status DC Aspirin (Jennifer Aspirin) 325 mg DAILYWBKFT PO Last administered on 07/18/20at 08:22; Start 07/16/20 at 08:00; Stop 07/18/20 at 14:02; Status DC Atorvastatin Calcium (Lipitor) 20 mg QHS PO Last administered on 07/17/20at 21:22; Start 07/15/20 at 21:00; Stop 07/18/20 at 14:02; Status DC Calcium Carbonate/ Glycine (Tums) 200 mg PRN BID PRN PO INDIGESTION; Start 07/15/20 at 20:30; Stop 07/18/20 at 14:02; Status DC Carvedilol (Coreg) 6.25 mg BIDWMEALS PO Last administered on 07/18/20at 08:23; Start 07/16/20 at 08:00; Stop 07/18/20 at 14:02; Status DC Clonidine HCl (Catapres) 0.1 mg PRN BID PRN PO ELEVATED BP, SEE COMMENTS Last administered on 07/15/20at 21:16; Start 07/15/20 at 20:30; Stop 07/18/20 at 14:02; Status DC Docusate Sodium (Colace) 100 mg BID PO Last administered on 07/17/20at 09:50; Start 07/15/20 at 21:00; Stop 07/18/20 at 14:02; Status DC Lisinopril (Prinivil) 20 mg DAILY PO Last administered on 07/18/20at 08:23; Start 07/16/20 at 09:00; Stop 07/18/20 at 14:02; Status DC Quetiapine Fumarate (SEROquel) 25 mg BID PO Last administered on 07/18/20at 08:22; Start 07/15/20 at 21:00; Stop 07/18/20 at 14:02; Status DC Sodium Chloride 1,000 ml @ 100 mls/hr Q10H IV Last administered on 07/17/20at 22:45; Start 07/15/20 at 20:45; Stop 07/18/20 at 14:02; Status DC Heparin Sodium (Porcine) (Heparin Sodium) 5,000 unit Q8HRS SQ Last administered on 07/18/20at 06:20; Start 07/15/20 at 22:00; Stop 07/18/20 at 14:02; Status DC Levetiracetam (Keppra) 500 mg BID PO Last administered on 07/17/20at 09:49; Start 07/16/20 at 09:00; Stop 07/17/20 at 20:03; Status DC Lamotrigine (LaMICtal) 200 mg DAILY PO Last administered on 07/18/20at 08:22; Start 07/16/20 at 09:00; Stop 07/18/20 at 14:02; Status DC Acetaminophen/ Hydrocodone Bitart (Lortab 5/325) 1 tab PRN Q4HRS PRN PO MODERATE PAIN 4-6 Last administered on 07/18/20at 06:16; Start 07/17/20 at 05:30; Stop 07/18/20 at 14:02; Status DC Topiramate (Topamax) 50 mg BID PO Last administered on 07/18/20at 08:22; Start 07/17/20 at 21:00; Stop 07/18/20 at 14:02; Status DC Lamotrigine (LaMICtal) 100 mg HS PO Last administered on 07/17/20at 21:22; Start 07/17/20 at 21:00; Stop 07/18/20 at 14:02; Status DC Active Scripts Active Lamictal (Lamotrigine) 200 Mg Tablet 1 Tab PO DAILY Lisinopril 20 Mg Tablet 1 Tab PO DAILY Potassium Chloride (Potassium Chloride) 20 Meq Tablet.er 20 Meq PO DAILY 10 Days Clonidine Hcl 0.1 Mg Tablet 0.1 Mg PO BID PRN Take each tablet as needed for Systolic (upper) blood pressure greater than 185 and/or Diastolic (lower) blood pressure greater than 110. Quetiapine Fumarate 25 Mg Tablet 25 Mg PO BID 30 Days Aspirin 325 Mg Tablet 325 Mg PO DAILYWBKFT 30 Days Amlodipine Besylate 5 Mg Tablet 5 Mg PO DAILY 30 Days Lisinopril 40 Mg Tablet 40 Mg PO DAILY 30 Days Atorvastatin Calcium 20 Mg Tablet 20 Mg PO QHS 30 Days Colace (Docusate Sodium) 100 Mg Capsule 1 Cap PO BID Reported Hydroxyzine Pamoate 50 Mg Capsule 50 Mg PO TID Zolpidem Tartrate 10 Mg Tablet 10 Mg PO QHS Carvedilol (Carvedilol) 12.5 Mg Tablet 6.25 Mg PO BIDWMEALS Tums (Calcium Carbonate) 200 Mg Tab.chew 200 Mg PO Diazepam 10 Mg Tablet 10 Mg PO BID Vital Signs Vital Signs Date Time Temp Pulse Resp B/P (MAP) Pulse Ox O2 Delivery O2 Flow Rate FiO2 07/18/20 10:30 97.9 52 16 121/56 (77) 99 Room Air 97.9 Labs Laboratory Tests Test 07/17/20 10:05 White Blood Count 4.7 x10^3/uL (4.0-11.0) Red Blood Count 4.22 x10^6/uL (3.50-5.40) Hemoglobin 13.1 g/dL (12.0-15.5) Hematocrit 40.5 % (36.0-47.0) Mean Corpuscular Volume 96 fL (79-100) Mean Corpuscular Hemoglobin 31 pg (25-35) Mean Corpuscular Hemoglobin Concent 32 g/dL (31-37) Red Cell Distribution Width 14.3 % (11.5-14.5) Platelet Count 181 x10^3/uL (140-400) Neutrophils (%) (Auto) 44 % (31-73) Lymphocytes (%) (Auto) 37 % (24-48) Monocytes (%) (Auto) 15 % (0-9) Eosinophils (%) (Auto) 3 % (0-3) Basophils (%) (Auto) 1 % (0-3) Neutrophils # (Auto) 2.1 x10^3/uL (1.8-7.7) Lymphocytes # (Auto) 1.7 x10^3/uL (1.0-4.8) Monocytes # (Auto) 0.7 x10^3/uL (0.0-1.1) Eosinophils # (Auto) 0.2 x10^3/uL (0.0-0.7) Basophils # (Auto) 0.0 x10^3/uL (0.0-0.2) Sodium Level 142 mmol/L (136-145) Potassium Level 3.9 mmol/L (3.5-5.1) Chloride Level 109 mmol/L (98-107) Carbon Dioxide Level 25 mmol/L (21-32) Anion Gap 8 (6-14) Blood Urea Nitrogen 17 mg/dL (7-20) Creatinine 1.0 mg/dL (0.6-1.0) Estimated GFR (Cockcroft-Gault) 69.1 BUN/Creatinine Ratio 17 (6-20) Glucose Level 80 mg/dL (70-99) Calcium Level 9.0 mg/dL (8.5-10.1) Total Bilirubin 0.2 mg/dL (0.2-1.0) Aspartate Amino Transf (AST/SGOT) 12 U/L (15-37) Alanine Aminotransferase (ALT/SGPT) 17 U/L (14-59) Alkaline Phosphatase 77 U/L (46-116) Total Protein 6.8 g/dL (6.4-8.2) Albumin 3.2 g/dL (3.4-5.0) Albumin/Globulin Ratio 0.9 (1.0-1.7) Allergies Allergies Coded Allergies Type Severity Reaction Last Updated Verified No Known Drug Allergies 09/27/16 No Disposition/Orders: Other (LEFT AMA) Justicifation of Admission Dx: Justifications for Admission: Justification of Admission Dx: Yes XIMENA SPEARS MD Jul 18, 2020 20:40
--- NOTE | 2020-07-19 05:26 | EKG ---
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
== END 2020-07-18 14:00 | disposition left against medical advice (07) | DRG 100 ==
LOC: ER 13:27 → ED HOLD 17:33 → 2 SOUTH 19:16
PROVIDERS: ADMIT Family Medicine; ATTEND Family Medicine
DX: R56.9 Unspecified convulsions (principal); N17.0 Acute kidney failure with tubular necrosis; I13.0 Hypertensive heart and chronic kidney disease with heart failure and stage 1 through stage 4 chronic kidney disease, or unspecified chronic kidney disease; F05 Delirium due to known physiological condition; F32.9 Major depressive disorder, single episode, unspecified; K21.9 Gastro-esophageal reflux disease without esophagitis; I25.10 Atherosclerotic heart disease of native coronary artery without angina pectoris; E78.5 Hyperlipidemia, unspecified; F17.210 Nicotine dependence, cigarettes, uncomplicated; G93.89 Other specified disorders of brain; D57.1 Sickle-cell disease without crisis; E11.22 Type 2 diabetes mellitus with diabetic chronic kidney disease; F01.50 Vascular dementia, unspecified severity, without behavioral disturbance, psychotic disturbance, mood disturbance, and anxiety; H54.62 Unqualified visual loss, left eye, normal vision right eye; F41.0 Panic disorder [episodic paroxysmal anxiety]; N18.9 Chronic kidney disease, unspecified; I50.9 Heart failure, unspecified; Z79.899 Other long term (current) drug therapy; I69.311 Memory deficit following cerebral infarction; Z90.710 Acquired absence of both cervix and uterus; Z82.49 Family history of ischemic heart disease and other diseases of the circulatory system
CPT/HCPCS: 36415; 70450; 70551; 80048; 80053; 80307; 81001; 82550; 83605; 85025; 93005; 96365; 96375; 99285; J1644; J1953; J2060; J7030; J7060; G0378

== ENCOUNTER 2020-08-01 20:00 | Emergency (ER) | payer OTHER ==
[~2020-08-01] VITALS: Ht 162.6 cm; Wt 72.2 kg
[2020-08-01] MEDS ORDERED: DEXAMETHASONE SOD PHOS 4 MG/ML VIAL IVP ONE (20:30)
[2020-08-01] MEDS ORDERED: IV NORMAL SALINE 1000ML BAG 1,000 ML IV ONE (20:30)
[2020-08-01] MEDS ORDERED: diphenhydrAMINE 50 MG/ML VIAL IVP ONE (20:30)
[2020-08-01] MEDS ORDERED: KETOROLAC 15 MG/ML VIAL. IVP ONE (20:30)
[2020-08-01] MEDS ORDERED: METOCLOPRAMIDE HCL 10 MG/2 ML VIAL. IVP ONE (20:30)
--- NOTE | 2020-08-01 20:47 | PHYS DOC ---
Past Medical History Past Medical History: Anxiety, CVA, Hypertension, Seizure Additional Past Medical Histor: "brain aneurysm",PANIC ATTACKS, EARLY ONSET DEMENTIA Past Surgical History: Appendectomy, , Hysterectomy, Tonsillectomy Smoking Status: Current Every Day Smoker Additional Information: States that she lights 1 cigarette and then immediately extinguishes it in order to get the taste in her mouth Alcohol Use: Occasionally Drug Use: None General Adult EDM: Chief Complaint: HEADACHE HPI: HPI: Chip Rivera is a 55-year-old female with past medical history of seizure disorder presents with headache. She states that she woke up this morning with an intense sharp headache that originated in her right occipital region and radiated down her right neck and into her right frontal region. She tried to alert the staff at her facility that she was in need of help, and while she was crawling to the door states that she started vomiting and had a seizure. She denies knowledge of any events during the seizure, and states that her neighbor was able to contact the nursing staff. She is unsure why there was a discrepancy in the onset of her pain being this morning and her arrival at 1999. She states that while she has headaches regularly, this is different and more severe. She affirms photophobia and nausea. she denies fever, visual changes, and trauma. On initial conversation patient states that she takes lithium for her seizure history, but on secondary conversation states that she takes lamotrigine. She states she sees Dr. Morales for her seizure history. 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 Gambino for. Patient denies alcohol and illicit drug use. She also states that she feels her hair crawling and that she has a number of bites on her forearms from an unexplained source. Patient initially refuses attempted IV access due to her preference for [facility]. She allows attempt after second discussion. Review of Systems: Review of Systems: Review of systems limited due to patient cooperation. Constitutional: Denies fever or chills Eyes: Denies vision change; Affirms eye pain Respiratory: Denies cough or shortness of breath Cardiovascular: Denies chest pain or palpitations GI: Denies abdominal pain or vomiting; affirms nausea : Denies dysuria or hematuria Musculoskeletal: Affirms neck pain Integument: Denies rash or skin lesions Neurologic: Affirms headache Complete systems were reviewed and found to be within normal limits, except as documented in this note. Current Medications: Current Medications Medications (Trade) Dose Ordered Sig/Christina Start Time Stop Time Status Last Admin Dose Admin Dexamethasone Sodium Phosphate (Decadron) 10 mg 1X ONCE 08/01/20 20:30 08/01/20 20:31 DC Diphenhydramine HCl (Benadryl) 25 mg 1X ONCE 08/01/20 20:30 08/01/20 20:31 DC Ketorolac Tromethamine (Toradol 15mg Vial) 15 mg 1X ONCE 08/01/20 20:30 08/01/20 20:31 DC Metoclopramide HCl (Reglan Vial) 10 mg 1X ONCE 08/01/20 20:30 08/01/20 20:31 DC Sodium Chloride 1,000 ml @ 1,000 mls/hr 1X ONCE 08/01/20 20:30 08/01/20 21:29 Allergies: Allergies: Allergies Coded Allergies Type Severity Reaction Last Updated Verified No Known Drug Allergies 09/27/16 No Physical Exam: PE: Physical exam limited due to patient cooperation Constitutional: Well developed, well nourished, no acute distress, non-toxic appearance HENT: Normocephalic, atraumatic Eyes: PERRL, EOMI, conjunctiva normal, no discharge Neck: Normal range of motion, supple; mild tenderness to palpation Lungs & Thorax: No respiratory distress, equal chest rise and fall, clear to auscultation bilaterally Skin: Warm, dry, no erythema, no rash Back: No tenderness, full range of motion Extremities: No tenderness, ROM intact, no edema Neurologic: Alert and oriented X 3, normal motor function, normal sensory function, no focal deficits noted, CN II-XII grossly intact Psychologic: Judgment normal, abnormal affect Current Patient Data: Vital Signs: Vital Signs Date Time Temp Pulse Resp B/P (MAP) Pulse Ox O2 Delivery O2 Flow Rate FiO2 08/01/20 20:17 98.3 72 18 203/115 (144) 100 98.3 EKG: EKG: @20:06 NSR @ [address] elevation Nonspecific T wave inversion in I and aVL QRS 80 ms QT 392 ms QTc 431 ms Radiology/Procedures: Radiology/Procedures: [] Course & Med Decision Making: Course & Med Decision Making Pertinent Labs and Imaging studies reviewed. (See chart for details) [] Ranulfo Disclaimer: Ranulfo Disclaimer: This electronic medical record was generated, in whole or in part, using a voice recognition dictation system. Departure Departure Impression: Primary Impression: Headache Qualified Codes: R51 - Headache Disposition: HOME, SELF-CARE Condition: STABLE Referrals: UNKNOWN PCP NAME (PCP) KENDALL CORTÉS MD Patient Instructions: Head Injury, Adult, [id number], Headache, FAQs Scripts Ondansetron (ONDANSETRON ODT) 4 Mg Tab.rapdis 1 TAB PO PRN Q6-8HRS PRN for NAUSEA, #16 TAB Prov: ALEXANDER HEATH DO 08/02/20 Butalb/Acetaminophen/Caffeine ([id number] 50-325-40) 1 Each Tablet 1 EACH PO Q6HRS PRN for HEADACHE, #14 TAB Prov: ALEXANDER HEATH DO 08/02/20 Justicifation of Admission Dx: Justifications for Admission: Justification of Admission Dx: N/A ALEXANDER HEATH DO Aug 01, 2020 20:47
[2020-08-01 20:56] LABS: BASO % 1 % (0-3); EOS # 0.2 x10^3/uL (0.0-0.7); EOS % 3 % (0-3); HEMATOCRIT 38.5 % (36.0-47.0); HEMOGLOBIN 12.7 g/dL (12.0-15.5); LYMPH # 1.5 x10^3/uL (1.0-4.8); LYMPH % 28 % (24-48); MEAN CORPUSCULAR HEMOGLOBIN 31 pg (25-35); MEAN CORPUSCULAR HGB CONC 33 g/dL (31-37); MEAN CORPUSCULAR VOLUME 94 fL (79-100); MONO # 0.6 x10^3/uL (0.0-1.1); MONO % 10 % (0-9); NEUT # 3.3 x10^3/uL (1.8-7.7); NEUT % 59 % (31-73); PLATELET COUNT 188 x10^3/uL (140-400); RED BLOOD COUNT 4.09 x10^6/uL (3.50-5.40); RED CELL DISTRIBUTION WIDTH 14.1 % (11.5-14.5); WHITE BLOOD COUNT 5.6 x10^3/uL (4.0-11.0)
[2020-08-01 21:07] LABS: CALCIUM 9.2 mg/dL (8.5-10.1); CREATININE 0.8 mg/dL (0.6-1.0); GFR 89.5; LI < 0.2 mmol/L (0.6-1.2); POTASSIUM 3.8 mmol/L (3.5-5.1)
[2020-08-01 21:13] LABS: ALBUMIN 3.8 g/dL (3.4-5.0); ALBUMIN/GLOBULIN RATIO 1.1 (1.0-1.7); TOTAL BILIRUBIN 0.4 mg/dL (0.2-1.0); TOTAL PROTEIN 7.3 g/dL (6.4-8.2)
--- NOTE | 2020-08-01 21:19 | RAD ---
EXAM: CT HEAD WITHOUT CONTRAST. HISTORY: Headache, seizure. TECHNIQUE: Computed tomography of the head was performed without intravenous contrast. One or more of the following individualized dose reduction techniques were utilized for this examination: 1. Automated exposure control. 2. Adjustment of the mA and/or kV according to patient size. 3. Use of iterative reconstruction technique. COMPARISON: 07/15/2020. FINDINGS: There is no intracranial hemorrhage. There are chronic infarcts of the right frontoparietal and left frontal lobes. More diffusely, there is moderate to severe periventricular white matter hypoattenuation consistent with moderate to severe chronic microangiopathic change. Prominence of the lateral ventricles and hemispheric sulci indicates moderate atrophy. The visualized paranasal sinuses appear clear. The orbits are unremarkable. The temporal bones are unremarkable. The calvarium reveals no suspicious lesions. IMPRESSION: 1. No acute intracranial findings. 2. Moderate chronic infarcts and moderate to severe chronic microangiopathic white matter change. Electronically signed by: Landy Duckworth MD (08/01/2020 9:16 PM) [facility]
[2020-08-02 01:30] VITALS: BP 155/84
[2020-08-02] MEDS ORDERED: BUTA1TAB23 PO (01:45)
[2020-08-02] MEDS ORDERED: ONDA4TAB12 PO (01:45)
[2020-08-02 02:01] LABS: BILIRUBIN,URINE NEGATIVE (NEG); CLARITY,URINE CLEAR; COLOR,URINE YELLOW; NITRITE,URINE NEGATIVE (NEG); PH,URINE 7.5 (<5.0-8.0); PROTEIN,URINE NEGATIVE (NEG-TRACE); UROBILINOGEN,URINE 0.2 mg/dL (0.2 mg/dL)
[2020-08-02 02:07] LABS: BARBITURATES NEG (NEG); BENZODIAZEPINES NEG (NEG); CANNABINOIDS NEG (NEG); COCAINE NEG (NEG); METHADONE NEG (NEG); OPIATES NEG (NEG); PHENCYCLIDINE NEG (NEG)
[2020-08-02 02:12] LABS: BACTERIA,URINE MODERATE /HPF (0-FEW); RBC,URINE 0 /HPF (0-2); SQUAMOUS EPITHELIAL CELL,UR MOD /LPF
[2020-08-02 02:14] LABS: AMPHETAMINE/METHAMPHETAMINE NEG (NEG)
--- NOTE | 2020-08-02 04:13 | EKG ---
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
== END 2020-08-02 02:01 | disposition home or self-care (01) ==
LOC: ER 20:00
DX: R51 Headache (principal); M54.2 Cervicalgia; R11.2 Nausea with vomiting, unspecified; F41.9 Anxiety disorder, unspecified; I10 Essential (primary) hypertension; F03.90 Unspecified dementia, unspecified severity, without behavioral disturbance, psychotic disturbance, mood disturbance, and anxiety; Z86.73 Personal history of transient ischemic attack (TIA), and cerebral infarction without residual deficits; F17.210 Nicotine dependence, cigarettes, uncomplicated; Z90.89 Acquired absence of other organs; Z90.710 Acquired absence of both cervix and uterus
CPT/HCPCS: 36415; 70450; 80053; 80178; 80307; 81001; 82550; 83605; 85025; 87086; 93005; 96361; 96374; 96375; 99285; G0480; J1100; J1200; J1885; J2765; J7030

== ENCOUNTER 2021-03-06 07:47 | Inpatient (IN) | payer OTHER ==
[~2021-03-06] VITALS: Ht 162.6 cm; Wt 70.5 kg
[~2021-03-06 07:47] MED LIST changes: +AMLO-186 PO; -AMLO5TAB10 PO; +BUTA1TAB23 PO; -LISI-334 PO; +LISI20TA18 PO; +ONDA4TAB12 PO
[2021-03-06] MEDS ORDERED: IV NORMAL SALINE 1000ML BAG 1,000 ML IV ONE (08:00)
--- NOTE | 2021-03-06 08:02 | PHYS DOC ---
Past Medical History Past Medical History: Anxiety, CVA, Dementia, Hypertension, Seizure Additional Past Medical Histor: "brain aneurysm",PANIC ATTACKS, EARLY ONSET DEMENTIA Past Surgical History: Appendectomy, , Hysterectomy, Tonsillectomy Smoking Status: Former Smoker Alcohol Use: Occasionally Drug Use: None General Adult EDM: Chief Complaint: NAUSEA/VOMITING/DIARRHEA HPI: HPI: Patient is a 55 year old female with history of hypertension, hyperlipidemia, seizures, CVA presents emergency department for multiple complaints. Patient has not felt well in 3 days. She has had a mild diffuse headache. She has had nausea vomiting diarrhea. No blood in her stool or vomit. No fevers that she knows of. No cough. No sick contacts. Patient denies dysuria or hematuria. No abdominal pain. Patient denies Covid risk factors for exposures. Patient is non-smoker. Drinks alcohol occasionally. Denies drug use. Patient initially called EMS this morning at 645. They took her vital signs and she refused transport she reports she was going to have her family member bring her to the emergency department. EMS got called back because she was unable to get a hold of her family member to bring her to the emergency department. Review of Systems: Review of Systems: Review of Systems: Constitutional: Denies fever or chills Eyes: Denies redness or eye pain HENT: Denies nasal congestion or sore throat Respiratory: Denies cough or shortness of breath Cardiovascular: Denies chest pain or palpitations GI: denies abdominal pain : Denies dysuria or hematuria Musculoskeletal: Denies back pain or joint pain Integument: Denies rash or skin lesions Neurologic: Denies headache, focal weakness or sensory changes Heart Score: C/O Chest Pain: No Allergies: Allergies: Allergies Coded Allergies Type Severity Reaction Last Updated Verified No Known Drug Allergies 09/27/16 No Physical Exam: PE: *GENERAL APPEARANCE: Awake and alert. Cooperative. No acute distress. Non toxic appearing. HEAD: Normocephalic. Atraumatic. EYES: EOM's grossly intact. Sclera anicteric. Conjunctiva clear ENT:. Airway patent. Mucous membranes moist. No trismus. Tolerating secretions. NECK: Supple. Trachea midline. HEART: Regular rate and rhythm. Radial pulses 2+. Good capillary refill. LUNGS: Respirations unlabored. Clear to auscultation bilaterally. No rales, rhonchi, wheezing or retractions. ABDOMEN: Soft. Non-tender. No guarding or rebound. No CVA tenderness. No palpable or pulsatile mass. EXTREMITIES: No acute deformities. No edema, erythema or calf tenderness. SKIN: Warm and dry. No rash. NEUROLOGICAL: Alert and oriented x3. Cranial nerves II through XII intact. Se nsation is normal. Speech normal. Muscle strength is 5 out of 5 bilateral upper and lower extremities. No gross neurological deficits. Moves all 4 extremities spontaneously. Cerebellar functions intact. Finger to nose and heel to pérez are normal. Gait is stable. Patient walked from cot to bed by herself without difficulty. No nystagmus. Pupils equal round react PSYCHIATRIC: Normal mood. EKG: EKG: EKG interpretation shows normal sinus rhythm with ventricular rate of 64 bpm. MN interval 194 ms. QRS duration of 78 ms. QTc [address] segment elevations. T wave inversion in V4 V5 V6. Radiology/Procedures: Radiology/Procedures: Medical decision making: This is a 55-year-old female presents emergency department for headache nausea vomiting and diarrhea for 3 days. Here in the emergency department patient appears in no acute distress. Her vital signs are stable. She has a normal neurologic exam. She transferred from the EMS cot to bed. Patient appears in no acute distress. Patient's laboratory evaluation relatively unremarkable. Troponin negative. Electrolytes stable. No leukocytosis. Urine did not appear infected. EKG showed no acute ST segment changes. Chest x-ray unremarkable. CTA of the head and neck showed chronic infarcts. There is an irregularity at the distal left ICA resulting in 50% s tenosis at the level of C1 secondary to vessel to her history. There is also an irregularity at the distal ICA at the skull base this is not typical for spasm aneurysm or plaque. Possibility of a tiny segment of dissection is not excluded. Recommend repeat CT in the short-term. There is also slight luminal irregularity of the carotid arteries without stenosis. Fibromuscular dysplasia not occluded. With these findings I did did speak with the vascular surgeon Dr. Tom, if patient can tolerate it could potentially do Plavix. No other emergency department recommendations. On reevaluation patient appears comfortable. She is texting on her phone. She appears in no acute distress. At this time based on patient's symptoms and findings will admit to the hospital for further observation and evaluation. Spoke with patient. Agreeable to admission. They are aware of all labs and imaging. All questions answered and patient stable at time of admission. PATIENT: STEPH SAM ACCOUNT: [id number] : 1965 LOCATION: ER AGE: 55 SEX: F EXAM STATUS: REG ER ORD. PHYSICIAN: CLINT CARLOS DO REASON: HEADACHE PROCEDURE: CT HEAD WO CONTRAST EXAM: Head CT without contrast; CT angiogram of the head and neck with intravenous contrast. HISTORY: Headache. TECHNIQUE: Computed tomographic images of the head were obtained without contrast. Post contrast images of the head and neck were obtained following the administration of intravenous contrast. 3-dimensional maximum intensity projections were obtained. *One or more of the following individualized dose reduction techniques were utilized for this examination: 1. Automated exposure control. 2. Adjustment of the mA and/or kV according to patient size. 3. Use of iterative reconstruction technique. COMPARISON: 08/01/2020. FINDINGS: The noncontrast images of the head demonstrate no hemorrhage. There is encephalomalacia within the right parietal lobe with ex vacuo dilatation of the posterior right lateral ventricle likely due to chronic infarction. There is stable mild increased density within the surrounding brain parenchyma likely due to laminar necrosis. There is an additional smaller chronic infarct within the left centrum semiovale. There is a chronic lacunar infarct within the right caudate nucleus. There are extensive scattered areas of hypodensity throughout the cerebral white matter, a nonspecific finding in a patient of this age. There is cerebral atrophy which is advanced for patient age. There is no mass effect or midline shift. There is no hydrocephalus. The orbits, paranasal sinuses mastoid air cells are unremarkable. There is no calvarial lesion. The angiographic images demonstrate a normal caliber aortic arch. There is a common origin of the right innominate and left common carotid arteries, a normal arch branching variant. There is partially calcified atherosclerotic plaque at the origin of the right internal carotid artery, with less than 25 percent stenosis. There is mild asymmetry in the caliber of the right greater than left internal carotid arteries which is likely developmental. There is luminal irregularity of the distal left internal carotid artery at the level of C1 which is secondary to vessel tortuosity, resulting in approximately 50 percent stenosis. There is additional focal stenosis involving the distal left internal carotid artery proximal to the petrous segment which is not typical in appearance for spasm or ulcerated plaque and possibly due to a tiny dissection flap. There is subtle luminal irregularity throughout the remainder of the bilateral internal carotid arteries which is likely artifactual rather than due to fibrous muscular dysplasia. There is asymmetry in the caliber of the right greater than left A1 segments, a normal variant. The anterior indicating artery is patent. The right posterior communicating artery is hypoplastic and and the left posterior commuting indicating artery may be developmental or absent, also a normal variant. The basilar artery is widely patent. The left vertebral artery slightly dominant. The vertebral arteries are otherwise widely patent. No suspicious enhancing lesion is seen. There is degenerative change involving the cervical spine. This results in mild right foraminal stenosis at C3-C4, severe right foraminal stenosis at C4-C5 and mild right foraminal stenosis at C5-C6. There is no lymphadenopathy. The airways midline and widely patent. There is mild atheromatous change within the posterior left lung apex. IMPRESSION: 1. No acute intracranial finding. Note is made that MRI is more sensitive for acute infarction. 2. Chronic infarcts within the right parietal lobe, right caudate nucleus and left centrum semiovale. 3. Extensive bilateral cerebral white matter changes. This is advanced for chronic small vessel disease in a patient of this age. The possibility of superimposed changes due to chronic demyelinating disease can be considered in the appropriate clinical setting. 4. Focal luminal irregularly involving the distal left internal carotid artery, resulting in approximately 50 percent stenosis at the level of C1, secondary to vessel tortuosity. 5. Focal luminal irregularly involving the distal left internal carotid artery at the skull base resulting in approximately 50 percent stenosis. This is not typical in appearance for spasm, aneurysm or ulcerated plaque. The possibility of a tiny segment of dissection is not excluded at this location. Short-term CT angiographic follow-up is recommended. 5. No additional evidence of hemodynamically significant stenosis or aneurysm involving the neck or intracranial arteries. There is slight luminal irregularity throughout the carotid arteries without hemodynamically significant stenosis. Fibromuscular dysplasia is not occluded. PQRS Compliance Statement - Stenosis calculations for CT, MR and conventional angiography are based upon measurement of the distal ICA diameter in accordance with the NASCET methodology. Stenosis calculations for carotid ultrasound studies are derived from validated velocity criteria which are known to correlate with the NASCET methodology. Findings were discussed with Dr. Carlos at 0930 hours on 03/06/2021. Electronically signed by: Giulia Dodge MD (03/06/2021 10:17 AM) [id number] DICTATED and SIGNED BY: GIULIA DODGE MD DATE: 03/06/21 [id number] PATIENT: STEPH SAM ACCOUNT: [id number] : 1965 LOCATION: ER AGE: 55 SEX: F EXAM STATUS: PRE ER ORD. PHYSICIAN: CLINT CARLOS DO REASON: N/V PROCEDURE: CHEST AP ONLY EXAM: Chest, single view. HISTORY: Nausea and vomiting. COMPARISON: 03/19/2020 FINDINGS: A frontal view of the chest is obtained. There is no infiltrate, pleural effusion or pneumothorax. The heart is normal in size. IMPRESSION: No acute pulmonary finding. Electronically signed by: Giulia Dodge MD (03/06/2021 8:22 AM) [id number] DICTATED and SIGNED BY: GIULIA DODGE MD DATE: 03/06/[id number] 0 Course & Med Decision Making: Course & Med Decision Making Pertinent Labs and Imaging studies reviewed. (See chart for details) [] Dragon Disclaimer: Dragon Disclaimer: This electronic medical record was generated, in whole or in part, using a voice recognition dictation system. I have spoken to the patient and/or caregivers. I have explained the patient's condition, diagnoses and treatment plan based on the information available to me at this time. I have answered the patient's and/or caregiver's questions and addressed my concerns. The patient and/or caregivers has a good understanding of the patient's diagnosis, condition and treatment plan as can be expected at this point. The patient has been stabilized within the capability of the emergency department. The patient will be transported for further care and management or will be moved to an observation or inpatient service. I have communicated with the staff or medical practitioner taking over this patient's care. Departure Departure Impression: Primary Impression: Nausea vomiting and diarrhea Additional Impressions: Headache Abnormal CT scan of head Admitting Physician: NOLAN (Spoke with Dr. Yu [id number]. We will admit the patient. Agreeable to plan.) Condition: STABLE Referrals: UNKNOWN PCP NAME (PCP) CLINT CARLOS DO Mar 06, 2021 08:02
[2021-03-06] MEDS ORDERED: ONDANSETRON PF 4 MG/2 ML VIAL. IVP ONE (08:15)
--- NOTE | 2021-03-06 08:25 | RAD ---
EXAM: Chest, single view. HISTORY: Nausea and vomiting. COMPARISON: 03/19/2020 FINDINGS: A frontal view of the chest is obtained. There is no infiltrate, pleural effusion or pneumo thorax. The heart is normal in size. IMPRESSION: No acute pulmonary finding. Electronically signed by: Giulia Melendez MD (03/06/2021 8:22 AM) [id number]
--- NOTE | 2021-03-06 08:25 | EKG ---
[facility] [address] [place] [address] Test Date: 2021-03-06 Test Time: 08:02:47 Pat Name: STEPH SAM Department: Room: Gender: F [employer] Eng: : 1965 Requested By: CLINT CARLOS Order Number: [id number] Reading MD: Measurements Intervals [place] Rate: 64 P: 64 DE: 194 QRS: 48 QRSD: 78 T: 128 QT: 406 QTc: 423 Interpretive Statements SINUS RHYTHM T ABNORMALITY IN ANTEROLATERAL LEADS ABNORMAL ECG RI6.02 No previous ECG available for comparison
[2021-03-06] MEDS ORDERED: MORPHINE SULFATE 2 MG/ML VIAL. IV ONE (08:30)
[2021-03-06 08:32] LABS: BASO % 1 % (0-3); EOS # 0.1 x10^3/uL (0.0-0.7); EOS % 1 % (0-3); HEMATOCRIT 39.8 % (36.0-47.0); HEMOGLOBIN 13.3 g/dL (12.0-15.5); LYMPH # 1.3 x10^3/uL (1.0-4.8); LYMPH % 18 % (24-48); MEAN CORPUSCULAR HEMOGLOBIN 32 pg (25-35); MEAN CORPUSCULAR HGB CONC 33 g/dL (31-37); MEAN CORPUSCULAR VOLUME 96 fL (79-100); MONO # 0.4 x10^3/uL (0.0-1.1); MONO % 6 % (0-9); NEUT # 5.5 x10^3/uL (1.8-7.7); NEUT % 75 % (31-73); PLATELET COUNT 216 x10^3/uL (140-400); RED BLOOD COUNT 4.12 x10^6/uL (3.50-5.40); RED CELL DISTRIBUTION WIDTH 13.9 % (11.5-14.5); WHITE BLOOD COUNT 7.4 x10^3/uL (4.0-11.0)
[2021-03-06 08:48] LABS: CALCIUM 8.8 mg/dL (8.5-10.1); CREATININE 0.8 mg/dL (0.6-1.0); GFR 89.5; POTASSIUM 4.4 mmol/L (3.5-5.1)
[2021-03-06 08:52] LABS: ALBUMIN 3.5 g/dL (3.4-5.0); TOTAL BILIRUBIN 0.4 mg/dL (0.2-1.0); TOTAL PROTEIN 7.1 g/dL (6.4-8.2)
[2021-03-06] MEDS ORDERED: IOHEXOL 300 MG/ML 100ML VIAL. IV ONE (09:00)
[2021-03-06] MEDS ORDERED: CONTRAST GIVEN. MC PRN (09:00)
--- NOTE | 2021-03-06 10:19 | RAD ---
EXAM: Head CT without contrast; CT angiogram of the head and neck with intravenous contrast. HISTORY: Headache. TECHNIQUE: Computed tomographic images of the head were obtained without contrast. Post contrast imag es of the head and neck were obtained following the administration of intravenous contrast. 3-dimensi onal maximum intensity projections were obtained. *One or more of the following individualized dose reduction techniques were utilized for this examina tion: 1. Automated exposure control. 2. Adjustment of the mA and/or kV according to patient size. 3. Use of iterative reconstruction technique. COMPARISON: 08/01/2020. FINDINGS: The noncontrast images of the head demonstrate no hemorrhage. There is encephalomalacia wit hin the right parietal lobe with ex vacuo dilatation of the posterior right lateral ventricle likely due to chronic infarction. There is stable mild increased density within the surrounding brain parenc hyma likely due to laminar necrosis. There is an additional smaller chronic infarct within the left c entrum semiovale. There is a chronic lacunar infarct within the right caudate nucleus. There are extensive scattered areas of hypodensity throughout the cerebral white matter, a nonspecifi c finding in a patient of this age. There is cerebral atrophy which is advanced for patient age. Ther e is no mass effect or midline shift. There is no hydrocephalus. The orbits, paranasal sinuses mastoi d air cells are unremarkable. There is no calvarial lesion. The angiographic images demonstrate a normal caliber aortic arch. There is a common origin of the rig ht innominate and left common carotid arteries, a normal arch branching variant. There is partially c alcified atherosclerotic plaque at the origin of the right internal carotid artery, with less than 25 percent stenosis. There is mild asymmetry in the caliber of the right greater than left internal car otid arteries which is likely developmental. There is luminal irregularity of the distal left interna l carotid artery at the level of C1 which is secondary to vessel tortuosity, resulting in approximate ly 50 percent stenosis. There is additional focal stenosis involving the distal left internal carotid artery proximal to the petrous segment which is not typical in appearance for spasm or ulcerated plaque and possibly due to a tiny dissection flap. There is subtle luminal irregularity throughout the remainder of the bilatera l internal carotid arteries which is likely artifactual rather than due to fibrous muscular dysplasia . There is asymmetry in the caliber of the right greater than left A1 segments, a normal variant. The a nterior indicating artery is patent. The right posterior communicating artery is hypoplastic and and the left posterior commuting indicating artery may be developmental or absent, also a normal variant. The basilar artery is widely patent. The left vertebral artery slightly dominant. The vertebral omaira keanu are otherwise widely patent. No suspicious enhancing lesion is seen. There is degenerative change involving the cervical spine. This results in mild right foraminal steno sis at C3-C4, severe right foraminal stenosis at C4-C5 and mild right foraminal stenosis at C5-C6. Th ere is no lymphadenopathy. The airways midline and widely patent. There is mild atheromatous change w ithin the posterior left lung apex. IMPRESSION: 1. No acute intracranial finding. Note is made that MRI is more sensitive for acute infarction. 2. Chronic infarcts within the right parietal lobe, right caudate nucleus and left centrum semiovale. 3. Extensive bilateral cerebral white matter changes. This is advanced for chronic small vessel disea se in a patient of this age. The possibility of superimposed changes due to chronic demyelinating dis ease can be considered in the appropriate clinical setting. 4. Focal luminal irregularly involving the distal left internal carotid artery, resulting in approxim ately 50 percent stenosis at the level of C1, secondary to vessel tortuosity. 5. Focal luminal irregularly involving the distal left internal carotid artery at the skull base resu lting in approximately 50 percent stenosis. This is not typical in appearance for spasm, aneurysm or ulcerated plaque. The possibility of a tiny segment of dissection is not excluded at this location. S hort-term CT angiographic follow-up is recommended. 5. No additional evidence of hemodynamically significant stenosis or aneurysm involving the neck or i ntracranial arteries. There is slight luminal irregularity throughout the carotid arteries without he modynamically significant stenosis. Fibromuscular dysplasia is not occluded. PQRS Compliance Statement - Stenosis calculations for CT, MR and conventional angiography are based u [place] measurement of the distal ICA diameter in accordance with the NASCET methodology. Stenosis calcu lations for carotid ultrasound studies are derived from validated velocity criteria which are known t o correlate with the NASCET methodology. Findings were discussed with Dr. Mendoza at 0930 hours on 03/06/2021. Electronically signed by: Giulia Melendez MD (03/06/2021 10:17 AM) [id number]
[2021-03-06 10:32] LABS: BILIRUBIN,URINE NEGATIVE (NEG); CLARITY,URINE CLEAR; COLOR,URINE YELLOW; NITRITE,URINE NEGATIVE (NEG); PH,URINE 6.5 (<5.0-8.0); PROTEIN,URINE NEGATIVE (NEG-TRACE); UROBILINOGEN,URINE 0.2 mg/dL (0.2 mg/dL)
--- NOTE | 2021-03-06 10:37 | PDOC1 ---
History and Physical Date of Admission Date of Admission DATE: 03/06/21 TIME: 10:36 Identification/Chief Complaint Chief Complaint headache and neck pain, severe History of Present Illness History of Present Illness 55 year old female with history of hypertension, hyperlipidemia, seizures, CVA presents emergency department for multiple complaints. Patient has not felt well in 3 days. She has had a mild diffuse headache. She has had nausea vomiting diarrhea. No blood in her stool or vomit. No fevers that she knows of. No cough. No sick contacts. Patient denies dysuria or hematuria. No abdominal pain. Patient denies Covid risk factors for exposures. Patient is non-smoker. Drinks alcohol occasionally. Denies drug use. Patient initially called EMS this morning at 645. They took her vital signs and she refused transport she reports she was going to have her family member bring her to the emergency department cta concerning for carotid dissection Focal luminal irregularly involving the distal left internal carotid artery at the skull base resulting in approximately 50 percent stenosis. This is not typical in appearance for spasm, aneurysm or ulcerated plaque. possibility of a tiny segment of dissection is not excluded Past Medical History Past Medical History Past Medical History Past Medical History Past Medical History: Anxiety, CVA, Dementia, Hypertension, Seizure Additional Past Medical Histor: "brain aneurysm",PANIC ATTACKS, EARLY ONSET DEMENTIA Past Surgical History: Appendectomy, , Hysterectomy, Tonsillectomy Smoking Status: Former Smoker Alcohol Use: Occasionally Drug Use: None Cardiovascular: CAD, CHF, Hyperlipidemia, Other Pulmonary: Bronchitis CENTRAL NERVOUS SYSTEM: CVA, Dementia, Seizure, Other GI: GERD Heme/Onc: Sickle cell disease Hepatobiliary: No pertinent hx Psych: Anxiety, Depression Musculoskeletal: low back pain, Osteoarthritis Rheumatologic: No pertinent hx Infectious disease: No pertinent hx Renal/: Chronic renal failure, Other Endocrine: No pertinent hx Past Surgical History Past Surgical History: , Hysterectomy, Other Family History Family History: Cancer, Coronary Artery Disease, Heart Disease Social History Smoke: <1 pack per day ALCOHOL: none Drugs: None Current Problem List Problem List Problems Medical Problems: (1) Headache Status: Acute (2) Nausea vomiting and diarrhea Status: Acute Current Medications Current Medications Current Medications Sodium Chloride 1,000 ml @ 1,000 mls/hr 1X ONCE IV Last administered on 03/06/21at 08:36; Start 03/06/21 at 08:00; Stop 03/06/21 at 08:59; Status DC Ondansetron HCl (Zofran) 4 mg 1X ONCE IVP Last administered on 03/06/21at 08: 36; Start 03/06/21 at 08:15; Stop 03/06/21 at 08:16; Status DC Morphine Sulfate (Morphine Sulfate) 2 mg 1X ONCE IV Last administered on 03/06/21at 08:57; Start 03/06/21 at 08:30; Stop 03/06/21 at 08:36; Status DC Iohexol (Omnipaque 300 Mg/ml) 75 ml 1X ONCE IV Last administered on 03/06/21at 09:13; Start 03/06/21 at 09:00; Stop 03/06/21 at 09:01; Status DC Info (CONTRAST GIVEN -- Rx MONITORING) 1 each PRN DAILY PRN MC SEE COMMENTS; Start 03/06/21 at 09:00; Stop 03/08/21 at 08:59 Morphine Sulfate (Morphine Sulfate) 4 mg 1X ONCE IV ; Start 03/06/21 at 10:45; Stop 03/06/21 at 10:46; Status UNV Active Scripts Active Ondansetron Odt (Ondansetron) 4 Mg Tab.rapdis 1 Tab PO PRN Q6-8HRS PRN Trlpmx-Oompgrgi-Masa 50-325-40 (Butalb/Acetaminophen/Caffeine) 1 Each Tablet 1 Each PO Q6HRS PRN Lamictal (Lamotrigine) 200 Mg Tablet 1 Tab PO DAILY Lisinopril 20 Mg Tablet 1 Tab PO DAILY Potassium Chloride (Potassium Chloride) 20 Meq Tablet.er 20 Meq PO DAILY 10 Days Clonidine Hcl 0.1 Mg Tablet 0.1 Mg PO BID PRN Take each tablet as needed for Systolic (upper) blood pressure greater than 185 and/or Diastolic (lower) blood pressure greater than 110. Quetiapine Fumarate 25 Mg Tablet 25 Mg PO BID 30 Days Aspirin 325 Mg Tablet 325 Mg PO DAILYWBKFT 30 Days Amlodipine Besylate 5 Mg Tablet 5 Mg PO DAILY 30 Days Lisinopril 40 Mg Tablet 40 Mg PO DAILY 30 Days Atorvastatin Calcium 20 Mg Tablet 20 Mg PO QHS 30 Days Colace (Docusate Sodium) 100 Mg Capsule 1 Cap PO BID Reported Hydroxyzine Pamoate 50 Mg Capsule 50 Mg PO TID Zolpidem Tartrate 10 Mg Tablet 10 Mg PO QHS Carvedilol (Carvedilol) 12.5 Mg Tablet 6.25 Mg PO BIDWMEALS Tums (Calcium Carbonate) 200 Mg Tab.chew 200 Mg PO Diazepam 10 Mg Tablet 10 Mg PO BID Allergies Allergies: Coded Allergies: No Known Drug Allergies (Unverified , 09/27/16) ROS Review of System neck pain General: YES: Fatigue PSYCHOLOGICAL ROS: YES: Anxiety Eyes: No Blurry vision, No Decreased vision, No Double vision, No Dry eyes, No Excessive tearing, No Eye Pain, No Itchy Eyes, No Loss of vision, No Photophobia, No Scotomata, No Uses contacts, No Uses glasses, No Other HEENT: YES: Heacaches; No: Visual Changes, Hearing change, Nasal congestion, Nasal discharge, Oral lesions, Sinus pain, Sore Throat, Epistaxis, Sneezing, Snoring, Tinnitus, Vertigo, Vocal changes, Other ALLERGY AND IMMUNOLOGY: No: Hives, Insect Bite Sensitivity, Itchy/Watery Eyes, Nasal Congestion, Post Nasal Drip, Seasonal Allergies, Other Hematological and Lymphatic: No: Bleeding Problems, Blood Clots, Blood Transfusions, Brusing, Night Sweats, Pallor, Swollen Lymph Nodes, Other ENDOCRINE: No: Breast Changes, Galactorrhea, Hair Pattern Changes, Hot Flashes, Malaise/lethargy, Mood Swings, Palpitations, Polydipsia/polyuria, Skin Changes, Temperature Intolerance, Unexpected Weight Changes, Other Breast: No New/Changing Breast Lumps, No Nipple changes, No Nipple discharge, No Other Respiratory: No: Cough, Hemoptysis, Orthopnea, Pleuritic Pain, Shortness of breath, SOB with excertion, Sputum Changes, Stridor, Tachypnea, Wheezing, Other Cardiovascular: No Chest Pain, No Palpitations, No Orthopnea, No Paroxysmal Noc. Dyspnea, No Edema, No Lt Headedness, No Other Gastrointestinal: Yes Nausea; No Vomiting, No Abdominal Pain, No Diarrhea, No Constipation, No Melena, No Hematochezia, No Other Genitourinary: No Dysuria, No Frequency, No Incontinence, No Hematuria, No Retention, No Discharge, No Urgency, No Pain, No Flank Pain, No Other, No , No , No , No , No , No , No Skin: No Dry Skin, No Eczema, No Hair Changes, No Lumps, No Mole Changes, No Mottling, No Nail Changes, No Pruritus, No Rash, No Skin Lesion Changes, No Other, No Acne Physical Exam General: Alert, Oriented X3, Cooperative, No acute distress, mild distress HEENT: PERRLA Lungs: Clear to auscultation, Normal air movement Heart: S1S2, RRR, no thrills, no gallops, no murmurs Cardiovascular: S1, S2 Breasts: Not examined Abdomen: Normal bowel sounds, Soft Rectal Exam: not examined PELVIC: Examination not indicated Extremities: No cyanosis Skin: No rashes, No breakdown Neuro: Normal speech, Cranial nerves 3-12 NL Psych/Mental Status: Mental status NL, Mood NL Vitals Vitals Vital Signs Date Time Temp Pulse Resp B/P (MAP) Pulse Ox O2 Delivery O2 Flow Rate FiO2 03/06/21 08:57 19 92 Room Air 03/06/21 07:55 98.6 63 168/93 (118) 98.6 Labs Labs Laboratory Tests Test 03/06/21 08:05 White Blood Count 7.4 x10^3/uL (4.0-11.0) Red Blood Count 4.12 x10^6/uL (3.50-5.40) Hemoglobin 13.3 g/dL (12.0-15.5) Hematocrit 39.8 % (36.0-47.0) Mean Corpuscular Volume 96 fL (79-100) Mean Corpuscular Hemoglobin 32 pg (25-35) Mean Corpuscular Hemoglobin Concent 33 g/dL (31-37) Red Cell Distribution Width 13.9 % (11.5-14.5) Platelet Count 216 x10^3/uL (140-400) Neutrophils (%) (Auto) 75 % (31-73) Lymphocytes (%) (Auto) 18 % (24-48) Monocytes (%) (Auto) 6 % (0-9) Eosinophils (%) (Auto) 1 % (0-3) Basophils (%) (Auto) 1 % (0-3) Neutrophils # (Auto) 5.5 x10^3/uL (1.8-7.7) Lymphocytes # (Auto) 1.3 x10^3/uL (1.0-4.8) Monocytes # (Auto) 0.4 x10^3/uL (0.0-1.1) Eosinophils # (Auto) 0.1 x10^3/uL (0.0-0.7) Basophils # (Auto) 0.0 x10^3/uL (0.0-0.2) Sodium Level 143 mmol/L (136-145) Potassium Level 4.4 mmol/L (3.5-5.1) Chloride Level 106 mmol/L (98-107) Carbon Dioxide Level 25 mmol/L (21-32) Anion Gap 12 (6-14) Blood Urea Nitrogen 16 mg/dL (7-20) Creatinine 0.8 mg/dL (0.6-1.0) Estimated GFR (Cockcroft-Gault) 89.5 BUN/Creatinine Ratio 20 (6-20) Glucose Level 99 mg/dL (70-99) Calcium Level 8.8 mg/dL (8.5-10.1) Total Bilirubin 0.4 mg/dL (0.2-1.0) Aspartate Amino Transf (AST/SGOT) 15 U/L (15-37) Alanine Aminotransferase (ALT/SGPT) 21 U/L (14-59) Alkaline Phosphatase 100 U/L (46-116) Troponin I Quantitative < 0.017 ng/mL (0.000-0.055) Total Protein 7.1 g/dL (6.4-8.2) Albumin 3.5 g/dL (3.4-5.0) Albumin/Globulin Ratio 1.0 (1.0-1.7) Lipase 140 U/L (73-393) Ethyl Alcohol Level < 10 mg/dL (0-10) Laboratory Tests Test 03/06/21 08:05 White Blood Count 7.4 x10^3/uL (4.0-11.0) Red Blood Count 4.12 x10^6/uL (3.50-5.40) Hemoglobin 13.3 g/dL (12.0-15.5) Hematocrit 39.8 % (36.0-47.0) Mean Corpuscular Volume 96 fL (79-100) Mean Corpuscular Hemoglobin 32 pg (25-35) Mean Corpuscular Hemoglobin Concent 33 g/dL (31-37) Red Cell Distribution Width 13.9 % (11.5-14.5) Platelet Count 216 x10^3/uL (140-400) Neutrophils (%) (Auto) 75 % (31-73) Lymphocytes (%) (Auto) 18 % (24-48) Monocytes (%) (Auto) 6 % (0-9) Eosinophils (%) (Auto) 1 % (0-3) Basophils (%) (Auto) 1 % (0-3) Neutrophils # (Auto) 5.5 x10^3/uL (1.8-7.7) Lymphocytes # (Auto) 1.3 x10^3/uL (1.0-4.8) Monocytes # (Auto) 0.4 x10^3/uL (0.0-1.1) Eosinophils # (Auto) 0.1 x10^3/uL (0.0-0.7) Basophils # (Auto) 0.0 x10^3/uL (0.0-0.2) Sodium Level 143 mmol/L (136-145) Potassium Level 4.4 mmol/L (3.5-5.1) Chloride Level 106 mmol/L (98-107) Carbon Dioxide Level 25 mmol/L (21-32) Anion Gap 12 (6-14) Blood Urea Nitrogen 16 mg/dL (7-20) Creatinine 0.8 mg/dL (0.6-1.0) Estimated GFR (Cockcroft-Gault) 89.5 BUN/Creatinine Ratio 20 (6-20) Glucose Level 99 mg/dL (70-99) Calcium Level 8.8 mg/dL (8.5-10.1) Total Bilirubin 0.4 mg/dL (0.2-1.0) Aspartate Amino Transf (AST/SGOT) 15 U/L (15-37) Alanine Aminotransferase (ALT/SGPT) 21 U/L (14-59) Alkaline Phosphatase 100 U/L (46-116) Troponin I Quantitative < 0.017 ng/mL (0.000-0.055) Total Protein 7.1 g/dL (6.4-8.2) Albumin 3.5 g/dL (3.4-5.0) Albumin/Globulin Ratio 1.0 (1.0-1.7) Lipase 140 U/L (73-393) Ethyl Alcohol Level < 10 mg/dL (0-10) Images Images Indication: stroke Comparison: CT head 07/15/2020. Technique: Multiplanar multisequence MRI of the brain was performed without intravenous contrast using the standard protocol. Findings: No acute infarct. No acute hemorrhage. The ventricles are normal in size and configuration without hydrocephalus. Extensive FLAIR hyperintense signal in the subcortical and periventricular deep white matter, a nonspecific finding, most commonly seen with chronic small vessel ischemic disease. Mild generalized cerebral volume loss. Moderate right parietotemporal encephalomalacia with hemosiderin deposition. Chronic merino radiata lacunar infarcts. The scalp and calvarium are normal. Partial empty sella. No Chiari malformation. Mild incompletely characterized degenerative spondylosis of the visualized upper cervical spine. The visualized orbits and globes are normal. The visualized paranasal sinuses are clear. The mastoid air cells are clear. Normal flow voids within the vertebral, basilar, and internal carotid arteries indicating patency. IMPRESSION: 1. No acute infarct, acute hemorrhage, mass, or hydrocephalus. 2. Moderate area of right parietotemporal encephalomalacia. Chronic merino radiata lacunar infarcts. 3. Extensive chronic small vessel ischemic disease and mild generalized cerebral volume loss. Electronically signed by: Inna Bautista MD (07/16/2020 10:16 AM) [id number] DICTATED and SIGNED BY: INNA BAUTISTA MD DATE: 07/16/20 1016 EXAM: Chest, single view. HISTORY: Nausea and vomiting. COMPARISON: 03/19/2020 FINDINGS: A frontal view of the chest is obtained. There is no infiltrate, pleural effusion or pneumothorax. The heart is normal in size. IMPRESSION: No acute pulmonary finding. Electronically signed by: Giulia Dodge MD (03/06/2021 8:22 AM) [id number] DICTATED and SIGNED BY: GIULIA DODGE MD DATE: 03/06/21 [id number] 0 HISTORY: Headache. TECHNIQUE: Computed tomographic images of the head were obtained without contrast. Post contrast images of the head and neck were obtained following the administration of intravenous contrast. 3-dimensional maximum intensity projections were obtained. *One or more of the following individualized dose reduction techniques were utilized for this examination: 1. Automated exposure control. 2. Adjustment of the mA and/or kV according to patient size. 3. Use of iterative reconstruction technique. COMPARISON: 08/01/2020. FINDINGS: The noncontrast images of the head demonstrate no hemorrhage. There is encephalomalacia within the right parietal lobe with ex vacuo dilatation of the posterior right lateral ventricle likely due to chronic infarction. There is stable mild increased density within the surrounding brain parenchyma likely due to laminar necrosis. There is an additional smaller chronic infarct within the left centrum semiovale. There is a chronic lacunar infarct within the right caudate nucleus. There are extensive scattered areas of hypodensity throughout the cerebral white matter, a nonspecific finding in a patient of this age. There is cerebral atrophy which is advanced for patient age. There is no mass effect or midline shift. There is no hydrocephalus. The orbits, paranasal sinuses mastoid air cells are unremarkable. There is no calvarial lesion. The angiographic images demonstrate a normal caliber aortic arch. There is a common origin of the right innominate and left common carotid arteries, a normal arch branching variant. There is partially calcified atherosclerotic plaque at the origin of the right internal carotid artery, with less than 25 percent stenosis. There is mild asymmetry in the caliber of the right greater than left internal carotid arteries which is likely developmental. There is luminal irregularity of the distal left internal carotid artery at the level of C1 which is secondary to vessel tortuosity, resulting in approximately 50 percent stenosis. There is additional focal stenosis involving the distal left internal carotid artery proximal to the petrous segment which is not typical in appearance for spasm or ulcerated plaque and possibly due to a tiny dissection flap. There is subtle luminal irregularity throughout the remainder of the bilateral internal carotid arteries which is likely artifactual rather than due to fibrous muscular dysplasia. There is asymmetry in the caliber of the right greater than left A1 segments, a normal variant. The anterior indicating artery is patent. The right posterior communicating artery is hypoplastic and and the left posterior commuting indicating artery may be developmental or absent, also a normal variant. The basilar artery is widely patent. The left vertebral artery slightly dominant. The vertebral arteries are otherwise widely patent. No suspicious enhancing lesion is seen. There is degenerative change involving the cervical spine. This results in mild right foraminal stenosis at C3-C4, severe right foraminal stenosis at C4-C5 and mild right foraminal stenosis at C5-C6. There is no lymphadenopathy. The airways midline and widely patent. There is mild atheromatous change within the posterior left lung apex. IMPRESSION: 1. No acute intracranial finding. Note is made that MRI is more sensitive for a cute infarction. 2. Chronic infarcts within the right parietal lobe, right caudate nucleus and left centrum semiovale. 3. Extensive bilateral cerebral white matter changes. This is advanced for chronic small vessel disease in a patient of this age. The possibility of superimposed changes due to chronic demyelinating disease can be considered in the appropriate clinical setting. 4. Focal luminal irregularly involving the distal left internal carotid artery, resulting in approximately 50 percent stenosis at the level of C1, secondary to vessel tortuosity. 5. Focal luminal irregularly involving the distal left internal carotid artery a t the skull base resulting in approximately 50 percent stenosis. This is not typical in appearance for spasm, aneurysm or ulcerated plaque. The possibility of a tiny segment of dissection is not excluded at this location. Short-term CT angiographic follow-up is recommended. 5. No additional evidence of hemodynamically significant stenosis or aneurysm involving the neck or intracranial arteries. There is slight luminal irregularity throughout the carotid arteries without hemodynamically significant stenosis. Fibromuscular dysplasia is not occluded. PQRS Compliance Statement - Stenosis calculations for CT, MR and conventional angiography are based upon measurement of the distal ICA diameter in accordance with the NASCET methodology. Stenosis calculations for carotid ultrasound studies are derived from validated velocity criteria which are known to correlate with the NASCET methodology. Findings were discussed with Dr. Mendoza at 0930 hours on 03/06/2021. Electronically signed by: Giulia Dodge MD (03/06/2021 10:17 AM) [id number] DICTATED and SIGNED BY: GIULIA DODGE MD DATE: 03/06/21 [id number] 0 VTE Prophylaxis Ordered VTE Prophylaxis Devices: Yes VTE Pharmacological Prophylaxi: Contraindicated Assessment/Plan Assessment/Plan IMPRESSIOn 1. No acute intracranial finding. Note is made that MRI is more sensitive for acute infarction. 2. Chronic infarcts within the right parietal lobe, right caudate nucleus and left centrum semiovale. 3. Extensive bilateral cerebral white matter changes. This is advanced for chronic small vessel disease in a patient of this age.possibility of superimposed changes due to chronic demyelinating disease can be considered 4. Focal luminal irregularly involving the distal left internal carotid artery, resulting in approximately 50 percent stenosis at the level of C1, secondary to vessel tortuosity. 5. Focal luminal irregularly involving the distal left internal carotid artery at the skull base resulting in approximately 50 percent stenosis. This is not typical in appearance for spasm, aneurysm or ulcerated plaque. possibility of a tiny segment of dissection is not excluded Short-term CT angiographic follow-up is recommended. 6. No additional evidence of hemodynamically significant stenosis or aneurysm involving the neck or intracranial arteries. There is slight luminal irregularity throughout the carotid arteries without hemodynamically significant stenosis. Fibromuscular dysplasia not occluded. 7 Moderate area of right parietotemporal encephalomalacia. Chronic merino ra diata lacunar infarcts. plan admit consult vascular surgery live neurology consult monitored bed iv pain control npo iv fluids bp control neurochecks q 4 hrs scd's no lovenox 35 min cc time Justifications for Admission Other Justification XIMENA SPEARS MD Mar 06, 2021 10:37
[2021-03-06] MEDS ORDERED: ONDANSETRON PF 4 MG/2 ML VIAL. IV PRN ×2 (10:45→15:15)
[2021-03-06 10:55] LABS: BACTERIA,URINE FEW /HPF (0-FEW); RBC,URINE 0 /HPF (0-2); WBC,URINE 0 /HPF (0-4)
[2021-03-06] MEDS ORDERED: MORPHINE SULFATE 4 MG/ML VIAL. IV ONE (11:00)
[2021-03-06] MEDS: HYDROmorphone 2 MG/ML VIAL IVP PRN ×2 (12:30→19:51)
[2021-03-06] MEDS ORDERED: cloNIDine HCL 0.1 MG TABLET PO PRN (15:00)
[2021-03-06] MEDS ORDERED: CALCIUM CARBONATE 500 MG TAB.CHEW PO PRN (15:00)
[2021-03-06] MEDS ORDERED: ONDANSETRON ODT 4 MG TAB.RAPDIS. PO PRN (15:00)
[2021-03-06] MEDS ORDERED: SODIUM PHOSPHATES 19/7GM 133 ML ENEMA. PR PRN (15:15)
[2021-03-06] MEDS ORDERED: guaiFENesin ORAL 200 MG/10 ML LIQUID. PO PRN (15:15)
[2021-03-06] MEDS ORDERED: LORazepam 0.5 MG TABLET PO PRN (15:15)
[2021-03-06] MEDS ORDERED: 0.9 % SODIUM CHLORIDE 10 ML DISP.SYRIN. IV PRN (15:15)
[2021-03-06] MEDS ORDERED: DOCUSATE SODIUM 100 MG CAPSULE. PO PRN (15:15)
[2021-03-06] MEDS ORDERED: MAG HYDROX/ALUMINUM HYD/SIMETH 30 ML ORAL.SUSP PO PRN (15:15)
[2021-03-06] MEDS ORDERED: ALBUTEROL SULFATE 2.5 MG/3 ML NEBU. NEB PRN (15:15)
[2021-03-06] MEDS: IV NORMAL SALINE 1000ML BAG 1,000 ML IV SCH (15:15)
[2021-03-06] MEDS ORDERED: ACETAMINOPHEN 650 MG SUPP.RECT. PR PRN (15:15)
--- NOTE | 2021-03-06 15:32 | PDOC2 ---
NEUROLOGY CONSULT Date of Service DOS: DATE: 03/06/21 TIME: 15:24 Reason for Consult Reason for Consult: abnormal CTA Referring Physician Referring Physician: Dr. Yu Source Source: Chart review, Patient History of Present Illness History of Present Illness The patient is a 55-year-old right-handed female who came to the emergency department today with several days of not feeling well. She has diffuse headache, nausea, vomiting diarrhea, blurred vision, trouble thinking. She says that she decided to start taking her medications only in the morning, omitting the evening doses. She has not had seizures in several months, she says. She summoned emergency medical service this morning at 6: 45, but she refused transport until she could not find anyone to bring her, then she summoned EMS back and they brought her to the hospital. She has a history of several strokes including hemorrhagic ones and multiple admissions for hypertensive encephalopathy. 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 She was last here in June for a seizure. She has had several EEG studies in the past which have failed to reveal epileptic activity. Seizures are almost always provoked, either with hypertension or stroke. She had several admissions for hypertensive encephalopathy. The patient also continues to use tobacco and alcohol. Past Medical History Cardiovascular: CAD, CHF, Hyperlipidemia, Other (cardiomyopathy) Pulmonary: Bronchitis CENTRAL NERVOUS SYSTEM: CVA, Dementia (multi-infarct), Migraine, Seizure, Other GI: GERD (Hypertensive encephalopathy) Heme/Onc: Sickle cell disease Psych: Anxiety, Depression Renal/: Chronic renal failure, Other (Uterine cancer, fibroids) Past Surgical History Past Surgical History: , Tonsillectomy, Hysterectomy, Other (Cardiac cath) Family History Family History: CVA, DM Social History Social History Single, 1 cigarette/day, 0-4 alcoholic beverages per day, disabled, unemployed Current Medications Current Medications Current Medications Sodium Chloride 1,000 ml @ 1,000 mls/hr 1X ONCE IV Last administered on 03/06/21at 08:36; Start 03/06/21 at 08:00; Stop 03/06/21 at 08:59; Status DC Ondansetron HCl (Zofran) 4 mg 1X ONCE IVP Last administered on 03/06/21at 08:36; Start 03/06/21 at 08:15; Stop 03/06/21 at 08:16; Status DC Morphine Sulfate (Morphine Sulfate) 2 mg 1X ONCE IV Last administered on 03/06/21at 08:57; Start 03/06/21 at 08:30; Stop 03/06/21 at 08:36; Status DC Iohexol (Omnipaque 300 Mg/ml) 75 ml 1X ONCE IV Last administered on 03/06/21at 09:13; Start 03/06/21 at 09:00; Stop 03/06/21 at 09:01; Status DC Info (CONTRAST GIVEN -- Rx MONITORING) 1 each PRN DAILY PRN MC SEE COMMENTS; Start 03/06/21 at 09:00; Stop 03/08/21 at 08:59 Morphine Sulfate (Morphine Sulfate) 4 mg 1X ONCE IV Last administered on 03/06/21at 10:56; Start 03/06/21 at 11:00; Stop 03/06/21 at 11:01; Status DC Ondansetron HCl (Zofran) 4 mg PRN Q8HRS PRN IV NAUSEA/VOMITING; Start 03/06/21 at 10:45; Stop 03/07/21 at 10:44 Hydromorphone HCl (Dilaudid) 0.5 mg PRN Q3HRS PRN IVP SEVERE PAIN 7-10 Last ad ministered on 03/06/21at 12:30; Start 03/06/21 at 12:15 Amlodipine Besylate (Norvasc) 5 mg DAILY PO ; Start 03/07/21 at 09:00; Status UNV Aspirin (Jennifer Aspirin) 325 mg DAILYWBKFT PO ; Start 03/07/21 at 08:00; Status UNV Atorvastatin Calcium (Lipitor) 20 mg QHS PO ; Start 03/06/21 at 21:00; Status UNV Acetaminophen/ Butalbital/ Caffeine (Fioricet) 1 tab Q6HRS PRN PO ; Start 02/16 08/08 at 15:00; Status UNV Calcium Carbonate/ Glycine (Tums) 200 mg PRN Q2HR PRN PO HEARTBURN / GAS; Start 03/06/21 at 15:00; Status UNV Carvedilol (Coreg) 6.25 mg BIDWMEALS PO ; Start 03/06/21 at 17:00; Status UNV Clonidine HCl (Catapres) 0.1 mg BID PRN PO ELEVATED BP, SEE COMMENTS; Start 03/06/21 at 15:00; Status UNV Docusate Sodium (Colace) 100 mg BID PO ; Start 03/06/21 at 21:00; Status UNV Lisinopril (Prinivil) 20 mg DAILY PO ; Start 03/07/21 at 09:00; Status UNV Ondansetron HCl (Zofran Odt) 4 mg PRN Q4HRS PRN PO NAUSEA; Start 03/06/21 at 15:00; Status UNV Potassium Chloride (Klor-Con) 20 meq DAILY PO ; Start 03/07/21 at 09:00; Status UNV Quetiapine Fumarate (SEROquel) 25 mg BID PO ; Start 03/06/21 at 21:00; Status UNV Non-Formulary Medication (Hydroxyzine Pamoate ) 50 mg TID PO ; Start 03/06/21 at 21:00; Status UNV Non-Formulary Medication (Lamotrigine (Lamictal)) 1 tab DAILY PO ; Start 03/07/21 at 09:00; Status UNV Sodium Chloride (Normal Saline Flush) 3 ml QSHIFT PRN IV AFTER MEDS AND BLOOD DRAWS; Start 03/06/21 at 15:15; Status UNV Sodium Chloride 1,000 ml @ 100 mls/hr Q10H IV ; Start 03/06/21 at 15:15; Statu s UNV Ondansetron HCl (Zofran) 4 mg PRN Q4HRS PRN IV NAUSEA/VOMITING; Start 03/06/21 at 15:15; Status UNV Acetaminophen (Tylenol) 650 mg PRN Q4HRS PRN PO TEMP OVER 100.4F OR MILD PAIN; Start 03/06/21 at 15:15; Status UNV Acetaminophen (Tylenol Supp) 650 mg PRN Q4HRS PRN ID TEMP OVER 100.4F OR MILD PAIN; Start 03/06/21 at 15:15; Status UNV Al Hydroxide/Mg Hydroxide (Mylanta Plus Xs) 30 ml PRN DAILY PRN PO HEARTBURN / GAS; Start 03/06/21 at 15:15; Status UNV Sodium Monofluorophosphate (Fleet Adult) 133 ml PRN DAILY PRN ID CONSTIPATION; Start 03/06/21 at 15:15; Status UNV Docusate Sodium (Colace) 100 mg PRN BID PRN PO HARD STOOLS; Start 03/06/21 at 15:15; Status UNV Albuterol Sulfate (Ventolin Neb Soln) 2.5 mg PRN Q4HRS PRN NEB SHORTNESS OF BREATH; Start 03/06/21 at 15:15; Status UNV Guaifenesin (Robitussin) 200 mg PRN Q4HRS PRN PO COUGH; Start 03/06/21 at 15:15; Status UNV Lorazepam (Ativan) 0.5 mg PRN Q4HRS PRN PO ANXIETY / AGITATION; Start 03/06/21 at 15:15; Status UNV Active Scripts Active Ondansetron Odt (Ondansetron) 4 Mg Tab.rapdis 1 Tab PO PRN Q6-8HRS PRN [id number]-[id number]-Dvpg 50-325-40 (Butalb/Acetaminophen/Caffeine) 1 Each Tablet 1 Each PO Q6HRS PRN Lamictal (Lamotrigine) 200 Mg Tablet 1 Tab PO DAILY Lisinopril 20 Mg Tablet 1 Tab PO DAILY Potassium Chloride (Potassium Chloride) 20 Meq Tablet.er 20 Meq PO DAILY 10 Days Clonidine Hcl 0.1 Mg Tablet 0.1 Mg PO BID PRN Take each tablet as needed for Systolic (upper) blood pressure greater than 185 and/or Diastolic (lower) blood pressure greater than 110. Quetiapine Fumarate 25 Mg Tablet 25 Mg PO BID 30 Days Aspirin 325 Mg Tablet 325 Mg PO DAILYWBKFT 30 Days Amlodipine Besylate 5 Mg Tablet 5 Mg PO DAILY 30 Days Lisinopril 40 Mg Tablet 40 Mg PO DAILY 30 Days Atorvastatin Calcium 20 Mg Tablet 20 Mg PO QHS 30 Days Colace (Docusate Sodium) 100 Mg Capsule 1 Cap PO BID Reported Hydroxyzine Pamoate 50 Mg Capsule 50 Mg PO TID Zolpidem Tartrate 10 Mg Tablet 10 Mg PO QHS Carvedilol (Carvedilol) 12.5 Mg Tablet 6.25 Mg PO BIDWMEALS Tums (Calcium Carbonate) 200 Mg Tab.chew 200 Mg PO Diazepam 10 Mg Tablet 10 Mg PO BID Allergies Allergies: Coded Allergies: No Known Drug Allergies (Unverified , 09/27/16) ROS Review of System Negative for fever, chills, weight loss, shortness of breath, chest pain, indigestion, hematochezia, melena, and dysuria. Full 14-point review of systems is negative. Physical Exam Physical Examination General: Well-developed, well-nourished black female, in no acute distress HEENT: Normocephalic andatraumatic. Temporal arteriespulsatile and nontender. Fundi benign. Neck: Supple without bruit, no meningismus Musculoskeletal: Stability:see neurologic. Gait exam:see neurologic. Tone:see neurologic.Strength:see neurologic. Neurological: Mental Status:orientation, memory, attention span/concentration, language, fund of knowledge: She does not know the date, knows the location, poor historian. Cranial Nerves:Pupils equal and reactive to light, extraocular movements areintact, visual chi are full to confrontation. She has bilateral decreased visual acuity. Facial sensation is normal. There is no facial asymmetry. Vestibulo-ocular reflex is intact. Palate elevates and tongue protrudes in midline. All other cranial related problems are negative except as mentioned before.Reflexes:1+ and symmetric with flexor plantar responses. Motor:4/5 strength with normal tone and bulk. Coordination:Finger-nose finger and [id number]-zv-[id number] testing are normal. Rapid alternating movements and fine finger movements are intact. Gait:not tested. Sensory: stocking loss. Vitals VITALS Vital Signs Date Time Temp Pulse Resp B/P (MAP) Pulse Ox O2 Delivery O2 Flow Rate FiO2 03/06/21 14:20 24 24 140/91 (107) 95 Nasal Cannula 03/06/21 07:55 98.6 98.6 Labs Labs Laboratory Tests Test 03/06/21 08:05 03/06/21 10:05 White Blood Count 7.4 x10^3/uL (4.0-11.0) Red Blood Count 4.12 x10^6/uL (3.50-5.40) Hemoglobin 13.3 g/dL (12.0-15.5) Hematocrit 39.8 % (36.0-47.0) Mean Corpuscular Volume 96 fL (79-100) Mean Corpuscular Hemoglobin 32 pg (25-35) Mean Corpuscular Hemoglobin Concent 33 g/dL (31-37) Red Cell Distribution Width 13.9 % (11.5-14.5) Platelet Count 216 x10^3/uL (140-400) Neutrophils (%) (Auto) 75 % (31-73) Lymphocytes (%) (Auto) 18 % (24-48) Monocytes (%) (Auto) 6 % (0-9) Eosinophils (%) (Auto) 1 % (0-3) Basophils (%) (Auto) 1 % (0-3) Neutrophils # (Auto) 5.5 x10^3/uL (1.8-7.7) Lymphocytes # (Auto) 1.3 x10^3/uL (1.0-4.8) Monocytes # (Auto) 0.4 x10^3/uL (0.0-1.1) Eosinophils # (Auto) 0.1 x10^3/uL (0.0-0.7) Basophils # (Auto) 0.0 x10^3/uL (0.0-0.2) Sodium Level 143 mmol/L (136-145) Potassium Level 4.4 mmol/L (3.5-5.1) Chloride Level 106 mmol/L (98-107) Carbon Dioxide Level 25 mmol/L (21-32) Anion Gap 12 (6-14) Blood Urea Nitrogen 16 mg/dL (7-20) Creatinine 0.8 mg/dL (0.6-1.0) Estimated GFR (Cockcroft-Gault) 89.5 BUN/Creatinine Ratio 20 (6-20) Glucose Level 99 mg/dL (70-99) Calcium Level 8.8 mg/dL (8.5-10.1) Total Bilirubin 0.4 mg/dL (0.2-1.0) Aspartate Amino Transf (AST/SGOT) 15 U/L (15-37) Alanine Aminotransferase (ALT/SGPT) 21 U/L (14-59) Alkaline Phosphatase 100 U/L (46-116) Troponin I Quantitative < 0.017 ng/mL (0.000-0.055) Total Protein 7.1 g/dL (6.4-8.2) Albumin 3.5 g/dL (3.4-5.0) Albumin/Globulin Ratio 1.0 (1.0-1.7) Lipase 140 U/L (73-393) Ethyl Alcohol Level < 10 mg/dL (0-10) Urine Collection Type Void Urine Color Yellow Urine Clarity Clear Urine pH 6.5 (<5.0-8.0) Urine Specific Sawyer >=1.030 (1.000-1.030) Urine Protein Negative mg/dL (NEG-TRACE) Urine Glucose (UA) Negative mg/dL (NEG) Urine Ketones (Stick) Negative mg/dL (NEG) Urine Blood Trace (NEG) Urine Nitrite Negative (NEG) Urine Bilirubin Negative (NEG) Urine Urobilinogen Dipstick 0.2 mg/dL (0.2 mg/dL) Urine Leukocyte Esterase Negative (NEG) Urine RBC 0 /HPF (0-2) Urine WBC 0 /HPF (0-4) Urine Squamous Epithelial Cells Mod /LPF Urine Bacteria Few /HPF (0-FEW) Laboratory Tests Test 03/06/21 08:05 03/06/21 10:05 White Blood Count 7.4 x10^3/uL (4.0-11.0) Red Blood Count 4.12 x10^6/uL (3.50-5.40) Hemoglobin 13.3 g/dL (12.0-15.5) Hematocrit 39.8 % (36.0-47.0) Mean Corpuscular Volume 96 fL (79-100) Mean Corpuscular Hemoglobin 32 pg (25-35) Mean Corpuscular Hemoglobin Concent 33 g/dL (31-37) Red Cell Distribution Width 13.9 % (11.5-14.5) Platelet Count 216 x10^3/uL (140-400) Neutrophils (%) (Auto) 75 % (31-73) Lymphocytes (%) (Auto) 18 % (24-48) Monocytes (%) (Auto) 6 % (0-9) Eosinophils (%) (Auto) 1 % (0-3) Basophils (%) (Auto) 1 % (0-3) Neutrophils # (Auto) 5.5 x10^3/uL (1.8-7.7) Lymphocytes # (Auto) 1.3 x10^3/uL (1.0-4.8) Monocytes # (Auto) 0.4 x10^3/uL (0.0-1.1) Eosinophils # (Auto) 0.1 x10^3/uL (0.0-0.7) Basophils # (Auto) 0.0 x10^3/uL (0.0-0.2) Sodium Level 143 mmol/L (136-145) Potassium Level 4.4 mmol/L (3.5-5.1) Chloride Level 106 mmol/L (98-107) Carbon Dioxide Level 25 mmol/L (21-32) Anion Gap 12 (6-14) Blood Urea Nitrogen 16 mg/dL (7-20) Creatinine 0.8 mg/dL (0.6-1.0) Estimated GFR (Cockcroft-Gault) 89.5 BUN/Creatinine Ratio 20 (6-20) Glucose Level 99 mg/dL (70-99) Calcium Level 8.8 mg/dL (8.5-10.1) Total Bilirubin 0.4 mg/dL (0.2-1.0) Aspartate Amino Transf (AST/SGOT) 15 U/L (15-37) Alanine Aminotransferase (ALT/SGPT) 21 U/L (14-59) Alkaline Phosphatase 100 U/L (46-116) Troponin I Quantitative < 0.017 ng/mL (0.000-0.055) Total Protein 7.1 g/dL (6.4-8.2) Albumin 3.5 g/dL (3.4-5.0) Albumin/Globulin Ratio 1.0 (1.0-1.7) Lipase 140 U/L (73-393) Ethyl Alcohol Level < 10 mg/dL (0-10) Urine Collection Type Void Urine Color Yellow Urine Clarity Clear Urine pH 6.5 (<5.0-8.0) Urine Specific Sawyer >=1.030 (1.000-1.030) Urine Protein Negative mg/dL (NEG-TRACE) Urine Glucose (UA) Negative mg/dL (NEG) Urine Ketones (Stick) Negative mg/dL (NEG) Urine Blood Trace (NEG) Urine Nitrite Negative (NEG) Urine Bilirubin Negative (NEG) Urine Urobilinogen Dipstick 0.2 mg/dL (0.2 mg/dL) Urine Leukocyte Esterase Negative (NEG) Urine RBC 0 /HPF (0-2) Urine WBC 0 /HPF (0-4) Urine Squamous Epithelial Cells Mod /LPF Urine Bacteria Few /HPF (0-FEW) Images Images Head CT without contrast; CT angiogram of the head and neck with intravenous contrast. HISTORY: Headache. TECHNIQUE: Computed tomographic images of the head were obtained without contrast. Post contrast images of the head and neck were obtained following the administration of intravenous contrast. 3-dimensional maximum intensity projections were obtained. *One or more of the following individualized dose reduction techniques were utilized for this examination: 1. Automated exposure control. 2. Adjustment of the mA and/or kV according to patient size. 3. Use of iterative reconstruction technique. COMPARISON: 08/01/2020. FINDINGS: The noncontrast images of the head demonstrate no hemorrhage. There is encephalomalacia within the right parietal lobe with ex vacuo dilatation of the posterior right lateral ventricle likely due to chronic infarction. There is stable mild increased density within the surrounding brain parenchyma likely due to laminar necrosis. There is an additional smaller chronic infarct within the left centrum semiovale. There is a chronic lacunar infarct within the right caudate nucleus. There are extensive scattered areas of hypodensity throughout the cerebral white matter, a nonspecific finding in a patient of this age. There is cerebral atrophy which is advanced for patient age. There is no mass effect or midline shift. There is no hydrocephalus. The orbits, paranasal sinuses mastoid air cells are unremarkable. There is no calvarial lesion. The angiographic images demonstrate a normal caliber aortic arch. There is a common origin of the right innominate and left common carotid arteries, a normal arch branching variant. There is partially calcified atherosclerotic plaque at the origin of the right internal carotid artery, with less than 25 percent stenosis. There is mild asymmetry in the caliber of the right greater than left internal carotid arteries which is likely developmental. There is luminal irregularity of the distal left internal carotid artery at the level of C1 which is secondary to vessel tortuosity, resulting in approximately 50 percent stenosis. There is additional focal stenosis involving the distal left internal carotid artery proximal to the petrous segment which is not typical in appearance for spasm or ulcerated plaque and possibly due to a tiny dissection flap. There is subtle luminal irregularity throughout the remainder of the bilateral internal carotid arteries which is likely artifactual rather than due to fibrous muscular dysplasia. There is asymmetry in the caliber of the right greater than left A1 segments, a normal variant. The anterior indicating artery is patent. The right posterior communicating artery is hypoplastic and and the left posterior commuting i ndicating artery may be developmental or absent, also a normal variant. The basilar artery is widely patent. The left vertebral artery slightly dominant. The vertebral arteries are otherwise widely patent. No suspicious enhancing lesion is seen. There is degenerative change involving the cervical spine. This results in mild right foraminal stenosis at C3-C4, severe right foraminal stenosis at C4-C5 and mild right foraminal stenosis at C5-C6. There is no lymphadenopathy. The airways midline and widely patent. There is mild atheromatous change within the posterior left lung apex. IMPRESSION: 1. No acute intracranial finding. Note is made that MRI is more sensitive for acute infarction. 2. Chronic infarcts within the right parietal lobe, right caudate nucleus and left centrum semiovale. 3. Extensive bilateral cerebral white matter changes. This is advanced for chronic small vessel disease in a patient of this age. The possibility of superimposed changes due to chronic demyelinating disease can be considered in the appropriate clinical setting. 4. Focal luminal irregularly involving the distal left internal carotid artery, resulting in approximately 50 percent stenosis at the level of C1, secondary to vessel tortuosity. 5. Focal luminal irregularly involving the distal left internal carotid artery at the skull base resulting in approximately 50 percent stenosis. This is not typical in appearance for spasm, aneurysm or ulcerated plaque. The possibility of a tiny segment of dissection is not excluded at this location. Short-term CT angiographic follow-up is recommended. 5. No additional evidence of hemodynamically significant stenosis or aneurysm involving the neck or intracranial arteries. There is slight luminal irregularity throughout the carotid arteries without hemodynamically significant stenosis. Fibromuscular dysplasia is not occluded. Assessment/Plan Assessment/Plan Impression: Diffuse symptoms, no focal findings, easily explained with the diagnosis of hypertensive encephalopathy. No acute stroke, chronic infarcts within the right parietal lobe, right caudate nucleus and left centrum semiovale, and extensive bilateral cerebral white matter changes. Multi-infarct dementia Distal left internal carotid artery stenosis, 50%, vessel tortuosity, possible tiny segment of dissection not excluded. Clinically no evidence of dissection. Also has atherosclerotic changes diffusely, radiologist cannot exclude fibromuscular dysplasia. History of seizures usually provoked by hypertension or stroke with several negative EEG studies in the past. Chronic migraines Recommendations: Risks outweigh benefits of starting anticoagulation for the slight possibility of carotid dissection, given the patient's hypertension. MRI of the brain She is on aspirin and statin I told the patient she needs to take all doses of medications Note that she is on lamotrigine, probably more for psychiatric issues, that is sufficient for anticonvulsant. She has been on topiramate in the past for chronic migraine headaches. Thank you for letting me help with the patient's care. KENDALL CORTÉS MD Mar 06, 2021 15:32
[2021-03-06 15:34] LABS: PROTHROMBIN TIME PATIENT 14.1 SEC (11.7-14.0)
[2021-03-06] MEDS: BUTALB/APAP/CAFEIN 50/325/40MG TABLET. PO PRN (17:59)
[2021-03-06 18:30] VITALS: BP 194/103
[2021-03-06 19:00] VITALS: BP 198/104
[2021-03-06] MEDS ORDERED: ATORVASTATIN CALCIUM 20 MG TABLET PO SCH (21:00)
[2021-03-06] MEDS: DOCUSATE SODIUM 100 MG CAPSULE. PO SCH (21:37)
[2021-03-06] MEDS: hydrOXYzine 25 MG TABLET PO SCH ×2 (21:38→21:39)
[2021-03-06] MEDS: QUEtiapine 25 MG TABLET. PO SCH (21:38)
[2021-03-06] MEDS: CARVEDILOL 12.5 MG TABLET. PO SCH (21:39)
[2021-03-06] MEDS ORDERED: CARVEDILOL 6.25 MG TABLET. PO ONE (23:00)
[2021-03-06] MEDS ORDERED: LABETALOL 20 MG/4 ML DISP.SYRIN. IVP PRN (23:00)
[2021-03-06] MEDS: ACETAMINOPHEN 325 MG TABLET. PO PRN (23:21)
[2021-03-06 23:50] VITALS: BP 199/115
[2021-03-07 03:22] VITALS: BP 135/73
[2021-03-07 07:00] VITALS: BP 169/98
[2021-03-07] MEDS: BUTALB/APAP/CAFEIN 50/325/40MG TABLET. PO PRN (07:48)
[2021-03-07] MEDS ORDERED: ASPIRIN 325 MG TABLET PO SCH (08:00)
[2021-03-07] MEDS ORDERED: amLODIPine BESYLATE 5 MG TABLET PO SCH (09:00)
[2021-03-07] MEDS ORDERED: lamoTRIgine 100 MG TABLET. PO SCH (09:00)
[2021-03-07] MEDS ORDERED: POTASSIUM CHLORIDE 20 MEQ TABLET.ER. PO SCH (09:00)
[2021-03-07] MEDS ORDERED: LISINOPRIL 20 MG TABLET PO SCH (09:00)
[2021-03-07] MEDS: hydrOXYzine 25 MG TABLET PO SCH ×2 (09:15→15:59)
[2021-03-07] MEDS: DOCUSATE SODIUM 100 MG CAPSULE. PO SCH (09:17)
[2021-03-07] MEDS: QUEtiapine 25 MG TABLET. PO SCH (09:17)
[2021-03-07] MEDS: CARVEDILOL 12.5 MG TABLET. PO SCH ×2 (09:18→18:13)
[2021-03-07] MEDS: HYDROmorphone 2 MG/ML VIAL IVP PRN (09:33)
[2021-03-07] MEDS: IV NORMAL SALINE 1000ML BAG 1,000 ML IV SCH ×2 (09:33→11:15)
--- NOTE | 2021-03-07 10:56 | PDOC ---
PROGRESS NOTES Date of Service DATE: 03/07/21 TIME: 10:54 Assessment Problems Medical Problems: (1) Abnormal CT scan of head Status: Acute (2) Headache Status: Acute (3) Nausea vomiting and diarrhea Status: Acute Diffuse symptoms, no focal findings, easily explained with the diagnosis of hypertensive encephalopathy. No acute stroke, chronic infarcts within the right parietal lobe, right caudate nucleus and left centrum semiovale, and extensive bilateral cerebral white matter changes. Multi-infarct dementia Distal left internal carotid artery stenosis, 50%, vessel tortuosity, possible tiny segment of dissection not excluded. Clinically no evidence of dissection. Also has atherosclerotic changes diffusely, radiologist cannot exclude fibromuscular dysplasia. History of seizures usually provoked by hypertension or stroke with several negative EEG studies in the past. Chronic migraines Plan Risks outweigh benefits of starting anticoagulation for the slight possibility of carotid dissection, given the patient's hypertension. Await MRI of the brain She is on aspirin and statin I told the patient she needs to take all doses of medications Note that she is on lamotrigine, probably more for psychiatric issues, that is sufficient for anticonvulsant. Resume topiramate Subjective Complains of severe headache, says that she stopped topiramate because she was worried about weight loss, but says that it did help her headaches Objective Vital Signs Date Time Temp Pulse Resp B/P (MAP) Pulse Ox O2 Delivery O2 Flow Rate FiO2 03/07/21 10:25 96 Room Air 2.0 03/07/21 09:18 82 169/98 03/07/21 07:00 100.0 18 100.0 Intake and Output 03/07/21 07:00 Intake Total 0 ml Balance 0 ml Intake Oral 0 ml PHYSICAL EXAM Alert. Oriented to place and person, not date. Very tearful about her headache pain, suddenly stops crying when I talked about other matters PERRL. EOMI. CN: no focal findings. Muscle tone: normal. Muscle strength: 4/5 DTR: 1+ Plantar reflex: Flexor Gait: not examined in bed. Sensory exam: Stocking loss. No cerebellar signs elicited. Review of Relevant I have reviewed the following items carlos (where applicable) has been applied. Labs Laboratory Tests Test 03/06/21 08:05 03/06/21 10:05 03/06/21 15:25 White Blood Count 7.4 x10^3/uL (4.0-11.0) Red Blood Count 4.12 x10^6/uL (3.50-5.40) Hemoglobin 13.3 g/dL (12.0-15.5) Hematocrit 39.8 % (36.0-47.0) Mean Corpuscular Volume 96 fL (79-100) Mean Corpuscular Hemoglobin 32 pg (25-35) Mean Corpuscular Hemoglobin Concent 33 g/dL (31-37) Red Cell Distribution Width 13.9 % (11.5-14.5) Platelet Count 216 x10^3/uL (140-400) Neutrophils (%) (Auto) 75 % (31-73) Lymphocytes (%) (Auto) 18 % (24-48) Monocytes (%) (Auto) 6 % (0-9) Eosinophils (%) (Auto) 1 % (0-3) Basophils (%) (Auto) 1 % (0-3) Neutrophils # (Auto) 5.5 x10^3/uL (1.8-7.7) Lymphocytes # (Auto) 1.3 x10^3/uL (1.0-4.8) Monocytes # (Auto) 0.4 x10^3/uL (0.0-1.1) Eosinophils # (Auto) 0.1 x10^3/uL (0.0-0.7) Basophils # (Auto) 0.0 x10^3/uL (0.0-0.2) Prothrombin Time 14.1 SEC (11.7-14.0) Prothromb Time International Ratio 1.1 (0.8-1.1) Sodium Level 143 mmol/L (136-145) Potassium Level 4.4 mmol/L (3.5-5.1) Chloride Level 106 mmol/L (98-107) Carbon Dioxide Level 25 mmol/L (21-32) Anion Gap 12 (6-14) Blood Urea Nitrogen 16 mg/dL (7-20) Creatinine 0.8 mg/dL (0.6-1.0) Estimated GFR (Cockcroft-Gault) 89.5 BUN/Creatinine Ratio 20 (6-20) Glucose Level 99 mg/dL (70-99) Calcium Level 8.8 mg/dL (8.5-10.1) Total Bilirubin 0.4 mg/dL (0.2-1.0) Aspartate Amino Transf (AST/SGOT) 15 U/L (15-37) Alanine Aminotransferase (ALT/SGPT) 21 U/L (14-59) Alkaline Phosphatase 100 U/L (46-116) Troponin I Quantitative < 0.017 ng/mL (0.000-0.055) Total Protein 7.1 g/dL (6.4-8.2) Albumin 3.5 g/dL (3.4-5.0) Albumin/Globulin Ratio 1.0 (1.0-1.7) Lipase 140 U/L (73-393) Ethyl Alcohol Level < 10 mg/dL (0-10) Urine Collection Type Void Urine Color Yellow Urine Clarity Clear Urine pH 6.5 (<5.0-8.0) Urine Specific [place] >=1.030 (1.000-1.030) Urine Protein Negative mg/dL (NEG-TRACE) Urine Glucose (UA) Negative mg/dL (NEG) Urine Ketones (Stick) Negative mg/dL (NEG) Urine Blood Trace (NEG) Urine Nitrite Negative (NEG) Urine Bilirubin Negative (NEG) Urine Urobilinogen Dipstick 0.2 mg/dL (0.2 mg/dL) Urine Leukocyte Esterase Negative (NEG) Urine RBC 0 /HPF (0-2) Urine WBC 0 /HPF (0-4) Urine Squamous Epithelial Cells Mod /LPF Urine Bacteria Few /HPF (0-FEW) SARS-CoV-2 RNA (CONSTANZA) Positive (Negative) Laboratory Tests Test 03/06/21 15:25 SARS-CoV-2 RNA (CONSTANZA) Positive (Negative) Medications Current Medications Sodium Chloride 1,000 ml @ 1,000 mls/hr 1X ONCE IV Last administered on 03/06/21at 08:36; Start 03/06/21 at 08:00; Stop 03/06/21 at 08:59; Status DC Ondansetron HCl (Zofran) 4 mg 1X ONCE IVP Last administered on 03/06/21at 08:36; Start 03/06/21 at 08:15; Stop 03/06/21 at 08:16; Status DC Morphine Sulfate (Morphine Sulfate) 2 mg 1X ONCE IV Last administered on 03/06/21at 08:57; Start 03/06/21 at 08:30; Stop 03/06/21 at 08:36; Status DC Iohexol (Omnipaque 300 Mg/ml) 75 ml 1X ONCE IV Last administered on 03/06/21at 09:13; Start 03/06/21 at 09:00; Stop 03/06/21 at 09:01; Status DC Info (CONTRAST GIVEN -- Rx MONITORING) 1 each PRN DAILY PRN MC SEE COMMENTS Last administered on 03/06/21at 19:41; Start 03/06/21 at 09:00; Stop 03/08/21 at 08:59 Morphine Sulfate (Morphine Sulfate) 4 mg 1X ONCE IV Last administered on 03/06/21at 10:56; Start 03/06/21 at 11:00; Stop 03/06/21 at 11:01; Status DC Ondansetron HCl (Zofran) 4 mg PRN Q8HRS PRN IV NAUSEA/VOMITING; Start 03/06/21 at 10:45; Stop 03/07/21 at 10:44; Status DC Hydromorphone HCl (Dilaudid) 0.5 mg PRN Q3HRS PRN IVP SEVERE PAIN 7-10 Last administered on 03/07/21at 09:33; Start 03/06/21 at 12:15 Amlodipine Besylate (Norvasc) 5 mg DAILY PO Last administered on 03/07/21at 09:17; Start 03/07/21 at 09:00 Aspirin (Jennifer Aspirin) 325 mg DAILYWBKFT PO Last administered on 03/07/21at 09:15; Start 03/07/21 at 08:00 Atorvastatin Calcium (Lipitor) 20 mg QHS PO Last administered on 03/06/21at 21:38; Start 03/06/21 at 21:00 Acetaminophen/ Butalbital/ Caffeine (Fioricet) 1 tab PRN Q6HRS PRN PO MIGRAINE HEADACHE Last administered on 03/07/21at 07:48; Start 03/06/21 at 15:00 Calcium Carbonate/ Glycine (Tums) 250 mg PRN Q2HR PRN PO HEARTBURN / GAS; Start 03/06/21 at 15:00 Carvedilol (Coreg) 6.25 mg BIDWMEALS PO Last administered on 03/07/21at 09:18; Start 03/06/21 at 17:00 Clonidine HCl (Catapres) 0.1 mg BID PRN PO ELEVATED BP, SEE COMMENTS Last administered on 03/06/21at 21:38; Start 03/06/21 at 15:00 Docusate Sodium (Colace) 100 mg BID PO Last administered on 03/07/21at 09:17; Start 03/06/21 at 21:00 Lisinopril (Prinivil) 20 mg DAILY PO Last administered on 03/07/21at 09:16; Start 03/07/21 at 09:00 Ondansetron HCl (Zofran Odt) 4 mg PRN Q4HRS PRN PO NAUSEA; Start 03/06/21 at 15:00 Potassium Chloride (Klor-Con) 20 meq DAILY PO Last administered on 03/07/21at 09:19; Start 03/07/21 at 09:00 Quetiapine Fumarate (SEROquel) 25 mg BID PO Last administered on 03/07/21at 09:17; Start 03/06/21 at 21:00 Hydroxyzine HCl (Atarax) 50 mg TID PO Last administered on 03/07/21at 09:15; Start 03/06/21 at 16:00 Lamotrigine (LaMICtal) 200 mg DAILY PO Last administered on 03/07/21at 09:15; Start 03/07/21 at 09:00 Sodium Chloride (Normal Saline Flush) 3 ml QSHIFT PRN IV AFTER MEDS AND BLOOD DRAWS; Start 03/06/21 at 15:15 Sodium Chloride 1,000 ml @ 100 mls/hr Q10H IV Last administered on 03/07/21at 09:33; Start 03/06/21 at 15:15 Ondansetron HCl (Zofran) 4 mg PRN Q4HRS PRN IV NAUSEA/VOMITING; Start 03/06/21 at 15:15 Acetaminophen (Tylenol) 650 mg PRN Q4HRS PRN PO TEMP OVER 100.4F OR MILD PAIN Last administered on 03/06/21at 23:21; Start 03/06/21 at 15:15 Acetaminophen (Tylenol Supp) 650 mg PRN Q4HRS PRN ME TEMP OVER 100.4F OR MILD PAIN; Start 03/06/21 at 15:15 Al Hydroxide/Mg Hydroxide (Mylanta Plus Xs) 30 ml PRN DAILY PRN PO HEARTBURN / GAS; Start 03/06/21 at 15:15 Sodium Monofluorophosphate (Fleet Adult) 133 ml PRN DAILY PRN ME CONSTIPATION; Start 03/06/21 at 15:15 Docusate Sodium (Colace) 100 mg PRN BID PRN PO HARD STOOLS; Start 03/06/21 at 15:15 Albuterol Sulfate (Ventolin Neb Soln) 2.5 mg PRN Q4HRS PRN NEB SHORTNESS OF BREATH; Start 03/06/21 at 15:15 Guaifenesin (Robitussin) 200 mg PRN Q4HRS PRN PO COUGH; Start 03/06/21 at 15:15 Lorazepam (Ativan) 0.5 mg PRN Q4HRS PRN PO ANXIETY / AGITATION Last administered on 03/06/21at 21:38; Start 03/06/21 at 15:15 Labetalol HCl (Normodyne Iv Push) 10 mg PRN Q6HRS PRN IVP HYPERTENSION Last administered on 03/06/21at 23:21; Start 03/06/21 at 23:00 Carvedilol (Coreg) 6.25 mg 1X ONCE PO Last administered on 03/06/21at 23:21; Start 03/06/21 at 23:00; Stop 03/06/21 at 23:08; Status DC Active Scripts Active Ondansetron Odt (Ondansetron) 4 Mg Tab.rapdis 1 Tab PO PRN Q6-8HRS PRN Oaenzh-Moilcicl-Jfwe 50-325-40 (Butalb/Acetaminophen/Caffeine) 1 Each Tablet 1 Each PO Q6HRS PRN Lamictal (Lamotrigine) 200 Mg Tablet 1 Tab PO DAILY Lisinopril 20 Mg Tablet 1 Tab PO DAILY Potassium Chloride (Potassium Chloride) 20 Meq Tablet.er 20 Meq PO DAILY 10 Days Clonidine Hcl 0.1 Mg Tablet 0.1 Mg PO BID PRN Take each tablet as needed for Systolic (upper) blood pressure greater than 185 and/or Diastolic (lower) blood pressure greater than 110. Quetiapine Fumarate 25 Mg Tablet 25 Mg PO BID 30 Days Aspirin 325 Mg Tablet 325 Mg PO DAILYWBKFT 30 Days Amlodipine Besylate 5 Mg Tablet 5 Mg PO DAILY 30 Days Lisinopril 40 Mg Tablet 40 Mg PO DAILY 30 Days Atorvastatin Calcium 20 Mg Tablet 20 Mg PO QHS 30 Days Colace (Docusate Sodium) 100 Mg Capsule 1 Cap PO BID Reported Hydroxyzine Pamoate 50 Mg Capsule 50 Mg PO TID Zolpidem Tartrate 10 Mg Tablet 10 Mg PO QHS Carvedilol (Carvedilol) 12.5 Mg Tablet 6.25 Mg PO BIDWMEALS Tums (Calcium Carbonate) 200 Mg Tab.chew 200 Mg PO Diazepam 10 Mg Tablet 10 Mg PO BID Vitals/I & O Vital Sign - Last 24 Hours 03/06/21 03/06/21 03/06/21 03/06/21 10:56 11:20 12:20 12:30 Pulse 68 68 Resp 23 18 21 24 B/P (MAP) 170/106 (127) 181/135 (150) Pulse Ox 100 96 98 100 O2 Delivery Room Air Nasal Cannula Nasal Cannula Room Air 03/06/21 03/06/21 03/06/21 03/06/21 13:20 14:20 15:30 15:59 Pulse 26 24 84 Resp 25 24 B/P (MAP) 202/92 (128) 140/91 (107) 198/97 (130) Pulse Ox 100 95 98 99 O2 Delivery Nasal Cannula Nasal Cannula Room Air Nasal Cannula O2 Flow Rate 2.0 03/06/21 03/06/21 03/06/21 03/06/21 16:15 16:45 17:45 18:30 Temp 99.6 99.6 Pulse 76 100 94 84 Resp 20 B/P (MAP) 187/109 (135) 163/98 (119) 176/109 (131) 194/103 (133) Pulse Ox 97 97 97 98 O2 Delivery Room Air Room Air Room Air Room Air 03/06/21 03/06/21 03/06/21 03/06/21 19:00 19:51 20:00 20:21 Temp 99.2 99.2 Pulse 85 Resp 24 B/P (MAP) 198/104 (135) Pulse Ox 98 98 O2 Delivery Room Air Room Air Room Air Room Air 03/06/21 03/06/21 03/06/21 03/06/21 21:38 21:39 23:21 23:21 Pulse 85 85 85 85 B/P (MAP) 198/104 198/104 198/104 198/104 03/06/21 03/07/21 03/07/21 03/07/21 23:50 03:22 07:00 09:16 Temp 99.0 98.9 100.0 99.0 98.9 100.0 Pulse 95 66 71 82 Resp 20 18 18 B/P (MAP) 199/115 (143) 135/73 (93) 169/98 (121) 169/98 Pulse Ox 99 96 96 O2 Delivery Room Air Room Air Room Air 03/07/21 03/07/21 03/07/21 03/07/21 09:17 09:18 09:33 10:25 Pulse 82 82 B/P (MAP) 169/98 169/98 Pulse Ox 96 96 O2 Delivery Room Air Room Air O2 Flow Rate 2.0 2.0 Intake and Output 03/06/21 03/06/21 03/07/21 15:00 23:00 07:00 Intake Total 0 ml 0 ml Balance 0 ml 0 ml Justicifation of Admission Dx: Justifications for Admission: Justification of Admission Dx: N/A KENDALL CORTÉS MD Mar 07, 2021 10:56
[2021-03-07 11:00] VITALS: BP 102/59
[2021-03-07] MEDS ORDERED: TOPIRAMATE 25 MG TABLET. PO SCH (11:00)
--- NOTE | 2021-03-07 11:15 | PDOC ---
[facility] PROGRESS NOTE Date of Service DOS: DATE: 03/07/21 TIME: 11:13 Chief Complaint Chief Complaint Assessment/Plan IMPRESSIOn 1. No acute intracranial finding. Note is made that MRI is more sensitive for acute infarction. 2. Chronic infarcts within the right parietal lobe, right caudate nucleus and left centrum semiovale. 3. Extensive bilateral cerebral white matter changes. This is advanced for chronic small vessel disease in a patient of this age.possibility of superimposed changes due to chronic demyelinating disease can be considered 4. Focal luminal irregularly involving the distal left internal carotid artery, resulting in approximately 50 percent stenosis at the level of C1, secondary to vessel tortuosity. 5. Focal luminal irregularly involving the distal left internal carotid artery at the skull base resulting in approximately 50 percent stenosis. This is not typical in appearance for spasm, aneurysm or ulcerated plaque. possibility of a tiny segment of dissection is not excluded Short-term CT angiographic follow-up is recommended. 6. No additional evidence of hemodynamically significant stenosis or aneurysm involving the neck or intracranial arteries. There is slight luminal irregularity throughout the carotid arteries without hemodynamically significant stenosis. Fibromuscular dysplasia not occluded. 7 Moderate area of right parietotemporal encephalomalacia. Chronic merino radiata lacunar infarcts. plan admit consult vascular surgery live neurology consult monitored bed iv pain control npo iv fluids bp control neurochecks q 4 hrs scd's no lovenox History of Present Illness History of Present Illness 03/07/2021 No acute events overnight. Patient continues to have a headache. Has not tried Tylenol yet. Was originally on Topamax but stopped because she lost too much weight. Will consider restarting during this hospitalization. Pending neuro evaluation. Patient's chart, labs, images were reviewed and discussed with RN 55 year old female with history of hypertension, hyperlipidemia, seizures, CVA presents emergency department for multiple complaints. Patient has not felt well in 3 days. She has had a mild diffuse headache. She has had nausea vomiting diarrhea. No blood in her stool or vomit. No fevers that she knows of. No cough. No sick contacts. Patient denies dysuria or hematuria. No abdominal pain. Patient denies Covid risk factors for exposures. Patient is non-smoker. Drinks alcohol occasionally. Denies drug use. Patient initially called EMS this morning at 645. They took her vital signs and she refused transport she reports she was going to have her family member bring her to the emergency department cta concerning for carotid dissection Focal luminal irregularly involving the distal left internal carotid artery at the skull base resulting in approximately 50 percent stenosis. This is not typical in appearance for spasm, aneurysm or ulcerated plaque. possibility of a tiny segment of dissection is not excluded Vitals/I&O Vitals/I&O: Vital Signs Date Time Temp Pulse Resp B/P (MAP) Pulse Ox O2 Delivery O2 Flow Rate FiO2 03/07/21 10:25 96 Room Air 2.0 03/07/21 09:18 82 169/98 03/07/21 07:00 100.0 18 100.0 I & O 03/06/21 03/06/21 03/07/21 15:00 23:00 07:00 Intake Total 0 ml 0 ml Balance 0 ml 0 ml Physical Exam General: Alert, Oriented X3, Cooperative, No acute distress, mild distress Lungs: Clear Abdomen: Normal bowel sounds, Soft Extremities: No cyanosis Skin: No rashes, No breakdown Labs Labs: Laboratory Tests Test 03/06/21 15:25 SARS-CoV-2 RNA (CONSTANZA) Positive (Negative) Assessment and Plan Assessmemt and Plan Problems Medical Problems: (1) Abnormal CT scan of head Status: Acute (2) Headache Status: Acute (3) Nausea vomiting and diarrhea Status: Acute Comment Review of Relevant I have reviewed the following items carlos (where applicable) has been applied. Medications: Current Medications Medications (Trade) Dose Ordered Sig/Christina Route PRN Reason Start Time Stop Time Status Last Admin Dose Admin Hydromorphone HCl (Dilaudid) 0.5 mg PRN Q3HRS PRN IVP SEVERE PAIN 7-10 03/06/21 12:15 03/07/21 09:33 Amlodipine Besylate (Norvasc) 5 mg DAILY PO 03/07/21 09:00 03/07/21 09:17 Aspirin (Jennifer Aspirin) 325 mg DAILYWBKFT PO 03/07/21 08:00 03/07/21 09:15 Atorvastatin Calcium (Lipitor) 20 mg QHS PO 03/06/21 21:00 03/06/21 21:38 Acetaminophen/ Butalbital/ Caffeine (Fioricet) 1 tab PRN Q6HRS PRN PO MIGRAINE HEADACHE 03/06/21 15:00 03/07/21 07:48 Carvedilol (Coreg) 6.25 mg BIDWMEALS PO 03/06/21 17:00 03/07/21 09:18 Clonidine HCl (Catapres) 0.1 mg BID PRN PO ELEVATED BP, SEE COMMENTS 03/06/21 15:00 03/06/21 21:38 Docusate Sodium (Colace) 100 mg BID PO 03/06/21 21:00 03/07/21 09:17 Lisinopril (Prinivil) 20 mg DAILY PO 03/07/21 09:00 03/07/21 09:16 Potassium Chloride (Klor-Con) 20 meq DAILY PO 03/07/21 09:00 03/07/21 09:19 Quetiapine Fumarate (SEROquel) 25 mg BID PO 03/06/21 21:00 03/07/21 09:17 Hydroxyzine HCl (Atarax) 50 mg TID PO 03/06/21 16:00 03/07/21 09:15 Lamotrigine (LaMICtal) 200 mg DAILY PO 03/07/21 09:00 03/07/21 09:15 Sodium Chloride 1,000 ml @ 100 mls/hr Q10H IV 03/06/21 15:15 03/07/21 09:33 Acetaminophen (Tylenol) 650 mg PRN Q4HRS PRN PO TEMP OVER 100.4F OR MILD PAIN 03/06/21 15:15 03/06/21 23:21 Lorazepam (Ativan) 0.5 mg PRN Q4HRS PRN PO ANXIETY / AGITATION 03/06/21 15:15 03/06/21 21:38 Labetalol HCl (Normodyne Iv Push) 10 mg PRN Q6HRS PRN IVP HYPERTENSION 03/06/21 23:00 03/06/21 23:21 Carvedilol (Coreg) 6.25 mg 1X ONCE PO 03/06/21 23:00 03/06/21 23:08 DC 03/06/21 23:21 Justifications for Admission Other Justification possible carotid dissection DELORES HERNANDES MD Mar 07, 2021 11:15
[2021-03-07] MEDS: ACETAMINOPHEN 325 MG TABLET. PO PRN (11:32)
--- NOTE | 2021-03-07 13:07 | NUR ---
SS following for discharge planning. SS reviewed pt chart an discussed with pt RN. Pt is from home and is currently on room air. COVID19 positive. Vascular consulted. Discharge plan is to home when medically ready. SS will continue to follow for discharge planning.
[2021-03-07 13:24] LABS: BASO % 1 % (0-3); EOS % 1 % (0-3); HEMOGLOBIN 13.6 g/dL (12.0-15.5); LYMPH # 2.1 x10^3/uL (1.0-4.8); LYMPH % 32 % (24-48); MEAN CORPUSCULAR HEMOGLOBIN 32 pg (25-35); MEAN CORPUSCULAR HGB CONC 33 g/dL (31-37); MEAN CORPUSCULAR VOLUME 96 fL (79-100); MONO # 0.7 x10^3/uL (0.0-1.1); MONO % 10 % (0-9); NEUT # 3.7 x10^3/uL (1.8-7.7); NEUT % 57 % (31-73); PLATELET COUNT 213 x10^3/uL (140-400); RED BLOOD COUNT 4.28 x10^6/uL (3.50-5.40); RED CELL DISTRIBUTION WIDTH 13.7 % (11.5-14.5); WHITE BLOOD COUNT 6.6 x10^3/uL (4.0-11.0)
[2021-03-07 13:39] LABS: CALCIUM 8.4 mg/dL (8.5-10.1); CREATININE 0.9 mg/dL (0.6-1.0); GFR 78.1; POTASSIUM 4.2 mmol/L (3.5-5.1)
--- NOTE | 2021-03-07 13:52 | RAD ---
EXAM: Brain MRI without contrast. HISTORY: Stroke. TECHNIQUE: Multiplanar, multisequence magnetic resonance imaging of the brain was performed without c ontrast. COMPARISON: CT angiogram performed one day prior. Brain MRI dated 07/16/2020. FINDINGS: There is no restricted diffusion to suggest acute or subacute infarction. There is encephal omalacia, gliosis, laminar necrosis and hemosiderin deposition due to a chronic infarct with chronic hemorrhagic transformation within the right parietal and posterior right temporal lobes. There is also a small focus of hemorrhage or hemorrhagic infarction within the left basal ganglia and there is a chronic focus of hemorrhage within the right cerebellum. There are tiny chronic infarct w ithin the bilateral basal ganglia. There is cerebral atrophy. There are extensive cerebral white matter changes, likely due to chronic s mall vessel disease. There are chronic infarcts within the bilateral frontal lobes. The orbits, paranasal sinuses mastoid air cells are unremarkable. There are normal flow voids within the cerebral vessels. IMPRESSION: 1. No acute intracranial finding. 2. Chronic infarct with associated chronic hemorrhage within the right parietal lobe and posterior te mporal lobe. There are also foci of chronic hemorrhage within the left basal ganglia and right cerebe llum. 3. Small chronic infarcts within the bilateral frontal lobes and basal ganglia. 4. Cerebral white matter changes, likely due to chronic small vessel disease. 5. Cerebral volume loss. Electronically signed by: Giulia Melendez MD (03/07/2021 1:49 PM) [id number]
--- NOTE | 2021-03-07 14:48 | PDOC2 ---
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 She has been having diffused COREA and alsow with nausea, vomiting and diarrhea. Upon admission her BP was significantly high. Denies stopping her BP meds or running out but upon resuming her BP meds her BP was better. Denies any chest pain, SOA and no cough or chills. She did tell me that she has been giving some of her med to her friend and she thinks its the topamax and not her BP med since her friend could not afford the med. She has hx of CVA and seizures and anxiety. Further test did reveal she is + for covid-19. Denies any ageusia or anosmia. Could not remember if she got exposed or not. No prior hx of arrhythmia and does not recall any CAD. nor any ischemic workup in the past. PAST MEDICAL HISTORY Cardiovascular: CHF, HTN, Hyperlipidemia Pulmonary: Bronchitis CENTRAL NERVOUS SYSTEM: CVA, Seizure GI: GERD Heme/Onc: Anemia NOS, Sickle cell trait Psych: Anxiety, Other (panic) Musculoskeletal: Osteoarthritis Rheumatologic: No pertinent hx Infectious disease: No pertinent hx ENT: No pertinent hx Renal/: Chronic renal insuff, Other (uterine fibroids) Endocrine: No pertinent hx Dermatology: No pertinent hx PAST SURGICAL HISTORY Past Surgical History: , Tonsillectomy, Hysterectomy, Other (C) FAMILY HISTORY Family History: Coronary Artery Disease SOCIAL HISTORY Smoke: <1 pack per day ALCOHOL: occassional Drugs: None Lives: with Family CURRENT MEDICATIONS CURRENT MEDICATIONS Current Medications Medications (Trade) Dose Ordered Sig/Christina Route PRN Reason Start Time Stop Time Status Last Admin Dose Admin Amlodipine Besylate (Norvasc) 5 mg DAILY PO 03/07/21 09:00 03/07/21 09:17 Aspirin (Jennifer Aspirin) 325 mg DAILYWBKFT PO 03/07/21 08:00 03/07/21 09:15 Atorvastatin Calcium (Lipitor) 20 mg QHS PO 03/06/21 21:00 03/06/21 21:38 Acetaminophen/ Butalbital/ Caffeine (Fioricet) 1 tab PRN Q6HRS PRN PO MIGRAINE HEADACHE 03/06/21 15:00 03/07/21 07:48 Carvedilol (Coreg) 6.25 mg BIDWMEALS PO 03/06/21 17:00 03/07/21 09:18 Clonidine HCl (Catapres) 0.1 mg BID PRN PO ELEVATED BP, SEE COMMENTS 03/06/21 15:00 03/06/21 21:38 Docusate Sodium (Colace) 100 mg BID PO 03/06/21 21:00 03/07/21 09:17 Lisinopril (Prinivil) 20 mg DAILY PO 03/07/21 09:00 03/07/21 09:16 Potassium Chloride (Klor-Con) 20 meq DAILY PO 03/07/21 09:00 03/07/21 09:19 Quetiapine Fumarate (SEROquel) 25 mg BID PO 03/06/21 21:00 03/07/21 09:17 Hydroxyzine HCl (Atarax) 50 mg TID PO 03/06/21 16:00 03/07/21 09:15 Lamotrigine (LaMICtal) 200 mg DAILY PO 03/07/21 09:00 03/07/21 09:15 Sodium Chloride 1,000 ml @ 100 mls/hr Q10H IV 03/06/21 15:15 03/07/21 09:33 Acetaminophen (Tylenol) 650 mg PRN Q4HRS PRN PO TEMP OVER 100.4F OR MILD PAIN 03/06/21 15:15 03/07/21 11:32 Lorazepam (Ativan) 0.5 mg PRN Q4HRS PRN PO ANXIETY / AGITATION 03/06/21 15:15 03/06/21 21:38 Labetalol HCl (Normodyne Iv Push) 10 mg PRN Q6HRS PRN IVP HYPERTENSION 03/06/21 23:00 03/06/21 23:21 Carvedilol (Coreg) 6.25 mg 1X ONCE PO 03/06/21 23:00 03/06/21 23:08 DC 03/06/21 23:21 Topiramate (Topamax) 50 mg BID PO 03/07/21 11:00 03/07/21 11:32 ALLERGIES ALLERGIES: Coded Allergies: No Known Drug Allergies (Unverified , 09/27/16) ROS Review of System 14 point ROS evaluated with pertinent positives noted per HPI PHYSICAL EXAM General: Alert, Oriented X3, Cooperative, No acute distress HEENT: Atraumatic, Mucous membr. moist/pink Lungs: Clear to auscultation, Normal air movement Heart: Regular rate (SR no ectopies), Normal S1, Normal S2, No murmurs Abdomen: Soft, No tenderness Extremities: No cyanosis, No edema Skin: No breakdown, No significant lesion Neuro: Normal speech, Sensation intact Psych/Mental Status: Mental status NL, Mood NL MUSCULOSKELETAL: Osteoarthritic changes both hands VITALS/I&O VITALS/I&O: Vital Signs Date Time Temp Pulse Resp B/P (MAP) Pulse Ox O2 Delivery O2 Flow Rate FiO2 03/07/21 11:00 98.9 65 16 102/59 (73) 100 Room Air 98.9 03/07/21 10:25 2.0 I & O 03/06/21 03/06/21 03/07/21 15:00 23:00 07:00 Intake Total 0 ml 0 ml Balance 0 ml 0 ml LABS Lab: Laboratory Tests Test 03/06/21 15:25 03/07/21 13:15 SARS-CoV-2 RNA (CONSTANZA) Positive (Negative) A White Blood Count 6.6 x10^3/uL (4.0-11.0) Red Blood Count 4.28 x10^6/uL (3.50-5.40) Hemoglobin 13.6 g/dL (12.0-15.5) Hematocrit 41.0 % (36.0-47.0) Mean Corpuscular Volume 96 fL (79-100) Mean Corpuscular Hemoglobin 32 pg (25-35) Mean Corpuscular Hemoglobin Concent 33 g/dL (31-37) Red Cell Distribution Width 13.7 % (11.5-14.5) Platelet Count 213 x10^3/uL (140-400) Neutrophils (%) (Auto) 57 % (31-73) Lymphocytes (%) (Auto) 32 % (24-48) Monocytes (%) (Auto) 10 % (0-9) H Eosinophils (%) (Auto) 1 % (0-3) Basophils (%) (Auto) 1 % (0-3) Neutrophils # (Auto) 3.7 x10^3/uL (1.8-7.7) Lymphocytes # (Auto) 2.1 x10^3/uL (1.0-4.8) Monocytes # (Auto) 0.7 x10^3/uL (0.0-1.1) Eosinophils # (Auto) 0.0 x10^3/uL (0.0-0.7) Basophils # (Auto) 0.0 x10^3/uL (0.0-0.2) Sodium Level 136 mmol/L (136-145) Potassium Level 4.2 mmol/L (3.5-5.1) Chloride Level 102 mmol/L (98-107) Carbon Dioxide Level 26 mmol/L (21-32) Anion Gap 8 (6-14) Blood Urea Nitrogen 15 mg/dL (7-20) Creatinine 0.9 mg/dL (0.6-1.0) Estimated GFR (Cockcroft-Gault) 78.1 Glucose Level 80 mg/dL (70-99) Calcium Level 8.4 mg/dL (8.5-10.1) L Laboratory Tests 03/07/21 13:15 Laboratory Tests 03/07/21 13:15 ECHOCARDIOGRAM ECHOCARDIOGRAM <Conclusion> The left ventricle is normal size. The left ventricular systolic function is normal and the ejection fraction is within normal range. The Ejection Fraction is 55-60%. There is mild concentric left ventricular hypertrophy. There is no significant aortic valvular stenosis. Doppler and Color-flow revealed trace mitral regurgitation. Doppler and Color Flow revealed trace tricuspid regurgitation. The PA pressure was estimated at 34 mmHg. DATE: 07/01/19 1424 ASSESSMENT/PLAN ASSESSMENT/PLAN 1. Accelerated HTN: possibly from noncompliance. Better after resumption of BP meds 2. HTN encephalopathy: no CVA 3. Covid-19 with GI symptoms and COREA 4. HLP 5. Hx of anxiety and panic attacks 6. Hx of CVA and seizures 7. Carotid artery disease: Vascular following 8. Tobaccoism Recommendations 1. Quarantine upon DC. Continue secondary prevention measures and BP regimen. Pt to obtain BP monitor as her machine was lost. HBPM 2. May DC per cardiac standpoint. Nothing further cardiac mandujano 3. Follow up with Dr. Kay her PCP. Smoking cessation ERIC CHAPARRO MD 03/07/211810: CARDIAC CONSULT ASSESSMENT/PLAN ASSESSMENT/PLAN Patient seen and evaluated. I agree with our nurse practitioners assessment and plan. Accelerated HTN: possibly from noncompliance. Better after resumption of BP meds HTN encephalopathy: no CVA. Improving. Covid-19 with GI symptoms and COREA. 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
[2021-03-07 15:00] VITALS: BP 111/75
--- NOTE | 2021-03-07 15:56 | PDOC2 ---
CONSULT Date of Service Date of Service DATE: 03/07/21 TIME: 15:41 Reason for Consult Reason for Consult: Possible Carotid dissection Referring Physician Referring Physician: Dr. Hutchinson Identification/Chief Complaint Chief Complaint Headache and nausea Source Source: Chart review, Patient History of Present Illness Reason for Visit: This is a 55-year-old female who came to the emergency department with several days of not feeling well. She has diffuse headache, nausea, vomiting diarrhea, blurred vision, trouble thinking. She did test positive for COVID-19. Patient has a history of hypertension, hypertensive encephalopathy, seizures, several strokes including hemorrhagic strokes. Patient had a CT scan that demonstrates luminal irregularity in the left internal carotid artery proximal to the petrous portion representing a possible tiny dissection flap. Patient has been started on aspirin and statin therapy. She denies any unilateral weaknes or speech disturbances, she does complain of some double vision. Patient has been noncompliant with her medication. Past Medical History Cardiovascular: CHF, HTN, Hyperlipidemia Pulmonary: Bronchitis CENTRAL NERVOUS SYSTEM: CVA, Seizure GI: GERD Heme/Onc: Anemia NOS, Sickle cell trait Hepatobiliary: No pertinent hx Psych: Anxiety, Other (panic) Musculoskeletal: Osteoarthritis Rheumatologic: No pertinent hx Infectious disease: No pertinent hx ENT: No pertinent hx Renal/: Chronic renal insuff, Other (uterine fibroids) Endocrine: No pertinent hx Dermatology: No pertinent hx Past Surgical History Past Surgical History: , Tonsillectomy, Hysterectomy, Other (LHC) Family History Family History: Coronary Artery Disease Social History <1 pack per day ALCOHOL: occassional Drugs: None Lives: with Family Domestic Violence: Neg Current Problem List Problem List Problems Medical Problems: (1) Abnormal CT scan of head Status: Acute (2) Headache Status: Acute (3) Nausea vomiting and diarrhea Status: Acute Current Medications Current Medications Current Medications Sodium Chloride 1,000 ml @ 1,000 mls/hr 1X ONCE IV Last administered on 03/06/21at 08:36; Start 03/06/21 at 08:00; Stop 03/06/21 at 08:59; Status DC Ondansetron HCl (Zofran) 4 mg 1X ONCE IVP Last administered on 03/06/21at 08:36; Start 03/06/21 at 08:15; Stop 03/06/21 at 08:16; Status DC Morphine Sulfate (Morphine Sulfate) 2 mg 1X ONCE IV Last administered on 03/06/21at 08:57; Start 03/06/21 at 08:30; Stop 03/06/21 at 08:36; Status DC Iohexol (Omnipaque 300 Mg/ml) 75 ml 1X ONCE IV Last administered on 03/06/21at 09:13; Start 03/06/21 at 09:00; Stop 03/06/21 at 09:01; Status DC Info (CONTRAST GIVEN -- Rx MONITORING) 1 each PRN DAILY PRN MC SEE COMMENTS Last administered on 03/06/21at 19:41; Start 03/06/21 at 09:00; Stop 03/08/21 at 08:59 Morphine Sulfate (Morphine Sulfate) 4 mg 1X ONCE IV Last administered on 03/06/21at 10:56; Start 03/06/21 at 11:00; Stop 03/06/21 at 11:01; Status DC Ondansetron HCl (Zofran) 4 mg PRN Q8HRS PRN IV NAUSEA/VOMITING; Start 03/06/21 at 10:45; Stop 03/07/21 at 10:44; Status DC Hydromorphone HCl (Dilaudid) 0.5 mg PRN Q3HRS PRN IVP SEVERE PAIN 7-10 Last administered on 03/07/21at 09:33; Start 03/06/21 at 12:15 Amlodipine Besylate (Norvasc) 5 mg DAILY PO Last administered on 03/07/21at 09:17; Start 03/07/21 at 09:00 Aspirin (Jennifer Aspirin) 325 mg DAILYWBKFT PO Last administered on 03/07/21at 09: 15; Start 03/07/21 at 08:00 Atorvastatin Calcium (Lipitor) 20 mg QHS PO Last administered on 03/06/21at 21:38; Start 03/06/21 at 21:00 Acetaminophen/ Butalbital/ Caffeine (Fioricet) 1 tab PRN Q6HRS PRN PO MIGRAINE HEADACHE Last administered on 03/07/21at 07:48; Start 03/06/21 at 15:00 Calcium Carbonate/ Glycine (Tums) 250 mg PRN Q2HR PRN PO HEARTBURN / GAS; Start 03/06/21 at 15:00 Carvedilol (Coreg) 6.25 mg BIDWMEALS PO Last administered on 03/07/21at 09:18; Start 03/06/21 at 17:00 Clonidine HCl (Catapres) 0.1 mg BID PRN PO ELEVATED BP, SEE COMMENTS Last administered on 03/06/21at 21:38; Start 03/06/21 at 15:00 Docusate Sodium (Colace) 100 mg BID PO Last administered on 03/07/21 09:17; Start 03/06/21 at 21:00 Lisinopril (Prinivil) 20 mg DAILY PO Last administered on 03/07/21at 09:16; Start 03/07/21 at 09:00 Ondansetron HCl (Zofran Odt) 4 mg PRN Q4HRS PRN PO NAUSEA; Start 03/06/21 at 15:00 Potassium Chloride (Klor-Con) 20 meq DAILY PO Last administered on 03/07/21at 09:19; Start 03/07/21 at 09:00 Quetiapine Fumarate (SEROquel) 25 mg BID PO Last administered on 03/07/21at 09:17; Start 03/06/21 at 21:00 Hydroxyzine HCl (Atarax) 50 mg TID PO Last administered on 03/07/21 09:15; Start 03/06/21 at 16:00 Lamotrigine (LaMICtal) 200 mg DAILY PO Last administered on 03/07/21at 09:15; Start 03/07/21 at 09:00 Sodium Chloride (Normal Saline Flush) 3 ml QSHIFT PRN IV AFTER MEDS AND BLOOD DRAWS; Start 03/06/21 at 15:15 Sodium Chloride 1,000 ml @ 100 mls/hr Q10H IV Last administered on 03/07/21at 09:33; Start 03/06/21 at 15:15 Ondansetron HCl (Zofran) 4 mg PRN Q4HRS PRN IV NAUSEA/VOMITING; Start 03/06/21 at 15:15 Acetaminophen (Tylenol) 650 mg PRN Q4HRS PRN PO TEMP OVER 100.4F OR MILD PAIN Last administered on 03/07/21at 11:32; Start 03/06/21 at 15:15 Acetaminophen (Tylenol Supp) 650 mg PRN Q4HRS PRN GA TEMP OVER 100.4F OR MILD PAIN; Start 03/06/21 at 15:15 Al Hydroxide/Mg Hydroxide (Mylanta Plus Xs) 30 ml PRN DAILY PRN PO HEARTBURN / GAS; Start 03/06/21 at 15:15 Sodium Monofluorophosphate (Fleet Adult) 133 ml PRN DAILY PRN GA CONSTIPATION; Start 03/06/21 at 15:15 Docusate Sodium (Colace) 100 mg PRN BID PRN PO HARD STOOLS; Start 03/06/21 at 15:15 Albuterol Sulfate (Ventolin Neb Soln) 2.5 mg PRN Q4HRS PRN NEB SHORTNESS OF BREATH; Start 03/06/21 at 15:15 Guaifenesin (Robitussin) 200 mg PRN Q4HRS PRN PO COUGH; Start 03/06/21 at 15:15 Lorazepam (Ativan) 0.5 mg PRN Q4HRS PRN PO ANXIETY / AGITATION Last administered on 03/06/21at 21:38; Start 03/06/21 at 15:15 Labetalol HCl (Normodyne Iv Push) 10 mg PRN Q6HRS PRN IVP HYPERTENSION Last administered on 03/06/21at 23:21; Start 03/06/21 at 23:00 Carvedilol (Coreg) 6.25 mg 1X ONCE PO Last administered on 03/06/21at 23:21; Start 03/06/21 at 23:00; Stop 03/06/21 at 23:08; Status DC Topiramate (Topamax) 50 mg BID PO Last administered on 03/07/21at 11:32; Start 03/07/21 at 11:00 Active Scripts Active Ondansetron Odt (Ondansetron) 4 Mg Tab.rapdis 1 Tab PO PRN Q6-8HRS PRN Caecxv-Ehbehkhs-Lpuk 50-325-40 (Butalb/Acetaminophen/Caffeine) 1 Each Tablet 1 Each PO Q6HRS PRN Lamictal (Lamotrigine) 200 Mg Tablet 1 Tab PO DAILY Lisinopril 20 Mg Tablet 1 Tab PO DAILY Potassium Chloride (Potassium Chloride) 20 Meq Tablet.er 20 Meq PO DAILY 10 Days Clonidine Hcl 0.1 Mg Tablet 0.1 Mg PO BID PRN Take each tablet as needed for Systolic (upper) blood pressure greater than 185 and/or Diastolic (lower) blood pressure greater than 110. Quetiapine Fumarate 25 Mg Tablet 25 Mg PO BID 30 Days Aspirin 325 Mg Tablet 325 Mg PO DAILYWBKFT 30 Days Amlodipine Besylate 5 Mg Tablet 5 Mg PO DAILY 30 Days Lisinopril 40 Mg Tablet 40 Mg PO DAILY 30 Days Atorvastatin Calcium 20 Mg Tablet 20 Mg PO QHS 30 Days Colace (Docusate Sodium) 100 Mg Capsule 1 Cap PO BID Reported Hydroxyzine Pamoate 50 Mg Capsule 50 Mg PO TID Zolpidem Tartrate 10 Mg Tablet 10 Mg PO QHS Carvedilol (Carvedilol) 12.5 Mg Tablet 6.25 Mg PO BIDWMEALS Tums (Calcium Carbonate) 200 Mg Tab.chew 200 Mg PO Diazepam 10 Mg Tablet 10 Mg PO BID Allergies Allergies: Coded Allergies: No Known Drug Allergies (Unverified , 09/27/16) ROS Review of System Constitutional: Denies fever or chills Eyes: per HPI HENT: Positive for headache Respiratory: Denies cough or shortness of breath Cardiovascular: Denies any palpitations or chest pain GI: Positive for abdominal pain, nausea, vomiting, and diarrhea : Denies dysuria or hematuria Musculoskeletal: Lower extremity weakness Integument: No rashes or lesions Neurologic: No gross deficits All other 14 point ROS negative Physical Exam Physical Exam General: Alert and oriented X3 HEENT: Atraumatic, Pupils equal, round. Mucous membranes moist. Cardiac: Heart rate regular. Normal carotid pulses. Lungs: CTA, non-labored respirations. Abdomen: Soft, nontender, nondistended, no palpable masses. Extremities: 2+ bilateral radial, femoral, dorsalis pedis pulses Musculoskeletal: Gait steady with cane. Moving all extremities. Skin: No rashes or lesions Neurological: Motor and sensation intact. Psychiatry: Anxiety Vitals VITALS Vital Signs Date Time Temp Pulse Resp B/P (MAP) Pulse Ox O2 Delivery O2 Flow Rate FiO2 03/07/21 11:00 98.9 65 16 102/59 (73) 100 Room Air 98.9 03/07/21 10:25 2.0 Labs Labs Laboratory Tests Test 03/06/21 08:05 03/06/21 10:05 03/06/21 15:25 03/07/21 13:15 White Blood Count 7.4 x10^3/uL (4.0-11.0) 6.6 x10^3/uL (4.0-11.0) Red Blood Count 4.12 x10^6/uL (3.50-5.40) 4.28 x10^6/uL (3.50-5.40) Hemoglobin 13.3 g/dL (12.0-15.5) 13.6 g/dL (12.0-15.5) Hematocrit 39.8 % (36.0-47.0) 41.0 % (36.0-47.0) Mean Corpuscular Volume 96 fL (79-100) 96 fL (79-100) Mean Corpuscular Hemoglobin 32 pg (25-35) 32 pg (25-35) Mean Corpuscular Hemoglobin Concent 33 g/dL (31-37) 33 g/dL (31-37) Red Cell Distribution Width 13.9 % (11.5-14.5) 13.7 % (11.5-14.5) Platelet Count 216 x10^3/uL (140-400) 213 x10^3/uL (140-400) Neutrophils (%) (Auto) 75 % (31-73) 57 % (31-73) Lymphocytes (%) (Auto) 18 % (24-48) 32 % (24-48) Monocytes (%) (Auto) 6 % (0-9) 10 % (0-9) Eosinophils (%) (Auto) 1 % (0-3) 1 % (0-3) Basophils (%) (Auto) 1 % (0-3) 1 % (0-3) Neutrophils # (Auto) 5.5 x10^3/uL (1.8-7.7) 3.7 x10^3/uL (1.8-7.7) Lymphocytes # (Auto) 1.3 x10^3/uL (1.0-4.8) 2.1 x10^3/uL (1.0-4.8) Monocytes # (Auto) 0.4 x10^3/uL (0.0-1.1) 0.7 x10^3/uL (0.0-1.1) Eosinophils # (Auto) 0.1 x10^3/uL (0.0-0.7) 0.0 x10^3/uL (0.0-0.7) Basophils # (Auto) 0.0 x10^3/uL (0.0-0.2) 0.0 x10^3/uL (0.0-0.2) Prothrombin Time 14.1 SEC (11.7-14.0) Prothromb Time International Ratio 1.1 (0.8-1.1) Sodium Level 143 mmol/L (136-145) 136 mmol/L (136-145) Potassium Level 4.4 mmol/L (3.5-5.1) 4.2 mmol/L (3.5-5.1) Chloride Level 106 mmol/L (98-107) 102 mmol/L (98-107) Carbon Dioxide Level 25 mmol/L (21-32) 26 mmol/L (21-32) Anion Gap 12 (6-14) 8 (6-14) Blood Urea Nitrogen 16 mg/dL (7-20) 15 mg/dL (7-20) Creatinine 0.8 mg/dL (0.6-1.0) 0.9 mg/dL (0.6-1.0) Estimated GFR (Cockcroft-Gault) 89.5 78.1 BUN/Creatinine Ratio 20 (6-20) Glucose Level 99 mg/dL (70-99) 80 mg/dL (70-99) Calcium Level 8.8 mg/dL (8.5-10.1) 8.4 mg/dL (8.5-10.1) Total Bilirubin 0.4 mg/dL (0.2-1.0) Aspartate Amino Transf (AST/SGOT) 15 U/L (15-37) Alanine Aminotransferase (ALT/SGPT) 21 U/L (14-59) Alkaline Phosphatase 100 U/L (46-116) Troponin I Quantitative < 0.017 ng/mL (0.000-0.055) Total Protein 7.1 g/dL (6.4-8.2) Albumin 3.5 g/dL (3.4-5.0) Albumin/Globulin Ratio 1.0 (1.0-1.7) Lipase 140 U/L (73-393) Ethyl Alcohol Level < 10 mg/dL (0-10) Urine Collection Type Void Urine Color Yellow Urine Clarity Clear Urine pH 6.5 (<5.0-8.0) Urine Specific [place] >=1.030 (1.000-1.030) Urine Protein Negative mg/dL (NEG-TRACE) Urine Glucose (UA) Negative mg/dL (NEG) Urine Ketones (Stick) Negative mg/dL (NEG) Urine Blood Trace (NEG) Urine Nitrite Negative (NEG) Urine Bilirubin Negative (NEG) Urine Urobilinogen Dipstick 0.2 mg/dL (0.2 mg/dL) Urine Leukocyte Esterase Negative (NEG) Urine RBC 0 /HPF (0-2) Urine WBC 0 /HPF (0-4) Urine Squamous Epithelial Cells Mod /LPF Urine Bacteria Few /HPF (0-FEW) SARS-CoV-2 RNA (CONSTANZA) Positive (Negative) Laboratory Tests Test 03/07/21 13:15 White Blood Count 6.6 x10^3/uL (4.0-11.0) Red Blood Count 4.28 x10^6/uL (3.50-5.40) Hemoglobin 13.6 g/dL (12.0-15.5) Hematocrit 41.0 % (36.0-47.0) Mean Corpuscular Volume 96 fL (79-100) Mean Corpuscular Hemoglobin 32 pg (25-35) Mean Corpuscular Hemoglobin Concent 33 g/dL (31-37) Red Cell Distribution Width 13.7 % (11.5-14.5) Platelet Count 213 x10^3/uL (140-400) Neutrophils (%) (Auto) 57 % (31-73) Lymphocytes (%) (Auto) 32 % (24-48) Monocytes (%) (Auto) 10 % (0-9) Eosinophils (%) (Auto) 1 % (0-3) Basophils (%) (Auto) 1 % (0-3) Neutrophils # (Auto) 3.7 x10^3/uL (1.8-7.7) Lymphocytes # (Auto) 2.1 x10^3/uL (1.0-4.8) Monocytes # (Auto) 0.7 x10^3/uL (0.0-1.1) Eosinophils # (Auto) 0.0 x10^3/uL (0.0-0.7) Basophils # (Auto) 0.0 x10^3/uL (0.0-0.2) Sodium Level 136 mmol/L (136-145) Potassium Level 4.2 mmol/L (3.5-5.1) Chloride Level 102 mmol/L (98-107) Carbon Dioxide Level 26 mmol/L (21-32) Anion Gap 8 (6-14) Blood Urea Nitrogen 15 mg/dL (7-20) Creatinine 0.9 mg/dL (0.6-1.0) Estimated GFR (Cockcroft-Gault) 78.1 Glucose Level 80 mg/dL (70-99) Calcium Level 8.4 mg/dL (8.5-10.1) Images Images MRI IMPRESSION: 1. No acute intracranial finding. 2. Chronic infarct with associated chronic hemorrhage within the right parietal lobe and posterior temporal lobe. There are also foci of chronic hemorrhage within the left basal ganglia and right cerebellum. 3. Small chronic infarcts within the bilateral frontal lobes and basal ganglia. 4. Cerebral white matter changes, likely due to chronic small vessel disease. 5. Cerebral volume loss. CT Scan with contrast IMPRESSION: 1. No acute intracranial finding. Note is made that MRI is more sensitive for acute infarction. 2. Chronic infarcts within the right parietal lobe, right caudate nucleus and left centrum semiovale. 3. Extensive bilateral cerebral white matter changes. This is advanced for chronic small vessel disease in a patient of this age. The possibility of superimposed changes due to chronic demyelinating disease can be considered in the appropriate clinical setting. 4. Focal luminal irregularly involving the distal left internal carotid artery, resulting in approximately 50 percent stenosis at the level of C1, secondary to vessel tortuosity. 5. Focal luminal irregularly involving the distal left internal carotid artery at the skull base resulting in approximately 50 percent stenosis. This is not typical in appearance for spasm, aneurysm or ulcerated plaque. The possibility of a tiny segment of dissection is not excluded at this location. Short-term CT angiographic follow-up is recommended. There is additional focal stenosis involving the distal left internal carotid artery proximal to the petrous segment which is not typical in appearance for spasm or ulcerated plaque and possibly due to a tiny dissection flap 5. No additional evidence of hemodynamically significant stenosis or aneurysm involving the neck or intracranial arteries. There is slight luminal irregularity throughout the carotid arteries without hemodynamically significant stenosis. Fibromuscular dysplasia is not occluded. Assessment/Plan Assessment/Plan 74 year old female with headache, nausea and vomiting with positive COVID-[address] suggest focal irregularity of distal left ICA less than 50 percent with tortuosity and possible tiny dissection flap at skull base just proximal to petrous portion of left internal carotid artery. Recommend medical management to include antiplatelet therapy, statin therapy, hypertensive management and smoking cessation. Would defer antiplatelet versus anticoagulation therapy to neurology. They recommend aspirin due to her history of hypertensive e ncephalopathy, hemorrhagic stroke and medication noncompliance. Would not recommend any additional arterial or surgical intervention at this time. Would obtain carotid ultrasound in 6 months. If patient discharges she may follow-up in our clinic in 6 months. ERICKSON YU APRN Mar 07, 2021 15:56
--- NOTE | 2021-03-07 16:52 | DISCH ---
DISCHARGE INSTRUCTIONS Condition on Discharge Condition on Discharge: Stable Activity After Discharge Activity Instructions for Disc: No restrictions, Resume previous activity, Activity as tolerated Lifting Instructions after Dis: No heavy lifting Exercise Instruction after Dis: Progress as tolerated Driving Instructions after Dis: Do not drive Weight Bearing Status after Di: No restrictions, Full weight bearing, As tolerated Diet after Discharge Diet after Discharge: Cardiac Diet Texture: Regular Liquid Texture: Thin Liquid Swallowing Supervision: None needed Wound Incision Care Wound/Incision Care: No wound care needed Checks after Discharge Checks after discharge: Check blood press - daily, Check your Temp as needed Contacting the DR. after DC Call your doctor for: Concerns you may have Follow-Up Follow up with: PCP within 2 weeks of discharge Follow Up With: Vascular surgery for carotid ultrasound Treatment/Equipment after DC Adaptive Equipment Issued: None, Front wheeled DELORES Mercedes MD Mar 07, 2021 16:52
[2021-03-07 18:13] VITALS: BP 119/78
--- NOTE | 2021-03-07 18:44 | NUR ---
Discharge Note: [facility] Discharge instructions and discharge home medications reviewed with Patient and a copy given. All questions have been answered and understanding verbalized. The following instructions and handouts were given: Carotid stenosis, Nausea and vomiting, general headache, how to tkae your blood pressure. Blood pressure recording sheet, topiramate tablets, dehydration. Patient discharged to home with via z-trip. Wheeled out via wheelchair with KAYLA Telma. IV discontinued by patient at 1230. Monitor at nurses station. Patient is very concerned that the Topamax makes her lose weight, advised her of Dr. Christie's phone number and stated she could call him with questions tomorrow.
--- NOTE | 2021-03-07 19:22 | NUR ---
Called Addie script into [facility] for patient to picker and sorter load and unload, patient states she refuses to take that medication.
[2021-03-07 20:15] LABS: ANA INTERP Positive (.)
== END 2021-03-07 19:00 | disposition home or self-care (01) | DRG 77 ==
LOC: ER 07:47 → ED HOLD 10:35 → 2 SOUTH 19:09
PROVIDERS: ADMIT Family Medicine; ATTEND Family Medicine
DX: I67.4 Hypertensive encephalopathy (principal); U07.1 COVID-19; I13.0 Hypertensive heart and chronic kidney disease with heart failure and stage 1 through stage 4 chronic kidney disease, or unspecified chronic kidney disease; I42.8 Other cardiomyopathies; G43.909 Migraine, unspecified, not intractable, without status migrainosus; N18.9 Chronic kidney disease, unspecified; M19.90 Unspecified osteoarthritis, unspecified site; F32.9 Major depressive disorder, single episode, unspecified; F41.9 Anxiety disorder, unspecified; E78.5 Hyperlipidemia, unspecified; I25.10 Atherosclerotic heart disease of native coronary artery without angina pectoris; I50.9 Heart failure, unspecified; F17.210 Nicotine dependence, cigarettes, uncomplicated; G93.89 Other specified disorders of brain; I73.9 Peripheral vascular disease, unspecified; M48.02 Spinal stenosis, cervical region; F01.50 Vascular dementia, unspecified severity, without behavioral disturbance, psychotic disturbance, mood disturbance, and anxiety; I65.22 Occlusion and stenosis of left carotid artery; I77.1 Stricture of artery; T46.5X6A Underdosing of other antihypertensive drugs, initial encounter; K21.9 Gastro-esophageal reflux disease without esophagitis; R94.02 Abnormal brain scan; Z91.14 Patient's other noncompliance with medication regimen; Z90.710 Acquired absence of both cervix and uterus; Z90.49 Acquired absence of other specified parts of digestive tract; Z98.891 History of uterine scar from previous surgery; Z56.0 Unemployment, unspecified; Z82.49 Family history of ischemic heart disease and other diseases of the circulatory system; Z80.9 Family history of malignant neoplasm, unspecified; Z79.899 Other long term (current) drug therapy; Z79.82 Long term (current) use of aspirin; Z71.6 Tobacco abuse counseling; Z86.73 Personal history of transient ischemic attack (TIA), and cerebral infarction without residual deficits; Y92.89 Other specified places as the place of occurrence of the external cause
CPT/HCPCS: 36415; 70450; 70496; 70498; 70551; 71045; 80048; 80053; 81001; 83690; 84484; 85025; 85610; 86038; 93005; 94760; 99285; G0480; J1170; J2270; J2405; J3490; J7030; Q9967; U0003; U0005; G0378

== ENCOUNTER 2021-03-16 00:31 | Inpatient (IN) | payer OTHER ==
[~2021-03-16] VITALS: Ht 160 cm; Wt 69.8 kg
[2021-03-16] MEDS ORDERED: HALOPERIDOL LACTATE 5 MG/ML VIAL. ONE (00:44)
[2021-03-16] MEDS ORDERED: ZIPRASIDONE IM 20 MG VIAL. IM ONE ×3 (00:59→17:15)
[2021-03-16 01:15] LABS: BASO # 0.1 x10^3/uL (0.0-0.2); BASO % 1 % (0-3); EOS # 0.1 x10^3/uL (0.0-0.7); EOS % 2 % (0-3); HEMOGLOBIN 13.7 g/dL (12.0-15.5); LYMPH # 2.8 x10^3/uL (1.0-4.8); LYMPH % 36 % (24-48); MEAN CORPUSCULAR HEMOGLOBIN 32 pg (25-35); MEAN CORPUSCULAR HGB CONC 34 g/dL (31-37); MEAN CORPUSCULAR VOLUME 95 fL (79-100); MONO # 0.8 x10^3/uL (0.0-1.1); MONO % 10 % (0-9); NEUT # 4.1 x10^3/uL (1.8-7.7); NEUT % 52 % (31-73); PLATELET COUNT 275 x10^3/uL (140-400); RED CELL DISTRIBUTION WIDTH 13.8 % (11.5-14.5); WHITE BLOOD COUNT 7.9 x10^3/uL (4.0-11.0)
[2021-03-16 01:17] LABS: BILIRUBIN,URINE SMALL (NEG); CLARITY,URINE CLEAR; COLOR,URINE YELLOW; NITRITE,URINE NEGATIVE (NEG); PH,URINE 6.5 (<5.0-8.0); PROTEIN,URINE 30 mg/dL (NEG-TRACE)
[2021-03-16 01:24] LABS: BARBITURATES POS (NEG); BENZODIAZEPINES NEG (NEG); CANNABINOIDS NEG (NEG); COCAINE NEG (NEG); METHADONE NEG (NEG); OPIATES NEG (NEG); PHENCYCLIDINE NEG (NEG)
[2021-03-16 01:24] LABS: CALCIUM 9.3 mg/dL (8.5-10.1); CREATININE 1.1 mg/dL (0.6-1.0); GFR 61.9; POTASSIUM 3.9 mmol/L (3.5-5.1)
[2021-03-16 01:28] LABS: BACTERIA,URINE 0 /HPF (0-FEW); HYALINE CASTS, URINE MODERATE /HPF; RBC,URINE 0 /HPF (0-2); WBC,URINE OCC /HPF (0-4)
[2021-03-16 01:29] LABS: AMPHETAMINE/METHAMPHETAMINE NEG (NEG)
--- NOTE | 2021-03-16 01:47 | RAD ---
CT head without contrast dated 03/16/2021. Comparison made to 03/06/2021. CLINICAL INDICATION: Confusion. TECHNIQUE: Contiguous axial imaging of the head was performed from skull base to vertex. No contrast administere d. One or more of the following individualized dose reduction techniques were utilized for this examinat ion: 1. Automated exposure control 2. Adjustment of the mA and/or kV according to patient size 3. Use of iterative reconstruction technique FINDINGS: Ventricles and sulci are mildly prominent for age. No midline shift or mass effect. Mild to moderate patchy low density within the deep/subcortical periventricular white matter. No hemorrhage or extra-a xial collection. Posterior fossa and brainstem unremarkable. Visualized paranasal sinuses and mastoid air cells are clear. No apparent calvarial abnormality. IMPRESSION: 1. No evidence of acute intracranial hemorrhage or mass. 2. Mild to moderate chronic small vessel ischemic changes and atrophy, similar to prior study. Electronically signed by: Tj Jalloh MD (03/16/2021 1:44 AM) YAZMIN
[2021-03-16] MEDS ORDERED: IOHEXOL 300 MG/ML 100ML VIAL. IV ONE (02:00)
[2021-03-16] MEDS ORDERED: CONTRAST GIVEN. MC PRN (02:00)
--- NOTE | 2021-03-16 02:22 | RAD ---
Reticular CTA head and neck with contrast dated 03/16/2021. Comparison made to 03/06/2021. CLINICAL INDICATION: Confusion. History of dissection. TECHNIQUE: Contiguous axial imaging of the head and neck performed following the intravenous administration of I sovue-370. Study was performed as dedicated CTA with thin cut coronal and sagittal MIPS reconstructio n and 3-D rotational reconstruction. One or more of the following individualized dose reduction techniques were utilized for this examinat ion: 1. Automated exposure control 2. Adjustment of the mA and/or kV according to patient size 3. Use of iterative reconstruction technique Carotid Stenosis calculations for CT, MR, and conventional angiography are based upon measurements of the distal ICA diameter in accordance with the NASCET methodology. Stenosis calculations for carotid ultrasound studies are derived from validated velocity criteria which are known to correlate with th e NASCET methodology. FINDINGS: Study is somewhat limited due to diminished contrast bolus. Aortic arch is stable. Bilateral subclavi an arteries are patent. Bilateral vertebral arteries are patent. No intimal flap or focal stenosis. T he intradural vertebral arteries are patent. Basilar artery is well formed. Bilateral HOG FEEDER are patent. Bilateral common carotid arteries are patent. There is bovine origin of the left CCA. Minimal calcifi c plaque at the right carotid bifurcation. No significant plaquing on the left. There is mild luminal irregularity of the distal common carotid artery on the left, unchanged, estimated at about 40-50% s tenosis, stable. Minimal changes are also seen on the right, stable. No intimal flap. The petrous and cavernous segments are not well evaluated due to dense contrast material in the adjacent veins. No f ocal stenosis. GRISEL and MCA branches are patent. There is hypoplastic A1 segment on the left. There is a prominent infundibulum versus small aneurysm off the posterior carotid terminus on the right measu res about 2.5 mm, unchanged. No proximal branch vessel occlusion. No MCA trifurcation aneurysm. Contrast imaging the brain shows no abnormal enhancement. Dural venous sinuses are grossly patent. Mi ld to moderate patchy low density in the deep/subcortical periventricular white matter, unchanged. Re mote areas of infarction involving the right parietal lobe, right caudate and left centrum semiovale are unchanged. Visualized soft tissue structures are unremarkable. Limited images of lung apices are clear. IMPRESSION: 1. Luminal irregularity and mild narrowing of the distal internal carotid arteries bilaterally, left greater than right. Findings are stable from prior study with no hemodynamically significant stenosis . This could be related to fibromuscular dysplasia and or vasculitis. No intimal flap. 2. There is a small aneurysm versus infundibulum involving the posterior aspect of the right carotid terminus, also stable. 3. Mild chronic small vessel ischemic changes and atrophy. Electronically signed by: Tj Jalloh MD (03/16/2021 2:20 AM) CORINNA
[2021-03-16] MEDS ORDERED: IV NORMAL SALINE 1000ML BAG 1,000 ML IV ONE (02:45)
[2021-03-16 03:13] LABS: ALBUMIN 4.3 g/dL (3.4-5.0); DIRECT BILIRUBIN 0.1 mg/dL (0.0-0.2); TOTAL BILIRUBIN 0.4 mg/dL (0.2-1.0); TOTAL PROTEIN 7.8 g/dL (6.4-8.2)
--- NOTE | 2021-03-16 03:28 | ED.ADGEN ---
Past Medical History Past Medical History: Anxiety, CVA, Dementia, Hypertension, Seizure Additional Past Medical Histor: "brain aneurysm",PANIC ATTACKS, EARLY ONSET DEMENTIA Past Surgical History: Appendectomy, , Hysterectomy, Tonsillectomy Smoking Status: Current Every Day Smoker Alcohol Use: Occasionally Drug Use: None General Adult EDM: Chief Complaint: ALTERED MENTAL STATUS HPI: HPI: Patient is a 55-year-old female who presents to the emergency room with altered mental status. According to report patient was walking around her apartment building yelling for help. Upon arrival to the emergency room patient does not know her name, where she is, or what is going on. She initially stated she had schizophrenia but then stated that she did not. She stated that she snorted rat poisoning but then stated that she did not. Is unclear at this time what is led to the patient's altered mental status. History is very limited as patient is paranoid and confused. Review of Systems: Review of Systems: Complete ROS is negative unless otherwise documented in HPI Current Medications: Current Medications Medications (Trade) Dose Ordered Sig/Christina Start Time Stop Time Status Last Admin Dose Admin Haloperidol Lactate (Haldol Inj) 5 mg STK-MED ONCE 03/16/21 00:44 03/16/21 00:44 DC Info (CONTRAST GIVEN -- Rx MONITORING) 1 each PRN DAILY PRN 03/16/21 02:00 03/18/21 01:59 Iohexol (Omnipaque 300 Mg/ml) 75 ml 1X ONCE 03/16/21 02:00 03/16/21 02:01 DC Sodium Chloride 1,000 ml @ 1,000 mls/hr 1X ONCE 03/16/21 02:45 03/16/21 03:44 DC 03/16/21 02:26 1,000 MLS/HR Ziprasidone (Geodon Im) 20 mg 1X ONCE 03/16/21 01:15 03/16/21 01:16 DC 03/16/21 01:10 20 MG Allergies: Allergies: Allergies Coded Allergies Type Severity Reaction Last Updated Verified No Known Drug Allergies 09/27/16 No Physical Exam: PE: General: Awake, alert, distress. Well Nourished, well hydrated. Uncooperative HEENT: Atraumatic, EOMI, PERRL, airway patent, moist oral mucosa Neck: Supple, trachea midline Respiratory: CTA bilaterally, normal effort, no wheezing/crackles CV: RRR, no murmur, cap refill <2 GI: Soft, nondistended, nontender, no masses MSK: No obvious deformities Skin: Warm, dry, intact Neuro: A&O x0, speech NL, sensory and motor grossly intact, no focal deficits Psych: anxious, paranoia, confusion Current Patient Data: Labs: Laboratory Tests Test 03/16/21 00:40 03/16/21 00:54 03/16/21 02:42 White Blood Count 7.9 x10^3/uL (4.0-11.0) Red Blood Count 4.30 x10^6/uL (3.50-5.40) Hemoglobin 13.7 g/dL (12.0-15.5) Hematocrit 41.0 % (36.0-47.0) Mean Corpuscular Volume 95 fL (79-100) Mean Corpuscular Hemoglobin 32 pg (25-35) Mean Corpuscular Hemoglobin Concent 34 g/dL (31-37) Red Cell Distribution Width 13.8 % (11.5-14.5) Platelet Count 275 x10^3/uL (140-400) Neutrophils (%) (Auto) 52 % (31-73) Lymphocytes (%) (Auto) 36 % (24-48) Monocytes (%) (Auto) 10 % (0-9) H Eosinophils (%) (Auto) 2 % (0-3) Basophils (%) (Auto) 1 % (0-3) Neutrophils # (Auto) 4.1 x10^3/uL (1.8-7.7) Lymphocytes # (Auto) 2.8 x10^3/uL (1.0-4.8) Monocytes # (Auto) 0.8 x10^3/uL (0.0-1.1) Eosinophils # (Auto) 0.1 x10^3/uL (0.0-0.7) Basophils # (Auto) 0.1 x10^3/uL (0.0-0.2) Sodium Level 140 mmol/L (136-145) Potassium Level 3.9 mmol/L (3.5-5.1) Chloride Level 106 mmol/L (98-107) Carbon Dioxide Level 23 mmol/L (21-32) Anion Gap 11 (6-14) Blood Urea Nitrogen 21 mg/dL (7-20) H Creatinine 1.1 mg/dL (0.6-1.0) H Estimated GFR (Cockcroft-Gault) 61.9 Glucose Level 102 mg/dL (70-99) H Calcium Level 9.3 mg/dL (8.5-10.1) Total Bilirubin 0.4 mg/dL (0.2-1.0) Direct Bilirubin 0.1 mg/dL (0.0-0.2) Aspartate Amino Transferase (AST) 12 U/L (15-37) L Alanine Aminotransferase (ALT) 15 U/L (14-59) Alkaline Phosphatase 93 U/L (46-116) Total Protein 7.8 g/dL (6.4-8.2) Albumin 4.3 g/dL (3.4-5.0) Ethyl Alcohol Level < 10 mg/dL (0-10) Urine Collection Type U cath Urine Color Yellow Urine Clarity Clear Urine pH 6.5 (<5.0-8.0) Urine Specific [place] >=1.030 (1.000-1.030) Urine Protein 30 mg/dL (NEG-TRACE) Urine Glucose (UA) Negative mg/dL (NEG) Urine Ketones (Stick) 15 mg/dL (NEG) Urine Blood Negative (NEG) Urine Nitrite Negative (NEG) Urine Bilirubin Small (NEG) Urine Urobilinogen Dipstick 1.0 mg/dL (0.2 mg/dL) Urine Leukocyte Esterase Negative (NEG) Urine RBC 0 /HPF (0-2) Urine WBC Occ /HPF (0-4) Urine Squamous Epithelial Cells Few /LPF Urine Bacteria 0 /HPF (0-FEW) Urine Hyaline Casts Moderate /HPF Urine Mucus Mod /LPF Urine Opiates Screen Neg (NEG) Urine Methadone Screen Neg (NEG) Urine Barbiturates Pos (NEG) Urine Phencyclidine Screen Neg (NEG) Urine Amphetamine/Methamphetamine Neg (NEG) Urine Benzodiazepines Screen Neg (NEG) Urine Cocaine Screen Neg (NEG) Urine Cannabinoids Screen Neg (NEG) Urine Ethyl Alcohol Neg (NEG) Ammonia 21 mcmol/L (11-34) Laboratory Tests 03/16/21 00:40 Laboratory Tests 03/16/21 00:40 Vital Signs: Vital Signs Date Time Temp Pulse Resp B/P (MAP) Pulse Ox O2 Delivery O2 Flow Rate FiO2 03/16/21 03:18 62 151/78 (102) 99 Room Air EKG: EKG: [] Heart Score: C/O Chest Pain: N/A Risk Factors: Risk Factors: DM, Current or recent (<one month) smoker, HTN, HLP, family history of CAD, obesity. Risk Scores: Score 0 - 3: 2.5% MACE over next 6 weeks - Discharge Home Score 4 - 6: 20.3% MACE over next 6 weeks - Admit for Clinical Observation Score 7 - 10: 72.7% MACE over next 6 weeks - Early Invasive Strategies Radiology/Procedures: Radiology/Procedures: [] Course & Med Decision Making: Course & Med Decision Making Pertinent Labs and Imaging studies reviewed. (See chart for details) Patient is a 55-year-old female who presents to the Emergency Room with altered mental status. On exam, patient is paranoid and combative. At this time it is unclear what is causing the patient's altered mental status, however they do not appear to be at their baseline. Differential includes infection, electrolyte imbalance, ACS, stroke, intracranial bleed, polypharmacy, dehydration, dementia, renal failure, intoxication, psychosis. Patient does not have hypo-or hyperthermia. No history was provided to suggest seizure with postictal state. Glucose is normal upon arrival. At arrival, patient is protecting their airway and does not need to be intubated. There are not any signs of trauma. To eval uate the patient's altered mental status, CBC, CMP, UA, troponin, EKG, CT head, drug screen, ammonia will be ordered. Patient was given Haldol due to combativeness and then given Geodon. Lab work does not show cause of patient's altered mental status. Patient will be admitted for further evaluation. Dragon Disclaimer: Dragon Disclaimer: This electronic medical record was generated, in whole or in part, using a voice recognition dictation system. Departure Departure Impression: Primary Impression: Altered mental status Disposition: ADMITTED INPATIENT Condition: STABLE Referrals: UNKNOWN PCP NAME (PCP) ARVIN WELLS MD Mar 16, 2021 03:28
[2021-03-16 05:43] VITALS: BP 135/90
[2021-03-16 07:00] VITALS: BP 117/64
--- NOTE | 2021-03-16 09:02 | PDOC1 ---
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 According to report patient was walking around her apartment building yelling for help. Upon arrival to the emergency room patient does not know her name, where she is, or what is going on. She initially stated she had schizophrenia but then stated that she did not. She stated that she snorted rat poisoning but then stated that she did not. Is unclear at this time what is led to the patient's altered mental status. History is very limited as patient is paranoid and confused. CT head and CTA head and neck with no new changes since recent admission. UDS positive for barbituates WBC 7.9, Hb 13.7, platelets 275, Na 140, K 3.9, BUN 21, Cr 1.1, glucose 102, Ammonia 21, LFTS within normal lab limits She is not oriented even to person, admitted for further care. Past Medical History Cardiovascular: CHF, HTN, Hyperlipidemia Pulmonary: Bronchitis CENTRAL NERVOUS SYSTEM: CVA, Seizure GI: GERD Heme/Onc: Anemia NOS, Sickle cell trait Hepatobiliary: No pertinent hx Psych: Anxiety, Other Musculoskeletal: Osteoarthritis Rheumatologic: No pertinent hx Infectious disease: No pertinent hx Renal/: Chronic renal insuff, Other Endocrine: No pertinent hx Past Surgical History Past Surgical History: , Tonsillectomy, Hysterectomy, Other Family History Family History: Coronary Artery Disease Social History Smoke: 1 pack per day ALCOHOL: occassional Drugs: None Current Problem List Problem List Problems Medical Problems: (1) Altered mental status Status: Acute Current Medications Current Medications Current Medications Haloperidol Lactate (Haldol Inj) 5 mg STK-MED ONCE .ROUTE ; Start 03/16/21 at 00:44; Stop 03/16/21 at 00:44; Status DC Ziprasidone (Geodon Im) 20 mg STK-MED ONCE IM ; Start 03/16/21 at 00:59; Stop 03/16/21 at 01:00; Status DC Ziprasidone (Geodon Im) 20 mg 1X ONCE IM Last administered on 03/16/21at 01:10; Start 03/16/21 at 01:15; Stop 03/16/21 at 01:16; Status DC Iohexol (Omnipaque 300 Mg/ml) 75 ml 1X ONCE IV ; Start 03/16/21 at 02:00; Stop 03/16/21 at 02:01; Status DC Info (CONTRAST GIVEN -- Rx MONITORING) 1 each PRN DAILY PRN MC SEE COMMENTS; Start 03/16/21 at 02:00; Stop 03/18/21 at 01:59 Sodium Chloride 1,000 ml @ 1,000 mls/hr 1X ONCE IV Last administered on 03/16/21at 02:26; Start 03/16/21 at 02:45; Stop 03/16/21 at 03:44; Status DC Active Scripts Active Ondansetron Odt (Ondansetron) 4 Mg Tab.rapdis 1 Tab PO PRN Q6-8HRS PRN Lamictal (Lamotrigine) 200 Mg Tablet 1 Tab PO DAILY Lisinopril 20 Mg Tablet 1 Tab PO DAILY Potassium Chloride (Potassium Chloride) 20 Meq Tablet.er 20 Meq PO DAILY 10 Days Clonidine Hcl 0.1 Mg Tablet 0.1 Mg PO BID PRN Take each tablet as needed for Systolic (upper) blood pressure greater than 185 and/or Diastolic (lower) blood pressure greater than 110. Quetiapine Fumarate 25 Mg Tablet 25 Mg PO BID 30 Days Aspirin 325 Mg Tablet 325 Mg PO DAILYWBKFT 30 Days Amlodipine Besylate 5 Mg Tablet 5 Mg PO DAILY 30 Days Lisinopril 40 Mg Tablet 40 Mg PO DAILY 30 Days Atorvastatin Calcium 20 Mg Tablet 20 Mg PO QHS 30 Days Colace (Docusate Sodium) 100 Mg Capsule 1 Cap PO BID Reported Hydroxyzine Pamoate 50 Mg Capsule 50 Mg PO TID Zolpidem Tartrate 10 Mg Tablet 10 Mg PO QHS Carvedilol (Carvedilol) 12.5 Mg Tablet 6.25 Mg PO BIDWMEALS Tums (Calcium Carbonate) 200 Mg Tab.chew 200 Mg PO Diazepam 10 Mg Tablet 10 Mg PO BID Allergies Allergies: Coded Allergies: No Known Drug Allergies (Unverified , 09/27/16) ROS Review of System Unable to obtain due to psychosis Physical Exam General: Alert, moderate distress HEENT: Atraumatic, PERRLA, EOMI, Mucous membr. moist/pink Lungs: Clear to auscultation, Normal air movement Heart: S1S2, RRR, no thrills, no rubs, no gallops, no murmurs Abdomen: Normal bowel sounds, Soft, No tenderness, No hepatosplenomegaly, No masses Rectal Exam: not examined Extremities: No clubbing, No cyanosis, No edema, Normal pulses, No tenderness/swelling Skin: No rashes, No breakdown, No significant lesion Neuro: Normal gait, Normal speech, Strength at 5/5 X4 ext, Normal tone, Sensation intact, Cranial nerves 3-12 NL, Reflexes 2+ Psych/Mental Status: Other (Tangential, hallucinating) Vitals Vitals Vital Signs Date Time Temp Pulse Resp B/P (MAP) Pulse Ox O2 Delivery O2 Flow Rate FiO2 03/16/21 07:00 98.3 64 17 117/64 (81) 100 Room Air 98.3 Labs Labs Laboratory Tests Test 03/16/21 00:40 03/16/21 00:54 03/16/21 02:42 White Blood Count 7.9 x10^3/uL (4.0-11.0) Red Blood Count 4.30 x10^6/uL (3.50-5.40) Hemoglobin 13.7 g/dL (12.0-15.5) Hematocrit 41.0 % (36.0-47.0) Mean Corpuscular Volume 95 fL (79-100) Mean Corpuscular Hemoglobin 32 pg (25-35) Mean Corpuscular Hemoglobin Concent 34 g/dL (31-37) Red Cell Distribution Width 13.8 % (11.5-14.5) Platelet Count 275 x10^3/uL (140-400) Neutrophils (%) (Auto) 52 % (31-73) Lymphocytes (%) (Auto) 36 % (24-48) Monocytes (%) (Auto) 10 % (0-9) Eosinophils (%) (Auto) 2 % (0-3) Basophils (%) (Auto) 1 % (0-3) Neutrophils # (Auto) 4.1 x10^3/uL (1.8-7.7) Lymphocytes # (Auto) 2.8 x10^3/uL (1.0-4.8) Monocytes # (Auto) 0.8 x10^3/uL (0.0-1.1) Eosinophils # (Auto) 0.1 x10^3/uL (0.0-0.7) Basophils # (Auto) 0.1 x10^3/uL (0.0-0.2) Sodium Level 140 mmol/L (136-145) Potassium Level 3.9 mmol/L (3.5-5.1) Chloride Level 106 mmol/L (98-107) Carbon Dioxide Level 23 mmol/L (21-32) Anion Gap 11 (6-14) Blood Urea Nitrogen 21 mg/dL (7-20) Creatinine 1.1 mg/dL (0.6-1.0) Estimated GFR (Cockcroft-Gault) 61.9 Glucose Level 102 mg/dL (70-99) Calcium Level 9.3 mg/dL (8.5-10.1) Total Bilirubin 0.4 mg/dL (0.2-1.0) Direct Bilirubin 0.1 mg/dL (0.0-0.2) Aspartate Amino Transf (AST/SGOT) 12 U/L (15-37) Alanine Aminotransferase (ALT/SGPT) 15 U/L (14-59) Alkaline Phosphatase 93 U/L (46-116) Total Protein 7.8 g/dL (6.4-8.2) Albumin 4.3 g/dL (3.4-5.0) Ethyl Alcohol Level < 10 mg/dL (0-10) Urine Collection Type U cath Urine Color Yellow Urine Clarity Clear Urine pH 6.5 (<5.0-8.0) Urine Specific [place] >=1.030 (1.000-1.030) Urine Protein 30 mg/dL (NEG-TRACE) Urine Glucose (UA) Negative mg/dL (NEG) Urine Ketones (Stick) 15 mg/dL (NEG) Urine Blood Negative (NEG) Urine Nitrite Negative (NEG) Urine Bilirubin Small (NEG) Urine Urobilinogen Dipstick 1.0 mg/dL (0.2 mg/dL) Urine Leukocyte Esterase Negative (NEG) Urine RBC 0 /HPF (0-2) Urine WBC Occ /HPF (0-4) Urine Squamous Epithelial Cells Few /LPF Urine Bacteria 0 /HPF (0-FEW) Urine Hyaline Casts Moderate /HPF Urine Mucus Mod /LPF Urine Opiates Screen Neg (NEG) Urine Methadone Screen Neg (NEG) Urine Barbiturates Pos (NEG) Urine Phencyclidine Screen Neg (NEG) Urine Amphetamine/Methamphetamine Neg (NEG) Urine Benzodiazepines Screen Neg (NEG) Urine Cocaine Screen Neg (NEG) Urine Cannabinoids Screen Neg (NEG) Urine Ethyl Alcohol Neg (NEG) Ammonia 21 mcmol/L (11-34) Laboratory Tests Test 03/16/21 00:40 03/16/21 00:54 03/16/21 02:42 White Blood Count 7.9 x10^3/uL (4.0-11.0) Red Blood Count 4.30 x10^6/uL (3.50-5.40) Hemoglobin 13.7 g/dL (12.0-15.5) Hematocrit 41.0 % (36.0-47.0) Mean Corpuscular Volume 95 fL (79-100) Mean Corpuscular Hemoglobin 32 pg (25-35) Mean Corpuscular Hemoglobin Concent 34 g/dL (31-37) Red Cell Distribution Width 13.8 % (11.5-14.5) Platelet Count 275 x10^3/uL (140-400) Neutrophils (%) (Auto) 52 % (31-73) Lymphocytes (%) (Auto) 36 % (24-48) Monocytes (%) (Auto) 10 % (0-9) Eosinophils (%) (Auto) 2 % (0-3) Basophils (%) (Auto) 1 % (0-3) Neutrophils # (Auto) 4.1 x10^3/uL (1.8-7.7) Lymphocytes # (Auto) 2.8 x10^3/uL (1.0-4.8) Monocytes # (Auto) 0.8 x10^3/uL (0.0-1.1) Eosinophils # (Auto) 0.1 x10^3/uL (0.0-0.7) Basophils # (Auto) 0.1 x10^3/uL (0.0-0.2) Sodium Level 140 mmol/L (136-145) Potassium Level 3.9 mmol/L (3.5-5.1) Chloride Level 106 mmol/L (98-107) Carbon Dioxide Level 23 mmol/L (21-32) Anion Gap 11 (6-14) Blood Urea Nitrogen 21 mg/dL (7-20) Creatinine 1.1 mg/dL (0.6-1.0) Estimated GFR (Cockcroft-Gault) 61.9 Glucose Level 102 mg/dL (70-99) Calcium Level 9.3 mg/dL (8.5-10.1) Total Bilirubin 0.4 mg/dL (0.2-1.0) Direct Bilirubin 0.1 mg/dL (0.0-0.2) Aspartate Amino Transf (AST/SGOT) 12 U/L (15-37) Alanine Aminotransferase (ALT/SGPT) 15 U/L (14-59) Alkaline Phosphatase 93 U/L (46-116) Total Protein 7.8 g/dL (6.4-8.2) Albumin 4.3 g/dL (3.4-5.0) Ethyl Alcohol Level < 10 mg/dL (0-10) Urine Collection Type U cath Urine Color Yellow Urine Clarity Clear Urine pH 6.5 (<5.0-8.0) Urine Specific [place] >=1.030 (1.000-1.030) Urine Protein 30 mg/dL (NEG-TRACE) Urine Glucose (UA) Negative mg/dL (NEG) Urine Ketones (Stick) 15 mg/dL (NEG) Urine Blood Negative (NEG) Urine Nitrite Negative (NEG) Urine Bilirubin Small (NEG) Urine Urobilinogen Dipstick 1.0 mg/dL (0.2 mg/dL) Urine Leukocyte Esterase Negative (NEG) Urine RBC 0 /HPF (0-2) Urine WBC Occ /HPF (0-4) Urine Squamous Epithelial Cells Few /LPF Urine Bacteria 0 /HPF (0-FEW) Urine Hyaline Casts Moderate /HPF Urine Mucus Mod /LPF Urine Opiates Screen Neg (NEG) Urine Methadone Screen Neg (NEG) Urine Barbiturates Pos (NEG) Urine Phencyclidine Screen Neg (NEG) Urine Amphetamine/Methamphetamine Neg (NEG) Urine Benzodiazepines Screen Neg (NEG) Urine Cocaine Screen Neg (NEG) Urine Cannabinoids Screen Neg (NEG) Urine Ethyl Alcohol Neg (NEG) Ammonia 21 mcmol/L (11-34) Images Images CT head and neck angiography: Study is somewhat limited due to diminished contrast bolus. Aortic arch is sta ble. Bilateral subclavian arteries are patent. Bilateral vertebral arteries are patent. No intimal flap or focal stenosis. The intradural vertebral arteries are patent. Basilar artery is well formed. Bilateral EVENT DESIGNER are patent. Bilateral common carotid arteries are patent. There is bovine origin of the left CCA. Minimal calcific plaque at the right carotid bifurcation. No significant plaquing on the left. There is mild luminal irregularity of the distal common carotid artery on the left, unchanged, estimated at about 40-50% stenosis, stable. Minimal changes are also seen on the right, stable. No intimal flap. The petrous and cavernous segments are not well evaluated due to dense contrast material in the adjacent veins. No focal stenosis. GRISEL and MCA branches are patent. There is hypoplastic A1 segment on the left. There is a prominent infundibulum versus small aneurysm off the posterior carotid terminus on the right measures about 2.5 mm, unchanged. No proximal branch vessel occlusion. No MCA trifurcation aneurysm. Contrast imaging the brain shows no abnormal enhancement. Dural venous sinuses are grossly patent. Mild to moderate patchy low density in the deep/subcortical periventricular white matter, unchanged. Remote areas of infarction involving the right parietal lobe, right caudate and left centrum semiovale are unchanged. Visualized soft tissue structures are unremarkable. Limited images of lung apices are clear. IMPRESSION: 1. Luminal irregularity and mild narrowing of the distal internal carotid arteri es bilaterally, left greater than right. Findings are stable from prior study with no hemodynamically significant stenosis. This could be related to fibromuscular dysplasia and or vasculitis. No intimal flap. 2. There is a small aneurysm versus infundibulum involving the posterior aspect of the right carotid terminus, also stable. 3. Mild chronic small vessel ischemic changes and atrophy. CT head: Ventricles and sulci are mildly prominent for age. No midline shift or mass effect. Mild to moderate patchy low density within the deep/subcortical periventricular white matter. No hemorrhage or extra-axial collection. Posterior fossa and brainstem unremarkable. Visualized paranasal sinuses and mastoid air cells are clear. No apparent calvarial abnormality. IMPRESSION: 1. No evidence of acute intracranial hemorrhage or mass. 2. Mild to moderate chronic small vessel ischemic changes and atrophy, similar to prior study. VTE Prophylaxis Ordered VTE Prophylaxis Devices: No VTE Pharmacological Prophylaxi: Contraindicated Assessment/Plan Assessment/Plan A/P: Metabolic encephalopathy - due to multi-infarct dementia in the setting of barbituate use. She has no fioricet prescriptions Multiple CVAs - h/o right parietal lobe hemorrhage, h/o lacunar infarction are seen involving the periventricular and deep white matter of both cerebral hemispheres, left greater than right Hypertensive encephalopathy - BP control Elevated troponin - related to VILMA from rhabdo VILMA - vasomotor nephropathy and ATN from dehydration and rhabdomyolysis Acute psychosis - 2/2 delerium from dementia and barbituate intoxication H/o Seizures HTN, poorly controlled. HLD - Statin Barbituate tox positive - likely worsening her psychosis FEN - Bedside swallow, NPO PPX - SCDs FULL CODE Dispo - inpatient Justifications for Admission Other Justification possible carotid dissection CANDIDA CARTAGENA MD Mar 16, 2021 09:02
[2021-03-16] MEDS ORDERED: ONDANSETRON PF 4 MG/2 ML VIAL. IVP PRN (10:00)
[2021-03-16] MEDS ORDERED: ONDANSETRON ODT 4 MG TAB.RAPDIS. PO PRN (10:00)
[2021-03-16] MEDS ORDERED: ASPIRIN 325 MG TABLET PO SCH (10:00)
[2021-03-16] MEDS ORDERED: CALCIUM CARBONATE 500 MG TAB.CHEW PO PRN (10:00)
[2021-03-16] MEDS ORDERED: ACETAMINOPHEN 325 MG TABLET. PO PRN (10:00)
--- NOTE | 2021-03-16 10:09 | NUR ---
SW following. Discussed with RN, pt from home alone, room air, NPO, COVID-19 positive (will be COVID recovered 03/17/21). Per RN pt has early onset dementia. RN ordering PT/OT for possible placement. SW will continue to follow.
[2021-03-16] MEDS ORDERED: hydrOXYzine 25 MG TABLET PO PRN (10:15)
[2021-03-16] MEDS: QUEtiapine 25 MG TABLET. PO SCH ×2 (10:44→21:00)
[2021-03-16 11:00] VITALS: BP_SYST 119; BP_SYST 98; BP_DIAS 60; BP_DIAS 72
[2021-03-16] MEDS ORDERED: lamoTRIgine 100 MG TABLET. PO SCH (11:00)
[2021-03-16] MEDS ORDERED: LISINOPRIL 5 MG TABLET. PO SCH (11:00)
[2021-03-16 15:00] VITALS: BP 140/82
[2021-03-16 16:32] VITALS: BP 119/72
[2021-03-16] MEDS ORDERED: CARVEDILOL 6.25 MG TABLET. PO SCH (17:00)
[2021-03-16] MEDS ORDERED: ATORVASTATIN CALCIUM 20 MG TABLET PO SCH (21:00)
[2021-03-16] MEDS ORDERED: DOCUSATE SODIUM 100 MG CAPSULE. PO SCH (21:00)
--- NOTE | 2021-03-16 22:20 | NUR ---
Pt insistent on going home. Had requested to go home at start of shift, yet when RN asked pt to hang out for the night, pt agreed. At 2219, pt insistent that she is going home - pulled one of 2 IV's ans was sitting naked on side of bed. SANTHOSH Taylor and this RN attempted to talk pt into staying until the dr could see her. Pt accused staff of attempting to " kill her and incinerate her." RN reassured pt that that was not being done. Pt still insistent on leaving. At 2233 - Dr Bedoya paged to make aware of situation. Dr Bedoya gave order that if pt wanted to leave, pt could. Pt got dressed. IV pulled per SANTHOSH Taylor - tip intact. 2233: Gabriela, Nursing Charge Weigher called to make aware of situation. Cab voucher issued. 2236: security to floor - pt wheeled in WC to ER to wait for cab.
--- NOTE | 2021-03-17 22:37 | PDOC3 ---
Discharge Summary Visit Information Date of Admission: Mar 16, 2021 Date of Discharge: Mar 16, 2021 Admitting Diagnosis: Altered mental status Final Diagnosis Problems Medical Problems: (1) Altered mental status Status: Acute Brief Hospital Course Allergies Allergies Coded Allergies Type Severity Reaction Last Updated Verified No Known Drug Allergies 09/27/16 No Vital Signs Vital Signs Date Time Temp Pulse Resp B/P (MAP) Pulse Ox O2 Delivery O2 Flow Rate FiO2 03/16/21 16:32 53 119/72 03/16/21 15:00 98.3 18 99 Room Air 98.3 Lab Results Laboratory Tests Test 03/16/21 00:40 03/16/21 00:54 03/16/21 02:42 White Blood Count 7.9 x10^3/uL (4.0-11.0) Red Blood Count 4.30 x10^6/uL (3.50-5.40) Hemoglobin 13.7 g/dL (12.0-15.5) Hematocrit 41.0 % (36.0-47.0) Mean Corpuscular Volume 95 fL (79-100) Mean Corpuscular Hemoglobin 32 pg (25-35) Mean Corpuscular Hemoglobin Concent 34 g/dL (31-37) Red Cell Distribution Width 13.8 % (11.5-14.5) Platelet Count 275 x10^3/uL (140-400) Neutrophils (%) (Auto) 52 % (31-73) Lymphocytes (%) (Auto) 36 % (24-48) Monocytes (%) (Auto) 10 % (0-9) Eosinophils (%) (Auto) 2 % (0-3) Basophils (%) (Auto) 1 % (0-3) Neutrophils # (Auto) 4.1 x10^3/uL (1.8-7.7) Lymphocytes # (Auto) 2.8 x10^3/uL (1.0-4.8) Monocytes # (Auto) 0.8 x10^3/uL (0.0-1.1) Eosinophils # (Auto) 0.1 x10^3/uL (0.0-0.7) Basophils # (Auto) 0.1 x10^3/uL (0.0-0.2) Sodium Level 140 mmol/L (136-145) Potassium Level 3.9 mmol/L (3.5-5.1) Chloride Level 106 mmol/L (98-107) Carbon Dioxide Level 23 mmol/L (21-32) Anion Gap 11 (6-14) Blood Urea Nitrogen 21 mg/dL (7-20) Creatinine 1.1 mg/dL (0.6-1.0) Estimated GFR (Cockcroft-Gault) 61.9 Glucose Level 102 mg/dL (70-99) Calcium Level 9.3 mg/dL (8.5-10.1) Total Bilirubin 0.4 mg/dL (0.2-1.0) Direct Bilirubin 0.1 mg/dL (0.0-0.2) Aspartate Amino Transf (AST/SGOT) 12 U/L (15-37) Alanine Aminotransferase (ALT/SGPT) 15 U/L (14-59) Alkaline Phosphatase 93 U/L (46-116) Total Protein 7.8 g/dL (6.4-8.2) Albumin 4.3 g/dL (3.4-5.0) Ethyl Alcohol Level < 10 mg/dL (0-10) Urine Collection Type U cath Urine Color Yellow Urine Clarity Clear Urine pH 6.5 (<5.0-8.0) Urine Specific [place] >=1.030 (1.000-1.030) Urine Protein 30 mg/dL (NEG-TRACE) Urine Glucose (UA) Negative mg/dL (NEG) Urine Ketones (Stick) 15 mg/dL (NEG) Urine Blood Negative (NEG) Urine Nitrite Negative (NEG) Urine Bilirubin Small (NEG) Urine Urobilinogen Dipstick 1.0 mg/dL (0.2 mg/dL) Urine Leukocyte Esterase Negative (NEG) Urine RBC 0 /HPF (0-2) Urine WBC Occ /HPF (0-4) Urine Squamous Epithelial Cells Few /LPF Urine Bacteria 0 /HPF (0-FEW) Urine Hyaline Casts Moderate /HPF Urine Mucus Mod /LPF Urine Opiates Screen Neg (NEG) Urine Methadone Screen Neg (NEG) Urine Barbiturates Pos (NEG) Urine Phencyclidine Screen Neg (NEG) Urine Amphetamine/Methamphetamine Neg (NEG) Urine Benzodiazepines Screen Neg (NEG) Urine Cocaine Screen Neg (NEG) Urine Cannabinoids Screen Neg (NEG) Urine Ethyl Alcohol Neg (NEG) Ammonia 21 mcmol/L (11-34) Brief Hospital Course Ms Christianson is a 54 yo F w/ PMHx 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 According to report patient was walking around her apartment building yelling for help. Upon arrival to the emergency room patient does not know her name, where she is, or what is going on. She initially stated she had schizophrenia but then stated that she did not. She stated that she snorted rat poisoning but then stated that she did not. Is unclear at this time what is led to the patient's altered mental status. History is very limited as patient is paranoid and confused. CT head and CTA head and neck with no new changes since recent admission. UDS positive for barbituates WBC 7.9, Hb 13.7, platelets 275, Na 140, K 3.9, BUN 21, Cr 1.1, glucose 102, Ammonia 21, LFTS within normal lab limits She was not oriented even to person, admitted for further care. She pulled out her IVs, removed her clothes and left the hospital AMA overnight on 03/16/2021. Problem list: Metabolic encephalopathy - due to multi-infarct dementia in the setting of barbituate use. She has no fioricet prescriptions Multiple CVAs - h/o right parietal lobe hemorrhage, h/o lacunar infarction are seen involving the periventricular and deep white matter of both cerebral hemispheres, left greater than right Hypertensive encephalopathy - BP control Elevated troponin - related to VILMA from rhabdo VILMA - vasomotor nephropathy and ATN from dehydration and rhabdomyolysis Acute psychosis - 2/2 delerium from dementia and barbituate intoxication H/o Seizures HTN, poorly controlled. HLD - Statin Barbituate tox positive - likely worsening her psychosis Greater than 135 minutes spent on same day admit and d/c Discharge Information Condition at Discharge: Comment (AMA) Disposition/Orders: Other (AMA) Scheduled Amlodipine Besylate (Amlodipine Besylate) 5 Mg Tablet, 5 MG PO DAILY for bp for 30 Days, #30 Ref 12 Prescribed by: ANGIE MALONE MD on 07/14/19 0947 Last Action: Reviewed on 03/16/21 0655 by Maria Guadalupe Clark Aspirin (Aspirin) 325 Mg Tablet, 325 MG PO DAILYWBK for stroke prevention for 30 Days, #30 Ref 11 Prescribed by: ANGIE MALONE MD on 07/14/19 0947 Last Action: Continued on 03/16/21 1002 by CANDIDA CARTAGENA MD Atorvastatin Calcium (Atorvastatin Calcium) 20 Mg Tablet, 20 MG PO QHS for cholesterol for 30 Days, #30 Ref 12 Prescribed by: ANGIE MALONE MD on 07/03/19 0858 Last Action: Continued on 03/16/21 1002 by CANDIDA CARTAGENA MD Carvedilol (Carvedilol ) 12.5 Mg Tablet, 6.25 MG PO BIDWMEALS for HTN, (Reported) Entered as Reported by: JULIO SKINNER on 07/19/17 1258 Last Action: Continued on 03/16/21 1002 by CANDIDA CARTAGENA MD Diazepam (Diazepam) 10 Mg Tablet, 10 MG PO BID for anxiety, (Reported) Entered as Reported by: RICHARD GARCIA on 11/05/13 1423 Last Action: HELD on 03/16/21 1001 by CANDIDA CARTAGENA MD Docusate Sodium (Colace) 100 Mg Capsule, 1 CAP PO BID, #60 Ref 2 Prescribed by: ERIC VARELA on 09/28/16 1204 Last Action: Continued on 03/16/21 1002 by CANDIDA CARTAGENA MD Hydroxyzine Pamoate (Hydroxyzine Pamoate) 50 Mg Capsule, 50 MG PO TID for unknown, (Reported) Entered as Reported by: VERONA SMITH on 06/26/19 1746 Last Action: Converted on 03/16/21 1002 by CANDIDA CARTAGENA MD Lamotrigine (Lamictal) 200 Mg Tablet, 1 TAB PO DAILY, #20 Ref 1 Prescribed by: HAWK HAMILTON D.O. on 05/15/20 0043 Last Action: Converted on 03/16/21 1002 by CANDIDA CARTAGENA MD Lisinopril (Lisinopril) 40 Mg Tablet, 40 MG PO DAILY for bp for 30 Days, #30 Ref 12 Prescribed by: ANGIE MALONE MD on 07/03/19 0858 Last Action: Reviewed on 03/16/21 0655 by Maria Guadalupe Clark Lisinopril (Lisinopril) 20 Mg Tablet, 1 TAB PO DAILY, #20 Ref 5 Prescribed by: HAWK HAMILTON D.O. on 05/15/20 0043 Last Action: Continued on 03/16/21 1002 by CANDIDA CARTAGENA MD Potassium Chloride (Potassium Chloride ) 20 Meq Tablet.er, 20 MEQ PO DAILY for SUPPLEMENT for 10 Days, #10 Prescribed by: HAWK HAMILTON D.O. on 05/15/20 0014 Last Action: Reviewed on 03/16/21 0655 by Maria Guadalupe Clark Quetiapine Fumarate (Quetiapine Fumarate) 25 Mg Tablet, 25 MG PO BID for mood for 30 Days, #60 Ref 11 Prescribed by: ANGIE MALONE MD on 07/14/19 0947 Last Action: Continued on 03/16/21 1002 by CANDIDA CARTAGENA MD Zolpidem Tartrate (Zolpidem Tartrate) 10 Mg Tablet, 10 MG PO QHS for insomnia, (Reported) Entered as Reported by: VERONA SMITH on 06/26/19 1746 Last Action: HELD on 03/16/21 1001 by CANDIDA CARTAGENA MD Scheduled PRN Clonidine Hcl (Clonidine Hcl) 0.1 Mg Tablet, 0.1 MG PO BID PRN for ELEVATED BP, SEE COMMENTS, #20 Take each tablet as needed for Systolic (upper) blood pressure greater than 185 and/or Diastolic (lower) blood pressure greater than 110. Prescribed by: ALEXANDER HEATH D.O. on 07/20/19 2332 Last Action: Reviewed on 03/16/21 0655 by Maria Guadalupe Clark Ondansetron (Ondansetron Odt) 4 Mg Tab.rapdis, 1 TAB PO PRN Q6-8HRS PRN for NAUSEA, #16 Prescribed by: ALEXANDER HEATH D.O. on 08/02/20 0145 Last Action: Continued on 03/16/21 1002 by CANDIDA CARTAGENA MD Miscellaneous Medications Calcium Carbonate (Tums) 200 Mg Tab.chew, 200 MG PO, (Reported) Entered as Reported by: RADAMES JEFFREY on 09/24/16 1513 Last Action: Continued on 03/16/21 1002 by CANDIDA CARTAGENA MD Justicifation of Admission Dx: Justifications for Admission: Justification of Admission Dx: N/A CANDIDA CARTAGENA MD Mar 17, 2021 22:37
== END 2021-03-16 23:35 | disposition left against medical advice (07) | DRG 70 ==
LOC: ER 00:31 → 6 SOUTH 03:28
PROVIDERS: ADMIT Internal Medicine; ATTEND Internal Medicine
DX: G93.41 Metabolic encephalopathy (principal); N17.0 Acute kidney failure with tubular necrosis; I13.0 Hypertensive heart and chronic kidney disease with heart failure and stage 1 through stage 4 chronic kidney disease, or unspecified chronic kidney disease; M62.82 Rhabdomyolysis; D57.3 Sickle-cell trait; E78.5 Hyperlipidemia, unspecified; E86.0 Dehydration; F01.50 Vascular dementia, unspecified severity, without behavioral disturbance, psychotic disturbance, mood disturbance, and anxiety; F17.210 Nicotine dependence, cigarettes, uncomplicated; F20.9 Schizophrenia, unspecified; F41.0 Panic disorder [episodic paroxysmal anxiety]; G40.909 Epilepsy, unspecified, not intractable, without status epilepticus; G47.00 Insomnia, unspecified; I69.311 Memory deficit following cerebral infarction; Z79.899 Other long term (current) drug therapy; Z90.49 Acquired absence of other specified parts of digestive tract; Z90.710 Acquired absence of both cervix and uterus; K21.9 Gastro-esophageal reflux disease without esophagitis; M19.90 Unspecified osteoarthritis, unspecified site; Z53.29 Procedure and treatment not carried out because of patient's decision for other reasons
CPT/HCPCS: 36415; 70450; 70496; 70498; 80048; 80076; 80307; 81001; 82140; 85025; 96360; 96372; 99285; G0480; J3486; J7030; G0378

== ENCOUNTER 2021-03-22 17:14 | Emergency (ER) | payer OTHER ==
[~2021-03-22] VITALS: Ht 162.6 cm; Wt 59.0 kg
[2021-03-22 17:28] VITALS: BP 173/104
[2021-03-22 19:56] LABS: BASO # 0.1 x10^3/uL (0.0-0.2); BASO % 1 % (0-3); EOS # 0.2 x10^3/uL (0.0-0.7); EOS % 2 % (0-3); HEMATOCRIT 43.4 % (36.0-47.0); HEMOGLOBIN 14.3 g/dL (12.0-15.5); LYMPH # 2.5 x10^3/uL (1.0-4.8); LYMPH % 33 % (24-48); MEAN CORPUSCULAR HEMOGLOBIN 32 pg (25-35); MEAN CORPUSCULAR HGB CONC 33 g/dL (31-37); MEAN CORPUSCULAR VOLUME 96 fL (79-100); MONO # 0.8 x10^3/uL (0.0-1.1); MONO % 11 % (0-9); NEUT # 4.1 x10^3/uL (1.8-7.7); NEUT % 54 % (31-73); PLATELET COUNT 226 x10^3/uL (140-400); RED BLOOD COUNT 4.53 x10^6/uL (3.50-5.40); RED CELL DISTRIBUTION WIDTH 14.1 % (11.5-14.5); WHITE BLOOD COUNT 7.6 x10^3/uL (4.0-11.0)
[2021-03-22 20:11] LABS: CALCIUM 9.7 mg/dL (8.5-10.1); CREATININE 1.1 mg/dL (0.6-1.0); GFR 61.9; POTASSIUM 3.8 mmol/L (3.5-5.1)
[2021-03-22 20:14] LABS: ETHANOL < 10 mg/dL (0-10); SALIC < 2.8 mg/dL (2.8-20.0)
[2021-03-22 20:17] LABS: ALBUMIN 4.5 g/dL (3.4-5.0); ALBUMIN/GLOBULIN RATIO 1.5 (1.0-1.7); MAGNESIUM 2.1 mg/dL (1.8-2.4); TOTAL BILIRUBIN 0.2 mg/dL (0.2-1.0); TOTAL PROTEIN 7.5 g/dL (6.4-8.2)
--- NOTE | 2021-03-22 21:29 | PHYS DOC ---
Past Medical History Past Medical History: Anxiety, CVA, Dementia, Hypertension, Seizure Additional Past Medical Histor: "brain aneurysm",PANIC ATTACKS, EARLY ONSET DEMENTIA Past Surgical History: Appendectomy, , Hysterectomy, Tonsillectomy Smoking Status: Current Every Day Smoker Alcohol Use: Occasionally Drug Use: None General Adult EDM: Chief Complaint: PSYCH EVALUATION HPI: HPI: Patient is a 55 year old female who presents with history of dementia, CVA, hypertension, anxiety, seizures, who presents to the ED today from home via EMS. EMS reports states patient's home health nurse called EMS requesting patient to be brought back to the ED for psych evaluation and placement to a geriatric psych facility. Of note patient was in the hospital on March 16 as well as March 18, and both occasions she signed out AMA. Review of Systems: Review of Systems: Constitutional: Denies fever or chills. [] Eyes: Denies change in visual acuity. [] HENT: Denies nasal congestion or sore throat. [] Respiratory: Denies cough or shortness of breath. [] Cardiovascular: Denies chest pain or edema. [] GI: Denies abdominal pain, nausea, vomiting, bloody stools or diarrhea. [] : Denies dysuria. [] Musculoskeletal: Denies back pain or joint pain. [] Integument: Denies rash. [] Neurologic: Denies headache, focal weakness or sensory changes. [] Endocrine: Denies polyuria or polydipsia. [] Lymphatic: Denies swollen glands. [] Psychiatric: Psych evaluation Heart Score: C/O Chest Pain: N/A Risk Factors: Risk Factors: DM, Current or recent (<one month) smoker, HTN, HLP, family history of CAD, obesity. Risk Scores: Score 0 - 3: 2.5% MACE over next 6 weeks - Discharge Home Score 4 - 6: 20.3% MACE over next 6 weeks - Admit for Clinical Observation Score 7 - 10: 72.7% MACE over next 6 weeks - Early Invasive Strategies Allergies: Allergies: Allergies Coded Allergies Type Severity Reaction Last Updated Verified No Known Drug Allergies 03/22/21 No Physical Exam: PE: Constitutional: Well developed, well nourished, no acute distress, non-toxic appearance. [] HENT: Normocephalic, atraumatic, bilateral external ears normal, oropharynx moist, no oral exudates, nose normal. [] Eyes: PERRLA, EOMI, conjunctiva normal, no discharge. [] Neck: Normal range of motion, no tenderness, supple, no stridor. [] Cardiovascular:Heart rate regular rhythm, no murmur [] Lungs & Thorax: Bilateral breath sounds clear to auscultation [] Abdomen: Bowel sounds normal, soft, no tenderness, no masses, no pulsatile masses. [] Skin: Warm, dry, no erythema, no rash. [] Back: No tenderness, no CVA tenderness. [] Extremities: No tenderness, no cyanosis, no clubbing, ROM intact, no edema. [] Neurologic: Alert and oriented X 2-3, normal motor function, normal sensory function, no focal deficits noted. [] Psychologic: Flat affect, mood swings, yelling at times. Current Patient Data: Labs: Laboratory Tests Test 03/22/21 19:47 White Blood Count 7.6 x10^3/uL (4.0-11.0) Red Blood Count 4.53 x10^6/uL (3.50-5.40) Hemoglobin 14.3 g/dL (12.0-15.5) Hematocrit 43.4 % (36.0-47.0) Mean Corpuscular Volume 96 fL (79-100) Mean Corpuscular Hemoglobin 32 pg (25-35) Mean Corpuscular Hemoglobin Concent 33 g/dL (31-37) Red Cell Distribution Width 14.1 % (11.5-14.5) Platelet Count 226 x10^3/uL (140-400) Neutrophils (%) (Auto) 54 % (31-73) Lymphocytes (%) (Auto) 33 % (24-48) Monocytes (%) (Auto) 11 % (0-9) H Eosinophils (%) (Auto) 2 % (0-3) Basophils (%) (Auto) 1 % (0-3) Neutrophils # (Auto) 4.1 x10^3/uL (1.8-7.7) Lymphocytes # (Auto) 2.5 x10^3/uL (1.0-4.8) Monocytes # (Auto) 0.8 x10^3/uL (0.0-1.1) Eosinophils # (Auto) 0.2 x10^3/uL (0.0-0.7) Basophils # (Auto) 0.1 x10^3/uL (0.0-0.2) Sodium Level 145 mmol/L (136-145) Potassium Level 3.8 mmol/L (3.5-5.1) Chloride Level 107 mmol/L (98-107) Carbon Dioxide Level 26 mmol/L (21-32) Anion Gap 12 (6-14) Blood Urea Nitrogen 20 mg/dL (7-20) Creatinine 1.1 mg/dL (0.6-1.0) H Estimated GFR (Cockcroft-Gault) 61.9 BUN/Creatinine Ratio 18 (6-20) Glucose Level 97 mg/dL (70-99) Calcium Level 9.7 mg/dL (8.5-10.1) Magnesium Level 2.1 mg/dL (1.8-2.4) Total Bilirubin 0.2 mg/dL (0.2-1.0) Aspartate Amino Transferase (AST) 17 U/L (15-37) Alanine Aminotransferase (ALT) 22 U/L (14-59) Alkaline Phosphatase 100 U/L (46-116) Total Protein 7.5 g/dL (6.4-8.2) Albumin 4.5 g/dL (3.4-5.0) Albumin/Globulin Ratio 1.5 (1.0-1.7) Lipase 142 U/L (73-393) Salicylates Level < 2.8 mg/dL (2.8-20.0) L Salicylate Last Dose Date Unk Salicylate Last Dose Time Unk Ethyl Alcohol Level < 10 mg/dL (0-10) Laboratory Tests 03/22/21 19:47 Laboratory Tests 03/22/21 19:47 Vital Signs: Vital Signs Date Time Temp Pulse Resp B/P (MAP) Pulse Ox O2 Delivery O2 Flow Rate FiO2 03/22/21 17:28 98.7 103 16 173/104 (127) 97 Room Air 98.7 EKG: EKG: [] Radiology/Procedures: Radiology/Procedures: [] Course & Med Decision Making: Course & Med Decision Making Pertinent Labs and Imaging studies reviewed. (See chart for details) This is a 55-year-old female patient who presents to the ED today for psych evaluation. EMS state patient is supposed to go to geriatric psych facility. Of note this patient was at in the hospital March 16, 2021 and signed out AGAINST MEDICAL ADVICE, she was in the hospital on March 18, 2021 and signed out AGAINST MEDICAL ADVICE. Currently she has no complaints. She was coming the ED for a while then she started requesting to go home. Cathy from the pat team came, she spoke to patient's daughter who came and picked patient and stated she will stay with the patient tonight and try and figure out what to do for her to reduce her visits to the Ed. Ranulfo Disclaimer: Ranulfo Disclaimer: This electronic medical record was generated, in whole or in part, using a voice recognition dictation system. Departure Departure Impression: Primary Impression: Confusion Additional Impression: Psychological assessment Disposition: 01 HOME / SELF CARE / HOMELESS Condition: STABLE Referrals: UNKNOWN PCP NAME (PCP) follow up with your doctor as soon as possible Patient Instructions: Psychosis Additional Instructions: Please follow-up with your own doctor in the next 1 week. SANDRA JOY COVER REMOVER March 22, 2021 21:29
== END 2021-03-22 21:35 | disposition home or self-care (01) ==
LOC: ER 17:14
DX: R41.0 Disorientation, unspecified (principal); Z04.6 Encounter for general psychiatric examination, requested by authority; I10 Essential (primary) hypertension; F03.90 Unspecified dementia, unspecified severity, without behavioral disturbance, psychotic disturbance, mood disturbance, and anxiety; F17.200 Nicotine dependence, unspecified, uncomplicated; Z86.73 Personal history of transient ischemic attack (TIA), and cerebral infarction without residual deficits; Z90.710 Acquired absence of both cervix and uterus; Z90.89 Acquired absence of other organs
CPT/HCPCS: 36415; 80053; 80329; 83690; 83735; 85025; 99283; G0480

== ENCOUNTER → 2021-09-07 | Outpatient (CLI) | payer OTHER ==
[~2021-09-07] MED LIST changes: -QUET25TA PO; +QUET25TA3 PO
--- NOTE | 2021-09-07 08:54 | RAD ---
XR KNEE 3 VIEWS_RT History: Reason: PT STATES SHE HAD SEIZURE 2 YRS AGO, RIGHT KNEE PAIN SINCE / Spl. Instructions: / H istory: Technique: 3 views right knee Comparison: None. Findings: Right knee DJD most advanced within the medial compartment with marginal osteophyte formation, joint space narrowing and sclerosis. No significant knee joint effusion. Notification. No acute fracture. Impression: 1. Advanced right knee DJD. Electronically signed by: Vicente Archuleta DO (09/07/2021 8:52 AM) [id number]
== END ==
LOC: RAD 08:21
PROVIDERS: ATTEND Family Medicine
DX: M17.11 Unilateral primary osteoarthritis, right knee (principal); M25.761 Osteophyte, right knee; M25.861 Other specified joint disorders, right knee
CPT/HCPCS: 73562